=== PATIENT | female | born 1955 | race Two or more races ===

== ENCOUNTER 2016-04-17 09:33 | Emergency (ER) | payer OTHER ==
[~2016-04-17 09:33] MED LIST: ADV500INH INH; ALBU17IN INH; ASPI81TA GT; ATOR40TA PO; BREO1INH3 INH; BUPR150T5 PO; CARV6.25 PO; CILO50TA PO; DIGO0.25 PO; DULE200A INH; EFFE75CA75 PO; ELIQ5TAB PO; FERR325T3 PO; FOLI1TAB2 PO; GABA-279 PO; GEMF600T PO; GLIP2.5T6 PO; INCR1INH INH; IPRASOL4 INH; LISI10TA4 PO; MELA3CAP PO; NICO14PA TD; NITR4TASL SL; PANT40TA2 PO; TIOT18INH INH
[2016-04-17 10:25] LABS: BASO % 0.5 % (0.0-1.0); EOS # 0.1 K/mm3 (0.0-0.50); EOS % 1.5 % (0.0-3.0); LARGE UNSTAINED CELL # 0.1 K/mm3 (0.0-0.4); LARGE UNSTAINED CELL % 2.2 % (0.0-4.0); LYMPH % 19.5 % (24.0-44.0); MEAN CORPUSCULAR HEMOGLOBIN 28.2 pg (27.0-33.0); MEAN CORPUSCULAR HGB CONC 30.2 g/dl (32.0-36.5); MEAN CORPUSCULAR VOLUME 93.3 fl (80.0-96.0); MONO # 0.3 K/mm3 (0.0-0.8); MONO % 5.8 % (0.0-5.0); NEUTROPHILS # 3.7 K/mm3 (1.8-7.7); NEUTROPHILS % 70.5 % (36.0-66.0); PLATELET COUNT, AUTOMATED 165 k/mm3 (150-450); RED CELL DISTRIBUTION WIDTH 19.8 % (11.5-14.5); WHITE BLOOD COUNT 5.3 K/mm3 (4.0-10.0)
[2016-04-17 10:51] LABS: ANION GAP 9 MEQ/L (8-16); AST/SGOT 23 U/L (15-37); BLOOD UREA NITROGEN 12 MG/DL (7-18); CALCIUM LEVEL 8.3 MG/DL (8.5-10.1); CARBON DIOXIDE LEVEL 30 MEQ/L (21-32); CHLORIDE LEVEL 106 MEQ/L (98-107); CREATININE FOR GFR 0.92 MG/DL (0.55-1.02); GLOMERULAR FILTRATION RATE > 60.0 (>51); GLUCOSE, FASTING 173 MG/DL (70-105); POTASSIUM SERUM 3.6 MEQ/L (3.5-5.1); SODIUM LEVEL 145 MEQ/L (136-145)
[2016-04-17 10:52] LABS: ALBUMIN 3.1 GM/DL (3.2-5.2); ALBUMIN/GLOBULIN RATIO 1.11 (1.00-1.93); ALKALINE PHOSPHATASE 111 U/L (45-117); ALT/SGPT 23 U/L (12-78); BILIRUBIN,DIRECT 0.5 MG/DL (0.0-0.2); TOTAL PROTEIN 5.9 GM/DL (6.4-8.2)
[2016-04-17 12:08] LABS: ABG BASE EXCESS -0.2 (-2.0-2.0); ABG DEVICE NASAL CANN; ABG PARTIAL PRESSURE CO2 37.8 mmHg (35.0-45.0); ABG PARTIAL PRESSURE O2 148.3 mmHg (75.0-100.0); ABG STANDARD HCO3 24.4 MEQ/L (22.0-26.0); ABG TOTAL CO2 25.2 MEQ/L (22.0-29.0); ABG pH (ARTERIAL) 7.421 UNITS (7.350-7.450)
[2016-04-17] MEDS ORDERED: FUROSEMIDE 40 MG/4 ML VIAL (J1940) As Ordered ONE (14:36)
--- NOTE | 2016-04-17 15:06 | EDDOCDS ---
Physician Documentation [facility] Name: Maria Antonia Aj Age: 60 yrs Sex: Female : 1955 Arrival Date: 04/17/2016 Time: 09:33 Bed 15 Private MD: Jared Dobbs MD Disposition: 04/17/16 14:51 Discharged to Home/Self Care. Impression: Confusional arousals, Altered mental status, unspecified, Urinary tract infection, site not specified, Chronic diastolic (congestive) heart failure, Shortness of breath. - Condition is Stable. - Discharge Instructions: Heart Failure, Shortness of Breath, [id number], Urinary Tract Infection, [id number], Altered Mental Status. - Prescriptions for Macrobid 100 mg Oral Capsule - take 100 milligram by ORAL route every 12 hours for 10 days; 20 capsule. - Medication Reconciliation, Local Pharmacy Hours form. - Follow up: Fco Mcgraw; When: Call to arrange an appointment; Reason: Continuance of care. - Problem is an ongoing problem. - Symptoms are unchanged. - Notes: You have been evaluated for your periods of confusion, and shortness of breath. I have offered to complete a CT scan of your abdomen but you do not want to stay for further evalutation. You have some signs of a urinary tract infection an elevated basic naturetic peptide (a marker for Congestive Heart Failure), but a normal chest xray. I haveoffered to keep you in the ED for further evaluation, and possible admission, but you do not want to stay. I have explained the risks and benifits of admission and further evaluation, but you would like to go home. I have asked you to follow up with your primary care provider, your intake rn or return immediately to the ED if your symptoms worsen. Historical: - Allergies: no known allergies; - Home Meds: 1. albuterol sulfate 1.25 mg/3 mL inhalation nebu daily 2. atorvastatin 40 mg oral tab 1 tab once daily 3. bupropion HCl 150 mg Oral TbER 1 tab 2 times per day 4. cilostazol 50 mg oral tab 1 tab 2 times per day 5. Dulera 200-5 mcg/actuation inhalation HFAA 2 puffs 2 times per day needs new rx 6. ferrous sulfate 325 mg (65 mg iron) Oral cpER daily 7. folic acid 1 mg Oral tab 1 tab once daily 8. gabapentin 100 mg Oral cap 5 times daily 9. gemfibrozil 600 mg Oral tab 1 tab 2 times per day 10. glipizide 2.5 mg Oral tr24 once daily 11. melatonin 3 mg Oral tab nightly 12. pantoprazole 40 mg oral TbEC 1 tab once daily 13. venlafaxine 75 mg oral cp24 1 cap once daily 14. Vitamin B-12 500 mcg Oral tab daily 15. Vitamin C 500 mg Oral cpER daily 16. Nitrostat 0.4 mg SL subl 1 tab every 5 minutes - PMHx: COPD; Diabetes - NIDDM: controlled; GERD; Hypercholesterolemia; Hypertension; Pneumonia; Stage 4 concussion; - PSHx: Left hand surgery; Cholecystectomy; Hysterectomy; - Social history: Smoking status: Patient uses tobacco products, current every day smoker. No barriers to communication noted, The patient speaks fluent Czech. - Family history: Not pertinent. - : The pt / caregiver states he / she is not on anticoagulants. Home medication list is obtained from the patient. - Exposure Risk Screening:: None identified. Vital Signs: 04/17 09:34 BP 128 / 87; Pulse 94; Resp 18; Temp 97.3(O); Pulse Ox 95% on R/A; Weight 81.65 kg / elp 180.01 lbs (R); Height 5 ft. 4 in. (162.56 cm) (R); Pain 5/10; 10:33 BP 147 / 89 (auto/); ead 10:40 Pulse 90 MON; Resp 20; Pulse Ox 94% on R/A; ead 10:48 Pulse 88 MON; Pulse Ox 99% ; ead 10:48 BP 150 / 100 (auto/); ead 11:03 BP 144 / 95 (auto/); ead 11:03 Pulse 88 MON; Pulse Ox 100% ; ead 11:18 BP 140 / 89 (auto/); ead 11:18 Pulse 88 MON; Resp 18; Pulse Ox 100% 2 lpm ; ead 11:35 BP 126 / 80 (auto/); ead 11:38 Pulse 90 MON; Pulse Ox 100% ; ead 11:48 BP 135 / 85 (auto/); ead 11:48 Pulse 86 MON; Resp 18; Pulse Ox 100% on 2 lpm NC; ead 12:03 BP 136 / 80 (auto/); ead 12:03 Pulse 86 MON; Pulse Ox 95% ; ead 12:18 BP 129 / 75 (auto/); ead 12:23 Pulse 86 MON; Pulse Ox 99% ; ead 12:33 BP 158 / 77 (auto/); ead 12:33 Pulse 86 MON; Pulse Ox 98% ; ead 12:48 BP 156 / 79 (auto/); ead 12:48 Pulse 86 MON; Pulse Ox 99% ; ead 13:06 Pulse 84 MON; Resp 18; Pulse Ox 99% on 2 lpm NC; ead 13:18 BP 141 / 92 (auto/); ead 13:18 Pulse 84 MON; ead 13:33 BP 146 / 75 (auto/); ead 13:34 Pulse 84 MON; Resp 18; Pulse Ox 97% on 2 lpm NC; ead 13:48 BP 141 / 87 (auto/); ead 13:48 Pulse 84 MON; Pulse Ox 98% ; ead 14:03 BP 131 / 85 (auto/); ead 14:03 Pulse 84 MON; Pulse Ox 100% ; ead 14:18 BP 135 / 85 (auto/); ead 14:18 Pulse 84 MON; Resp 20; Pulse Ox 99% on 2 lpm NC; ead 14:33 BP 128 / 77 (auto/); ead 14:33 Pulse 84 MON; Pulse Ox 99% ; ead 14:48 BP 132 / 84 (auto/); ead 14:48 Pulse 82 MON; Pulse Ox 98% ; ead 14:57 Resp 20; Temp 97.1(O); ead 09:34 Body Mass Index 30.90 (81.65 kg, 162.56 cm) elp MDM: 10:13 Knowledge Architect/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 fg 10:13 Accucheck ordered. fg 10:13 IV Saline Lock ordered. fg 10:13 Oxygen at 4L/Min NC or Home dosage ordered. fg 10:13 Rhythm Strip to chart ordered. fg 10:14 CBC with Diff Ordered. EDMS 10:14 Cardiac Injury Profile Ordered. EDMS 10:14 Liver Profile Ordered. EDMS 10:14 MED Profile Ordered. EDMS 10:14 Thyroid Stimulating Hormone Ordered. EDMS 10:14 Troponin Ordered. EDMS 10:14 Urinalysis Ordered. EDMS 10:14 Urine Culture Ordered. EDMS 10:14 CT Head Without Contrast Ordered. EDMS 10:14 ECG WITH READING ER PHYS+CARDIAG ordered. EDMS 10:15 Chest, 1 View Ordered. EDMS 11:19 [facility] Payment Agreement was scanned into [employer] and attached to record. jp5 11:19 Financial registration complete. jp5 11:44 Call Respiratory ordered. fg 11:44 -Arterial Blood Gas Ordered. EDMS 11:44 BNP Ordered. EDMS 11:45 Call Respiratory complete. ead 14:23 Furosemide 40 mg IVP once ordered. fg Administered Medications: 14:42 Drug: Furosemide 40 mg [furosemide 10 mg/mL injection solution (4 mL)] Route: IVP; ead Site: left antecubital; 14:58 Follow up: Response: No Adverse Reaction ead Signatures: Dispatcher [employer] EDTX Francine Salazar RN Angelika Harrison RN RN ead Price, Jennalee jp5 Jerica Thompson MD MD The chart was reviewed and I authenticate all verbal orders and agree with the evaluation and treatment provided.Attachments: 11:19 [facility] Payment Agreement jp5 MTDD
--- NOTE | 2016-04-17 15:06 | EDDOCDS ---
Nurse's Notes [facility] Name: Maria Antonia Aj Age: 60 yrs Sex: Female : 1955 Arrival Date: 04/17/2016 Time: 09:33 Bed 15 Private MD: Jared Dobbs MD Diagnosis: Confusional arousals;Altered mental status, unspecified;Urinary tract infection, site not specified;Chronic diastolic (congestive) heart failure;Shortness of breath Presentation: 04/17 09:39 Presenting complaint: Patient states: fall down stairs this past Monday denies LOC, jjr pain to lower abd and right shoulder since fall, sister reports looking for things that arent there slurred speech and drowsiness since fall. Adult Sepsis Screening: Patient has new or worsening altered mentation (1 point). Patient's respiratory rate is less than 22. Systolic blood pressure is greater than 100. Patient has a qSOFA score of 1- Negative Sepsis Screen. Suicide/Homicide risk assessment- the patient denies having any suicidal and/or homicidal ideations and does not present with any other emotional, behavioral or mental health complaints. Status: Patient is not a auto service mechanic or dependent. Transition of care: patient was not received from another setting of care. 09:39 Method Of Arrival: Walkin/Carried/Asstd jjr 09:39 Acuity: RENATA Level 3 jjr Triage Assessment: 09:43 General: Appears in no apparent distress. Pain: Location: right lower quadrant, left jjr lower quadrant and anterior aspect of right shoulder. Pt Declines HIV testing. Neurological: Denies blurred vision headache. Historical: - Allergies: no known allergies; - Home Meds: 1. albuterol sulfate 1.25 mg/3 mL inhalation nebu daily 2. atorvastatin 40 mg oral tab 1 tab once daily 3. bupropion HCl 150 mg Oral TbER 1 tab 2 times per day 4. cilostazol 50 mg oral tab 1 tab 2 times per day 5. Dulera 200-5 mcg/actuation inhalation HFAA 2 puffs 2 times per day needs new rx 6. ferrous sulfate 325 mg (65 mg iron) Oral cpER daily 7. folic acid 1 mg Oral tab 1 tab once daily 8. gabapentin 100 mg Oral cap 5 times daily 9. gemfibrozil 600 mg Oral tab 1 tab 2 times per day 10. glipizide 2.5 mg Oral tr24 once daily 11. melatonin 3 mg Oral tab nightly 12. pantoprazole 40 mg oral TbEC 1 tab once daily 13. venlafaxine 75 mg oral cp24 1 cap once daily 14. Vitamin B-12 500 mcg Oral tab daily 15. Vitamin C 500 mg Oral cpER daily 16. Nitrostat 0.4 mg SL subl 1 tab every 5 minutes - PMHx: COPD; Diabetes - NIDDM: controlled; GERD; Hypercholesterolemia; Hypertension; Pneumonia; Stage 4 concussion; - PSHx: Left hand surgery; Cholecystectomy; Hysterectomy; - Social history: Smoking status: Patient uses tobacco products, current every day smoker. No barriers to communication noted, The patient speaks fluent French. - Family history: Not pertinent. - : The pt / caregiver states he / she is not on anticoagulants. Home medication list is obtained from the patient. - Exposure Risk Screening:: None identified. Screenin:40 Screening information is obtained from the patient. Fall risk: No risks identified. ead Assistance ADL's: requires no assistance with activities of daily living. Abuse/DV Screen: The patient / caregiver reports he/she is: not in a situation that causes fear, pain or injury. Nutritional screening: No deficits noted. home support is adequate. Assessment: 10:26 General: Appears in no apparent distress, comfortable, Behavior is appropriate for age, ead cooperative. Neurological: Level of Consciousness is awake, alert, obeys commands, Oriented to person, place, time. Cardiovascular: Chest pain is denied. Respiratory: Airway is patent Respiratory effort is even, unlabored. Respiratory: Denies shortness of breath. Derm: Skin is pink, warm & dry. 10:40 General: pt provided with specimen cup and instructed on order for UA. pt denies need ead to void at this time. . 11:29 General: pt ambulated to bathroom without difficulty. denies dizziness or pain. . ead 12:31 General: Appears in no apparent distress, comfortable, Behavior is appropriate for age, ead cooperative. Neurological: Level of Consciousness is awake, alert, Oriented to person, place, time. Respiratory: Airway is patent Respiratory effort is even, unlabored. Derm: Skin is pink, warm & dry. 13:35 General: Appears in no apparent distress, Behavior is appropriate for age, cooperative. ead Pain: Denies pain. Neurological: Level of Consciousness is awake, alert, obeys commands, Oriented to person, place, time. Cardiovascular: Rhythm is sinus rhythm Chest pain is denied. Respiratory: Airway is patent Respiratory effort is even, unlabored. Derm: Skin is pink, warm & dry. 14:23 General: Appears in no apparent distress, comfortable, Behavior is cooperative, pt and ead family awaiting results, Dr. Thompson aware. . Respiratory: Airway is patent Respiratory effort is even, unlabored. Derm: Skin is pink, warm & dry. Vital Signs: 09:34 BP 128 / 87; Pulse 94; Resp 18; Temp 97.3(O); Pulse Ox 95% on R/A; Weight 81.65 kg (R); elp Height 5 ft. 4 in. (162.56 cm) (R); Pain 5/10; 10:33 BP 147 / 89 (auto/); ead 10:40 Pulse 90 MON; Resp 20; Pulse Ox 94% on R/A; ead 10:48 Pulse 88 MON; Pulse Ox 99% ; ead 10:48 BP 150 / 100 (auto/); ead 11:03 BP 144 / 95 (auto/); ead 11:03 Pulse 88 MON; Pulse Ox 100% ; ead 11:18 BP 140 / 89 (auto/); ead 11:18 Pulse 88 MON; Resp 18; Pulse Ox 100% 2 lpm ; ead 11:35 BP 126 / 80 (auto/); ead 11:38 Pulse 90 MON; Pulse Ox 100% ; ead 11:48 BP 135 / 85 (auto/); ead 11:48 Pulse 86 MON; Resp 18; Pulse Ox 100% on 2 lpm NC; ead 12:03 BP 136 / 80 (auto/); ead 12:03 Pulse 86 MON; Pulse Ox 95% ; ead 12:18 BP 129 / 75 (auto/); ead 12:23 Pulse 86 MON; Pulse Ox 99% ; ead 12:33 BP 158 / 77 (auto/); ead 12:33 Pulse 86 MON; Pulse Ox 98% ; ead 12:48 BP 156 / 79 (auto/); ead 12:48 Pulse 86 MON; Pulse Ox 99% ; ead 13:06 Pulse 84 MON; Resp 18; Pulse Ox 99% on 2 lpm NC; ead 13:18 BP 141 / 92 (auto/); ead 13:18 Pulse 84 MON; ead 13:33 BP 146 / 75 (auto/); ead 13:34 Pulse 84 MON; Resp 18; Pulse Ox 97% on 2 lpm NC; ead 13:48 BP 141 / 87 (auto/); ead 13:48 Pulse 84 MON; Pulse Ox 98% ; ead 14:03 BP 131 / 85 (auto/); ead 14:03 Pulse 84 MON; Pulse Ox 100% ; ead 14:18 BP 135 / 85 (auto/); ead 14:18 Pulse 84 MON; Resp 20; Pulse Ox 99% on 2 lpm NC; ead 14:33 BP 128 / 77 (auto/); ead 14:33 Pulse 84 MON; Pulse Ox 99% ; ead 14:48 BP 132 / 84 (auto/); ead 14:48 Pulse 82 MON; Pulse Ox 98% ; ead 14:57 Resp 20; Temp 97.1(O); ead 09:34 Body Mass Index 30.90 (81.65 kg, 162.56 cm) elp Vitals: 09:34 Log In Time: April 17, 2016 at 09:32. RN notified that patient meets Red Flag elp criteria. ED Course: 09:34 Patient visited by Brittany Aggarwal PCA. elp 09:34 Jared Dobbs is Private Physician. elp 09:34 Patient moved to Waiting elp 09:35 Patient visited by Brittany Aggarwal PCA. elp 09:40 Triage Initiated jjr 09:44 Patient moved to Pre RCE jjr 09:53 Angelika Goodson,RN is Primary Nurse. jjr 09:53 Patient moved to 15 jjr 10:11 Jerica Thompson MD is Attending Physician. fg 10:15 Inserted saline lock: 20 gauge in left antecubital area and blood collected. The ead patient tolerated the procedure well. 10:17 Patient visited by Angelika Goodson,AUBREE. ead 10:17 CBC with Diff Sent. ead 10:17 Cardiac Injury Profile Sent. ead 10:17 Liver Profile Sent. ead 10:17 Troponin Sent. ead 10:17 Thyroid Stimulating Hormone Sent. ead 10:17 MED Profile Sent. ead 10:36 Patient visited by José Antonio Ortiz PCA. jrd 10:36 Pt greeted and oriented to ED. Patient advised of names of staff involved in care, jrd location of call chauhan, wait times and NPO status. Patient has correct armband on for positive identification. Placed in gown. Bed in low position. Call light in reach. Side rails up X2. monitoring tech on. Pulse ox on. NIBP on. 10:36 EKG done. (by ED staff). Reviewed by Jerica Thompson MD. jrd 10:40 The patient / caregiver is instructed regarding the plan of care and ED course. ead 10:40 O2 via nasal cannula \T\ 2L/min. ead 10:52 Patient visited by Jerica Thompson MD. fg 11:19 [facility] Payment Agreement was scanned into [employer] and attached to record. jp5 11:30 Patient visited by Angelika Goodson,AUBREE. ead 11:33 Urinalysis Sent. ead 11:33 Urine Culture Sent. ead 11:45 BNP Sent. ead 11:55 -Arterial Blood Gas Sent. km6 12:31 Patient visited by Angelika Goodson,AUBREE. ead 13:31 Patient visited by Angelika Goodson,AUBREE. ead 14:23 Patient visited by Angelika Goodson,AUBREE. ead 14:50 Fco Mcgraw is Referral Physician. fg 14:58 Discontinued lock intact, bleeding controlled, pressure dressing applied, No ead redness/swelling at site. No procedures done that require assistance. Administered Medications: 14:42 Drug: Furosemide 40 mg [furosemide 10 mg/mL injection solution (4 mL)] Route: IVP; ead Site: left antecubital; 14:58 Follow up: Response: No Adverse Reaction ead RT: 11:55 ABG's drawn from right brachial artery pressure held for 5 minutes specimen sent pt. km6 tolerated well. Order Results: Lab Order: CBC with Diff; SPEC'M 04/17/16 10:15 Test: WHITE BLOOD COUNT; Value: 5.3; Range: 4.0-10.0; Units: K/mm3; Status: F Test: RED BLOOD COUNT; Value: 4.41; Range: 4.00-5.40; Units: M/mm3; Status: F Test: HEMOGLOBIN; Value: 12.4; Range: 12.0-16.0; Units: g/dl; Status: F Test: HEMATOCRIT; Value: 41.1; Range: 36.0-47.0; Units: %; Status: F Test: MEAN CORPUSCULAR VOLUME; Value: 93.3; Range: 80.0-96.0; Units: fl; Status: F Test: MEAN CORPUSCULAR HEMOGLOBIN; Value: 28.2; Range: 27.0-33.0; Units: pg; Status: F Test: MEAN CORPUSCULAR HGB CONC; Value: 30.2; Range: 32.0-36.5; Abnormal: Below low normal; Units: g/dl; Status: F Test: RED CELL DISTRIBUTION WIDTH; Value: 19.8; Range: 11.5-14.5; Abnormal: Above high normal; Units: %; Status: F Test: PLATELET COUNT, AUTOMATED; Value: 165; Range: 150-450; Units: k/mm3; Status: F Test: NEUTROPHILS %; Value: 70.5; Range: 36.0-66.0; Abnormal: Above high normal; Units: %; Status: F Test: LYMPH %; Value: 19.5; Range: 24.0-44.0; Abnormal: Below low normal; Units: %; Status: F Test: MONO %; Value: 5.8; Range: 0.0-5.0; Abnormal: Above high normal; Units: %; Status: F Test: EOS %; Value: 1.5; Range: 0.0-3.0; Units: %; Status: F Test: BASO %; Value: 0.5; Range: 0.0-1.0; Units: %; Status: F Test: LARGE UNSTAINED CELL %; Value: 2.2; Range: 0.0-4.0; Units: %; Status: F Test: NEUTROPHILS #; Value: 3.7; Range: 1.8-7.7; Units: K/mm3; Status: F Test: LYMPH #; Value: 1.0; Range: 1.5-4.5; Abnormal: Below low normal; Units: K/mm3; Status: F Test: MONO #; Value: 0.3; Range: 0.0-0.8; Units: K/mm3; Status: F Test: EOS #; Value: 0.1; Range: 0.0-0.50; Units: K/mm3; Status: F Test: BASO #; Value: 0.0; Range: 0.0-0.2; Units: K/mm3; Status: F Test: LARGE UNSTAINED CELL #; Value: 0.1; Range: 0.0-0.4; Units: K/mm3; Status: F Lab Order: Cardiac Injury Profile; SPEC'M 04/17/16 10:15 Test: CPK CREATINE PHOSPHOKINASE; Value: 99; Range: 26-192; Units: U/L; Status: F Test: CK-MB VALUE MASS; Value: 3.9; Range: 0.0-3.6; Abnormal: Above high normal; Units: NG/ML; Status: F Test: MB/CK RELATIVE INDEX; Value: 3.93; Range: < OR =4; Status: F Test Note: ; DIAGNOSIS CRITERIA MMB ng/ml Relative Index (RI) NON-AMI < or = 5 N/A SCHWARZ ZONE > 5 < or = 4 AMI > 5 > 4 Lab Order: Liver Profile; SPEC'M 04/17/16 10:15 Test: AST/SGOT; Value: 23; Range: 15-37; Units: U/L; Status: F Test: ALT/SGPT; Value: 23; Range: 12-78; Units: U/L; Status: F Test: ALKALINE PHOSPHATASE; Value: 111; Range: 45-117; Units: U/L; Status: F Test: BILIRUBIN,TOTAL; Value: 1.0; Range: 0.2-1.0; Units: MG/DL; Status: F Test: BILIRUBIN,DIRECT; Value: 0.5; Range: 0.0-0.2; Abnormal: Above high normal; Units: MG/DL; Status: F Test: TOTAL PROTEIN; Value: 5.9; Range: 6.4-8.2; Abnormal: Below low normal; Units: GM/DL; Status: F Test: ALBUMIN; Value: 3.1; Range: 3.2-5.2; Abnormal: Below low normal; Units: GM/DL; Status: F Test: ALBUMIN/GLOBULIN RATIO; Value: 1.11; Range: 1.00-1.93; Status: F Lab Order: MED Profile; SPEC'04/17/16 10:15 Test: GLUCOSE, FASTING; Value: 173; Range: 70-105; Abnormal: Above high normal; Units: MG/DL; Status: F Test: BLOOD UREA NITROGEN; Value: 12; Range: 7-18; Units: MG/DL; Status: F Test: CREATININE FOR GFR; Value: 0.92; Range: 0.55-1.02; Units: MG/DL; Status: F Test: GLOMERULAR FILTRATION RATE; Value: > 60.0; Range: >51; Status: F Test: SODIUM LEVEL; Value: 145; Range: 136-145; Units: MEQ/L; Status: F Test: POTASSIUM SERUM; Value: 3.6; Range: 3.5-5.1; Units: MEQ/L; Status: F Test: CHLORIDE LEVEL; Value: 106; Range: 98-107; Units: MEQ/L; Status: F Test: CARBON DIOXIDE LEVEL; Value: 30; Range: 21-32; Units: MEQ/L; Status: F Test: ANION GAP; Value: 9; Range: 8-16; Units: MEQ/L; Status: F Test: CALCIUM LEVEL; Value: 8.3; Range: 8.5-10.1; Abnormal: Below low normal; Units: MG/DL; Status: F Test Note: ; Units are mL/min/1.73 m2 Chronic Kidney Disease Staging per NKF: Stage I & II GFR >=60 Normal to Mildly Decreased Stage III GFR 30-59 Moderately Decreased Stage IV GFR 15-29 Severely Decreased Stage V GFR <15 Very Little GFR Left ESRD GFR <15 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 0.10-1.50 ng/ml Increased Risk for Adverse Clinical Events. Evaluation of additional criterion and/or repeat testing in 2-6 hours is suggested to rule out myocardial damage. >= 1.50 ng/ml Indicative of Myocardial Injury. Lab Order: Urinalysis; SPEC'M 04/17/16 11:33 Test: APPEARANCE, URINE; Value: CLOUDY; Range: CLEAR; Abnormal: Above high normal; Status: F Test: COLOR, URINE; Value: YOSEF; Range: YELLOW; Status: F Test: PH,URINE; Value: 5.0; Range: 5.0-9.0; Units: UNITS; Status: F Test: SPECIFIC GRAVITY URINE AUTO; Value: 1.018; Range: 1.002-1.035; Status: F Test: PROTEIN, URINE AUTO; Value: 2+; Range: NEGATIVE; Abnormal: Above high normal; Units: mg/dL; Status: F Test: GLUCOSE, URINE (UA) AUTO; Value: NEGATIVE; Range: NEGATIVE; Units: mg/dL; Status: F Test: KETONE, URINE AUTO; Value: NEGATIVE; Range: NEGATIVE; Units: mg/dL; Status: F Test: UROBILINOGEN, URINE AUTO; Value: 2.0; Range: 0.0-2.0; Abnormal: Above high normal; Units: mg/dL; Status: F Test: BILIRUBIN, URINE AUTO; Value: NEGATIVE; Range: NEGATIVE; Status: F Test: NITRITE, URINE AUTO; Value: NEGATIVE; Range: NEGATIVE; Status: F Test: LEUKOCYTE ESTERASE, URINE AUTO; Value: 1+; Range: NEGATIVE; Abnormal: Above high normal; Status: F Test: BLOOD, URINE BLOOD; Value: 1+; Range: NEGATIVE; Abnormal: Above high normal; Status: F Test: WBC, URINE AUTO; Value: 5; Range: 0-3; Abnormal: Above high normal; Units: /HPF; Status: F Test: RBC, URINE AUTO; Value: 3; Range: 0-3; Units: /HPF; Status: F Test: BACTERIA, URINE AUTO; Value: NEGATIVE; Range: NEGATIVE; Status: F Test: SQUAMOUS EPITHELIAL CELL UR AU; Value: 2; Range: 0-6; Units: /HPF; Status: F Test: MUCUS, URINE; Value: SMALL; Range: NEGATIVE; Status: F Test: HYALINE CAST, URINE AUTO; Value: 0; Range: 0-1; Units: /LPF; Status: F Test: AMORPHOUS SEDIMENT; Range: NEGATIVE; Status: F Test Note: ; AMMONIUM BIURATE CRYSTALS PRESENT Lab Order: -Arterial Blood Gas; SPEC'M 04/17/16 11:48 Test: ABG pH (ARTERIAL); Value: 7.421; Range: 7.350-7.450; Units: UNITS; Status: F Test: ABG PARTIAL PRESSURE CO2; Value: 37.8; Range: 35.0-45.0; Units: mmHg; Status: F Test: ABG PARTIAL PRESSURE O2; Value: 148.3; Range: 75.0-100.0; Abnormal: Above high normal; Units: mmHg; Status: F Test: ABG TOTAL CO2; Value: 25.2; Range: 22.0-29.0; Units: MEQ/L; Status: F Test: ABG HCO3; Value: 24.0; Range: 22.0-26.0; Units: MEQ/L; Status: F Test: ABG BASE EXCESS; Value: -0.2; Range: -2.0-2.0; Status: F Test: ABG STANDARD HCO3; Value: 24.4; Range: 22.0-26.0; Units: MEQ/L; Status: F Test: ABG O2 SATURATION; Value: 99.3; Range: 95.0-99.0; Abnormal: Above high normal; Units: %; Status: F Test: ABG DEVICE; Value: NASAL KOFFI; Status: F Lab Order: BNP; SPEC'M 04/17/16 10:15 Test: BRAIN NATRIURETIC PEPTIDE; Value: 2490; Range: <100; Abnormal: Above high normal; Units: PG/ML; Status: F Outcome: 14:51 Discharge ordered by Provider. fg 14:58 Discharge Assessment: Patient awake and alert. obeys commands, Oriented to person, ead place and time. patient administered narcotics - no. The following High Risk Discharge criteria are identified: None. Discharged to home ambulatory, with family. Condition: improved. Discharge instructions given to patient, Instructed on discharge instructions, follow up and referral plans. medication usage, Demonstrated understanding of instructions, medications, Pt was receptive of discharge instructions/ teaching. CT Study completed. Property sent home with patient. 14:59 Prescriptions given X 1. ead 15:06 Patient left the ED. ead Signatures: Olinda Serra km6 Francine Salazar, RN RN Brittany Quiroga, STILL RUNNER STILL RUNNER Angelika Kerr,RN RN José Antonio Reyes, STILL RUNNER STILL RUNNER Kalli Chaudhary jp5 Jerica Thompson MD MD fg MTDD
--- NOTE | 2016-04-17 15:50 | ECGEPIP ---
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
--- NOTE | 2016-04-18 11:11 | REP ---
CT of the brain without IV contrast: Comparison is 2015. I suspect is a small right frontal scalp contusion. This should be confirmed clinically. There is no subdural or epidural hematoma. There is no hemorrhage. The cortical stripe is unremarkable. There is no edema, mass effect or midline shift. There is a degenerative falcine calcification anteriorly, unchanged. Impression: No subdural, hemorrhage, acute infarct or mass. Question small right frontal scalp contusion, please confirmed clinically. Otherwise, negative CT study of the brain. No interval change. Signed by Janak Lora MD 04/17/2016 10:30 A
--- NOTE | 2016-04-18 11:13 | REP ---
Chest a single PA view: Comparisons are 03/07/2016 and 03/06/2016. There is cardiomegaly and diffuse interstitial mild coarsening, unchanged. There are no focal infiltrates or masses. The osmar, mediastinum, bony thorax are unremarkable. Impression: No new or acute cardiopulmonary findings. There is cardiomegaly and mild interstitial coarsening, unchanged from the comparison studies. Signed by Janak Lora MD 04/17/2016 10:48 A
--- NOTE | 2016-04-19 16:05 | EDDOCDS ---
Physician Documentation [facility] Name: Maria Antonia Aj Age: 60 yrs Sex: Female : 1955 Arrival Date: 04/17/2016 Time: 09:33 Bed 15 Private MD: Jared Dobbs MD Disposition: 04/17/16 14:51 Discharged to Home/Self Care. Impression: Confusional arousals, Altered mental status, unspecified, Urinary tract infection, site not specified, Chronic diastolic (congestive) heart failure, Shortness of breath. - Condition is Stable. - Discharge Instructions: Heart Failure, Shortness of Breath, [id number], Urinary Tract Infection, Eilj-[id number], Altered Mental Status. - Prescriptions for Macrobid 100 mg Oral Capsule - take 100 milligram by ORAL route every 12 hours for 10 days; 20 capsule. - Medication Reconciliation, Local Pharmacy Hours form. - Follow up: Fco Mcgraw; When: Call to arrange an appointment; Reason: Continuance of care. - Problem is an ongoing problem. - Symptoms are unchanged. - Notes: You have been evaluated for your periods of confusion, and shortness of breath. I have offered to complete a CT scan of your abdomen but you do not want to stay for further evalutation. You have some signs of a urinary tract infection an elevated basic naturetic peptide (a marker for Congestive Heart Failure), but a normal chest xray. I haveoffered to keep you in the ED for further evaluation, and possible admission, but you do not want to stay. I have explained the risks and benifits of admission and further evaluation, but you would like to go home. 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 Historical: - Allergies: no known allergies; - Home Meds: 1. albuterol sulfate 1.25 mg/3 mL inhalation nebu daily 2. atorvastatin 40 mg oral tab 1 tab once daily 3. bupropion HCl 150 mg Oral TbER 1 tab 2 times per day 4. cilostazol 50 mg oral tab 1 tab 2 times per day 5. Dulera 200-5 mcg/actuation inhalation HFAA 2 puffs 2 times per day needs new rx 6. ferrous sulfate 325 mg (65 mg iron) Oral cpER daily 7. folic acid 1 mg Oral tab 1 tab once daily 8. gabapentin 100 mg Oral cap 5 times daily 9. gemfibrozil 600 mg Oral tab 1 tab 2 times per day 10. glipizide 2.5 mg Oral tr24 once daily 11. melatonin 3 mg Oral tab nightly 12. pantoprazole 40 mg oral TbEC 1 tab once daily 13. venlafaxine 75 mg oral cp24 1 cap once daily 14. Vitamin B-12 500 mcg Oral tab daily 15. Vitamin C 500 mg Oral cpER daily 16. Nitrostat 0.4 mg SL subl 1 tab every 5 minutes - PMHx: COPD; Diabetes - NIDDM: controlled; GERD; Hypercholesterolemia; Hypertension; Pneumonia; Stage 4 concussion; - PSHx: Left hand surgery; Cholecystectomy; Hysterectomy; - Social history: Smoking status: Patient uses tobacco products, current every day smoker. No barriers to communication noted, The patient speaks fluent Belarusian. - Family history: Not pertinent. - : The pt / caregiver states he / she is not on anticoagulants. Home medication list is obtained from the patient. - Exposure Risk Screening:: None identified. Vital Signs: 04/17 09:34 BP 128 / 87; Pulse 94; Resp 18; Temp 97.3(O); Pulse Ox 95% on R/A; Weight 81.65 kg / elp 180.01 lbs (R); Height 5 ft. 4 in. (162.56 cm) (R); Pain 5/10; 10:33 BP 147 / 89 (auto/); ead 10:40 Pulse 90 MON; Resp 20; Pulse Ox 94% on R/A; ead 10:48 Pulse 88 MON; Pulse Ox 99% ; ead 10:48 BP 150 / 100 (auto/); ead 11:03 BP 144 / 95 (auto/); ead 11:03 Pulse 88 MON; Pulse Ox 100% ; ead 11:18 BP 140 / 89 (auto/); ead 11:18 Pulse 88 MON; Resp 18; Pulse Ox 100% 2 lpm ; ead 11:35 BP 126 / 80 (auto/); ead 11:38 Pulse 90 MON; Pulse Ox 100% ; ead 11:48 BP 135 / 85 (auto/); ead 11:48 Pulse 86 MON; Resp 18; Pulse Ox 100% on 2 lpm NC; ead 12:03 BP 136 / 80 (auto/); ead 12:03 Pulse 86 MON; Pulse Ox 95% ; ead 12:18 BP 129 / 75 (auto/); ead 12:23 Pulse 86 MON; Pulse Ox 99% ; ead 12:33 BP 158 / 77 (auto/); ead 12:33 Pulse 86 MON; Pulse Ox 98% ; ead 12:48 BP 156 / 79 (auto/); ead 12:48 Pulse 86 MON; Pulse Ox 99% ; ead 13:06 Pulse 84 MON; Resp 18; Pulse Ox 99% on 2 lpm NC; ead 13:18 BP 141 / 92 (auto/); ead 13:18 Pulse 84 MON; ead 13:33 BP 146 / 75 (auto/); ead 13:34 Pulse 84 MON; Resp 18; Pulse Ox 97% on 2 lpm NC; ead 13:48 BP 141 / 87 (auto/); ead 13:48 Pulse 84 MON; Pulse Ox 98% ; ead 14:03 BP 131 / 85 (auto/); ead 14:03 Pulse 84 MON; Pulse Ox 100% ; ead 14:18 BP 135 / 85 (auto/); ead 14:18 Pulse 84 MON; Resp 20; Pulse Ox 99% on 2 lpm NC; ead 14:33 BP 128 / 77 (auto/); ead 14:33 Pulse 84 MON; Pulse Ox 99% ; ead 14:48 BP 132 / 84 (auto/); ead 14:48 Pulse 82 MON; Pulse Ox 98% ; ead 14:57 Resp 20; Temp 97.1(O); ead 09:34 Body Mass Index 30.90 (81.65 kg, 162.56 cm) elp MDM: 10:13 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 fg 10:13 Accucheck ordered. fg 10:13 IV Saline Lock ordered. fg 10:13 Oxygen at 4L/Min NC or Home dosage ordered. fg 10:13 Rhythm Strip to chart ordered. fg 10:14 CBC with Diff Ordered. EDMS 10:14 Cardiac Injury Profile Ordered. EDMS 10:14 Liver Profile Ordered. EDMS 10:14 MED Profile Ordered. EDMS 10:14 Thyroid Stimulating Hormone Ordered. EDMS 10:14 Troponin Ordered. EDMS 10:14 Urinalysis Ordered. EDMS 10:14 Urine Culture Ordered. EDMS 10:14 CT Head Without Contrast Ordered. EDMS 10:14 ECG WITH READING ER PHYS+CARDIAG ordered. EDMS 10:15 Chest, 1 View Ordered. EDMS 11:19 [facility] Payment Agreement was scanned into [employer] and attached to record. jp5 11:19 Financial registration complete. jp5 11:44 Call Respiratory ordered. fg 11:44 -Arterial Blood Gas Ordered. EDMS 11:44 BNP Ordered. EDMS 11:45 Call Respiratory complete. ead 14:23 Furosemide 40 mg IVP once ordered. fg 18:31 T-Sheet-- Draft Copy was scanned into [employer] and attached to record. r 04/18 10:37 ECG/EKG was scanned into [employer] and attached to record. gb Administered Medications: 04/17 14:42 Drug: Furosemide 40 mg [furosemide 10 mg/mL injection solution (4 mL)] Route: IVP; ead Site: left antecubital; 14:58 Follow up: Response: No Adverse Reaction ead Signatures: Dispatcher [employer] EDMS Teetee Carranza, Reg Reg gb Francine Salazar, RN RN Angelika LiconaRN RN kareemd Kalli Souza jp5 Jerica Thompson MD MD fg Redder, Kathie klr The chart was reviewed and I authenticate all verbal orders and agree with the evaluation and treatment provided.Attachments: 11:19 [facility] Payment Agreement 5 18:31 T-Sheet-- Draft Copy [facility] 04/18 10:37 ECG/EKG gb MTDD
--- NOTE | 2016-04-19 16:05 | EDDOCDS ---
Physician Documentation [facility] Name: Maria Antonia Aj Age: 60 yrs Sex: Female : 1955 Arrival Date: 04/17/2016 Time: 09:33 Bed 15 Private MD: Jared Dobbs MD Disposition: 04/17/16 14:51 Discharged to Home/Self Care. Impression: Confusional arousals, Altered mental status, unspecified, Urinary tract infection, site not specified, Chronic diastolic (congestive) heart failure, Shortness of breath. - Condition is Stable. - Discharge Instructions: Heart Failure, Shortness of Breath, [id number], Urinary Tract Infection, Uqdw-gr-Wudh, Altered Mental Status. - Prescriptions for Macrobid 100 mg Oral Capsule - take 100 milligram by ORAL route every 12 hours for 10 days; 20 capsule. - Medication Reconciliation, Local Pharmacy Hours form. - Follow up: Fco Mcgraw; When: Call to arrange an appointment; Reason: Continuance of care. - Problem is an ongoing problem. - Symptoms are unchanged. - Notes: You have been evaluated for your periods of confusion, and shortness of breath. I have offered to complete a CT scan of your abdomen but you do not want to stay for further evalutation. You have some signs of a urinary tract infection an elevated basic naturetic peptide (a marker for Congestive Heart Failure), but a normal chest xray. I haveoffered to keep you in the ED for further evaluation, and possible admission, but you do not want to stay. I have explained the risks and benifits of admission and further evaluation, but you would like to go home. 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 Historical: - Allergies: no known allergies; - Home Meds: 1. albuterol sulfate 1.25 mg/3 mL inhalation nebu daily 2. atorvastatin 40 mg oral tab 1 tab once daily 3. bupropion HCl 150 mg Oral TbER 1 tab 2 times per day 4. cilostazol 50 mg oral tab 1 tab 2 times per day 5. Dulera 200-5 mcg/actuation inhalation HFAA 2 puffs 2 times per day needs new rx 6. ferrous sulfate 325 mg (65 mg iron) Oral cpER daily 7. folic acid 1 mg Oral tab 1 tab once daily 8. gabapentin 100 mg Oral cap 5 times daily 9. gemfibrozil 600 mg Oral tab 1 tab 2 times per day 10. glipizide 2.5 mg Oral tr24 once daily 11. melatonin 3 mg Oral tab nightly 12. pantoprazole 40 mg oral TbEC 1 tab once daily 13. venlafaxine 75 mg oral cp24 1 cap once daily 14. Vitamin B-12 500 mcg Oral tab daily 15. Vitamin C 500 mg Oral cpER daily 16. Nitrostat 0.4 mg SL subl 1 tab every 5 minutes - PMHx: COPD; Diabetes - NIDDM: controlled; GERD; Hypercholesterolemia; Hypertension; Pneumonia; Stage 4 concussion; - PSHx: Left hand surgery; Cholecystectomy; Hysterectomy; - Social history: Smoking status: Patient uses tobacco products, current every day smoker. No barriers to communication noted, The patient speaks fluent Greenlandic. - Family history: Not pertinent. - : The pt / caregiver states he / she is not on anticoagulants. Home medication list is obtained from the patient. - Exposure Risk Screening:: None identified. Vital Signs: 04/17 09:34 BP 128 / 87; Pulse 94; Resp 18; Temp 97.3(O); Pulse Ox 95% on R/A; Weight 81.65 kg / elp 180.01 lbs (R); Height 5 ft. 4 in. (162.56 cm) (R); Pain 5/10; 10:33 BP 147 / 89 (auto/); ead 10:40 Pulse 90 MON; Resp 20; Pulse Ox 94% on R/A; ead 10:48 Pulse 88 MON; Pulse Ox 99% ; ead 10:48 BP 150 / 100 (auto/); ead 11:03 BP 144 / 95 (auto/); ead 11:03 Pulse 88 MON; Pulse Ox 100% ; ead 11:18 BP 140 / 89 (auto/); ead 11:18 Pulse 88 MON; Resp 18; Pulse Ox 100% 2 lpm ; ead 11:35 BP 126 / 80 (auto/); ead 11:38 Pulse 90 MON; Pulse Ox 100% ; ead 11:48 BP 135 / 85 (auto/); ead 11:48 Pulse 86 MON; Resp 18; Pulse Ox 100% on 2 lpm NC; ead 12:03 BP 136 / 80 (auto/); ead 12:03 Pulse 86 MON; Pulse Ox 95% ; ead 12:18 BP 129 / 75 (auto/); ead 12:23 Pulse 86 MON; Pulse Ox 99% ; ead 12:33 BP 158 / 77 (auto/); ead 12:33 Pulse 86 MON; Pulse Ox 98% ; ead 12:48 BP 156 / 79 (auto/); ead 12:48 Pulse 86 MON; Pulse Ox 99% ; ead 13:06 Pulse 84 MON; Resp 18; Pulse Ox 99% on 2 lpm NC; ead 13:18 BP 141 / 92 (auto/); ead 13:18 Pulse 84 MON; ead 13:33 BP 146 / 75 (auto/); ead 13:34 Pulse 84 MON; Resp 18; Pulse Ox 97% on 2 lpm NC; ead 13:48 BP 141 / 87 (auto/); ead 13:48 Pulse 84 MON; Pulse Ox 98% ; ead 14:03 BP 131 / 85 (auto/); ead 14:03 Pulse 84 MON; Pulse Ox 100% ; ead 14:18 BP 135 / 85 (auto/); ead 14:18 Pulse 84 MON; Resp 20; Pulse Ox 99% on 2 lpm NC; ead 14:33 BP 128 / 77 (auto/); ead 14:33 Pulse 84 MON; Pulse Ox 99% ; ead 14:48 BP 132 / 84 (auto/); ead 14:48 Pulse 82 MON; Pulse Ox 98% ; ead 14:57 Resp 20; Temp 97.1(O); ead 09:34 Body Mass Index 30.90 (81.65 kg, 162.56 cm) elp MDM: 10:13 Truck 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 fg 10:13 Accucheck ordered. fg 10:13 IV Saline Lock ordered. fg 10:13 Oxygen at 4L/Min NC or Home dosage ordered. fg 10:13 Rhythm Strip to chart ordered. fg 10:14 CBC with Diff Ordered. EDMS 10:14 Cardiac Injury Profile Ordered. EDMS 10:14 Liver Profile Ordered. EDMS 10:14 MED Profile Ordered. EDMS 10:14 Thyroid Stimulating Hormone Ordered. EDMS 10:14 Troponin Ordered. EDMS 10:14 Urinalysis Ordered. EDMS 10:14 Urine Culture Ordered. EDMS 10:14 CT Head Without Contrast Ordered. EDMS 10:14 ECG WITH READING ER PHYS+CARDIAG ordered. EDMS 10:15 Chest, 1 View Ordered. EDMS 11:19 [facility] Payment Agreement was scanned into [employer] and attached to record. jp5 11:19 Financial registration complete. jp5 11:44 Call Respiratory ordered. fg 11:44 -Arterial Blood Gas Ordered. EDMS 11:44 BNP Ordered. EDMS 11:45 Call Respiratory complete. ead 14:23 Furosemide 40 mg IVP once ordered. fg 18:31 T-Sheet-- Draft Copy was scanned into [employer] and attached to record. r 04/18 10:37 ECG/EKG was scanned into [employer] and attached to record. gb Administered Medications: 04/17 14:42 Drug: Furosemide 40 mg [furosemide 10 mg/mL injection solution (4 mL)] Route: IVP; ead Site: left antecubital; 14:58 Follow up: Response: No Adverse Reaction ead Signatures: Dispatcher [employer] EDMS Teetee Carranza, Reg Reg gb Francine Salazar, RN RN Angelika LiconaRN RN kareemd Kalli Souza jp5 Jerica Thompson MD MD fg Redder, Kathie klr The chart was reviewed and I authenticate all verbal orders and agree with the evaluation and treatment provided.Attachments: 11:19 [facility] Payment Agreement 5 18:31 T-Sheet-- Draft Copy [facility] 04/18 10:37 ECG/EKG gb MTDD
--- NOTE | 2016-04-19 16:07 | EDDOCDS ---
Nurse's Notes [facility] Name: Maria Antonia Martin Age: 60 yrs Sex: Female : 1955 Arrival Date: 04/17/2016 Time: 09:33 Bed 15 Private MD: Jared Dobbs MD Diagnosis: Confusional arousals;Altered mental status, unspecified;Urinary tract infection, site not specified;Chronic diastolic (congestive) heart failure;Shortness of breath Presentation: 04/17 09:39 Presenting complaint: Patient states: fall down stairs this past Monday denies LOC, jjr pain to lower abd and right shoulder since fall, sister reports looking for things that arent there slurred speech and drowsiness since fall. Adult Sepsis Screening: Patient has new or worsening altered mentation (1 point). Patient's respiratory rate is less than 22. Systolic blood pressure is greater than 100. Patient has a qSOFA score of 1- Negative Sepsis Screen. Suicide/Homicide risk assessment- the patient denies having any suicidal and/or homicidal ideations and does not present with any other emotional, behavioral or mental health complaints. Status: Patient is not a diesel service technician or dependent. Transition of care: patient was not received from another setting of care. 09:39 Method Of Arrival: Walkin/Carried/Asstd jjr 09:39 Acuity: RENATA Level 3 jjr Triage Assessment: 09:43 General: Appears in no apparent distress. Pain: Location: right lower quadrant, left jjr lower quadrant and anterior aspect of right shoulder. Pt Declines HIV testing. Neurological: Denies blurred vision headache. Historical: - Allergies: no known allergies; - Home Meds: 1. albuterol sulfate 1.25 mg/3 mL inhalation nebu daily 2. atorvastatin 40 mg oral tab 1 tab once daily 3. bupropion HCl 150 mg Oral TbER 1 tab 2 times per day 4. cilostazol 50 mg oral tab 1 tab 2 times per day 5. Dulera 200-5 mcg/actuation inhalation HFAA 2 puffs 2 times per day needs new rx 6. ferrous sulfate 325 mg (65 mg iron) Oral cpER daily 7. folic acid 1 mg Oral tab 1 tab once daily 8. gabapentin 100 mg Oral cap 5 times daily 9. gemfibrozil 600 mg Oral tab 1 tab 2 times per day 10. glipizide 2.5 mg Oral tr24 once daily 11. melatonin 3 mg Oral tab nightly 12. pantoprazole 40 mg oral TbEC 1 tab once daily 13. venlafaxine 75 mg oral cp24 1 cap once daily 14. Vitamin B-12 500 mcg Oral tab daily 15. Vitamin C 500 mg Oral cpER daily 16. Nitrostat 0.4 mg SL subl 1 tab every 5 minutes - PMHx: COPD; Diabetes - NIDDM: controlled; GERD; Hypercholesterolemia; Hypertension; Pneumonia; Stage 4 concussion; - PSHx: Left hand surgery; Cholecystectomy; Hysterectomy; - Social history: Smoking status: Patient uses tobacco products, current every day smoker. No barriers to communication noted, The patient speaks fluent Japanese. - Family history: Not pertinent. - : The pt / caregiver states he / she is not on anticoagulants. Home medication list is obtained from the patient. - Exposure Risk Screening:: None identified. Screenin:40 Screening information is obtained from the patient. Fall risk: No risks identified. ead Assistance ADL's: requires no assistance with activities of daily living. Abuse/DV Screen: The patient / caregiver reports he/she is: not in a situation that causes fear, pain or injury. Nutritional screening: No deficits noted. home support is adequate. Assessment: 10:26 General: Appears in no apparent distress, comfortable, Behavior is appropriate for age, ead cooperative. Neurological: Level of Consciousness is awake, alert, obeys commands, Oriented to person, place, time. Cardiovascular: Chest pain is denied. Respiratory: Airway is patent Respiratory effort is even, unlabored. Respiratory: Denies shortness of breath. Derm: Skin is pink, warm & dry. 10:40 General: pt provided with specimen cup and instructed on order for UA. pt denies need ead to void at this time. . 11:29 General: pt ambulated to bathroom without difficulty. denies dizziness or pain. . ead 12:31 General: Appears in no apparent distress, comfortable, Behavior is appropriate for age, ead cooperative. Neurological: Level of Consciousness is awake, alert, Oriented to person, place, time. Respiratory: Airway is patent Respiratory effort is even, unlabored. Derm: Skin is pink, warm & dry. 13:35 General: Appears in no apparent distress, Behavior is appropriate for age, cooperative. ead Pain: Denies pain. Neurological: Level of Consciousness is awake, alert, obeys commands, Oriented to person, place, time. Cardiovascular: Rhythm is sinus rhythm Chest pain is denied. Respiratory: Airway is patent Respiratory effort is even, unlabored. Derm: Skin is pink, warm & dry. 14:23 General: Appears in no apparent distress, comfortable, Behavior is cooperative, pt and ead family awaiting results, Dr. Thompson aware. . Respiratory: Airway is patent Respiratory effort is even, unlabored. Derm: Skin is pink, warm & dry. Vital Signs: 09:34 BP 128 / 87; Pulse 94; Resp 18; Temp 97.3(O); Pulse Ox 95% on R/A; Weight 81.65 kg (R); elp Height 5 ft. 4 in. (162.56 cm) (R); Pain 5/10; 10:33 BP 147 / 89 (auto/); ead 10:40 Pulse 90 MON; Resp 20; Pulse Ox 94% on R/A; ead 10:48 Pulse 88 MON; Pulse Ox 99% ; ead 10:48 BP 150 / 100 (auto/); ead 11:03 BP 144 / 95 (auto/); ead 11:03 Pulse 88 MON; Pulse Ox 100% ; ead 11:18 BP 140 / 89 (auto/); ead 11:18 Pulse 88 MON; Resp 18; Pulse Ox 100% 2 lpm ; ead 11:35 BP 126 / 80 (auto/); ead 11:38 Pulse 90 MON; Pulse Ox 100% ; ead 11:48 BP 135 / 85 (auto/); ead 11:48 Pulse 86 MON; Resp 18; Pulse Ox 100% on 2 lpm NC; ead 12:03 BP 136 / 80 (auto/); ead 12:03 Pulse 86 MON; Pulse Ox 95% ; ead 12:18 BP 129 / 75 (auto/); ead 12:23 Pulse 86 MON; Pulse Ox 99% ; ead 12:33 BP 158 / 77 (auto/); ead 12:33 Pulse 86 MON; Pulse Ox 98% ; ead 12:48 BP 156 / 79 (auto/); ead 12:48 Pulse 86 MON; Pulse Ox 99% ; ead 13:06 Pulse 84 MON; Resp 18; Pulse Ox 99% on 2 lpm NC; ead 13:18 BP 141 / 92 (auto/); ead 13:18 Pulse 84 MON; ead 13:33 BP 146 / 75 (auto/); ead 13:34 Pulse 84 MON; Resp 18; Pulse Ox 97% on 2 lpm NC; ead 13:48 BP 141 / 87 (auto/); ead 13:48 Pulse 84 MON; Pulse Ox 98% ; ead 14:03 BP 131 / 85 (auto/); ead 14:03 Pulse 84 MON; Pulse Ox 100% ; ead 14:18 BP 135 / 85 (auto/); ead 14:18 Pulse 84 MON; Resp 20; Pulse Ox 99% on 2 lpm NC; ead 14:33 BP 128 / 77 (auto/); ead 14:33 Pulse 84 MON; Pulse Ox 99% ; ead 14:48 BP 132 / 84 (auto/); ead 14:48 Pulse 82 MON; Pulse Ox 98% ; ead 14:57 Resp 20; Temp 97.1(O); ead 09:34 Body Mass Index 30.90 (81.65 kg, 162.56 cm) elp Vitals: 09:34 Log In Time: April 17, 2016 at 09:32. RN notified that patient meets Red Flag elp criteria. ED Course: 09:34 Patient visited by Brittany Aggarwal PCA. elp 09:34 Jared Dobbs is Private Physician. elp 09:34 Patient moved to Waiting elp 09:35 Patient visited by Brittany Aggarwal PCA. elp 09:40 Triage Initiated jjr 09:44 Patient moved to Pre RCE jjr 09:53 Angelika Goodson,RN is Primary Nurse. jjr 09:53 Patient moved to 15 jjr 10:11 Jerica Thompson MD is Attending Physician. fg 10:15 Inserted saline lock: 20 gauge in left antecubital area and blood collected. The ead patient tolerated the procedure well. 10:17 Patient visited by Angelika Goodson,AUBREE. ead 10:17 CBC with Diff Sent. ead 10:17 Cardiac Injury Profile Sent. ead 10:17 Liver Profile Sent. ead 10:17 Troponin Sent. ead 10:17 Thyroid Stimulating Hormone Sent. ead 10:17 MED Profile Sent. ead 10:36 Patient visited by José Antonio Ortiz PCA. jrd 10:36 Pt greeted and oriented to ED. Patient advised of names of staff involved in care, jrd location of call chauhan, wait times and NPO status. Patient has correct armband on for positive identification. Placed in gown. Bed in low position. Call light in reach. Side rails up X2. alarm security or surveillance monitor on. Pulse ox on. NIBP on. 10:36 EKG done. (by ED staff). Reviewed by Jerica Thompson MD. jrd 10:40 The patient / caregiver is instructed regarding the plan of care and ED course. ead 10:40 O2 via nasal cannula \T\ 2L/min. ead 10:52 Patient visited by Jerica Thompson MD. fg 11:19 [facility] Payment Agreement was scanned into [employer] and attached to record. jp5 11:30 Patient visited by Angelika Goodson,AUBREE. ead 11:33 Urinalysis Sent. ead 11:33 Urine Culture Sent. ead 11:45 BNP Sent. ead 11:55 -Arterial Blood Gas Sent. km6 12:31 Patient visited by Angelika Goodson,RN. ead 13:31 Patient visited by Angelika Goodson,RN. ead 14:23 Patient visited by Angelika Goodson,AUBREE. ead 14:50 Fco Mcgraw is Referral Physician. fg 14:58 Discontinued lock intact, bleeding controlled, pressure dressing applied, No ead redness/swelling at site. No procedures done that require assistance. 16:04 EKG-ADULT Returned. EDMS 18:31 T-Sheet-- Draft Copy was scanned into [employer] and attached to record. klr 04/18 10:37 ECG/EKG was scanned into [employer] and attached to record. gb 11:20 CT Head Without Contrast Returned. EDMS 11:20 Chest, 1 View Returned. EDMS Administered Medications: 04/17 14:42 Drug: Furosemide 40 mg [furosemide 10 mg/mL injection solution (4 mL)] Route: IVP; ead Site: left antecubital; 14:58 Follow up: Response: No Adverse Reaction ead RT: 11:55 ABG's drawn from right brachial artery pressure held for 5 minutes specimen sent pt. km6 tolerated well. Order Results: Lab Order: CBC with Diff; SPEC'M 04/17/16 10:15 Test: WHITE BLOOD COUNT; Value: 5.3; Range: 4.0-10.0; Units: K/mm3; Status: F Test: RED BLOOD COUNT; Value: 4.41; Range: 4.00-5.40; Units: M/mm3; Status: F Test: HEMOGLOBIN; Value: 12.4; Range: 12.0-16.0; Units: g/dl; Status: F Test: HEMATOCRIT; Value: 41.1; Range: 36.0-47.0; Units: %; Status: F Test: MEAN CORPUSCULAR VOLUME; Value: 93.3; Range: 80.0-96.0; Units: fl; Status: F Test: MEAN CORPUSCULAR HEMOGLOBIN; Value: 28.2; Range: 27.0-33.0; Units: pg; Status: F Test: MEAN CORPUSCULAR HGB CONC; Value: 30.2; Range: 32.0-36.5; Abnormal: Below low normal; Units: g/dl; Status: F Test: RED CELL DISTRIBUTION WIDTH; Value: 19.8; Range: 11.5-14.5; Abnormal: Above high normal; Units: %; Status: F Test: PLATELET COUNT, AUTOMATED; Value: 165; Range: 150-450; Units: k/mm3; Status: F Test: NEUTROPHILS %; Value: 70.5; Range: 36.0-66.0; Abnormal: Above high normal; Units: %; Status: F Test: LYMPH %; Value: 19.5; Range: 24.0-44.0; Abnormal: Below low normal; Units: %; Status: F Test: MONO %; Value: 5.8; Range: 0.0-5.0; Abnormal: Above high normal; Units: %; Status: F Test: EOS %; Value: 1.5; Range: 0.0-3.0; Units: %; Status: F Test: BASO %; Value: 0.5; Range: 0.0-1.0; Units: %; Status: F Test: LARGE UNSTAINED CELL %; Value: 2.2; Range: 0.0-4.0; Units: %; Status: F Test: NEUTROPHILS #; Value: 3.7; Range: 1.8-7.7; Units: K/mm3; Status: F Test: LYMPH #; Value: 1.0; Range: 1.5-4.5; Abnormal: Below low normal; Units: K/mm3; Status: F Test: MONO #; Value: 0.3; Range: 0.0-0.8; Units: K/mm3; Status: F Test: EOS #; Value: 0.1; Range: 0.0-0.50; Units: K/mm3; Status: F Test: BASO #; Value: 0.0; Range: 0.0-0.2; Units: K/mm3; Status: F Test: LARGE UNSTAINED CELL #; Value: 0.1; Range: 0.0-0.4; Units: K/mm3; Status: F Lab Order: Cardiac Injury Profile; SPEC' 04/17/16 10:15 Test: CPK CREATINE PHOSPHOKINASE; Value: 99; Range: 26-192; Units: U/L; Status: F Test: CK-MB VALUE MASS; Value: 3.9; Range: 0.0-3.6; Abnormal: Above high normal; Units: NG/ML; Status: F Test: MB/CK RELATIVE INDEX; Value: 3.93; Range: < OR =4; Status: F Test Note: ; DIAGNOSIS CRITERIA MMB ng/ml Relative Index (RI) NON-AMI < or = 5 N/A SCHWARZ ZONE > 5 < or = 4 AMI > 5 > 4 Lab Order: Liver Profile; SPEC'M 04/17/16 10:15 Test: AST/SGOT; Value: 23; Range: 15-37; Units: U/L; Status: F Test: ALT/SGPT; Value: 23; Range: 12-78; Units: U/L; Status: F Test: ALKALINE PHOSPHATASE; Value: 111; Range: 45-117; Units: U/L; Status: F Test: BILIRUBIN,TOTAL; Value: 1.0; Range: 0.2-1.0; Units: MG/DL; Status: F Test: BILIRUBIN,DIRECT; Value: 0.5; Range: 0.0-0.2; Abnormal: Above high normal; Units: MG/DL; Status: F Test: TOTAL PROTEIN; Value: 5.9; Range: 6.4-8.2; Abnormal: Below low normal; Units: GM/DL; Status: F Test: ALBUMIN; Value: 3.1; Range: 3.2-5.2; Abnormal: Below low normal; Units: GM/DL; Status: F Test: ALBUMIN/GLOBULIN RATIO; Value: 1.11; Range: 1.00-1.93; Status: F Lab Order: MED Profile; SPEC'M 04/17/16 10:15 Test: GLUCOSE, FASTING; Value: 173; Range: 70-105; Abnormal: Above high normal; Units: MG/DL; Status: F Test: BLOOD UREA NITROGEN; Value: 12; Range: 7-18; Units: MG/DL; Status: F Test: CREATININE FOR GFR; Value: 0.92; Range: 0.55-1.02; Units: MG/DL; Status: F Test: GLOMERULAR FILTRATION RATE; Value: > 60.0; Range: >51; Status: F Test: SODIUM LEVEL; Value: 145; Range: 136-145; Units: MEQ/L; Status: F Test: POTASSIUM SERUM; Value: 3.6; Range: 3.5-5.1; Units: MEQ/L; Status: F Test: CHLORIDE LEVEL; Value: 106; Range: 98-107; Units: MEQ/L; Status: F Test: CARBON DIOXIDE LEVEL; Value: 30; Range: 21-32; Units: MEQ/L; Status: F Test: ANION GAP; Value: 9; Range: 8-16; Units: MEQ/L; Status: F Test: CALCIUM LEVEL; Value: 8.3; Range: 8.5-10.1; Abnormal: Below low normal; Units: MG/DL; Status: F Test Note: ; Units are mL/min/1.73 m2 Chronic Kidney Disease Staging per NKF: Stage I & II GFR >=60 Normal to Mildly Decreased Stage III GFR 30-59 Moderately Decreased Stage IV GFR 15-29 Severely Decreased Stage V GFR <15 Very Little GFR Left ESRD GFR <15 on [employer]STRUCTOR [employer]PAR[employer]URE Lab Order: Thyroid Stimulating Hormone; SPEC'M 04/17/16 10:15 Test: THYROID STIMULATING HORMONE; Value: 1.720; Range: 0.358-3.740; Units: uIU/ML; Status: F Lab Order: Troponin; SPEC'M 04/17/16 10:15 Test: TROPONIN I; Value: 0.08; Range: < 0.10; Units: NG/ML; Status: F Test Note: ; Troponin I Reference Interval for [employer] LOCI: 99th Percentile= 0.00-0.045 ng/ml Risk Stratification: <= 0.10 ng/ml Decreased Risk for Adverse Clinical Events. 0.10-1.50 ng/ml Increased Risk for Adverse Clinical Events. Evaluation of additional criterion and/or repeat testing in 2-6 hours is suggested to rule out myocardial damage. >= 1.50 ng/ml Indicative of Myocardial Injury. Lab Order: Urinalysis; SPEC'M 04/17/16 11:33 Test: APPEARANCE, URINE; Value: CLOUDY; Range: CLEAR; Abnormal: Above high normal; Status: F Test: COLOR, URINE; Value: YOSEF; Range: YELLOW; Status: F Test: PH,URINE; Value: 5.0; Range: 5.0-9.0; Units: UNITS; Status: F Test: SPECIFIC GRAVITY URINE AUTO; Value: 1.018; Range: 1.002-1.035; Status: F Test: PROTEIN, URINE AUTO; Value: 2+; Range: NEGATIVE; Abnormal: Above high normal; Units: mg/dL; Status: F Test: GLUCOSE, URINE (UA) AUTO; Value: NEGATIVE; Range: NEGATIVE; Units: mg/dL; Status: F Test: KETONE, URINE AUTO; Value: NEGATIVE; Range: NEGATIVE; Units: mg/dL; Status: F Test: UROBILINOGEN, URINE AUTO; Value: 2.0; Range: 0.0-2.0; Abnormal: Above high normal; Units: mg/dL; Status: F Test: BILIRUBIN, URINE AUTO; Value: NEGATIVE; Range: NEGATIVE; Status: F Test: NITRITE, URINE AUTO; Value: NEGATIVE; Range: NEGATIVE; Status: F Test: LEUKOCYTE ESTERASE, URINE AUTO; Value: 1+; Range: NEGATIVE; Abnormal: Above high normal; Status: F Test: BLOOD, URINE BLOOD; Value: 1+; Range: NEGATIVE; Abnormal: Above high normal; Status: F Test: WBC, URINE AUTO; Value: 5; Range: 0-3; Abnormal: Above high normal; Units: /HPF; Status: F Test: RBC, URINE AUTO; Value: 3; Range: 0-3; Units: /HPF; Status: F Test: BACTERIA, URINE AUTO; Value: NEGATIVE; Range: NEGATIVE; Status: F Test: SQUAMOUS EPITHELIAL CELL UR AU; Value: 2; Range: 0-6; Units: /HPF; Status: F Test: MUCUS, URINE; Value: SMALL; Range: NEGATIVE; Status: F Test: HYALINE CAST, URINE AUTO; Value: 0; Range: 0-1; Units: /LPF; Status: F Test: AMORPHOUS SEDIMENT; Range: NEGATIVE; Status: F Test Note: ; AMMONIUM BIURATE CRYSTALS PRESENT Lab Order: Urine Culture; SPEC'M 04/17/16 11:33 Test: URINE CULTURE; Value: <EXTERNAL COMMENT eCWMed> FULL REPORT IN LAB NOTES (eCW and Medent).; Status: F Test: URINE CULTURE; Value: ORGANISM 1: KLEBSIELLA PNEUMONIAE; Status: F Test: URINE CULTURE; Value: KLEBSIELLA PNEUMONIAE; Status: F Test: URINE CULTURE; Value: COLONY COUNT CFU/ml 100,000; Status: F Test: URINE CULTURE; Value: GRAM NEG SENSI - VITEK 80; Status: F Test: URINE CULTURE; Value: Method: VIT2; Status: F Test: URINE CULTURE; Value: EXTD BRD SPCTRM BETA LACTAMASE -; Status: F Test: URINE CULTURE; Value: TRIMETHOPRIM/SULFAMETHOXAZOLE <=20 S; Status: F Test: URINE CULTURE; Value: AMPICILLIN >=32 R; Status: F Test: URINE CULTURE; Value: GENTAMICIN <=1 S; Status: F Test: URINE CULTURE; Value: NITROFURANTOIN 64 I; Status: F Test: URINE CULTURE; Value: CEFAZOLIN <=4 S; Status: F Test: URINE CULTURE; Value: LEVOFLOXACIN <=0.12 S; Status: F Test: URINE CULTURE; Value: TOBRAMYCIN <=1 S; Status: F Test: URINE CULTURE; Value: CEFTRIAXONE <=1 S; Status: F Test: URINE CULTURE; Value: CEFTAZIDIME <=1 S; Status: F Test: URINE CULTURE; Value: AMPICILLIN/SULBACTAM 4 S; Status: F Test: URINE CULTURE; Value: PIPERACILLIN/TAZOBACTAM <=4 S; Status: F Test: URINE CULTURE; Value: AZTREONAM <=1 S; Status: F Test: URINE CULTURE; Value: ERTAPENEM <=0.5 S; Status: F Test: URINE CULTURE; Value: MEROPENEM <=0.25 S; Status: F Test: URINE CULTURE; Value: TIGECYCLINE <=0.5 S; Status: F Test: URINE CULTURE; Value: CEFEPIME <=1 S; Status: F Lab Order: -Arterial Blood Gas; SPEC'M 04/17/16 11:48 Test: ABG pH (ARTERIAL); Value: 7.421; Range: 7.350-7.450; Units: UNITS; Status: F Test: ABG PARTIAL PRESSURE CO2; Value: 37.8; Range: 35.0-45.0; Units: mmHg; Status: F Test: ABG PARTIAL PRESSURE O2; Value: 148.3; Range: 75.0-100.0; Abnormal: Above high normal; Units: mmHg; Status: F Test: ABG TOTAL CO2; Value: 25.2; Range: 22.0-29.0; Units: MEQ/L; Status: F Test: ABG HCO3; Value: 24.0; Range: 22.0-26.0; Units: MEQ/L; Status: F Test: ABG BASE EXCESS; Value: -0.2; Range: -2.0-2.0; Status: F Test: ABG STANDARD HCO3; Value: 24.4; Range: 22.0-26.0; Units: MEQ/L; Status: F Test: ABG O2 SATURATION; Value: 99.3; Range: 95.0-99.0; Abnormal: Above high normal; Units: %; Status: F Test: ABG DEVICE; Value: NASAL KOFFI; Status: F Lab Order: BNP; SPEC'M 04/17/16 10:15 Test: BRAIN NATRIURETIC PEPTIDE; Value: 2490; Range: <100; Abnormal: Above high normal; Units: PG/ML; Status: F Radiology Order: CT Head Without Contrast Test: CT Head Without Contrast REASON FOR EXAMINATION: AMS after fall; CT of the brain without IV contrast:; ; Comparison is 2015.; ; I suspect is a small right frontal scalp contusion. This should be confirmed; clinically.; ; There is no subdural or epidural hematoma.; ; There is no hemorrhage.; ; The cortical stripe is unremarkable.; ; There is no edema, mass effect or midline shift.; ; There is a degenerative falcine calcification anteriorly, unchanged.; ; Impression:; ; No subdural, hemorrhage, acute infarct or mass. Question small right frontal; scalp contusion, please confirmed clinically. Otherwise, negative CT study of; the brain. No interval change.; ; ; Signed by; Janak Lora MD 04/17/2016 10:30 A; Radiology Order: Chest, 1 View Test: Chest, 1 View REASON FOR EXAMINATION: Chest Pain; Chest a single PA view:; ; Comparisons are 03/07/2016 and 03/06/2016.; ; There is cardiomegaly and diffuse interstitial mild coarsening, unchanged.; ; There are no focal infiltrates or masses.; ; The osmar, mediastinum, bony thorax are unremarkable.; ; Impression:; ; No new or acute cardiopulmonary findings.; ; There is cardiomegaly and mild interstitial coarsening, unchanged from the; comparison studies.; ; ; Signed by; Janak Lora MD 04/17/2016 10:48 A; Radiology Order: EKG-ADULT Test: EKG-ADULT REASON FOR EXAMINATION: Chest Pain; Stationary ECG Study; [facility] - ED; ; Test Date: 2016-04-17; Pat Name: MARIA ANTONIA MARTIN Department:; Room: -; Gender: F 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 fg 14:58 Discharge Assessment: Patient awake and alert. obeys commands, Oriented to person, ead place and time. patient administered narcotics - no. The following High Risk Discharge criteria are identified: None. Discharged to home ambulatory, with family. Condition: improved. Discharge instructions given to patient, Instructed on discharge instructions, follow up and referral plans. medication usage, Demonstrated understanding of instructions, medications, Pt was receptive of discharge instructions/ teaching. CT Study completed. Property sent home with patient. 14:59 Prescriptions given X 1. ead 15:06 Patient left the ED. ead Addendum: 04/19/2016 16:04 Narrative: Urine culture results reviewed with Markel Riley NP and no change in treatment kcs needed. Signatures: Dispatcher [employer] EDMS Leonora Malik, RN RN Teetee Ray, Reg Reg gb Olinda Serra km6 Francine Salazar, RN RN Brittany Quiroga, ASSISTANT CLINICAL NURSE MANAGER ASSISTANT CLINICAL NURSE MANAGER Angelika Kerr,RN RN José Antonio Reyes, ASSISTANT CLINICAL NURSE MANAGER ASSISTANT CLINICAL NURSE MANAGER Kalli Chaudhary jp5 Jerica Thompson MD MD fg Redder, Kathie klr Chart Complete KATHYA
--- NOTE | 2016-04-19 16:07 | EDDOCDS ---
Physician Documentation [facility] Name: Maria Antonia Aj Age: 60 yrs Sex: Female : 1955 Arrival Date: 04/17/2016 Time: 09:33 Bed 15 Private MD: Jared Dobbs MD Disposition: 04/17/16 14:51 Discharged to Home/Self Care. Impression: Confusional arousals, Altered mental status, unspecified, Urinary tract infection, site not specified, Chronic diastolic (congestive) heart failure, Shortness of breath. - Condition is Stable. - Discharge Instructions: Heart Failure, Shortness of Breath, [id number], Urinary Tract Infection, [id number], Altered Mental Status. - Prescriptions for Macrobid 100 mg Oral Capsule - take 100 milligram by ORAL route every 12 hours for 10 days; 20 capsule. - Medication Reconciliation, Local Pharmacy Hours form. - Follow up: Fco Mcgraw; When: Call to arrange an appointment; Reason: Continuance of care. - Problem is an ongoing problem. - Symptoms are unchanged. - Notes: You have been evaluated for your periods of confusion, and shortness of breath. I have offered to complete a CT scan of your abdomen but you do not want to stay for further evalutation. You have some signs of a urinary tract infection an elevated basic naturetic peptide (a marker for Congestive Heart Failure), but a normal chest xray. I haveoffered to keep you in the ED for further evaluation, and possible admission, but you do not want to stay. I have explained the risks and benifits of admission and further evaluation, but you would like to go home. I have asked you to follow up with your primary care provider, your javascript application developer or return immediately to the ED if your symptoms worsen. Historical: - Allergies: no known allergies; - Home Meds: 1. albuterol sulfate 1.25 mg/3 mL inhalation nebu daily 2. atorvastatin 40 mg oral tab 1 tab once daily 3. bupropion HCl 150 mg Oral TbER 1 tab 2 times per day 4. cilostazol 50 mg oral tab 1 tab 2 times per day 5. Dulera 200-5 mcg/actuation inhalation HFAA 2 puffs 2 times per day needs new rx 6. ferrous sulfate 325 mg (65 mg iron) Oral cpER daily 7. folic acid 1 mg Oral tab 1 tab once daily 8. gabapentin 100 mg Oral cap 5 times daily 9. gemfibrozil 600 mg Oral tab 1 tab 2 times per day 10. glipizide 2.5 mg Oral tr24 once daily 11. melatonin 3 mg Oral tab nightly 12. pantoprazole 40 mg oral TbEC 1 tab once daily 13. venlafaxine 75 mg oral cp24 1 cap once daily 14. Vitamin B-12 500 mcg Oral tab daily 15. Vitamin C 500 mg Oral cpER daily 16. Nitrostat 0.4 mg SL subl 1 tab every 5 minutes - PMHx: COPD; Diabetes - NIDDM: controlled; GERD; Hypercholesterolemia; Hypertension; Pneumonia; Stage 4 concussion; - PSHx: Left hand surgery; Cholecystectomy; Hysterectomy; - Social history: Smoking status: Patient uses tobacco products, current every day smoker. No barriers to communication noted, The patient speaks fluent Maori. - Family history: Not pertinent. - : The pt / caregiver states he / she is not on anticoagulants. Home medication list is obtained from the patient. - Exposure Risk Screening:: None identified. Vital Signs: 04/17 09:34 BP 128 / 87; Pulse 94; Resp 18; Temp 97.3(O); Pulse Ox 95% on R/A; Weight 81.65 kg / elp 180.01 lbs (R); Height 5 ft. 4 in. (162.56 cm) (R); Pain 5/10; 10:33 BP 147 / 89 (auto/); ead 10:40 Pulse 90 MON; Resp 20; Pulse Ox 94% on R/A; ead 10:48 Pulse 88 MON; Pulse Ox 99% ; ead 10:48 BP 150 / 100 (auto/); ead 11:03 BP 144 / 95 (auto/); ead 11:03 Pulse 88 MON; Pulse Ox 100% ; ead 11:18 BP 140 / 89 (auto/); ead 11:18 Pulse 88 MON; Resp 18; Pulse Ox 100% 2 lpm ; ead 11:35 BP 126 / 80 (auto/); ead 11:38 Pulse 90 MON; Pulse Ox 100% ; ead 11:48 BP 135 / 85 (auto/); ead 11:48 Pulse 86 MON; Resp 18; Pulse Ox 100% on 2 lpm NC; ead 12:03 BP 136 / 80 (auto/); ead 12:03 Pulse 86 MON; Pulse Ox 95% ; ead 12:18 BP 129 / 75 (auto/); ead 12:23 Pulse 86 MON; Pulse Ox 99% ; ead 12:33 BP 158 / 77 (auto/); ead 12:33 Pulse 86 MON; Pulse Ox 98% ; ead 12:48 BP 156 / 79 (auto/); ead 12:48 Pulse 86 MON; Pulse Ox 99% ; ead 13:06 Pulse 84 MON; Resp 18; Pulse Ox 99% on 2 lpm NC; ead 13:18 BP 141 / 92 (auto/); ead 13:18 Pulse 84 MON; ead 13:33 BP 146 / 75 (auto/); ead 13:34 Pulse 84 MON; Resp 18; Pulse Ox 97% on 2 lpm NC; ead 13:48 BP 141 / 87 (auto/); ead 13:48 Pulse 84 MON; Pulse Ox 98% ; ead 14:03 BP 131 / 85 (auto/); ead 14:03 Pulse 84 MON; Pulse Ox 100% ; ead 14:18 BP 135 / 85 (auto/); ead 14:18 Pulse 84 MON; Resp 20; Pulse Ox 99% on 2 lpm NC; ead 14:33 BP 128 / 77 (auto/); ead 14:33 Pulse 84 MON; Pulse Ox 99% ; ead 14:48 BP 132 / 84 (auto/); ead 14:48 Pulse 82 MON; Pulse Ox 98% ; ead 14:57 Resp 20; Temp 97.1(O); ead 09:34 Body Mass Index 30.90 (81.65 kg, 162.56 cm) elp MDM: 10:13 Director Of Photography/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 fg 10:13 Accucheck ordered. fg 10:13 IV Saline Lock ordered. fg 10:13 Oxygen at 4L/Min NC or Home dosage ordered. fg 10:13 Rhythm Strip to chart ordered. fg 10:14 CBC with Diff Ordered. EDMS 10:14 Cardiac Injury Profile Ordered. EDMS 10:14 Liver Profile Ordered. EDMS 10:14 MED Profile Ordered. EDMS 10:14 Thyroid Stimulating Hormone Ordered. EDMS 10:14 Troponin Ordered. EDMS 10:14 Urinalysis Ordered. EDMS 10:14 Urine Culture Ordered. EDMS 10:14 CT Head Without Contrast Ordered. EDMS 10:14 ECG WITH READING ER PHYS+CARDIAG ordered. EDMS 10:15 Chest, 1 View Ordered. EDMS 11:19 [facility] Payment Agreement was scanned into MED[employer] and attached to record. jp5 11:19 Financial registration complete. jp5 11:44 Call Respiratory ordered. fg 11:44 -Arterial Blood Gas Ordered. EDMS 11:44 BNP Ordered. EDMS 11:45 Call Respiratory complete. ead 14:23 Furosemide 40 mg IVP once ordered. fg 18:31 T-Sheet-- Draft Copy was scanned into [employer] and attached to record. r 04/18 10:37 ECG/EKG was scanned into [employer] and attached to record. gb Administered Medications: 04/17 14:42 Drug: Furosemide 40 mg [furosemide 10 mg/mL injection solution (4 mL)] Route: IVP; ead Site: left antecubital; 14:58 Follow up: Response: No Adverse Reaction ead Signatures: Dispatcher MedHost EDMS Teetee Carranza, Reg Reg gb Francine Salazar, RN RN Angelika LiconaRN RN kareemd Kalli Souza jp5 Jerica Thompson MD MD fg Redder, Kathie klr The chart was reviewed and I authenticate all verbal orders and agree with the evaluation and treatment provided.Attachments: 11:19 [facility] Payment Agreement 5 18:31 T-Sheet-- Draft Copy [facility] 04/18 10:37 ECG/EKG gb Chart Complete MTDD
--- NOTE | 2016-04-19 16:07 | EDDOCDS ---
Physician Documentation [facility] Name: Maria Antonia Aj Age: 60 yrs Sex: Female : 1955 Arrival Date: 04/17/2016 Time: 09:33 Bed 15 Private MD: Jared Dobbs MD Disposition: 04/17/16 14:51 Discharged to Home/Self Care. Impression: Confusional arousals, Altered mental status, unspecified, Urinary tract infection, site not specified, Chronic diastolic (congestive) heart failure, Shortness of breath. - Condition is Stable. - Discharge Instructions: Heart Failure, Shortness of Breath, Qnat-sw-[id number], Urinary Tract Infection, [id number], Altered Mental Status. - Prescriptions for Macrobid 100 mg Oral Capsule - take 100 milligram by ORAL route every 12 hours for 10 days; 20 capsule. - Medication Reconciliation, Local Pharmacy Hours form. - Follow up: Fco Mcgraw; When: Call to arrange an appointment; Reason: Continuance of care. - Problem is an ongoing problem. - Symptoms are unchanged. - Notes: You have been evaluated for your periods of confusion, and shortness of breath. I have offered to complete a CT scan of your abdomen but you do not want to stay for further evalutation. You have some signs of a urinary tract infection an elevated basic naturetic peptide (a marker for Congestive Heart Failure), but a normal chest xray. I haveoffered to keep you in the ED for further evaluation, and possible admission, but you do not want to stay. I have explained the risks and benifits of admission and further evaluation, but you would like to go home. I have asked you to follow up with your primary care provider, your associate dean or return immediately to the ED if your symptoms worsen. Historical: - Allergies: no known allergies; - Home Meds: 1. albuterol sulfate 1.25 mg/3 mL inhalation nebu daily 2. atorvastatin 40 mg oral tab 1 tab once daily 3. bupropion HCl 150 mg Oral TbER 1 tab 2 times per day 4. cilostazol 50 mg oral tab 1 tab 2 times per day 5. Dulera 200-5 mcg/actuation inhalation HFAA 2 puffs 2 times per day needs new rx 6. ferrous sulfate 325 mg (65 mg iron) Oral cpER daily 7. folic acid 1 mg Oral tab 1 tab once daily 8. gabapentin 100 mg Oral cap 5 times daily 9. gemfibrozil 600 mg Oral tab 1 tab 2 times per day 10. glipizide 2.5 mg Oral tr24 once daily 11. melatonin 3 mg Oral tab nightly 12. pantoprazole 40 mg oral TbEC 1 tab once daily 13. venlafaxine 75 mg oral cp24 1 cap once daily 14. Vitamin B-12 500 mcg Oral tab daily 15. Vitamin C 500 mg Oral cpER daily 16. Nitrostat 0.4 mg SL subl 1 tab every 5 minutes - PMHx: COPD; Diabetes - NIDDM: controlled; GERD; Hypercholesterolemia; Hypertension; Pneumonia; Stage 4 concussion; - PSHx: Left hand surgery; Cholecystectomy; Hysterectomy; - Social history: Smoking status: Patient uses tobacco products, current every day smoker. No barriers to communication noted, The patient speaks fluent Bulgarian. - Family history: Not pertinent. - : The pt / caregiver states he / she is not on anticoagulants. Home medication list is obtained from the patient. - Exposure Risk Screening:: None identified. Vital Signs: 04/17 09:34 BP 128 / 87; Pulse 94; Resp 18; Temp 97.3(O); Pulse Ox 95% on R/A; Weight 81.65 kg / elp 180.01 lbs (R); Height 5 ft. 4 in. (162.56 cm) (R); Pain 5/10; 10:33 BP 147 / 89 (auto/); ead 10:40 Pulse 90 MON; Resp 20; Pulse Ox 94% on R/A; ead 10:48 Pulse 88 MON; Pulse Ox 99% ; ead 10:48 BP 150 / 100 (auto/); ead 11:03 BP 144 / 95 (auto/); ead 11:03 Pulse 88 MON; Pulse Ox 100% ; ead 11:18 BP 140 / 89 (auto/); ead 11:18 Pulse 88 MON; Resp 18; Pulse Ox 100% 2 lpm ; ead 11:35 BP 126 / 80 (auto/); ead 11:38 Pulse 90 MON; Pulse Ox 100% ; ead 11:48 BP 135 / 85 (auto/); ead 11:48 Pulse 86 MON; Resp 18; Pulse Ox 100% on 2 lpm NC; ead 12:03 BP 136 / 80 (auto/); ead 12:03 Pulse 86 MON; Pulse Ox 95% ; ead 12:18 BP 129 / 75 (auto/); ead 12:23 Pulse 86 MON; Pulse Ox 99% ; ead 12:33 BP 158 / 77 (auto/); ead 12:33 Pulse 86 MON; Pulse Ox 98% ; ead 12:48 BP 156 / 79 (auto/); ead 12:48 Pulse 86 MON; Pulse Ox 99% ; ead 13:06 Pulse 84 MON; Resp 18; Pulse Ox 99% on 2 lpm NC; ead 13:18 BP 141 / 92 (auto/); ead 13:18 Pulse 84 MON; ead 13:33 BP 146 / 75 (auto/); ead 13:34 Pulse 84 MON; Resp 18; Pulse Ox 97% on 2 lpm NC; ead 13:48 BP 141 / 87 (auto/); ead 13:48 Pulse 84 MON; Pulse Ox 98% ; ead 14:03 BP 131 / 85 (auto/); ead 14:03 Pulse 84 MON; Pulse Ox 100% ; ead 14:18 BP 135 / 85 (auto/); ead 14:18 Pulse 84 MON; Resp 20; Pulse Ox 99% on 2 lpm NC; ead 14:33 BP 128 / 77 (auto/); ead 14:33 Pulse 84 MON; Pulse Ox 99% ; ead 14:48 BP 132 / 84 (auto/); ead 14:48 Pulse 82 MON; Pulse Ox 98% ; ead 14:57 Resp 20; Temp 97.1(O); ead 09:34 Body Mass Index 30.90 (81.65 kg, 162.56 cm) elp MDM: 10:13 Donation Worker/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 fg 10:13 Accucheck ordered. fg 10:13 IV Saline Lock ordered. fg 10:13 Oxygen at 4L/Min NC or Home dosage ordered. fg 10:13 Rhythm Strip to chart ordered. fg 10:14 CBC with Diff Ordered. EDMS 10:14 Cardiac Injury Profile Ordered. EDMS 10:14 Liver Profile Ordered. EDMS 10:14 MED Profile Ordered. EDMS 10:14 Thyroid Stimulating Hormone Ordered. EDMS 10:14 Troponin Ordered. EDMS 10:14 Urinalysis Ordered. EDMS 10:14 Urine Culture Ordered. EDMS 10:14 CT Head Without Contrast Ordered. EDMS 10:14 ECG WITH READING ER PHYS+CARDIAG ordered. EDMS 10:15 Chest, 1 View Ordered. EDMS 11:19 [facility] Payment Agreement was scanned into MEDHOST and attached to record. jp5 11:19 Financial registration complete. jp5 11:44 Call Respiratory ordered. fg 11:44 -Arterial Blood Gas Ordered. EDMS 11:44 BNP Ordered. EDMS 11:45 Call Respiratory complete. ead 14:23 Furosemide 40 mg IVP once ordered. fg 18:31 T-Sheet-- Draft Copy was scanned into [employer] and attached to record. r 04/18 10:37 ECG/EKG was scanned into [employer] and attached to record. gb Administered Medications: 04/17 14:42 Drug: Furosemide 40 mg [furosemide 10 mg/mL injection solution (4 mL)] Route: IVP; ead Site: left antecubital; 14:58 Follow up: Response: No Adverse Reaction ead Signatures: Dispatcher MedHost EDMS Teetee Carranza, Reg Reg gb Francine Salazar, RN RN Angelika LiconaRN RN kareemd Kalli Souza jp5 Jerica Thompson MD MD fg Redder, Kathie klr The chart was reviewed and I authenticate all verbal orders and agree with the evaluation and treatment provided.Attachments: 11:19 [facility] Payment Agreement 5 18:31 T-Sheet-- Draft Copy [facility] 04/18 10:37 ECG/EKG gb Chart Complete MTDD
== END 2016-04-17 15:06 | disposition home or self-care (01) ==
LOC: M ED 09:33
DX: R41.82 Altered mental status, unspecified (principal); I50.9 Heart failure, unspecified; N39.0 Urinary tract infection, site not specified; I12.9 Hypertensive chronic kidney disease with stage 1 through stage 4 chronic kidney disease, or unspecified chronic kidney disease; E11.22 Type 2 diabetes mellitus with diabetic chronic kidney disease; N18.9 Chronic kidney disease, unspecified; J44.9 Chronic obstructive pulmonary disease, unspecified; E78.00 Pure hypercholesterolemia, unspecified; Z87.828 Personal history of other (healed) physical injury and trauma; Z87.09 Personal history of other diseases of the respiratory system; Z79.899 Other long term (current) drug therapy; Z79.84 Long term (current) use of oral hypoglycemic drugs; F17.210 Nicotine dependence, cigarettes, uncomplicated
CPT/HCPCS: 36415; 36600; 70450; 71010; 80048; 80076; 81001; 82550; 82553; 82803; 83880; 84443; 85025; 87088; 87186; 93005; 93041; 96374; 99285; J1940

== ENCOUNTER 2016-04-25 10:01 | Inpatient (IN) | payer OTHER ==
[~2016-04-25] VITALS: Ht 162.6 cm; Wt 80.4 kg
[2016-04-25] MEDS: PANTOPRAZOLE 40MG TAB (PROTONIX) PO SCH (09:00)
[2016-04-25] MEDS: FOLIC ACID 1 MG TAB PO SCH (09:00)
[~2016-04-25 10:01] MED LIST changes: +NICOTINE 21MG/24HR 1 EA TRANSDERMAL TD SCH
[2016-04-25 10:51] LABS: ABG BASE EXCESS 6.7 (-2.0-2.0); ABG DEVICE NASAL CANN; ABG HCO3 31.5 MEQ/L (22.0-26.0); ABG STANDARD HCO3 30.5 MEQ/L (22.0-26.0); ABG pH (ARTERIAL) 7.454 UNITS (7.350-7.450)
[2016-04-25 10:56] LABS: MEAN CORPUSCULAR HEMOGLOBIN 28.2 pg (27.0-33.0); MEAN CORPUSCULAR HGB CONC 30.2 g/dl (32.0-36.5); MEAN CORPUSCULAR VOLUME 93.5 fl (80.0-96.0); RED CELL DISTRIBUTION WIDTH 18.2 % (11.5-14.5); WHITE BLOOD COUNT 5.3 K/mm3 (4.0-10.0)
[2016-04-25 11:25] LABS: ALBUMIN 3.4 GM/DL (3.2-5.2); ALKALINE PHOSPHATASE 117 U/L (45-117); ALT/SGPT 33 U/L (12-78); ANION GAP 8 MEQ/L (8-16); AST/SGOT 34 U/L (15-37); BILIRUBIN,DIRECT 0.5 MG/DL (0.0-0.2); BILIRUBIN,TOTAL 1.1 MG/DL (0.2-1.0); BLOOD UREA NITROGEN 12 MG/DL (7-18); CALCIUM LEVEL 8.5 MG/DL (8.5-10.1); CARBON DIOXIDE LEVEL 30 MEQ/L (21-32); CHLORIDE LEVEL 102 MEQ/L (98-107); CREATININE FOR GFR 1.18 MG/DL (0.55-1.02); GLOMERULAR FILTRATION RATE 49.9 (>51); GLUCOSE, FASTING 253 MG/DL (70-105); POTASSIUM SERUM 3.6 MEQ/L (3.5-5.1); SODIUM LEVEL 140 MEQ/L (136-145); TOTAL PROTEIN 6.5 GM/DL (6.4-8.2)
--- NOTE | 2016-04-25 11:27 | REP ---
Chest x-ray: Two views. History: Cough. Findings: The heart is enlarged unchanged. Pulmonary vasculature is not increased. Lung almendarez are well inflated and clear. Pleural angles are sharp. Impression: Cardiomegaly. Otherwise no acute disease. Signed by Anuel Olguin MD 04/25/2016 02:33 P
--- NOTE | 2016-04-25 11:37 | REP ---
CT HEAD WITHOUT CONTRAST: HISTORY: Altered mental status. COMPARISON: 04/17/2016. Areas of decreased attenuation are present in the periventricular white matter. This represents small vessel ischemic disease. There is no intraparenchymal hemorrhage, mass or midline shift. The ventricular system and cortical sulci are dilated consistent with minimal volume loss. There is no extracerebral collection. The visualized sinuses are clear. IMPRESSION: 1. Small vessel ischemic disease. 2. Minimal volume loss. Signed by Antoni Sebastian MD 04/25/2016 11:41 A
[2016-04-25] MEDS ORDERED: GEMFIBROZIL 600 MG TAB PO ONE (12:45)
[2016-04-25 14:14] LABS: AMPHETAMINES LEVEL URINE NEGATIVE (NEGATIVE); BENZODIAZEPINES URINE NEGATIVE (NEGATIVE); COCAINE METABOLITE URINE NEGATIVE (NEGATIVE); CONTROL LINE INT CTR LINE PRESENT; METHADONE URINE NEGATIVE (NEGATIVE); OPIATES URINE NEGATIVE (NEGATIVE); TRICYCLIC ANTIDEPRESS URINE NEGATIVE (NEGATIVE)
--- NOTE | 2016-04-25 16:18 | EDDOCDS ---
Physician Documentation [facility] Name: Maria Antonia Aj Age: 60 yrs Sex: Female : 1955 Arrival Date: 04/25/2016 Time: 10:01 Bed [facility] Private MD: Disposition: 04/25/16 15:12 Hospitalization ordered by Dionisio Orellana for Inpatient Admission. 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 - Bed requested for Admit. - Status is Inpatient Admission. me3 - Condition is Stable. - Problem is new. - Symptoms are unchanged. Historical: - Allergies: no known allergies; - Home Meds: 1. Dulera 200-5 mcg/actuation inhalation HFAA 2 puffs 2 times per day needs new rx (Last dose: Unknown) 2. Nitrostat 0.4 mg SL subl 1 tab every 5 minutes (Last dose: Unknown) 3. albuterol sulfate 1.25 mg/3 mL Inhl nebu daily (Last dose: 04/25/2016 00:00) 4. atorvastatin 40 mg oral tab 1 tab once daily (Last dose: 04/24/2016) 5. bupropion HCl 150 mg Oral TbER 1 tab 2 times per day (Last dose: 04/24/2016) 6. cilostazol 50 mg oral tab 1 tab 2 times per day (Last dose: 04/24/2016) 7. ferrous sulfate 325 mg (65 mg iron) Oral cpER daily (Last dose: 04/24/2016) 8. folic acid 1 mg Oral tab 1 tab once daily (Last dose: 04/24/2016) 9. gabapentin 100 mg Oral cap 5 times daily (Last dose: 04/24/2016) 10. gemfibrozil 600 mg Oral tab 1 tab 2 times per day (Last dose: 04/24/2016) 11. melatonin 3 mg Oral tab nightly (Last dose: 04/24/2016) 12. pantoprazole 40 mg oral TbEC 1 tab once daily (Last dose: 04/24/2016) 13. venlafaxine 75 mg oral cp24 1 cap once daily (Last dose: 04/24/2016) 14. Vitamin B-12 500 mcg Oral tab daily (Last dose: 04/24/2016) 15. Vitamin C 500 mg Oral cpER daily (Last dose: 04/24/2016) - PMHx: COPD; Diabetes - NIDDM: controlled; GERD; Hypercholesterolemia; Hypertension; Pneumonia; Stage 4 concussion; - PSHx: Left hand surgery; Cholecystectomy; Hysterectomy; - Social history: Smoking status: Patient uses tobacco products, heavy tobacco smoker. No barriers to communication noted, Speaks appropriately for age. - Family history: Not pertinent. - : The pt / caregiver states he / she is not on anticoagulants. Home medication list is obtained from the patient. - Exposure Risk Screening:: None identified. Vital Signs: 04/25 10:11 BP 175 / 92; Pulse 46; Resp 16; Temp 98.3(O); Pulse Ox 98% on R/A; Weight 79.38 kg / ml6 175 lbs (R); Height 5 ft. 4 in. (162.56 cm) (R); Pain 0/10; 10:45 BP 148 / 91 (auto/); kc3 10:45 Pulse 93 MON; Pulse Ox 95% ; kc3 11:00 BP 130 / 76 (auto/); kc3 11:00 Pulse 93 MON; Pulse Ox 94% ; kc3 11:11 Pulse 94 MON; Pulse Ox 95% ; kc3 11:15 BP 148 / 98 (auto/); kc3 11:30 BP 157 / 105 (auto/); kc3 11:31 Pulse 95 MON; Pulse Ox 95% ; kc3 11:44 Pulse 95 MON; Pulse Ox 94% ; kc3 11:45 BP 146 / 97 (auto/); kc3 11:53 Pulse 94 MON; Pulse Ox 94% ; kc3 12:00 BP 140 / 85 (auto/); kc3 12:15 BP 135 / 78 (auto/); kc3 12:16 Pulse 92 MON; Pulse Ox 93% ; kc3 16:15 BP 158 / 78; Pulse 94; Resp 18; Temp 98.6; Pulse Ox 93% on R/A; me3 10:11 Body Mass Index 30.04 (79.38 kg, 162.56 cm) ml6 MDM: 10:17 Consult PFS/PSA/Masonry Installer ordered. ml6 10:17 Consult PFS/PSA/Masonry Installer: Patient's case requires discussion with on-call ml6 Psychiatrist ordered. 10:17 PSA/PFS to call Nursing Security System Administrator, to enter patient data on [place] Safe Act if patient ml6 involuntarily admitted or transferred for SI or HI ordered. 10:17 Confirm accurate psychiatric medication list and times of last dosage ordered. ml6 10:17 Detain Pt Until Medically/PFS Cleared ordered. ml6 10:18 -Arterial Blood Gas Ordered. EDMS 10:18 Acetaminophen Level Ordered. EDMS 10:18 Basic Metabolic Profile Ordered. EDMS 10:18 Complete Blood Count Ordered. EDMS 10:18 Drug Eval Toxicology ED Only Ordered. EDMS 10:18 Ethyl Alcohol (ethanol) Ordered. EDMS 10:18 Liver Profile Ordered. EDMS 10:18 Salicylate Level Ordered. EDMS 10:19 Thyroid Stimulating Hormone Ordered. EDMS 10:19 ECG WITH READING ER PHYS+CARDIAG ordered. EDMS 10:20 Chest, 2 View (pa\E\lat) Ordered. EDMS 10:23 Accucheck ordered. ml 10:24 Ammonia ([place] Tube on Ice, Not [place]a Green) Ordered. EDMS 10:24 CT Head Without Contrast Ordered. EDMS 10:59 CARDIAC INJURY PROFILE Ordered. EDMS 10:59 TROPONIN Ordered. EDMS 11:26 -Arterial Blood Gas Reviewed. ml 11:26 Complete Blood Count Reviewed. ml 11:26 Ammonia ([place] Tube on Ice, Not [place]a Green) Reviewed. ml 11:52 Acetaminophen Level Reviewed. ml 11:52 Basic Metabolic Profile Reviewed. ml 11:52 Liver Profile Reviewed. ml 11:52 Salicylate Level Reviewed. ml 11:52 CARDIAC INJURY PROFILE Reviewed. ml 11:52 Ethyl Alcohol (ethanol) Reviewed. ml 11:52 Thyroid Stimulating Hormone Reviewed. ml 11:52 TROPONIN Reviewed. ml 11:54 Misc. Nursing Order ordered. ml 11:54 Misc. Nursing Order ordered. ml 11:54 Vital Signs ordered. ml 12:09 Fingerstick Blood Sugar Ordered. EDMS 12:27 Gemfibrozil 600 mg PO once ordered. ml 12:28 Misc. Nursing Order ordered. ml 13:10 [facility] [place] Agreement was scanned into [employer] and attached to record. jp5 13:10 Financial registration complete. jp5 14:20 REGULAR DIET PLASTIC GONSALEZ+DIET ordered. EDMS 14:36 Fingerstick Blood Sugar Reviewed. ml 14:36 Drug Eval Toxicology ED Only Reviewed. ml 14:36 Chest, 2 View (pa\E\lat) Reviewed. ml 14:36 CT Head Without Contrast Reviewed. ml 14:47 Admit to [facility]: ordered. EDMS 15:35 [facility] Legal paperwork was scanned into [employer] and attached to record. ml4 16:02 [facility] Legal paperwork was scanned into [employer] and attached to record. ml4 16:13 Consult PFS/PSA/Masonry Installer complete. me3 16:13 Consult PFS/PSA/Masonry Installer: Patient's case requires discussion with on-call tn3 Psychiatrist complete. 16:13 PSA/PFS to call Nursing Security System Administrator, to enter patient data [place] Safe [place] if patient me3 involuntarily admitted or transferred for SI or HI complete. Point of Care Testing: Blood Glucose: 10:52 Blood Glucose: 288 mg/dL; kc3 Ranges: Administered Medications: 12:59 Drug: Gemfibrozil 600 mg Route: PO; kc3 Signatures: Dispatcher MedHost [facility] Mallorie Simon MD MD ml Lori Mckenna,FOOD SERVER FOOD SERVER me3 Odalys Wills, PSA PSA ml4 Stanley Kamara, RN RN ml6 Kalli Souza jp5 Shima Calvillo,AUBREE RN kc3 The chart was reviewed and I authenticate all verbal orders and agree with the evaluation and treatment provided.Corrections: (The following items were deleted from the chart) 10:59 10:24 CARDIAC INJURY PROFILE+LAB ordered. [facility] EDNH 10:59 10:24 TROPONIN+LAB ordered. [facility] EDNH 12:13 10:14 Home Meds: albuterol sulfate 1.25 mg/3 mL Inhl nebu daily (Last Dose: Unknown); kc3 ml6 12:13 10:14 Home Meds: atorvastatin 40 mg oral tab 1 tab once daily (Last Dose: Unknown); 6 kc3 12:13 10:14 Home Meds: bupropion HCl 150 mg Oral TbER 1 tab 2 times per day (Last Dose: kc3 Unknown); 6 12:13 10:14 Home Meds: cilostazol 50 mg oral tab 1 tab 2 times per day (Last Dose: Unknown); kc3 ml6 12:13 10:14 Home Meds: ferrous sulfate 325 mg (65 mg iron) Oral cpER daily (Last Dose: kc3 Unknown); 6 12:13 10:14 Home Meds: folic acid 1 mg Oral tab 1 tab once daily (Last Dose: Unknown); ml6 kc3 12: 10:14 Home Meds: gabapentin 100 mg Oral cap; 5 times daily (Last Dose: Unknown); 6 kc3 12: 10:14 Home Meds: gemfibrozil 600 mg Oral tab 1 tab 2 times per day (Last Dose: 3 Unknown); [facility] 12: 10:14 Home Meds: glipizide 2.5 mg Oral tr24 once daily (Last Dose: Unknown); 6 kc3 12: 10:14 Home Meds: melatonin 3 mg Oral tab nightly (Last Dose: Unknown); [facility] kc3 12: 10:14 Home Meds: pantoprazole 40 mg oral TbEC 1 tab once daily (Last Dose: Unknown); [facility] 12: 10:14 Home Meds: venlafaxine 75 mg oral cp24 1 cap once daily (Last Dose: Unknown); 6 kc3 12: 10:14 Home Meds: Vitamin B-12 500 mcg Oral tab daily (Last Dose: Unknown); 6 kc3 12: 10:14 Home Meds: Vitamin C 500 mg Oral cpER daily (Last Dose: Unknown); 6 kc3 12: 12:13 Home Meds: glipizide 2.5 mg Oral tr24 once daily (Last Dose: 04/24/2016); kc3 kc3 : 13:10 [facility] Payment Agreement jp5 MTDD
--- NOTE | 2016-04-25 16:19 | EDDOCDS ---
Nurse's Notes [facility] Name: Maria Antonia Aj Age: 60 yrs Sex: Female : 1955 Arrival Date: 04/25/2016 Time: 10:01 Bed [facility] Private MD: Diagnosis: Unspecified psychosis not due to a substance or known physiological condition Presentation: 04/25 10:05 Presenting complaint: Patient states: states that she does not know why she is being ml6 brought here (per state police; patient was having visual hallucinations). Mental Health Triage Level: Level 2: 94.1. Adult Sepsis Screening: The patient does not have new or worsening altered mentation. Patient's respiratory rate is less than 22. Systolic blood pressure is greater than 100. Patient has a qSOFA score of 0- Negative Sepsis Screen. Suicide/Homicide risk assessment- the patient denies having any suicidal and/or homicidal ideations and does not present with any other emotional, behavioral or mental health complaints. Status: Patient is not a repair servicer or dependent. Transition of care: patient was not received from another setting of care. Red Flag criteria, patient assessed and taken directly to a bed. 10:05 Acuity: RENATA Level 3 ml6 10:05 Method Of Arrival: Police Car ml6 Triage Assessment: 10:05 General: Appears in no apparent distress, Behavior is appropriate for age, cooperative. ml6 Pain: Denies pain. HIV screening NA for this visit Offered previously. Neurological: No deficits noted. Cardiovascular: No deficits noted. Capillary refill < 3 seconds is brisk in bilateral fingers toes. Respiratory: No deficits noted. Airway is patent Respiratory effort is even, unlabored, Respiratory pattern is regular, symmetrical, Breath sounds are diminished bilaterally. Historical: - Allergies: no known allergies; - Home Meds: 1. Dulera 200-5 mcg/actuation inhalation HFAA 2 puffs 2 times per day needs new rx (Last dose: Unknown) 2. Nitrostat 0.4 mg SL subl 1 tab every 5 minutes (Last dose: Unknown) 3. albuterol sulfate 1.25 mg/3 mL Inhl nebu daily (Last dose: 04/25/2016 00:00) 4. atorvastatin 40 mg oral tab 1 tab once daily (Last dose: 04/24/2016) 5. bupropion HCl 150 mg Oral TbER 1 tab 2 times per day (Last dose: 04/24/2016) 6. cilostazol 50 mg oral tab 1 tab 2 times per day (Last dose: 04/24/2016) 7. ferrous sulfate 325 mg (65 mg iron) Oral cpER daily (Last dose: 04/24/2016) 8. folic acid 1 mg Oral tab 1 tab once daily (Last dose: 04/24/2016) 9. gabapentin 100 mg Oral cap 5 times daily (Last dose: 04/24/2016) 10. gemfibrozil 600 mg Oral tab 1 tab 2 times per day (Last dose: 04/24/2016) 11. melatonin 3 mg Oral tab nightly (Last dose: 04/24/2016) 12. pantoprazole 40 mg oral TbEC 1 tab once daily (Last dose: 04/24/2016) 13. venlafaxine 75 mg oral cp24 1 cap once daily (Last dose: 04/24/2016) 14. Vitamin B-12 500 mcg Oral tab daily (Last dose: 04/24/2016) 15. Vitamin C 500 mg Oral cpER daily (Last dose: 04/24/2016) - PMHx: COPD; Diabetes - NIDDM: controlled; GERD; Hypercholesterolemia; Hypertension; Pneumonia; Stage 4 concussion; - PSHx: Left hand surgery; Cholecystectomy; Hysterectomy; - Social history: Smoking status: Patient uses tobacco products, heavy tobacco smoker. No barriers to communication noted, Speaks appropriately for age. - Family history: Not pertinent. - : The pt / caregiver states he / she is not on anticoagulants. Home medication list is obtained from the patient. - Exposure Risk Screening:: None identified. Screenin:52 Screening information is obtained from the patient. Fall risk: No risks identified. kc3 Assistance ADL's: requires no assistance with activities of daily living. Abuse/DV Screen: The patient / caregiver reports he/she is: not in a situation that causes fear, pain or injury. Nutritional screening: No deficits noted. home support is inadequate. 16:13 Advance Directives: Currently, there is no health care proxy. me3 Assessment: 10:50 General: Appears in no apparent distress, comfortable, Behavior is appropriate for age, kc3 cooperative. Pain: Denies pain. Neurological: Level of Consciousness is awake, alert, obeys commands, Oriented to person, place, time, Family reports pt with hallucinations at home. Pt denies hallucinations at this time. . Cardiovascular: Rhythm is regular. Respiratory: Airway is patent Respiratory effort is even, unlabored, Respiratory pattern is regular, symmetrical. Derm: Skin is pink, warm & dry. Musculoskeletal: Circulation, motion, and sensation intact Swelling present in right foot and left foot. 11:30 General: Appears in no apparent distress, comfortable, Behavior is appropriate for age, kc3 cooperative. Pain: Denies pain. Neurological: Level of Consciousness is awake, alert, obeys commands, Oriented to person, place, time, Pt ambulated to restroom with steady gait. Pt verbalized gave urine specimen and left it sitting on bathroom sink. This RN found pt urinated in toilet with urine specimen left empty. Dr. Franklin aware. . Respiratory: Airway is patent Respiratory effort is even, unlabored. Derm: Skin is pink, warm & dry. Musculoskeletal: Circulation, motion, and sensation intact. 12:29 General: Appears in no apparent distress, comfortable, Behavior is appropriate for age, kc3 cooperative, Pt resting on stretcher with family at bedside. Pt med list updated. No complaints at this time. . Pain: Denies pain. Neurological: Level of Consciousness is awake, alert, obeys commands. Respiratory: Airway is patent Respiratory effort is even, unlabored. Derm: Skin is pink, warm & dry. 13:30 General: Appears in no apparent distress, comfortable, Behavior is appropriate for age, me3 cooperative. Respiratory: Airway is patent Respiratory effort is even, unlabored, Respiratory pattern is regular, symmetrical. 14:25 General: Appears in no apparent distress, comfortable, Behavior is appropriate for age, me3 cooperative. Respiratory: Airway is patent Respiratory effort is even, unlabored, Respiratory pattern is regular. 15:15 General: Appears in no apparent distress, comfortable, Behavior is cooperative. me3 Respiratory: Airway is patent Respiratory effort is even, unlabored. Derm: Skin is pink, warm & dry. Mental Health Eval: 14:47 Mental health consult is initiated at 14:00. Status: The patient is not a ms repair servicer or dependent. [facility] Behavioral Health: The patient is not an established patient of [facility] Behavioral Health. Referral Information: Evaluation referral is generated by a police agency: [facility]. The patient was referred for evaluation because Pt .family member called police after pt .was throwing items from her upstairs apartment window and was yelling and screaming. Recent concerns that pt. has been having VH/AH and paranoia. Subjective: The patients chief complaint is Pt. states she does not know why she is in ER and is angry that she was brought here. She is guarded during interview. She does admit to throwing items out of window today, at first stating they were items that she just didn't want any longer but then did state she was upset and was letting off steam. Pt. would not elaborate about why she was angry except for saying she thinks they just want her out of there. Pt. son, daughter in law and step granddaughter live in apt below her. Pt. answers 'no' to SI/HI, AV/VH. She states she does have difficulty sleeping.. Delusions are denied. Patient's mood is angry, anxious, Auditory Hallucinations are suspected by family. Visual Hallucinations are suspected by family. Pt. halle (Jacob [phone]) states that during last month pt. has been exhibiting concerning symptoms. Niece states that pt. has stated that people have been taking things from her apartment and has stated that she was unable to get into her bedroom because there was a bear in there and stated there was a radio on in the apartment that others did not here. She states pt .has head episodes of rambling speech, not making sense. Pt. jackieece stated that pt. did have concerns that her son had been using her debit card without permission and that she stated she was going to leave the apartment but when this worker asked pt. about such concerns, pt. stated that everything was fine at home and she did not have any issues to discuss. Mental Health history: depression, Mental Health Admissions: None. Current Outpatient Mental Health Services: None. Current living environment is The patient currently lives alone. 15:12 Patient presents to Emergency Department with the following symptoms within the past 2 ms weeks: anger, auditory hallucinations family visual hallucinations, family paranoia, poor impulse control, sleep disturbance - insomnia. Substance abuse: Pt denies. Mental status exam: Patients appearance is appropriate, Patient's behavior is agitated, Speech is normal. Affect is appropriate. Mood is angry. Hallucinations are denied. Appetite is normal. Memory is good. Energy level is normal. Content of thought is paranoid. stated people have been taking things from her apt Thought process is intact. Cognitive level is oriented to person, place, time and situation Patient's insight is poor. Judgement is poor. Rapport with interviewer is guarded. Suicidal Ideation is denied. Homicidal ideation is denied. Disposition: Medically cleared for disposition by Mallorie Simon MD Psychiatric Consult is performed by phone with Dr Dionisio Orellana MD. [facility] Admission Criteria: The patient displays behavior that is destructive to property. The patient displays symptoms of severe psychiatric disorder resulting in disordered behavior and significant interference with his / her ability to maintain self care. Hallucinations. Legal Status: Patient's legal status will be Emergency admission: . [place] is [place] because the patient does not display any suicidal or homicidal ideations and does not pose a risk to self or others. 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 Vital Signs: 10:11 BP 175 / 92; Pulse 46; Resp 16; Temp 98.3(O); Pulse Ox 98% on R/A; Weight 79.38 kg (R); ml6 Height 5 ft. 4 in. (162.56 cm) (R); Pain 0/10; 10:45 BP 148 / 91 (auto/); kc3 10:45 Pulse 93 MON; Pulse Ox 95% ; kc3 11:00 BP 130 / 76 (auto/); kc3 11:00 Pulse 93 MON; Pulse Ox 94% ; kc3 11:11 Pulse 94 MON; Pulse Ox 95% ; kc3 11:15 BP 148 / 98 (auto/); kc3 11:30 BP 157 / 105 (auto/); kc3 11:31 Pulse 95 MON; Pulse Ox 95% ; kc3 11:44 Pulse 95 MON; Pulse Ox 94% ; kc3 11:45 BP 146 / 97 (auto/); kc3 11:53 Pulse 94 MON; Pulse Ox 94% ; kc3 12:00 BP 140 / 85 (auto/); kc3 12:15 BP 135 / 78 (auto/); kc3 12:16 Pulse 92 MON; Pulse Ox 93% ; kc3 16:15 BP 158 / 78; Pulse 94; Resp 18; Temp 98.6; Pulse Ox 93% on R/A; me3 10:11 Body Mass Index 30.04 (79.38 kg, 162.56 cm) ml6 Vitals: 10:11 Log In Time: April 25, 2016 at 10:05. ml6 ED Course: 10:05 Patient visited by Kalli Souza. jp5 10:05 Patient moved to Waiting jp5 10:06 Patient visited by Stanley Kamara, AUBREE. ml6 10:06 Patient moved to [facility] ml6 10:11 Triage Initiated ml6 10:18 Lori Mckenna LPN is Primary Nurse. me3 10:20 Patient visited by Salvador Duarte Security Aide. pjf 10:25 Shima Calvillo,RN is Primary Nurse. pjf 10:25 Patient moved to pjf 10:48 Mallorie Simon MD is Attending Physician. ml 10:48 Patient visited by Mallorie Simon MD. ml 10:48 -Arterial Blood Gas Sent. kjn 10:48 Ammonia (Little Green Tube on Ice, Not Pea Green) Sent. kc3 10:48 Acetaminophen Level Sent. kc3 10:48 Basic Metabolic Profile Sent. kc3 10:48 Complete Blood Count Sent. kc3 10:48 Ethyl Alcohol (ethanol) Sent. kc3 10:48 Liver Profile Sent. kc3 10:49 Thyroid Stimulating Hormone Sent. kc3 10:49 Salicylate Level Sent. kc3 10:50 Patient visited by Yuniel Lennon. jml1 10:50 EKG done. (by ED staff). Reviewed by Mallorie Simon MD. jml1 10:51 Inserted saline lock: 20 gauge in right forearm and blood collected. The patient kc3 tolerated the procedure well. placed by Murali Gonzalez RN. 10:53 The patient / caregiver is instructed regarding the plan of care and ED course. kc3 11:11 CARDIAC INJURY PROFILE Sent. jmk 11:11 TROPONIN Sent. jmk 11:53 Patient visited by Shima Calvillo RN. kc3 12:00 Chest, 2 View (pa\E\lat) Returned. EDMS 12:00 CT Head Without Contrast Returned. EDMS 12:26 Patient visited by Shima Calvillo RN. kc3 13:00 Patient visited by Shima Calvillo RN. kc3 13:10 [facility] Payment Agreement was scanned into [employer] and attached to record. jp5 13:43 Patient moved to [facility]4 deg 13:43 Discontinued lock intact, bleeding controlled, pressure dressing applied, No kcs redness/swelling at site. 13:48 Patient visited by Salvador Duarte Security Aide. pjf 13:55 Pt greeted and oriented to ED. Patient advised of names of staff involved in care, pjf location of call chauhan, wait times and NPO status. Accompanied by Family Member, Patient has correct armband on for positive identification. Placed in psych safe attire. Bed in low position. Call light in reach. Side rails up X 1. Adult w/ patient. Security observing. Property removed, secured in belongings bag- Placed in rn - psych. triage level #2, ams, cooperative \T\ this time. Door closed. Visitors limited. Psych Safety Check: Location: Psych Room. 13:58 Patient visited by Salvador Duarte Security Aide. pjf 14:13 Patient visited by Salvador Duarte Security Aide. pjf 14:39 Patient visited by Lori Mckenna LPN. me3 14:42 Chest, 2 View (pa\E\lat) Returned. EDMS 14:47 Patient visited by Salvador Duarte Security Aide. pjf 15:00 Patient visited by Salvador Duarte Security Aide. pjf 15:12 Dionisio Orellana MD is Hospitalizing Provider. ml 15:35 [facility] Legal paperwork was scanned into [employer] and attached to record. ml4 15:37 Patient visited by Salvador Duarte Security Aide. pjf 15:59 Patient visited by Salvador Duarte Security Aide. pjf 16:02 [facility] Legal paperwork was scanned into [employer] and attached to record. ml4 16:14 No procedures done that require assistance. me3 Administered Medications: 12:59 Drug: Gemfibrozil 600 mg Route: PO; kc3 Attachments: 15:35 [facility] Legal paperwork ml4 16:02 [facility] Legal paperwork ml4 Point of Care Testing: Blood Glucose: 10:52 Blood Glucose: 288 mg/dL; kc3 Ranges: RT: 10:48 ABG's drawn from right radial artery allens test done and positive pressure held for 5 kjn minutes no bleeding noted pressure bandage applied specimen sent pt. tolerated well. Order Results: Lab Order: -Arterial Blood Gas; [facility] 04/25/16 10:43 Test: ABG pH (ARTERIAL); Value: 7.454; Range: 7.350-7.450; Abnormal: Above high normal; Units: UNITS; Status: F Test: ABG PARTIAL PRESSURE CO2; Value: 46.0; Range: 35.0-45.0; Abnormal: Above high normal; Units: mmHg; Status: F Test: ABG PARTIAL PRESSURE O2; Value: 72.0; Range: 75.0-100.0; Abnormal: Below low normal; Units: mmHg; Status: F Test: ABG TOTAL CO2; Value: 33.0; Range: 22.0-29.0; Abnormal: Above high normal; Units: MEQ/L; Status: F Test: ABG HCO3; Value: 31.5; Range: 22.0-26.0; Abnormal: Above high normal; Units: MEQ/L; Status: F Test: ABG BASE EXCESS; Value: 6.7; Range: -2.0-2.0; Abnormal: Above high normal; Status: F Test: ABG STANDARD HCO3; Value: 30.5; Range: 22.0-26.0; Abnormal: Above high normal; Units: MEQ/L; Status: F Test: ABG O2 SATURATION; Value: 95.7; Range: 95.0-99.0; Units: %; Status: F Test: ABG DEVICE; Value: NASAL KOFFI; Status: F Lab Order: Acetaminophen Level; [facility] 04/25/16 10:46 Test: ACETAMINOPHEN LEVEL; Value: < 2.0; Range: 10.0-30.0; Abnormal: Below low normal; Units: UG/ML; Status: F Lab Order: Basic Metabolic Profile; [facility] 04/25/16 10:46 Test: GLUCOSE, FASTING; Value: 253; Range: 70-105; Abnormal: Above high normal; Units: MG/DL; Status: F Test: BLOOD UREA NITROGEN; Value: 12; Range: 7-18; Units: MG/DL; Status: F Test: CREATININE FOR GFR; Value: 1.18; Range: 0.55-1.02; Abnormal: Above high normal; Units: MG/DL; Status: F Test: GLOMERULAR FILTRATION RATE; Value: 49.9; Range: >51; Abnormal: Below low normal; Status: F Test: SODIUM LEVEL; Value: 140; Range: 136-145; Units: MEQ/L; Status: F Test: POTASSIUM SERUM; Value: 3.6; Range: 3.5-5.1; Units: MEQ/L; Status: F Test: CHLORIDE LEVEL; Value: 102; Range: 98-107; Units: MEQ/L; Status: F Test: CARBON DIOXIDE LEVEL; Value: 30; Range: 21-32; Units: MEQ/L; Status: F Test: ANION GAP; Value: 8; Range: 8-16; Units: MEQ/L; Status: F Test: CALCIUM LEVEL; Value: 8.5; Range: 8.5-10.1; Units: MG/DL; Status: F Test Note: ; Units are mL/min/1.73 m2 Chronic Kidney Disease Staging per NKF: Stage I & II GFR >=60 Normal to Mildly Decreased Stage III GFR 30-59 Moderately Decreased Stage IV GFR 15-29 Severely Decreased Stage V GFR <15 Very Little GFR Left ESRD GFR <15 on STAPLE CUTTER Lab Order: Complete Blood Count; [facility] 04/25/16 10:46 Test: WHITE BLOOD COUNT; Value: 5.3; Range: 4.0-10.0; Units: K/mm3; Status: F Test: RED BLOOD COUNT; Value: 4.56; Range: 4.00-5.40; Units: M/mm3; Status: F Test: HEMOGLOBIN; Value: 12.9; Range: 12.0-16.0; Units: g/dl; Status: F Test: HEMATOCRIT; Value: 42.6; Range: 36.0-47.0; Units: %; Status: F Test: MEAN CORPUSCULAR VOLUME; Value: 93.5; Range: 80.0-96.0; Units: fl; Status: F Test: MEAN CORPUSCULAR HEMOGLOBIN; Value: 28.2; Range: 27.0-33.0; Units: pg; Status: F Test: MEAN CORPUSCULAR HGB CONC; Value: 30.2; Range: 32.0-36.5; Abnormal: Below low normal; Units: g/dl; Status: F Test: RED CELL DISTRIBUTION WIDTH; Value: 18.2; Range: 11.5-14.5; Abnormal: Above high normal; Units: %; Status: F Test: PLATELET COUNT, AUTOMATED; Value: 181; Range: 150-450; Units: k/mm3; Status: F Lab Order: Drug Eval Toxicology ED Only; SPE[facility] 04/25/16 13:41 Test: AMPHETAMINES LEVEL URINE; Value: NEGATIVE; Range: NEGATIVE; Status: F Test: BARBITURATES URINE; Value: NEGATIVE; Range: NEGATIVE; Status: F Test: BENZODIAZEPINES URINE; Value: NEGATIVE; Range: NEGATIVE; Status: F Test: CANNABINOIDS URINE; Value: NEGATIVE; Range: NEGATIVE; Status: F Test: COCAINE METABOLITE URINE; Value: NEGATIVE; Range: NEGATIVE; Status: F Test: METHADONE URINE; Value: NEGATIVE; Range: NEGATIVE; Status: F Test: OPIATES URINE; Value: NEGATIVE; Range: NEGATIVE; Status: F Test: TRICYCLIC ANTIDEPRESS URINE; Value: NEGATIVE; Range: NEGATIVE; Status: F Test Note: ; ALL PRESUMPTIVE POSITIVE FINDINGS ARE UNCONFIRMED NORMAL VALUES THRESHOLD IN NG/ML AMPHETAMINES 1000 METHAMPHETAMINES 1000 BARBITURATES 300 BENZODIAZEPINES 300 CANNABINOIDS (THC) 50 COCAINE METABOLITE 300 METHADONE 300 OPIATES 300 PHENCYCLIDINE 25 TRICYCLIC ANTIDEPRESSANTS 1000 RESULTS ARE FOR MEDICAL PURPOSES ONLY. ALL URINE SPECIMENS WILL BE SAVED FOR 3 DAYS. IF CONFIRMATION OF A PRESUMPTIVE POSTIVE SCREEN RESULT IS DESIRED, CALL CHEMISTRY ([phone]) AND REQUEST URINE TO BE SENT TO REFERENCE LAB. FOR A LIST OF CLOSELY RELATED COMPOUNDS PLEASE CALL THE LAB. Lab Order: Ethyl Alcohol (ethanol); SPEC'M 04/25/16 10:46 Test: ETHYL ALCOHOL (ETHANOL); Value: < 0.003; Range: 0.000-0.010; Units: %; Status: F Lab Order: Liver Profile; SPEC'[facility] 04/25/16 10:46 Test: AST/SGOT; Value: 34; Range: 15-37; Units: U/L; Status: F Test: ALT/SGPT; Value: 33; Range: 12-78; Units: U/L; Status: F Test: ALKALINE PHOSPHATASE; Value: 117; Range: 45-117; Units: U/L; Status: F Test: BILIRUBIN,TOTAL; Value: 1.1; Range: 0.2-1.0; Abnormal: Above high normal; Units: MG/DL; Status: F Test: BILIRUBIN,DIRECT; Value: 0.5; Range: 0.0-0.2; Abnormal: Above high normal; Units: MG/DL; Status: F Test: TOTAL PROTEIN; Value: 6.5; Range: 6.4-8.2; Units: GM/DL; Status: F Test: ALBUMIN; Value: 3.4; Range: 3.2-5.2; Units: GM/DL; Status: F Test: ALBUMIN/GLOBULIN RATIO; Value: 1.10; Range: 1.00-1.93; Status: F Lab Order: Salicylate Level; [facility]04/25/16 10:46 Test: SALICYLATE LEVEL; Value: < 1.7; Range: 5.0-30.0; Abnormal: Below low normal; Units: MG/DL; Status: F Lab Order: Thyroid Stimulating Hormone; [facility]04/25/16 10:46 Test: THYROID STIMULATING HORMONE; Value: 2.060; Range: 0.358-3.740; Units: uIU/ML; Status: F Lab Order: Ammonia (Little Green Tube on Ice, Not Pea Green); [facility] 04/25/16 10:46 Test: AMMONIA; Value: 35; Range: <32; Abnormal: Above high normal; Units: uMOL/L; Status: F Lab Order: CARDIAC INJURY PROFILE; [facility]04/25/16 10:46 Test: CPK CREATINE PHOSPHOKINASE; Value: 189; Range: 26-192; Units: U/L; Status: F Test: CK-MB VALUE MASS; Value: 4.8; Range: 0.0-3.6; Abnormal: Above high normal; Units: NG/ML; Status: F Test: MB/CK RELATIVE INDEX; Value: 2.53; Range: < OR =4; Status: F Test Note: ; DIAGNOSIS CRITERIA MMB ng/ml Relative Index (RI) NON-AMI < or = 5 N/A [place] > 5 < or = 4 AMI > 5 > 4 Lab Order: TROPONIN; [facility]04/25/16 10:46 Test: TROPONIN I; Value: 0.09; Range: < 0.10; Units: NG/ML; Status: F Test Note: ; Troponin I Reference Interval for Siemens Golden LOCI: 99th Percentile= 0.00-0.045 ng/ml Risk Stratification: <= 0.10 ng/ml Decreased Risk for Adverse Clinical Events. 0.10-1.50 ng/ml Increased Risk for Adverse Clinical Events. Evaluation of additional criterion and/or repeat testing in 2-6 hours is suggested to rule out myocardial damage. >= 1.50 ng/ml Indicative of Myocardial Injury. Lab Order: Fingerstick Blood Sugar; SPE[facility] 04/25/16 10:38 Test: BEDSIDE GLUCOSE; Value: 288; Range: 70-105; Abnormal: Above high normal; Units: MG/DL; Status: F Radiology Order: Chest, 2 View (pa\E\lat) Test: Chest, 2 View (pa\E\lat) REASON FOR EXAMINATION: Cough; Chest x-ray: Two views.; ; History: Cough.; ; Findings: The heart is enlarged unchanged. Pulmonary vasculature is not; increased. Lung almendarez are well inflated and clear. Pleural angles are sharp.; ; Impression:; ; Cardiomegaly. Otherwise no acute disease.; ; ; Signed by; Anuel Olguin MD 04/25/2016 02:33 P; Radiology Order: CT Head Without Contrast Test: CT Head Without Contrast REASON FOR EXAMINATION: altered ms; CT HEAD WITHOUT CONTRAST:; ; HISTORY: Altered mental status.; ; COMPARISON: 04/17/2016.; ; Areas of decreased attenuation are present in the periventricular white matter.; This represents small vessel ischemic disease. There is no intraparenchymal; hemorrhage, mass or midline shift. The ventricular system and cortical sulci are; dilated consistent with minimal volume loss. There is no extracerebral; collection. The visualized sinuses are clear.; ; IMPRESSION:; ; 1. Small vessel ischemic disease.; ; 2. Minimal volume loss.; ; ; Signed by; Antoni Sebastian MD 04/25/2016 11:41 A; Outcome: 10:53 CT Study completed. kc3 15:12 Decision to Hospitalize by Provider. ml 16:14 Discharge Assessment: patient administered narcotics - no. The following High Risk me3 Discharge criteria are identified: None. Admitted to Psych accompanied by tech, via stretcher, with chart, Other with property. Condition: stable. 16:17 Patient left the ED. me3 Signatures: Dispatcher [employer] EDMS LundMallorie Little MD MD ml Sleeman, Kacey, RN RN kcs Sima Castle, Tile Sorter Unit deg Murali Gonzalez,RN RN jmk Patrick, Doris, PSA PSA ca Stu, Demetria, PSA PSA ms Duarte, Salvador, Security Aide Securpjf Clarisa,Lori,PHLEBOTOMIST PRN PHLEBOTOMIST PRN me3 Elma, Odalys, PSA PSA ml4 Stanley Kamara RN RN ml6 Yuniel Lennon jml1 Alycia Nguyen Jennalee 5 Shima Calvillo,AUBREE RN kc3 Corrections: (The following items were deleted from the chart) 10:59 10:48 TROPONIN+LAB sent. [facility] EDVA 10:59 10:48 CARDIAC INJURY PROFILE+LAB sent. [facility] 12:13 10:14 Home Meds: albuterol sulfate 1.25 mg/3 mL Inhl nebu daily (Last Dose: Unknown); [place] [id number] 12: 10:14 Home Meds: atorvastatin 40 mg oral tab 1 tab once daily (Last Dose: Unknown); [place] [id number] 12: 10:14 Home Meds: bupropion HCl 150 mg Oral TbER 1 tab 2 times per day (Last Dose: [facility] Unknown); [facility] 12: 10:14 Home Meds: cilostazol 50 mg oral tab 1 tab 2 times per day (Last Dose: Unknown); [place] [id number] 12: 10:14 Home Meds: ferrous sulfate 325 mg (65 mg iron) Oral cpER daily (Last Dose: [facility] Unknown); [facility] 12: 10:14 Home Meds: folic acid 1 mg Oral tab 1 tab once daily (Last Dose: Unknown); [place] [id number] 12: 10:14 Home Meds: gabapentin 100 mg Oral cap; 5 times daily (Last Dose: Unknown); [place] [id number] 12: 10:14 Home Meds: gemfibrozil 600 mg Oral tab 1 tab 2 times per day (Last Dose: 3 Unknown); [facility] 12: 10:14 Home Meds: glipizide 2.5 mg Oral tr24 once daily (Last Dose: Unknown); [place] [id number] 12: 10:14 Home Meds: melatonin 3 mg Oral tab nightly (Last Dose: Unknown); ml6 kc3 12: 10:14 Home Meds: pantoprazole 40 mg oral TbEC 1 tab once daily (Last Dose: Unknown); ml6kc3 12: 10:14 Home Meds: venlafaxine 75 mg oral cp24 1 cap once daily (Last Dose: Unknown); ml6 kc3 12: 10:14 Home Meds: Vitamin B-12 500 mcg Oral tab daily (Last Dose: Unknown); ml6 kc3 12: 10:14 Home Meds: Vitamin C 500 mg Oral cpER daily (Last Dose: Unknown); ml6 kc3 12: 12:13 Home Meds: glipizide 2.5 mg Oral tr24 once daily (Last Dose: 04/24/2016); 3 kc3 :37 Mental health consult is initiated at 14:00. pardeep la : Status: The patient is not a repair servicer or dependent. [facility] : [facility] Behavioral Health: The patient is not an established patient of [facility]. de :37 Referral Information: Evaluation referral is generated by [facility] RILEYD
[2016-04-25] MEDS ORDERED: ELIQ5TAB PO (16:32)
[2016-04-25] MEDS ORDERED: GLIP2.5T6 PO (16:32)
[2016-04-25] MEDS ORDERED: BISO5TAB5 PO (16:32)
[2016-04-25] MEDS ORDERED: LOSA50TA20 PO (16:32)
[2016-04-25] MEDS ORDERED: ASCO500T PO (16:38)
[2016-04-25] MEDS ORDERED: NITR4TASL SL (16:38)
[2016-04-25] MEDS ORDERED: VITA500T53 PO (16:38)
[2016-04-25 16:44] VITALS: BP 147/88
[2016-04-25] MEDS ORDERED: NITROGLYCERIN 0.4 MG SUBL TABLET SL PRN (18:15)
[2016-04-25] MEDS ORDERED: ALBUTEROL 90 MCG/ACT 8GM HFA INHALER INH PRN (18:15)
[2016-04-25] MEDS ORDERED: DIGO0.259 PO (18:32)
[2016-04-25] MEDS ORDERED: LISI10TA4 PO (18:32)
[2016-04-25] MEDS ORDERED: ASPI1TAB PO (18:32)
[2016-04-25] MEDS ORDERED: CARV6.25 PO (18:32)
[2016-04-25] MEDS ORDERED: MACR100C3 PO (18:32)
[2016-04-25] MEDS ORDERED: NICO21DI5 TD (18:32)
[2016-04-25] MEDS ORDERED: BISOPROLOL FUMARATE 5 MG TAB PO ONE (20:00)
--- NOTE | 2016-04-25 20:05 | ECGEPIP ---
Stationary ECG Study [facility] - ED Test Date: 2016-04-25 Pat Name: PORTILLO MARTIN Department: Room: - Gender: F Choker Hooker: damaris : 1955 Requested By: Mallorie Simon Order Number: [id number] Reading MD: Meggan Maldonado Measurements Intervals [place] Rate: 92 P: 48 ID: [id number] QRS: 9 QRSD: 102 T: 76 QT: 358 QTc: 445 Interpretive Statements SINUS RHYTHM WITH OCCASIONAL VENTRICULAR PREMATURE COMPLEXES NONSPECIFIC ST & T-WAVE ABNORMALITY SIMILAR 04/17/16 Electronically Signed On 04-25-2016 20:04:40 EST by Meggan Maldonado
[2016-04-25] MEDS ORDERED: CARVedilol 6.25 MG TAB PO SCH (21:00)
[2016-04-25] MEDS ORDERED: LISINOPRIL 10 MG TAB PO SCH (21:00)
[2016-04-25] MEDS: buPROPion **SR TABLET** (ZYBAN) 150MG PO SCH (21:24)
[2016-04-25] MEDS: NITROFURANTOIN (MACROBID) 100 MG CAP PO SCH (21:24)
[2016-04-25] MEDS: GABAPENTIN 100 MG CAP PO SCH (21:24)
[2016-04-25] MEDS: GEMFIBROZIL 600 MG TAB PO SCH (21:24)
[2016-04-25] MEDS: APIXABAN 5 MG TAB (ELIQUIS) PO SCH (21:24)
[2016-04-26 06:30] VITALS: BP 140/97
[2016-04-26] MEDS: glipiZIDE *XL* 2.5MG TABLET PO SCH (06:42)
[2016-04-26] MEDS: CILOSTAZOL 100 MG TAB (PLETAL) PO SCH ×2 (06:42→17:20)
[2016-04-26] MEDS: GABAPENTIN 100 MG CAP PO SCH ×5 (06:42→21:57)
[2016-04-26] MEDS: ADVAIR DISKUS 250/50 INH PWD INH SCH ×2 (09:00→21:58)
[2016-04-26] MEDS: NICOTINE 14 MG/24 HR TRANSDERMAL TD SCH (09:00)
[2016-04-26] MEDS ORDERED: LOSARTAN 50 MG TAB PO SCH (09:00)
[2016-04-26] MEDS ORDERED: ASPIRIN 81 MG ENTERIC TAB PO SCH (09:00)
[2016-04-26] MEDS ORDERED: VENLAFAXINE 37.5 MG TAB PO SCH (09:00)
[2016-04-26] MEDS ORDERED: ADV250INH INH (09:09)
[2016-04-26] MEDS ORDERED: TIOT18INH INH (09:09)
[2016-04-26] MEDS ORDERED: NICO14DI20 TD (09:11)
[2016-04-26] MEDS: TIOTROPIUM INHALER/CAPSULE (SPIRIVA) INH SCH (09:17)
[2016-04-26] MEDS: PANTOPRAZOLE 40MG TAB (PROTONIX) PO SCH (09:18)
[2016-04-26] MEDS: VENLAFAXINE **XR** 75MG CAPSULE PO SCH (09:18)
[2016-04-26] MEDS: FERROUS SULFATE 325MG TAB PO SCH (09:18)
[2016-04-26] MEDS: buPROPion **SR TABLET** (ZYBAN) 150MG PO SCH ×2 (09:18→21:57)
[2016-04-26] MEDS: GEMFIBROZIL 600 MG TAB PO SCH ×2 (09:20→21:57)
[2016-04-26] MEDS: NITROFURANTOIN (MACROBID) 100 MG CAP PO SCH (09:20)
[2016-04-26] MEDS: FOLIC ACID 1 MG TAB PO SCH (09:20)
[2016-04-26] MEDS: DIGOXIN 0.25 MG TAB PO SCH (09:20)
[2016-04-26] MEDS: APIXABAN 5 MG TAB (ELIQUIS) PO SCH ×2 (09:21→21:57)
[2016-04-26] MEDS: BISOPROLOL FUMARATE 5 MG TAB PO SCH (09:22)
[2016-04-26 09:29] VITALS: BP 130/98
--- NOTE | 2016-04-26 11:55 | HPEPDOC ---
Medical History and Physical Date of Admission Apr 25, 2016 at 16:42 History and Physical PCP: Dr Martínez ATTENDING: Dr. Jose Magallanes HPI: 60yoF admitted to [facility] for unspecified psychosis, being medically examined today. No acute medical complaints today. Denies any fevers, chills, weakness, fatigue, YANEZ, CP, SOB, cough, palpitations, abdominal pain, N/V/D or changes in bowel or bladder habits. PMHx: NIDDM COPD Dilated Cardiomyopathy/chronic systolic and diastolic CHF- follows with [facility] Mid Apical Mural thrombus-on Eliquis anticoagulation since 03/04 TTE 03/04 diastolic dysfunction, EF 25%, mural thrombus/mitral and tricuspid insufficiency. 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 ROS: As noted in HPI, otherwise 11pt ROS of systems reviewed and remarkable. PE: GEN: 60yoF, appears stated age. Well-nourished, well developed. No acute distress. Alert and oriented x 3. Pleasant, interactive. HEENT: Normocephalic, atraumatic. Pupils are equal, round, and reactive to light. Extraocular movements are intact. No nystagmus appreciated. Sclera are nonicteric. Conjunctiva without injection. Nose midline. Nasal turbinates without bogginess. EACs both patent BL. TMs both visualized and foster with good cone of light, no bulging or erythema. No facial asymmetry. Moist mucous membranes. Dentition fair. Pharynx pink and moist, no cobblestoning. Neck supple , trachea midline. No lymphadenopathy or thyromegaly appreciated. CHEST: Regular rate and rhythm, +S1, +S2 LUNGS: Clear to auscultation bilaterally. No wheezes, rales, or rhonchi. Breathing appears symmetric and easy. Patient is speaking in full sentences. No accessory muscle use. ABD: Round, soft, non-tender, non-distended. +Bowel sounds throughout. No rebound or guarding. No costovertebral angle tenderness. EXT: 2 mm lower extremity edema to mid pretibial area bilaterally. SKIN: Belva, dry, warm. Capillary refill <2sec. No rashes. NEURO: Alert and oriented x 3. Cranial nerves III-XII are intact. No focal deficits appreciated. EK04/25/16 SR occasional PVC. Nonspecific T wave abnormalities. A&P: 60yoF admitted to [facility] for unspecified psychosis 1. Psych. Plan per Psychiatry. EKG on file. 2. Nicotine dependence. Patch available. 3. NIDDM. Continue controlled carbohydrate diet, glipizide 2.5 mg daily. Fingerstick blood sugar twice a day. 4. COPD. patient remains on Spiriva/Advair. Albuterol as needed. 5. Recent UTI. She is finishing course of nitrofurantoin and will complete . Urine culture 04/17/16 indicated Klebsiella pneumoniae sensitivity Indeterminate to nitrofurantoin. Request UA/urine culture. 6.HHD/ chronic systolic and diastolic CHF/Cardiomyopathy/EF 25%. Patient remains on Zebeta 5 mg by mouth daily, Cozaar 50 mg by mouth daily, digoxin 0.25 mg by mouth daily. Add digoxin level to today's labs. Update CMP today. Hold parameters on her medications. She is noted to have lower extremity edema however she does not routinely take any diuretic. Request low-sodium diet/ modest FR as previously recommended as per Cardiology. Marciano stockings. Elevate legs. She follows as outpatient with [facility]. Possibly consider dose of lasix pending labs, will discuss further with Dr Rice when labs are available. 7. History of mural thrombus TTE 03/04. Patient remains on Eliquis 5 mg by mouth twice a day. 8. Hyperlipidemia. Continue atorvastatin 40 mg daily, continue Lopid. 9. Chronic pain. Continue gabapentin 100 mg 5 times daily. 10. GERD. Continue Protonix 40 mg daily. Iron deficiency anemia. Continue ferrous sulfate 325 mg by mouth daily. Hemoglobin is noted to be 12.9. 11. PVD/H/O PTCA. Continue on Pletal. 12. Follow up with PCP on discharge. Dr Maryellen Martínez. 13. Staff member present throughout exam, Sylvia MAK. Vital Signs Vital Signs Label Value Date Time Patient Temperature 96.4 degrees F 04/26/16 0630 Temperature Source Tympanic 04/26/16 0630 Pulse 79 04/26/16 0630 Respiratory Rate 16 bpm 04/26/16 0630 Blood Pressure Assessment 140/97 (111) 04/26/16 0630 Blood Pressure Assessment 130/98 (109) 04/26/16 0929 Laboratory Data Labs 24H Laboratory Tests 2 04/25/16 13:41: Urine Amphetamine Level NEGATIVE, Urine Benzodiazepines Screen NEGATIVE, Urine Cannabinoids NEGATIVE, Urine Cocaine Metabolite NEGATIVE, Urine Opiates Screen NEGATIVE, Urine Barbiturates, Qualitative NEGATIVE, Urine Methadone Screen NEGATIVE, Urine Tricyclic Antidepressants NEGATIVE Home Medications Scheduled Apixaban Base (Eliquis) 5 Mg Tab 5 MG PO BID Ascorbic Acid (Ascorbic Acid) 500 Mg Tab 500 MG PO DAILY Atorvastatin Calcium (Atorvastatin Calcium) 40 Mg Tab 40 MG PO QHS Bisoprolol Fumarate (Bisoprolol Fumarate) 5 Mg Tab 5 MG PO DAILY Bupropion Hcl (Bupropion HCl Sr) 150 Mg Tab 150 MG PO BID Cilostazol (Cilostazol) 50 Mg Tab 50 MG PO BID Cyanocobalamin (Vitamin B12) 500 Mcg Tab 500 MCG PO DAILY Digoxin (Digox) 0.25 Mg Tab 0.25 MG PO DAILY cardiac care Ferrous Sulfate (Ferrous Sulfate) 325 Mg Tab 325 MG PO DAILY Folic Acid (Folic Acid) 1 Mg Tab 1 MG PO DAILY Gabapentin (Gabapentin) 100 Mg Cap 100 MG PO 5XD Gemfibrozil (Gemfibrozil) 600 Mg Tab 600 MG PO BID Glipizide (Glipizide ER) 2.5 Mg Tab 2.5 MG PO DAILY Losartan Potassium (Losartan Potassium) 50 Mg Tab 50 MG PO DAILY Melatonin (Melatonin) 3 Mg Cap 3 MG PO QHS Nicotine (Nicotine 14MG Patch) 1 Patch Tdsy 1 PATCH TD DAILY Nitrofurantoin Monohydrate Mac (Macrobid) 100 Mg Cap 100 MG PO BID urinary tract Pantoprazole Sodium (Pantoprazole Sodium) 40 Mg Tab 40 MG PO DAILY Salmeterol/Fluticasone (Advair Diskus 250-50 Mcg/Dose) 14 Puff/Inhaler Aerp 1 PUFF INH BID Tiotropium Lizella Monohydrate (Spiriva Handihaler) 5 Inhalation/Inhaler Powd 1 INHALATION INH DAILY Venlafaxine Hydrochloride (Effexor Xr) 75 Mg Cap 75 MG PO DAILY Scheduled PRN Albuterol Sulfate (Ventolin Hfa) 200 Puff/8 Gm Aers 2 PUFF INH Q4H PRN PRN SHORTNESS OF BREATH Albuterol/Ipratropium (Ipratropium Lizella/Albut 0.5-2.5 (3) mg/3Ml) 1 Genny Genny 1 GENNY INH Q4H PRN PRN SHORTNESS OF BREATH Nitroglycerin (Nitrostat) 0.4 Mg Subl 0.4 MG SL Q5MP PRN PRN CHEST PAIN Allergies Coded Allergies: No Known Allergies (Unverified , 03/06/16) Shruthi Palencia Apr 26, 2016 11:55
[2016-04-26 13:08] LABS: ALBUMIN 3.7 GM/DL (3.2-5.2); ALBUMIN/GLOBULIN RATIO 1.23 (1.00-1.93); BILIRUBIN,TOTAL 1.9 MG/DL (0.2-1.0); CALCIUM LEVEL 9.1 MG/DL (8.5-10.1); CREATININE FOR GFR 1.24 MG/DL (0.55-1.02); DIGOXIN LEVEL 2.1 NG/ML (0.5-2.0); GLOMERULAR FILTRATION RATE 47.1 (>51); POTASSIUM SERUM 4.4 MEQ/L (3.5-5.1); TOTAL PROTEIN 6.7 GM/DL (6.4-8.2)
[2016-04-26] MEDS ORDERED: FUROSEMIDE 40 MG TAB PO ONE (15:00)
[2016-04-26] MEDS: LevoFLOXacin 250 MG TABLET PO SCH (16:05)
[2016-04-26 20:01] LABS: ALBUMIN 3.2 GM/DL (3.2-5.2); ALBUMIN/GLOBULIN RATIO 1.19 (1.00-1.93); BILIRUBIN,TOTAL 1.4 MG/DL (0.2-1.0); CALCIUM LEVEL 8.6 MG/DL (8.5-10.1); CREATININE FOR GFR 1.22 MG/DL (0.55-1.02); POTASSIUM SERUM 3.7 MEQ/L (3.5-5.1); TOTAL PROTEIN 5.9 GM/DL (6.4-8.2)
[2016-04-26 21:56] VITALS: BP 136/84
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
--- NOTE | 2016-04-27 02:00 | REPUSA ---
Clinical history: Pain, swelling. Comparison: 03/06/2016. Findings: The common femoral, superficial femoral, popliteal, and other deep venous structures compre ss normally and demonstrate normal color Doppler flow. Normal venous waveforms with augmentation are seen. Impression: No evidence of deep vein thrombosis in either femoral popliteal venous system.
[2016-04-27] MEDS: GABAPENTIN 100 MG CAP PO SCH ×5 (06:08→22:11)
[2016-04-27] MEDS: LevoFLOXacin 250 MG TABLET PO SCH (06:08)
[2016-04-27] MEDS: glipiZIDE *XL* 2.5MG TABLET PO SCH (06:41)
[2016-04-27] MEDS: CILOSTAZOL 100 MG TAB (PLETAL) PO SCH ×2 (06:41→17:12)
[2016-04-27 06:43] VITALS: BP 131/93
[2016-04-27 07:02] LABS: MEAN CORPUSCULAR HEMOGLOBIN 28.1 pg (27.0-33.0); MEAN CORPUSCULAR HGB CONC 30.3 g/dl (32.0-36.5); MEAN CORPUSCULAR VOLUME 92.7 fl (80.0-96.0); RED CELL DISTRIBUTION WIDTH 18.2 % (11.5-14.5); WHITE BLOOD COUNT 5.8 K/mm3 (4.0-10.0)
[2016-04-27 07:22] LABS: ALKALINE PHOSPHATASE 119 U/L (45-117); ALT/SGPT 52 U/L (12-78); ANION GAP 8 MEQ/L (8-16); AST/SGOT 51 U/L (15-37); BILIRUBIN,TOTAL 1.3 MG/DL (0.2-1.0); BLOOD UREA NITROGEN 13 MG/DL (7-18); CALCIUM LEVEL 8.4 MG/DL (8.5-10.1); CARBON DIOXIDE LEVEL 33 MEQ/L (21-32); CHLORIDE LEVEL 104 MEQ/L (98-107); CREATININE FOR GFR 1.17 MG/DL (0.55-1.02); GLOMERULAR FILTRATION RATE 50.4 (>51); GLUCOSE, FASTING 134 MG/DL (70-105); POTASSIUM SERUM 3.4 MEQ/L (3.5-5.1); SODIUM LEVEL 145 MEQ/L (136-145); TOTAL PROTEIN 5.5 GM/DL (6.4-8.2)
[2016-04-27] MEDS ORDERED: POTASSIUM CHLORIDE 10 MEQ SR TABLET PO ONE (08:00)
[2016-04-27] MEDS: NICOTINE 14 MG/24 HR TRANSDERMAL TD SCH (09:00)
[2016-04-27 09:21] LABS: ABG BASE EXCESS 8.2 (-2.0-2.0); ABG PARTIAL PRESSURE O2 57.2 mmHg (75.0-100.0); ABG STANDARD HCO3 31.9 MEQ/L (22.0-26.0); ABG TOTAL CO2 33.2 MEQ/L (22.0-29.0)
[2016-04-27] MEDS: ADVAIR DISKUS 250/50 INH PWD INH SCH ×2 (09:21→22:11)
[2016-04-27] MEDS: VENLAFAXINE **XR** 75MG CAPSULE PO SCH (09:21)
[2016-04-27] MEDS: FERROUS SULFATE 325MG TAB PO SCH (09:22)
[2016-04-27] MEDS: FOLIC ACID 1 MG TAB PO SCH (09:22)
[2016-04-27] MEDS: buPROPion **SR TABLET** (ZYBAN) 150MG PO SCH (09:22)
[2016-04-27] MEDS: PANTOPRAZOLE 40MG TAB (PROTONIX) PO SCH (09:22)
[2016-04-27] MEDS: DIGOXIN 0.25 MG TAB PO SCH (09:23)
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
[2016-04-27] MEDS: APIXABAN 5 MG TAB (ELIQUIS) PO SCH ×2 (09:24→22:11)
[2016-04-27] MEDS: TIOTROPIUM INHALER/CAPSULE (SPIRIVA) INH SCH (09:24)
[2016-04-27] MEDS: BISOPROLOL FUMARATE 5 MG TAB PO SCH (09:25)
--- NOTE | 2016-04-27 09:58 | REP ---
Right upper quadrant sonography: History: Elevated liver function studies. The patient is post cholecystectomy. Findings: Scanning through the right upper quadrant demonstrates evidence of mild fatty infiltration of the liver. No focal liver lesion is seen. The common bile duct is normal 0.4 cm in greatest diameter. The gallbladder is surgically absent. The pancreatic tail is obscured by abdominal gas. No pancreatic abnormality is seen. There is no evidence of ascites or right renal abnormality. The right kidney measures 9.0 x 5.1 x 4.8 cm. Impression: Evidence of mild fatty infiltration of the liver. Otherwise negative right upper quadrant sonography. Gallbladder surgically absent. Signed by Anuel Olguin MD 04/27/2016 03:00 P
[2016-04-27] MEDS: GEMFIBROZIL 600 MG TAB PO SCH ×2 (10:46→22:11)
[2016-04-27 12:41] VITALS: BP 125/87
--- NOTE | 2016-04-27 13:13 | IPNPDOC ---
Subjective General Date Seen The patient was seen on 04/27/16. Chief Complaint/HPI The patient is a 60-year-old female admitted with a reason for visit of Major Depressive D/O W/Psychotic Features. Subjective Events since last encounter The pt has been followed for h/o CHF. She states she does not feel SOB. No complaint of CP, no wheezing. Denies Abd pain. LE edema improved today. She has ambulated in the hallway and does not complain of SOB. Nursing is noting O2 sat of 88% on RA. ENT: Denies: Dysphagia, Ear Pain, Head Aches Pulmonary: Denies: Cough, Dyspnea Cardiovascular: Reports: Lt Headedness (reports slight with quick position changes. ), Denies: Chest Pain, Orthopnea, Palpitations, Paroxysmal Noc. Dyspnea Gastrointestinal: Denies: Abdominal Pain, Constipation, Diarrhea, Nausea, Vomiting Objective Physical Examination General Exam: Positive: Alert, No Acute Distress Eye Exam: Positive: Conjunctiva & lids normal, EOMI, PERRLA, Negative: Sclera icteric ENT Exam: Positive: Atraumatic, Mucous membr. moist/pink, Pharynx Normal Chest Exam: Positive: Rales (few rales at bases) Heart Exam: Positive: Normal S1, Normal S2, Rate Normal, Regular Rhythm, Negative: Murmurs, Rubs Extremity Exam: Positive: Swelling (improved today, trace LEs, TEDS LEs. ) Skin Exam: Positive: Nl turgor and temperature Neuro Exam: Positive: Normal Gait Assessment /Plan Problems Problems: (1) CHF (congestive heart failure) Status: Chronic Problem Text: * Pt ABG reviewed with Dr Dior * CXR films reviewed as well. * LA trends noted. * BNP 1860 (decreased from 04/17/16) * Pt with decreased SCr today. * Decreased edema. * Discussed with Dr Dior- Cont to monitor. Review AM Labs, CBC/CMP. (2) COPD (chronic obstructive pulmonary disease) Status: Chronic Problem Text: * Advair * Spiriva * prn albuterol- none used. (3) HLD (hyperlipidemia) Status: Chronic Problem Text: * Cont statin/lopid (4) GERD (gastroesophageal reflux disease) Status: Chronic Problem Text: * Protonix (5) Diabetes mellitus Status: Chronic Problem Text: * Glipizide * FSBS 131 (6) Mural thrombus of heart Status: Chronic Problem Text: * Eliquis Plan/VTE VTE Prophylaxis Ordered?: Yes (on Eliquis. ) VS, I&O, 24H, Fishbone Vital Signs/I&O Vital Signs Date Time Temp Pulse Resp B/P Pulse Ox O2 Delivery O2 Flow Rate FiO2 04/27/16 12:41 97.4 94 16 125/87 87 Room Air Laboratory Data 24H LABS Laboratory Tests 2 04/26/16 15:19: Lactic Acid (Sepsis) 3.3*H, Total Creatine Kinase 178 04/26/16 17:17: Bedside Glucose (Misc Panel) 205H 04/26/16 19:27: Lactic Acid (Sepsis) 2.6*H, Blood Urea Nitrogen 14, Creatinine 1.22H, Sodium Level 145, Potassium Level 3.7, Chloride Level 103, Carbon Dioxide Level 34H, Calcium Level 8.6, Aspartate Amino Transf (AST/SGOT) 51H, Alanine Aminotransferase (ALT/SGPT) 55, Alkaline Phosphatase 126H, Total Bilirubin 1.4H , Total Protein 5.9L, Albumin 3.2, Albumin/Globulin Ratio 1.19, Anion Gap 8, Glomerular Filtration Rate 48.0L 04/27/16 00:08: Lactic Acid (Sepsis) 1.8, D-Dimer, Quantitative 1208.2H 04/27/16 06:32: Blood Urea Nitrogen 13, Creatinine 1.17H, Sodium Level 145, Potassium Level 3.4L , Chloride Level 104, Carbon Dioxide Level 33H, Calcium Level 8.4L, Aspartate Amino Transf (AST/SGOT) 51H, Alanine Aminotransferase (ALT/SGPT) 52, Alkaline Phosphatase 119H, Total Bilirubin 1.3H, Total Protein 5.5L, Albumin 3.0L, Albumin/Globulin Ratio 1.20, Anion Gap 8, B-Type Natriuretic Peptide 1860H, Digoxin Level 1.0, Glomerular Filtration Rate 50.4L, Hepatitis A IgM Antibody NEGATIVE, Hepatitis B Core IgM Antibody NEGATIVE, Hepatitis B Surface Antigen NEGATIVE, Hepatitis C Antibody Index 0.0, Lactic Acid (Sepsis) 2.2*H 04/27/16 07:00: Bedside Glucose (Misc Panel) 131H 04/27/16 08:33: Arterial Blood pH 7.510H, Arterial Blood Partial Pressure CO2 41.0, Arterial Blood Partial Pressure O2 57.2L, Arterial Blood Total CO2 33.2H, Arterial Blood HCO3 32.0H, Arterial Blood Base Excess 8.2H, Arterial Blood Oxygen Saturation 90.6L, Blood Gas Bicarbonate Standard 31.9H 04/27/16 10:50: Lactic Acid Level 2.4*H CBC/BMP Laboratory Tests 04/26/16 19:27 Calcium Level 8.6, Aspartate Amino Transf (AST/SGOT) 51 H, Alanine Aminotransferase (ALT/SGPT) 55, Alkaline Phosphatase 126 H, Total Bilirubin 1.4 H, Total Protein 5.9 L, Albumin 3.2 04/27/16 06:32 Calcium Level 8.4 L, Aspartate Amino Transf (AST/SGOT) 51 H, Alanine Aminotransferase (ALT/SGPT) 52, Alkaline Phosphatase 119 H, Total Bilirubin 1.3 H, Total Protein 5.5 L, Albumin 3.0 L, Red Blood Count 4.56, Mean Corpuscular Volume 92.7, Mean Corpuscular Hemoglobin 28.1, Mean Corpuscular Hemoglobin Concent 30.3 L, Red Cell Distribution Width 18.2 H Microbiology Microbiology 04/26/16 Urine Culture - Final, Complete Shruthi Palencia Apr 27, 2016 13:13
--- NOTE | 2016-04-27 14:43 | REP ---
Chest x-ray: Two views. History: CHF. Comparison chest x-ray is from April 25, 2016. Findings: Moderate cardiomegaly is observed with cardiothoracic ratio measuring 17.2 cm over 28.8 cm. Heart size is unchanged. The pleural angles are sharp. Pulmonary vasculature is not increased. No infiltrate is seen. There is vascular calcification in the aorta. Clips are noted right upper quadrant post cholecystectomy. No significant bony abnormality. Impression: Moderate cardiomegaly unchanged from comparison radiograph April 25, 2016. Otherwise no acute disease. Signed by Anuel Olguin MD 04/27/2016 03:06 P
--- NOTE | 2016-04-27 17:18 | EDDOCDS ---
Nurse's Notes [facility] Name: Maria Antonia Aj Age: 60 yrs Sex: Female : 1955 Arrival Date: 04/25/2016 Time: 10:01 Bed [facility] Private MD: Diagnosis: Unspecified psychosis not due to a substance or known physiological condition Presentation: 04/25 10:05 Presenting complaint: Patient states: states that she does not know why she is being ml6 brought here (per state police; patient was having visual hallucinations). Mental Health Triage Level: Level 2: 94.1. Adult Sepsis Screening: The patient does not have new or worsening altered mentation. Patient's respiratory rate is less than 22. Systolic blood pressure is greater than 100. Patient has a qSOFA score of 0- Negative Sepsis Screen. Suicide/Homicide risk assessment- the patient denies having any suicidal and/or homicidal ideations and does not present with any other emotional, behavioral or mental health complaints. Status: Patient is not a business services sales representative or dependent. Transition of care: patient was not received from another setting of care. Red Flag criteria, patient assessed and taken directly to a bed. 10:05 Acuity: RENATA Level 3 ml6 10:05 Method Of Arrival: Police Car ml6 Triage Assessment: 10:05 General: Appears in no apparent distress, Behavior is appropriate for age, cooperative. ml6 Pain: Denies pain. HIV screening NA for this visit Offered previously. Neurological: No deficits noted. Cardiovascular: No deficits noted. Capillary refill < 3 seconds is brisk in bilateral fingers toes. Respiratory: No deficits noted. Airway is patent Respiratory effort is even, unlabored, Respiratory pattern is regular, symmetrical, Breath sounds are diminished bilaterally. Historical: - Allergies: no known allergies; - Home Meds: 1. Dulera 200-5 mcg/actuation inhalation HFAA 2 puffs 2 times per day needs new rx (Last dose: Unknown) 2. Nitrostat 0.4 mg SL subl 1 tab every 5 minutes (Last dose: Unknown) 3. albuterol sulfate 1.25 mg/3 mL Inhl nebu daily (Last dose: 04/25/2016 00:00) 4. atorvastatin 40 mg oral tab 1 tab once daily (Last dose: 04/24/2016) 5. bupropion HCl 150 mg Oral TbER 1 tab 2 times per day (Last dose: 04/24/2016) 6. cilostazol 50 mg oral tab 1 tab 2 times per day (Last dose: 04/24/2016) 7. ferrous sulfate 325 mg (65 mg iron) Oral cpER daily (Last dose: 04/24/2016) 8. folic acid 1 mg Oral tab 1 tab once daily (Last dose: 04/24/2016) 9. gabapentin 100 mg Oral cap 5 times daily (Last dose: 04/24/2016) 10. gemfibrozil 600 mg Oral tab 1 tab 2 times per day (Last dose: 04/24/2016) 11. melatonin 3 mg Oral tab nightly (Last dose: 04/24/2016) 12. pantoprazole 40 mg oral TbEC 1 tab once daily (Last dose: 04/24/2016) 13. venlafaxine 75 mg oral cp24 1 cap once daily (Last dose: 04/24/2016) 14. Vitamin B-12 500 mcg Oral tab daily (Last dose: 04/24/2016) 15. Vitamin C 500 mg Oral cpER daily (Last dose: 04/24/2016) - PMHx: COPD; Diabetes - NIDDM: controlled; GERD; Hypercholesterolemia; Hypertension; Pneumonia; Stage 4 concussion; - PSHx: Left hand surgery; Cholecystectomy; Hysterectomy; - Social history: Smoking status: Patient uses tobacco products, heavy tobacco smoker. No barriers to communication noted, Speaks appropriately for age. - Family history: Not pertinent. - : The pt / caregiver states he / she is not on anticoagulants. Home medication list is obtained from the patient. - Exposure Risk Screening:: None identified. Screenin:52 Screening information is obtained from the patient. Fall risk: No risks identified. kc3 Assistance ADL's: requires no assistance with activities of daily living. Abuse/DV Screen: The patient / caregiver reports he/she is: not in a situation that causes fear, pain or injury. Nutritional screening: No deficits noted. home support is inadequate. 16:13 Advance Directives: Currently, there is no health care proxy. me3 Assessment: 10:50 General: Appears in no apparent distress, comfortable, Behavior is appropriate for age, kc3 cooperative. Pain: Denies pain. Neurological: Level of Consciousness is awake, alert, obeys commands, Oriented to person, place, time, Family reports pt with hallucinations at home. Pt denies hallucinations at this time. . Cardiovascular: Rhythm is regular. Respiratory: Airway is patent Respiratory effort is even, unlabored, Respiratory pattern is regular, symmetrical. Derm: Skin is pink, warm & dry. Musculoskeletal: Circulation, motion, and sensation intact Swelling present in right foot and left foot. 11:30 General: Appears in no apparent distress, comfortable, Behavior is appropriate for age, kc3 cooperative. Pain: Denies pain. Neurological: Level of Consciousness is awake, alert, obeys commands, Oriented to person, place, time, Pt ambulated to restroom with steady gait. Pt verbalized gave urine specimen and left it sitting on bathroom sink. This RN found pt urinated in toilet with urine specimen left empty. Dr. Franklin aware. . Respiratory: Airway is patent Respiratory effort is even, unlabored. Derm: Skin is pink, warm & dry. Musculoskeletal: Circulation, motion, and sensation intact. 12:29 General: Appears in no apparent distress, comfortable, Behavior is appropriate for age, kc3 cooperative, Pt resting on stretcher with family at bedside. Pt med list updated. No complaints at this time. . Pain: Denies pain. Neurological: Level of Consciousness is awake, alert, obeys commands. Respiratory: Airway is patent Respiratory effort is even, unlabored. Derm: Skin is pink, warm & dry. 13:30 General: Appears in no apparent distress, comfortable, Behavior is appropriate for age, me3 cooperative. Respiratory: Airway is patent Respiratory effort is even, unlabored, Respiratory pattern is regular, symmetrical. 14:25 General: Appears in no apparent distress, comfortable, Behavior is appropriate for age, me3 cooperative. Respiratory: Airway is patent Respiratory effort is even, unlabored, Respiratory pattern is regular. 15:15 General: Appears in no apparent distress, comfortable, Behavior is cooperative. me3 Respiratory: Airway is patent Respiratory effort is even, unlabored. Derm: Skin is pink, warm & dry. Mental Health Eval: 14:47 Mental health consult is initiated at 14:00. Status: The patient is not a ms business services sales representative or dependent. [facility] Behavioral Health: The patient is not an established patient of [facility] Behavioral Health. Referral Information: Evaluation referral is generated by a police agency: [facility]. The patient was referred for evaluation because Pt .family member called police after pt .was throwing items from her upstairs apartment window and was yelling and screaming. Recent concerns that pt. has been having VH/AH and paranoia. Subjective: The patients chief complaint is Pt. states she does not know why she is in ER and is angry that she was brought here. She is guarded during interview. She does admit to throwing items out of window today, at first stating they were items that she just didn't want any longer but then did state she was upset and was letting off steam. Pt. would not elaborate about why she was angry except for saying she thinks they just want her out of there. Pt. son, daughter in law and step granddaughter live in apt below her. Pt. answers 'no' to SI/HI, AV/VH. She states she does have difficulty sleeping.. Delusions are denied. Patient's mood is angry, anxious, Auditory Hallucinations are suspected by family. Visual Hallucinations are suspected by family. Pt. halle (Jacob [phone]) states that during last month pt. has been exhibiting concerning symptoms. Niece states that pt. has stated that people have been taking things from her apartment and has stated that she was unable to get into her bedroom because there was a bear in there and stated there was a radio on in the apartment that others did not here. She states pt .has head episodes of rambling speech, not making sense. Pt. jackieece stated that pt. did have concerns that her son had been using her debit card without permission and that she stated she was going to leave the apartment but when this worker asked pt. about such concerns, pt. stated that everything was fine at home and she did not have any issues to discuss. Mental Health history: depression, Mental Health Admissions: None. Current Outpatient Mental Health Services: None. Current living environment is The patient currently lives alone. 15:12 Patient presents to Emergency Department with the following symptoms within the past 2 ms weeks: anger, auditory hallucinations family visual hallucinations, family paranoia, poor impulse control, sleep disturbance - insomnia. Substance abuse: Pt denies. Mental status exam: Patients appearance is appropriate, Patient's behavior is agitated, Speech is normal. Affect is appropriate. Mood is angry. Hallucinations are denied. Appetite is normal. Memory is good. Energy level is normal. Content of thought is paranoid. stated people have been taking things from her apt Thought process is intact. Cognitive level is oriented to person, place, time and situation Patient's insight is poor. Judgement is poor. Rapport with interviewer is guarded. Suicidal Ideation is denied. Homicidal ideation is denied. Disposition: Medically cleared for disposition by Mallorie Simon MD Psychiatric Consult is performed by phone with Dr Dionisio Orellana MD. [facility] Admission Criteria: The patient displays behavior that is destructive to property. The patient displays symptoms of severe psychiatric disorder resulting in disordered behavior and significant interference with his / her ability to maintain self care. Hallucinations. Legal Status: Patient's legal status will be Emergency admission: 9.39. [place] Safe Act: MD Safe Act is not applicable because the patient does not display any suicidal or homicidal ideations and does not pose a risk to self or others. 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 04/26 12:59 Insurance Pre-Certification: approved by: Zev Stringer\ [facility] ([phone]) approved admission ms for 5 days with review on 04/29 with Demetria Stringer\ [phone]. Authorization # [id number]. Vital Signs: 04/25 10:11 BP 175 / 92; Pulse 46; Resp 16; Temp 98.3(O); Pulse Ox 98% on R/A; Weight 79.38 kg (R); ml6 Height 5 ft. 4 in. (162.56 cm) (R); Pain 0/10; 10:45 BP 148 / 91 (auto/); kc3 10:45 Pulse 93 MON; Pulse Ox 95% ; kc3 11:00 BP 130 / 76 (auto/); kc3 11:00 Pulse 93 MON; Pulse Ox 94% ; kc3 11:11 Pulse 94 MON; Pulse Ox 95% ; kc3 11:15 BP 148 / 98 (auto/); kc3 11:30 BP 157 / 105 (auto/); kc3 11:31 Pulse 95 MON; Pulse Ox 95% ; kc3 11:44 Pulse 95 MON; Pulse Ox 94% ; kc3 11:45 BP 146 / 97 (auto/); kc3 11:53 Pulse 94 MON; Pulse Ox 94% ; kc3 12:00 BP 140 / 85 (auto/); kc3 12:15 BP 135 / 78 (auto/); kc3 12:16 Pulse 92 MON; Pulse Ox 93% ; kc3 16:15 BP 158 / 78; Pulse 94; Resp 18; Temp 98.6; Pulse Ox 93% on R/A; me3 10:11 Body Mass Index 30.04 (79.38 kg, 162.56 cm) ml6 Vitals: 10:11 Log In Time: April 25, 2016 at 10:05. ml6 ED Course: 10:05 Patient visited by Kalli Souza. jp5 10:05 Patient moved to Waiting jp5 10:06 Patient visited by Stanley Kamara, AUBREE. ml6 10:06 Patient moved to [facility] ml6 10:11 Triage Initiated ml6 10:18 Lori Mckenna LPN is Primary Nurse. me3 10:20 Patient visited by Salvador Duarte Security Aide. pjf 10:25 Shima CalvilloRN is Primary Nurse. pjf 10:25 Patient moved to pjf 10:48 Mallorie Simon MD is Attending Physician. ml 10:48 Patient visited by Mallorie Simon MD. ml 10:48 -Arterial Blood Gas Sent. kjn 10:48 Ammonia (Little Green Tube on Ice, Not Pea Green) Sent. kc3 10:48 Acetaminophen Level Sent. kc3 10:48 Basic Metabolic Profile Sent. kc3 10:48 Complete Blood Count Sent. kc3 10:48 Ethyl Alcohol (ethanol) Sent. kc3 10:48 Liver Profile Sent. kc3 10:49 Thyroid Stimulating Hormone Sent. kc3 10:49 Salicylate Level Sent. kc3 10:50 Patient visited by Yuniel Lennon. jml1 10:50 EKG done. (by ED staff). Reviewed by Mallorie Simon MD. jml1 10:51 Inserted saline lock: 20 gauge in right forearm and blood collected. The patient kc3 tolerated the procedure well. placed by Murali Gonzalez RN. 10:53 The patient / caregiver is instructed regarding the plan of care and ED course. kc3 11:11 CARDIAC INJURY PROFILE Sent. jmk 11:11 TROPONIN Sent. jmk 11:53 Patient visited by Shima Calvillo RN. kc3 12:00 Chest, 2 View (pa\E\lat) Returned. EDMS 12:00 CT Head Without Contrast Returned. EDMS 12:26 Patient visited by Shima Calvillo,RN. kc3 13:00 Patient visited by Shima Calvillo,AUBREE. kc3 13:10 [facility] Payment Agreement was scanned into [email or web address] and attached to record. jp5 13:43 Patient moved to [facility] deg 13:43 Discontinued lock intact, bleeding controlled, pressure dressing applied, No kcs redness/swelling at site. 13:48 Patient visited by Salvador Duarte Security Aide. pjf 13:55 Pt greeted and oriented to ED. Patient advised of names of staff involved in care, pjf location of call chauhan, wait times and NPO status. Accompanied by Family Member, Patient has correct armband on for positive identification. Placed in psych safe attire. Bed in low position. Call light in reach. Side rails up X 1. Adult w/ patient. Security observing. Property removed, secured in belongings bag- Placed in rn - psych. triage level #2, ams, cooperative \T\ this time. Door closed. Visitors limited. Psych Safety Check: Location: Psych Room. 13:58 Patient visited by Salvador Duarte Security Aide. pjf 14:13 Patient visited by Salvador Duarte Security Aide. pjf 14:39 Patient visited by Lori Mckenna LPN. me3 14:42 Chest, 2 View (pa\E\lat) Returned. EDMS 14:47 Patient visited by Salvador Duarte Security Aide. pjf 15:00 Patient visited by Salvador Duarte Security Aide. pjf 15:12 Dionisio Orellana MD is Hospitalizing Provider. ml 15:35 [facility] Legal paperwork was scanned into [email or web address] and attached to record. ml4 15:37 Patient visited by Salvador Duarte Security Aide. pjf 15:59 Patient visited by Salvador Duarte Security Aide. pjf 16:02 [facility] Legal paperwork was scanned into [email or web address] and attached to record. ml4 16:14 No procedures done that require assistance. me3 04/26 10:13 T-Sheet-- Draft Copy was scanned into [email or web address] and attached to record. gb 10:13 ECG/EKG was scanned into [employer] and attached to record. gb 10:14 Radiology Report was scanned into [email or web address] and attached to record. gb Administered Medications: 04/25 12:59 Drug: Gemfibrozil 600 mg Route: PO; kc3 Attachments: 15:35 [facility] Legal paperwork ml4 16:02 [facility] Legal paperwork ml4 Point of Care Testing: Blood Glucose: 04/25 10:52 Blood Glucose: 288 mg/dL; kc3 Ranges: RT: 10:48 ABG's drawn from right radial artery allens test done and positive pressure held for 5 kjn minutes no bleeding noted pressure bandage applied specimen sent pt. tolerated well. Order Results: Lab Order: -Arterial Blood Gas; SPEC'M 04/25/16 10:43 Test: ABG pH (ARTERIAL); Value: 7.454; Range: 7.350-7.450; Abnormal: Above high normal; Units: UNITS; Status: F Test: ABG PARTIAL PRESSURE CO2; Value: 46.0; Range: 35.0-45.0; Abnormal: Above high normal; Units: mmHg; Status: F Test: ABG PARTIAL PRESSURE O2; Value: 72.0; Range: 75.0-100.0; Abnormal: Below low normal; Units: mmHg; Status: F Test: ABG TOTAL CO2; Value: 33.0; Range: 22.0-29.0; Abnormal: Above high normal; Units: MEQ/L; Status: F Test: ABG HCO3; Value: 31.5; Range: 22.0-26.0; Abnormal: Above high normal; Units: MEQ/L; Status: F Test: ABG BASE EXCESS; Value: 6.7; Range: -2.0-2.0; Abnormal: Above high normal; Status: F Test: ABG STANDARD HCO3; Value: 30.5; Range: 22.0-26.0; Abnormal: Above high normal; Units: MEQ/L; Status: F Test: ABG O2 SATURATION; Value: 95.7; Range: 95.0-99.0; Units: %; Status: F Test: ABG DEVICE; Value: NASAL KOFFI; Status: F Lab Order: Acetaminophen Level; SPEC'M 04/25/16 10:46 Test: ACETAMINOPHEN LEVEL; Value: < 2.0; Range: 10.0-30.0; Abnormal: Below low normal; Units: UG/ML; Status: F Lab Order: Basic Metabolic Profile; SPEC'M 04/25/16 10:46 Test: GLUCOSE, FASTING; Value: 253; Range: 70-105; Abnormal: Above high normal; Units: MG/DL; Status: F Test: BLOOD UREA NITROGEN; Value: 12; Range: 7-18; Units: MG/DL; Status: F Test: CREATININE FOR GFR; Value: 1.18; Range: 0.55-1.02; Abnormal: Above high normal; Units: MG/DL; Status: F Test: GLOMERULAR FILTRATION RATE; Value: 49.9; Range: >51; Abnormal: Below low normal; Status: F Test: SODIUM LEVEL; Value: 140; Range: 136-145; Units: MEQ/L; Status: F Test: POTASSIUM SERUM; Value: 3.6; Range: 3.5-5.1; Units: MEQ/L; Status: F Test: CHLORIDE LEVEL; Value: 102; Range: 98-107; Units: MEQ/L; Status: F Test: CARBON DIOXIDE LEVEL; Value: 30; Range: 21-32; Units: MEQ/L; Status: F Test: ANION GAP; Value: 8; Range: 8-16; Units: MEQ/L; Status: F Test: CALCIUM LEVEL; Value: 8.5; Range: 8.5-10.1; Units: MG/DL; Status: F Test Note: ; Units are mL/min/1.73 m2 Chronic Kidney Disease Staging per NKF: Stage I & II GFR >=60 Normal to Mildly Decreased Stage III GFR 30-59 Moderately Decreased Stage IV GFR 15-29 Severely Decreased Stage V GFR <15 Very Little GFR Left ESRD GFR <15 on LABEL FOLDER Lab Order: Complete Blood Count; SPEC'M 04/25/16 10:46 Test: WHITE BLOOD COUNT; Value: 5.3; Range: 4.0-10.0; Units: K/mm3; Status: F Test: RED BLOOD COUNT; Value: 4.56; Range: 4.00-5.40; Units: M/mm3; Status: F Test: HEMOGLOBIN; Value: 12.9; Range: 12.0-16.0; Units: g/dl; Status: F Test: HEMATOCRIT; Value: 42.6; Range: 36.0-47.0; Units: %; Status: F Test: MEAN CORPUSCULAR VOLUME; Value: 93.5; Range: 80.0-96.0; Units: fl; Status: F Test: MEAN CORPUSCULAR HEMOGLOBIN; Value: 28.2; Range: 27.0-33.0; Units: pg; Status: F Test: MEAN CORPUSCULAR HGB CONC; Value: 30.2; Range: 32.0-36.5; Abnormal: Below low normal; Units: g/dl; Status: F Test: RED CELL DISTRIBUTION WIDTH; Value: 18.2; Range: 11.5-14.5; Abnormal: Above high normal; Units: %; Status: F Test: PLATELET COUNT, AUTOMATED; Value: 181; Range: 150-450; Units: k/mm3; Status: F Lab Order: Drug Eval Toxicology ED Only; SPEC'M 04/25/16 13:41 Test: AMPHETAMINES LEVEL URINE; Value: NEGATIVE; Range: NEGATIVE; Status: F Test: BARBITURATES URINE; Value: NEGATIVE; Range: NEGATIVE; Status: F Test: BENZODIAZEPINES URINE; Value: NEGATIVE; Range: NEGATIVE; Status: F Test: CANNABINOIDS URINE; Value: NEGATIVE; Range: NEGATIVE; Status: F Test: COCAINE METABOLITE URINE; Value: NEGATIVE; Range: NEGATIVE; Status: F Test: METHADONE URINE; Value: NEGATIVE; Range: NEGATIVE; Status: F Test: OPIATES URINE; Value: NEGATIVE; Range: NEGATIVE; Status: F Test: TRICYCLIC ANTIDEPRESS URINE; Value: NEGATIVE; Range: NEGATIVE; Status: F Test Note: ; ALL PRESUMPTIVE POSITIVE FINDINGS ARE UNCONFIRMED NORMAL VALUES THRESHOLD IN NG/ML AMPHETAMINES 1000 METHAMPHETAMINES 1000 BARBITURATES 300 BENZODIAZEPINES 300 CANNABINOIDS (THC) 50 COCAINE METABOLITE 300 METHADONE 300 OPIATES 300 PHENCYCLIDINE 25 TRICYCLIC ANTIDEPRESSANTS 1000 RESULTS ARE FOR MEDICAL PURPOSES ONLY. ALL URINE SPECIMENS WILL BE SAVED FOR 3 DAYS. IF CONFIRMATION OF A PRESUMPTIVE POSTIVE SCREEN RESULT IS DESIRED, CALL CHEMISTRY ([phone]) AND REQUEST URINE TO BE SENT TO REFERENCE LAB. FOR A LIST OF CLOSELY RELATED COMPOUNDS PLEASE CALL THE LAB. Lab Order: Ethyl Alcohol (ethanol); SPEC'M 04/25/16 10:46 Test: ETHYL ALCOHOL (ETHANOL); Value: < 0.003; Range: 0.000-0.010; Units: %; Status: F Lab Order: Liver Profile; [facility] 04/25/16 10:46 Test: AST/SGOT; Value: 34; Range: 15-37; Units: U/L; Status: F Test: ALT/SGPT; Value: 33; Range: 12-78; Units: U/L; Status: F Test: ALKALINE PHOSPHATASE; Value: 117; Range: 45-117; Units: U/L; Status: F Test: BILIRUBIN,TOTAL; Value: 1.1; Range: 0.2-1.0; Abnormal: Above high normal; Units: MG/DL; Status: F Test: BILIRUBIN,DIRECT; Value: 0.5; Range: 0.0-0.2; Abnormal: Above high normal; Units: MG/DL; Status: F Test: TOTAL PROTEIN; Value: 6.5; Range: 6.4-8.2; Units: GM/DL; Status: F Test: ALBUMIN; Value: 3.4; Range: 3.2-5.2; Units: GM/DL; Status: F Test: ALBUMIN/GLOBULIN RATIO; Value: 1.10; Range: 1.00-1.93; Status: F Lab Order: Salicylate Level; [facility] 04/25/16 10:46 Test: SALICYLATE LEVEL; Value: < 1.7; Range: 5.0-30.0; Abnormal: Below low normal; Units: MG/DL; Status: F Lab Order: Thyroid Stimulating Hormone; [facility] 04/25/16 10:46 Test: THYROID STIMULATING HORMONE; Value: 2.060; Range: 0.358-3.740; Units: uIU/ML; Status: F Lab Order: Ammonia ([place] Tube on Ice, Not Pea Green); [facility] 04/25/16 10:46 Test: AMMONIA; Value: 35; Range: <32; Abnormal: Above high normal; Units: uMOL/L; Status: F Lab Order: CARDIAC INJURY PROFILE; [facility] 04/25/16 10:46 Test: CPK CREATINE PHOSPHOKINASE; Value: 189; Range: 26-192; Units: U/L; Status: F Test: CK-MB VALUE MASS; Value: 4.8; Range: 0.0-3.6; Abnormal: Above high normal; Units: NG/ML; Status: F Test: MB/CK RELATIVE INDEX; Value: 2.53; Range: < OR =4; Status: F Test Note: ; DIAGNOSIS CRITERIA MMB ng/ml Relative Index (RI) NON-AMI < or = 5 N/A [place] > 5 < or = 4 AMI > 5 > 4 Lab Order: TROPONIN; [facility]' 04/25/16 10:46 Test: TROPONIN I; Value: 0.09; Range: < 0.10; Units: NG/ML; Status: F Test Note: ; Troponin I Reference Interval for [employer] [place] LOCI: 99th Percentile= 0.00-0.045 ng/ml Risk Stratification: <= 0.10 ng/ml Decreased Risk for Adverse Clinical Events. 0.10-1.50 ng/ml Increased Risk for Adverse Clinical Events. Evaluation of additional criterion and/or repeat testing in 2-6 hours is suggested to rule out myocardial damage. >= 1.50 ng/ml Indicative of Myocardial Injury. Lab Order: Fingerstick Blood Sugar; [facility]'M 04/25/16 10:38 Test: BEDSIDE GLUCOSE; Value: 288; Range: 70-105; Abnormal: Above high normal; Units: MG/DL; Status: F Radiology Order: Chest, 2 View (pa\E\lat) Test: Chest, 2 View (pa\E\lat) REASON FOR EXAMINATION: Cough; Chest x-ray: Two views.; ; History: Cough.; ; Findings: The heart is enlarged unchanged. Pulmonary vasculature is not; increased. Lung almendarez are well inflated and clear. Pleural angles are sharp.; ; Impression:; ; Cardiomegaly. Otherwise no acute disease.; ; ; Signed by; Anuel Olguin MD 04/25/2016 02:33 P; Radiology Order: CT Head Without Contrast Test: CT Head Without Contrast REASON FOR EXAMINATION: altered ms; CT HEAD WITHOUT CONTRAST:; ; HISTORY: Altered mental status.; ; COMPARISON: 04/17/2016.; ; Areas of decreased attenuation are present in the periventricular white matter.; This represents small vessel ischemic disease. There is no intraparenchymal; hemorrhage, mass or midline shift. The ventricular system and cortical sulci are; dilated consistent with minimal volume loss. There is no extracerebral; collection. The visualized sinuses are clear.; ; IMPRESSION:; ; 1. Small vessel ischemic disease.; ; 2. Minimal volume loss.; ; ; Signed by; Antoni Sebastian MD 04/25/2016 11:41 A; Outcome: 10:53 CT Study completed. [facility] 15:12 Decision to Hospitalize by Provider. 16:14 Discharge Assessment: patient administered narcotics - no. The following High Risk [facility] Discharge criteria are identified: None. Admitted to Psych accompanied by tech, via stretcher, with chart, Other with property. Condition: stable. 16:17 Patient left the ED. wy3 Signatures: Dispatcher [employer] EDMS Mallorie Simon MD MD ml Sleeman, Kacey, RN RN Sima Knutson, Field Sales Representative Unit deg Murali Gonzalez,RN RN mayak Doris Nguyen, PSA PSA ca Stone, Demetria, PSA PSA ms Sgashwindavontemilvia, Teetee, Reg Reg gb Ferendzo, Salvador, Security Aide Securpf Lori Mckenna,CHIEF PAYROLL CLERK CHIEF PAYROLL CLERK wy3 Elma, Odalys, PSA PSA ml4 Stanley Kamara RN RN ml6 Yuniel Lennon jml1 Alycia Nguyen Jennalee 5 Shima Calvillo,RN RN 3 Corrections: (The following items were deleted from the chart) 10:59 10:48 TROPONIN+LAB sent. [facility] EDIA 10:59 10:48 CARDIAC INJURY PROFILE+LAB sent. [address] 12:13 10:14 Home Meds: albuterol sulfate 1.25 mg/3 mL Inhl nebu daily (Last Dose: Unknown); [place] [address] 12:13 10:14 Home Meds: atorvastatin 40 mg oral tab 1 tab once daily (Last Dose: Unknown); [place] [address] 12:13 10:14 Home Meds: bupropion HCl 150 mg Oral TbER 1 tab 2 times per day (Last Dose: [facility] Unknown); [facility] 12:13 10:14 Home Meds: cilostazol 50 mg oral tab 1 tab 2 times per day (Last Dose: Unknown); [place] [address] 12:13 10:14 Home Meds: ferrous sulfate 325 mg (65 mg iron) Oral cpER daily (Last Dose: [facility] Unknown); [facility] 12:13 10:14 Home Meds: folic acid 1 mg Oral tab 1 tab once daily (Last Dose: Unknown); [place] [address] 12: 10:14 Home Meds: gabapentin 100 mg Oral cap; 5 times daily (Last Dose: Unknown); [place] [address] 12: 10:14 Home Meds: gemfibrozil 600 mg Oral tab 1 tab 2 times per day (Last Dose: [facility] Unknown); [facility] 12: 10:14 Home Meds: glipizide 2.5 mg Oral tr24 once daily (Last Dose: Unknown); [place] [address] 12: 10:14 Home Meds: melatonin 3 mg Oral tab nightly (Last Dose: Unknown); [place] [address] 12: 10:14 Home Meds: pantoprazole 40 mg oral TbEC 1 tab once daily (Last Dose: Unknown); [facility] 12: 10:14 Home Meds: venlafaxine 75 mg oral cp24 1 cap once daily (Last Dose: Unknown); [place] [address] 12: 10:14 Home Meds: Vitamin B-12 500 mcg Oral tab daily (Last Dose: Unknown); [place] [address] 12: 10:14 Home Meds: Vitamin C 500 mg Oral cpER daily (Last Dose: Unknown); [place] [address] 12 12:13 Home Meds: glipizide 2.5 mg Oral tr24 once daily (Last Dose: 04/24/2016); [place] [address] 15:05 14:37 Mental health consult is initiated at 14:00. az ms 15: 14:37 Status: The patient is not a business services sales representative or dependent. az ms 15:05 14:37 [facility] Behavioral Health: The patient is not an established patient of [facility]. az 15:05 14:37 Referral Information: Evaluation referral is generated by pardeep ms 04/26 13:06 12:59 Insurance Pre-Certification: approved by: Zev Stringer\ [facility] ([phone]) approved ms admission for 5 days with review on 04/29 with Demetria Stringer\ [phone]. Authorization # [id number].. ms Chart Complete MTDD
--- NOTE | 2016-04-27 17:18 | EDDOCDS ---
Physician Documentation [facility] Name: Maria Antonia Aj Age: 60 yrs Sex: Female : 1955 Arrival Date: 04/25/2016 Time: 10:01 Bed [facility] Private MD: Disposition: 04/25/16 15:12 Hospitalization ordered by Dionisio Orellana for Inpatient Admission. 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 - Bed requested for Admit. - Status is Inpatient Admission. me3 - Condition is Stable. - Problem is new. - Symptoms are unchanged. Historical: - Allergies: no known allergies; - Home Meds: 1. Dulera 200-5 mcg/actuation inhalation HFAA 2 puffs 2 times per day needs new rx (Last dose: Unknown) 2. Nitrostat 0.4 mg SL subl 1 tab every 5 minutes (Last dose: Unknown) 3. albuterol sulfate 1.25 mg/3 mL Inhl nebu daily (Last dose: 04/25/2016 00:00) 4. atorvastatin 40 mg oral tab 1 tab once daily (Last dose: 04/24/2016) 5. bupropion HCl 150 mg Oral TbER 1 tab 2 times per day (Last dose: 04/24/2016) 6. cilostazol 50 mg oral tab 1 tab 2 times per day (Last dose: 04/24/2016) 7. ferrous sulfate 325 mg (65 mg iron) Oral cpER daily (Last dose: 04/24/2016) 8. folic acid 1 mg Oral tab 1 tab once daily (Last dose: 04/24/2016) 9. gabapentin 100 mg Oral cap 5 times daily (Last dose: 04/24/2016) 10. gemfibrozil 600 mg Oral tab 1 tab 2 times per day (Last dose: 04/24/2016) 11. melatonin 3 mg Oral tab nightly (Last dose: 04/24/2016) 12. pantoprazole 40 mg oral TbEC 1 tab once daily (Last dose: 04/24/2016) 13. venlafaxine 75 mg oral cp24 1 cap once daily (Last dose: 04/24/2016) 14. Vitamin B-12 500 mcg Oral tab daily (Last dose: 04/24/2016) 15. Vitamin C 500 mg Oral cpER daily (Last dose: 04/24/2016) - PMHx: COPD; Diabetes - NIDDM: controlled; GERD; Hypercholesterolemia; Hypertension; Pneumonia; Stage 4 concussion; - PSHx: Left hand surgery; Cholecystectomy; Hysterectomy; - Social history: Smoking status: Patient uses tobacco products, heavy tobacco smoker. No barriers to communication noted, Speaks appropriately for age. - Family history: Not pertinent. - : The pt / caregiver states he / she is not on anticoagulants. Home medication list is obtained from the patient. - Exposure Risk Screening:: None identified. Vital Signs: 04/25 10:11 BP 175 / 92; Pulse 46; Resp 16; Temp 98.3(O); Pulse Ox 98% on R/A; Weight 79.38 kg / ml6 175 lbs (R); Height 5 ft. 4 in. (162.56 cm) (R); Pain 0/10; 10:45 BP 148 / 91 (auto/); kc3 10:45 Pulse 93 MON; Pulse Ox 95% ; kc3 11:00 BP 130 / 76 (auto/); kc3 11:00 Pulse 93 MON; Pulse Ox 94% ; kc3 11:11 Pulse 94 MON; Pulse Ox 95% ; kc3 11:15 BP 148 / 98 (auto/); kc3 11:30 BP 157 / 105 (auto/); kc3 11:31 Pulse 95 MON; Pulse Ox 95% ; kc3 11:44 Pulse 95 MON; Pulse Ox 94% ; kc3 11:45 BP 146 / 97 (auto/); kc3 11:53 Pulse 94 MON; Pulse Ox 94% ; kc3 12:00 BP 140 / 85 (auto/); kc3 12:15 BP 135 / 78 (auto/); kc3 12:16 Pulse 92 MON; Pulse Ox 93% ; kc3 16:15 BP 158 / 78; Pulse 94; Resp 18; Temp 98.6; Pulse Ox 93% on R/A; me3 10:11 Body Mass Index 30.04 (79.38 kg, 162.56 cm) ml6 MDM: 10:17 Consult PFS/PSA/Tractor Expert ordered. ml6 10:17 Consult PFS/PSA/Tractor Expert: Patient's case requires discussion with on-call ml6 Psychiatrist ordered. 10:17 PSA/PFS to call Nursing Combination Machine Tool Setter, to enter patient data [place] if patient ml6 involuntarily admitted or transferred for SI or HI ordered. 10:17 Confirm accurate psychiatric medication list and times of last dosage ordered. ml6 10:17 Detain Pt Until Medically/PFS Cleared ordered. ml6 10:18 -Arterial Blood Gas Ordered. EDMS 10:18 Acetaminophen Level Ordered. EDMS 10:18 Basic Metabolic Profile Ordered. EDMS 10:18 Complete Blood Count Ordered. EDMS 10:18 Drug Eval Toxicology ED Only Ordered. EDMS 10:18 Ethyl Alcohol (ethanol) Ordered. EDMS 10:18 Liver Profile Ordered. EDMS 10:18 Salicylate Level Ordered. EDMS 10:19 Thyroid Stimulating Hormone Ordered. EDMS 10:19 ECG WITH READING ER PHYS+CARDIAG ordered. EDMS 10:20 Chest, 2 View (pa\E\lat) Ordered. EDMS 10:23 Accucheck ordered. ml 10:24 Ammonia (Little Green Tube on Ice, Not Pea Green) Ordered. EDMS 10:24 CT Head Without Contrast Ordered. EDMS 10:59 CARDIAC INJURY PROFILE Ordered. EDMS 10:59 TROPONIN Ordered. EDMS 11:26 -Arterial Blood Gas Reviewed. ml 11:26 Complete Blood Count Reviewed. ml 11:26 Ammonia (Little Green Tube on Ice, Not Pea Green) Reviewed. ml 11:52 Acetaminophen Level Reviewed. ml 11:52 Basic Metabolic Profile Reviewed. ml 11:52 Liver Profile Reviewed. ml 11:52 Salicylate Level Reviewed. ml 11:52 CARDIAC INJURY PROFILE Reviewed. ml 11:52 Ethyl Alcohol (ethanol) Reviewed. ml 11:52 Thyroid Stimulating Hormone Reviewed. ml 11:52 TROPONIN Reviewed. ml 11:54 Misc. Nursing Order ordered. ml 11:54 Misc. Nursing Order ordered. ml 11:54 Vital Signs ordered. ml 12:09 Fingerstick Blood Sugar Ordered. EDMS 12:27 Gemfibrozil 600 mg PO once ordered. ml 12:28 Misc. Nursing Order ordered. ml 13:10 [facility] Payment Agreement was scanned into [employer] and attached to record. jp5 13:10 Financial registration complete. jp5 14:20 REGULAR DIET PLASTIC GONSALEZ+DIET ordered. EDMS 14:36 Fingerstick Blood Sugar Reviewed. ml 14:36 Drug Eval Toxicology ED Only Reviewed. ml 14:36 Chest, 2 View (pa\E\lat) Reviewed. ml 14:36 CT Head Without Contrast Reviewed. ml 14:47 Admit to [facility]: ordered. EDMS 15:35 [facility] Legal paperwork was scanned into [employer] and attached to record. ml4 16:02 [facility] Legal paperwork was scanned into [employer] and attached to record. ml4 16:13 Consult PFS/PSA/Tractor Expert complete. me3 16:13 Consult PFS/PSA/Tractor Expert: Patient's case requires discussion with on-call nj3 Psychiatrist complete. 16:13 PSA/PFS to call Nursing Combination Machine Tool Setter, to enter [place] data [place] if patient me3 involuntarily admitted or transferred for SI or HI complete. 04/26 10:13 T-Sheet-- Draft Copy was scanned into [employer] and attached to record. gb 10:14 ECG/EKG was scanned into [employer] and attached to record. gb 10:14 Radiology Report was scanned into [employer] and attached to record. gb Point of Care Testing: Blood Glucose: 04/25 10:52 Blood Glucose: 288 mg/dL; kc3 Ranges: Administered Medications: 12:59 Drug: Gemfibrozil 600 mg Route: PO; kc3 Signatures: Dispatcher [employer] EDKS Mallorie Simon MD MD ml Teetee Carranza, Reg Reg gb Lori Mckenna,SPARK PLUG TESTER SPARK PLUG TESTER me3 Odalys Wills, PSA PSA ml4 Stanley Kamara, RN RN ml6 Kalli Souza jp5 Shima Calvillo,RN RN kc3 The chart was reviewed and I authenticate all verbal orders and agree with the evaluation and treatment provided.Corrections: (The following items were deleted from the chart) 10: 10:24 CARDIAC INJURY PROFILE+LAB ordered. EDKS EDMS 10:59 10:24 TROPONIN+LAB ordered. EDKS EDMS 12:13 10:14 Home Meds: albuterol sulfate 1.25 mg/3 mL Inhl nebu daily (Last Dose: Unknown); kc3 ml6 12:13 10:14 Home Meds: atorvastatin 40 mg oral tab 1 tab once daily (Last Dose: Unknown); ml6 kc3 12:13 10:14 Home Meds: bupropion HCl 150 mg Oral TbER 1 tab 2 times per day (Last Dose: kc3 Unknown); ml6 12:13 10:14 Home Meds: cilostazol 50 mg oral tab 1 tab 2 times per day (Last Dose: Unknown); 3 ml 12: 10:14 Home Meds: ferrous sulfate 325 mg (65 mg iron) Oral cpER daily (Last Dose: [facility] Unknown); [facility] : 10:14 Home Meds: folic acid 1 mg Oral tab 1 tab once daily (Last Dose: Unknown); [place] [address] 12: 10:14 Home Meds: gabapentin 100 mg Oral cap; 5 times daily (Last Dose: Unknown); [place] [address] 12: 10:14 Home Meds: gemfibrozil 600 mg Oral tab 1 tab 2 times per day (Last Dose: [facility] Unknown); [facility] : 10:14 Home Meds: glipizide 2.5 mg Oral tr24 once daily (Last Dose: Unknown); [place] [address] : 10:14 Home Meds: melatonin 3 mg Oral tab nightly (Last Dose: Unknown); [place] [address] : 10:14 Home Meds: pantoprazole 40 mg oral TbEC 1 tab once daily (Last Dose: Unknown); [facility] 12: 10:14 Home Meds: venlafaxine 75 mg oral cp24 1 cap once daily (Last Dose: Unknown); [place] [address] 12: 10:14 Home Meds: Vitamin B-12 500 mcg Oral tab daily (Last Dose: Unknown); [place] [address] 12: 10:14 Home Meds: Vitamin C 500 mg Oral cpER daily (Last Dose: Unknown); [facility] 12 12:13 Home Meds: glipizide 2.5 mg Oral tr24 once daily (Last Dose: 04/24/2016); [facility] kc3 Attachments: 13:10 [facility] Payment Agreement jp5 04/26 10:13 T-Sheet-- Draft Copy gb 10:14 ECG/EKG gb Chart Complete MTDD
--- NOTE | 2016-04-27 17:18 | EDDOCDS ---
Physician Documentation [facility] Name: Maria Antonia Aj Age: 60 yrs Sex: Female : 1955 Arrival Date: 04/25/2016 Time: 10:01 Bed [facility] Private MD: Disposition: 04/25/16 15:12 Hospitalization ordered by Dionisio Orellana for Inpatient Admission. 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 - Bed requested for Admit. - Status is Inpatient Admission. me3 - Condition is Stable. - Problem is new. - Symptoms are unchanged. Historical: - Allergies: no known allergies; - Home Meds: 1. Dulera 200-5 mcg/actuation inhalation HFAA 2 puffs 2 times per day needs new rx (Last dose: Unknown) 2. Nitrostat 0.4 mg SL subl 1 tab every 5 minutes (Last dose: Unknown) 3. albuterol sulfate 1.25 mg/3 mL Inhl nebu daily (Last dose: 04/25/2016 00:00) 4. atorvastatin 40 mg oral tab 1 tab once daily (Last dose: 04/24/2016) 5. bupropion HCl 150 mg Oral TbER 1 tab 2 times per day (Last dose: 04/24/2016) 6. cilostazol 50 mg oral tab 1 tab 2 times per day (Last dose: 04/24/2016) 7. ferrous sulfate 325 mg (65 mg iron) Oral cpER daily (Last dose: 04/24/2016) 8. folic acid 1 mg Oral tab 1 tab once daily (Last dose: 04/24/2016) 9. gabapentin 100 mg Oral cap 5 times daily (Last dose: 04/24/2016) 10. gemfibrozil 600 mg Oral tab 1 tab 2 times per day (Last dose: 04/24/2016) 11. melatonin 3 mg Oral tab nightly (Last dose: 04/24/2016) 12. pantoprazole 40 mg oral TbEC 1 tab once daily (Last dose: 04/24/2016) 13. venlafaxine 75 mg oral cp24 1 cap once daily (Last dose: 04/24/2016) 14. Vitamin B-12 500 mcg Oral tab daily (Last dose: 04/24/2016) 15. Vitamin C 500 mg Oral cpER daily (Last dose: 04/24/2016) - PMHx: COPD; Diabetes - NIDDM: controlled; GERD; Hypercholesterolemia; Hypertension; Pneumonia; Stage 4 concussion; - PSHx: Left hand surgery; Cholecystectomy; Hysterectomy; - Social history: Smoking status: Patient uses tobacco products, heavy tobacco smoker. No barriers to communication noted, Speaks appropriately for age. - Family history: Not pertinent. - : The pt / caregiver states he / she is not on anticoagulants. Home medication list is obtained from the patient. - Exposure Risk Screening:: None identified. Vital Signs: 04/25 10:11 BP 175 / 92; Pulse 46; Resp 16; Temp 98.3(O); Pulse Ox 98% on R/A; Weight 79.38 kg / ml6 175 lbs (R); Height 5 ft. 4 in. (162.56 cm) (R); Pain 0/10; 10:45 BP 148 / 91 (auto/); kc3 10:45 Pulse 93 MON; Pulse Ox 95% ; kc3 11:00 BP 130 / 76 (auto/); kc3 11:00 Pulse 93 MON; Pulse Ox 94% ; kc3 11:11 Pulse 94 MON; Pulse Ox 95% ; kc3 11:15 BP 148 / 98 (auto/); kc3 11:30 BP 157 / 105 (auto/); kc3 11:31 Pulse 95 MON; Pulse Ox 95% ; kc3 11:44 Pulse 95 MON; Pulse Ox 94% ; kc3 11:45 BP 146 / 97 (auto/); kc3 11:53 Pulse 94 MON; Pulse Ox 94% ; kc3 12:00 BP 140 / 85 (auto/); kc3 12:15 BP 135 / 78 (auto/); kc3 12:16 Pulse 92 MON; Pulse Ox 93% ; kc3 16:15 BP 158 / 78; Pulse 94; Resp 18; Temp 98.6; Pulse Ox 93% on R/A; me3 10:11 Body Mass Index 30.04 (79.38 kg, 162.56 cm) ml6 MDM: 10:17 Consult PFS/PSA/Infrastructure Security Architect ordered. ml6 10:17 Consult PFS/PSA/Infrastructure Security Architect: Patient's case requires discussion with on-call ml6 Psychiatrist ordered. 10:17 PSA/PFS to call Nursing Undercar Specialist, to enter [place] data [place] if patient ml6 involuntarily admitted or transferred for SI or HI ordered. 10:17 Confirm accurate psychiatric medication list and times of last dosage ordered. ml6 10:17 Detain Pt Until Medically/PFS Cleared ordered. ml6 10:18 -Arterial Blood Gas Ordered. EDMS 10:18 Acetaminophen Level Ordered. EDMS 10:18 Basic Metabolic Profile Ordered. EDMS 10:18 Complete Blood Count Ordered. EDMS 10:18 Drug Eval Toxicology ED Only Ordered. EDMS 10:18 Ethyl Alcohol (ethanol) Ordered. EDMS 10:18 Liver Profile Ordered. EDMS 10:18 Salicylate Level Ordered. EDMS 10:19 Thyroid Stimulating Hormone Ordered. EDMS 10:19 ECG WITH READING ER PHYS+CARDIAG ordered. EDMS 10:20 Chest, 2 View (pa\E\lat) Ordered. EDMS 10:23 Accucheck ordered. ml 10:24 Ammonia (Little Green Tube on Ice, Not Pea Green) Ordered. EDMS 10:24 CT Head Without Contrast Ordered. EDMS 10:59 CARDIAC INJURY PROFILE Ordered. EDMS 10:59 TROPONIN Ordered. EDMS 11:26 -Arterial Blood Gas Reviewed. ml 11:26 Complete Blood Count Reviewed. ml 11:26 Ammonia ([place] Tube on Ice, Not Pea Green) Reviewed. ml 11:52 Acetaminophen Level Reviewed. ml 11:52 Basic Metabolic Profile Reviewed. ml 11:52 Liver Profile Reviewed. ml 11:52 Salicylate Level Reviewed. ml 11:52 CARDIAC INJURY PROFILE Reviewed. ml 11:52 Ethyl Alcohol (ethanol) Reviewed. ml 11:52 Thyroid Stimulating Hormone Reviewed. ml 11:52 TROPONIN Reviewed. ml 11:54 Misc. Nursing Order ordered. ml 11:54 Misc. Nursing Order ordered. ml 11:54 Vital Signs ordered. ml 12:09 Fingerstick Blood Sugar Ordered. EDMS 12:27 Gemfibrozil 600 mg PO once ordered. ml 12:28 Misc. Nursing Order ordered. ml 13:[address] [facility] Payment Agreement was scanned into [employer] and attached to record. jp5 13:10 Financial registration complete. jp5 14:20 REGULAR DIET PLASTIC GONSALEZ+DIET ordered. EDMS 14:36 Fingerstick Blood Sugar Reviewed. ml 14:36 Drug Eval Toxicology ED Only Reviewed. ml 14:36 Chest, 2 View (pa\E\lat) Reviewed. ml 14:36 CT Head Without Contrast Reviewed. ml 14:47 Admit to [facility]: ordered. EDMS 15:35 [facility] Legal paperwork was scanned into [employer] and attached to record. ml4 16:02 [facility] Legal paperwork was scanned into [employer] and attached to record. ml4 16:13 Consult PFS/PSA/Infrastructure Security Architect complete. me3 16:13 Consult PFS/PSA/Infrastructure Security Architect: Patient's case requires discussion with on-call hi3 Psychiatrist complete. 16:13 PSA/PFS to call Nursing Undercar Specialist, to enter [place] if patient me3 involuntarily admitted or transferred for SI or HI complete. 04/26 10:13 T-Sheet-- Draft Copy was scanned into [employer] and attached to record. gb 10:14 ECG/EKG was scanned into [employer] and attached to record. gb 10:14 Radiology Report was scanned into [employer] and attached to record. gb Point of Care Testing: Blood Glucose: 04/25 10:52 Blood Glucose: 288 mg/dL; kc3 Ranges: Administered Medications: 12:59 Drug: Gemfibrozil 600 mg Route: PO; kc3 Signatures: Dispatcher [employer] EDNH Mallorie Simon MD MD ml Teetee Carranza, Reg Reg gb Lori Mckenna,KLYSTROM TUBE TESTER KLYSTROM TUBE TESTER me3 Odalys Wills, PSA PSA ml4 Stanley Kamara, RN RN ml6 Kalli Souza jp5 Shima Calvillo,RN RN kc3 The chart was reviewed and I authenticate all verbal orders and agree with the evaluation and treatment provided.Corrections: (The following items were deleted from the chart) 10: 10:24 CARDIAC INJURY PROFILE+LAB ordered. EDNH EDMS 10:59 10:24 TROPONIN+LAB ordered. EDNH EDMS 12:13 10:14 Home Meds: albuterol sulfate 1.25 mg/3 mL Inhl nebu daily (Last Dose: Unknown); kc3 ml6 12:13 10:14 Home Meds: atorvastatin 40 mg oral tab 1 tab once daily (Last Dose: Unknown); ml6 kc3 12:13 10:14 Home Meds: bupropion HCl 150 mg Oral TbER 1 tab 2 times per day (Last Dose: kc3 Unknown); ml6 12:13 10:14 Home Meds: cilostazol 50 mg oral tab 1 tab 2 times per day (Last Dose: Unknown); 3 ml 12: 10:14 Home Meds: ferrous sulfate 325 mg (65 mg iron) Oral cpER daily (Last Dose: [facility] Unknown); [facility] : 10:14 Home Meds: folic acid 1 mg Oral tab 1 tab once daily (Last Dose: Unknown); [place] [address] 12: 10:14 Home Meds: gabapentin 100 mg Oral cap; 5 times daily (Last Dose: Unknown); [place] [address] 12: 10:14 Home Meds: gemfibrozil 600 mg Oral tab 1 tab 2 times per day (Last Dose: [facility] Unknown); [facility] : 10:14 Home Meds: glipizide 2.5 mg Oral tr24 once daily (Last Dose: Unknown); [place] [address] : 10:14 Home Meds: melatonin 3 mg Oral tab nightly (Last Dose: Unknown); [place] [address] : 10:14 Home Meds: pantoprazole 40 mg oral TbEC 1 tab once daily (Last Dose: Unknown); [facility]3 12: 10:14 Home Meds: venlafaxine 75 mg oral cp24 1 cap once daily (Last Dose: Unknown); [place] [address] 12: 10:14 Home Meds: Vitamin B-12 500 mcg Oral tab daily (Last Dose: Unknown); [place] [address] 12: 10:14 Home Meds: Vitamin C 500 mg Oral cpER daily (Last Dose: Unknown); [facility] 12 12:13 Home Meds: glipizide 2.5 mg Oral tr24 once daily (Last Dose: 04/24/2016); [facility] kc3 Attachments: 13:10 [facility] Payment Agreement jp5 04/26 10:13 T-Sheet-- Draft Copy gb 10:14 ECG/EKG gb Chart Complete MTDD
[2016-04-27 18:19] VITALS: BP 120/58
[2016-04-28] MEDS: CILOSTAZOL 100 MG TAB (PLETAL) PO SCH (06:45)
[2016-04-28] MEDS: glipiZIDE *XL* 2.5MG TABLET PO SCH (06:45)
[2016-04-28] MEDS: GABAPENTIN 100 MG CAP PO SCH ×2 (06:45→09:06)
[2016-04-28] MEDS: LevoFLOXacin 250 MG TABLET PO SCH (06:46)
[2016-04-28 07:12] VITALS: BP 136/76
[2016-04-28 07:56] LABS: MEAN CORPUSCULAR HEMOGLOBIN 28.3 pg (27.0-33.0); MEAN CORPUSCULAR HGB CONC 29.7 g/dl (32.0-36.5); MEAN CORPUSCULAR VOLUME 95.3 fl (80.0-96.0); RED CELL DISTRIBUTION WIDTH 18.1 % (11.5-14.5); WHITE BLOOD COUNT 5.5 K/mm3 (4.0-10.0)
[2016-04-28 08:13] LABS: ALBUMIN/GLOBULIN RATIO 1.15 (1.00-1.93); CALCIUM LEVEL 8.1 MG/DL (8.5-10.1); CREATININE FOR GFR 1.13 MG/DL (0.55-1.02); GLOMERULAR FILTRATION RATE 52.5 (>51); POTASSIUM SERUM 3.9 MEQ/L (3.5-5.1); TOTAL PROTEIN 5.6 GM/DL (6.4-8.2)
[2016-04-28] MEDS ORDERED: SERTRALINE HCL 50 MG TAB PO SCH (09:00)
[2016-04-28] MEDS: NICOTINE 14 MG/24 HR TRANSDERMAL TD SCH (09:00)
[2016-04-28] MEDS: ADVAIR DISKUS 250/50 INH PWD INH SCH (09:06)
[2016-04-28] MEDS: PANTOPRAZOLE 40MG TAB (PROTONIX) PO SCH (09:06)
[2016-04-28] MEDS: FOLIC ACID 1 MG TAB PO SCH (09:06)
[2016-04-28 09:07] VITALS: BP 136/76
[2016-04-28] MEDS: FERROUS SULFATE 325MG TAB PO SCH (09:07)
[2016-04-28] MEDS: DIGOXIN 0.25 MG TAB PO SCH (09:07)
[2016-04-28] MEDS: BISOPROLOL FUMARATE 5 MG TAB PO SCH (09:07)
[2016-04-28] MEDS: GEMFIBROZIL 600 MG TAB PO SCH (09:07)
[2016-04-28] MEDS: TIOTROPIUM INHALER/CAPSULE (SPIRIVA) INH SCH (09:07)
[2016-04-28] MEDS: APIXABAN 5 MG TAB (ELIQUIS) PO SCH (09:07)
[2016-04-28] MEDS ORDERED: SERT-141 PO (09:40)
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
== END 2016-04-28 10:35 | disposition home or self-care (01) | DRG 754 ==
LOC: M ED 10:01 → M PSY 16:42
PROVIDERS: ADMIT Psychiatry & Neurology Psychiatry; ATTEND Psychiatry & Neurology Psychiatry
DX: F32.9 Major depressive disorder, single episode, unspecified (principal); I50.42 Chronic combined systolic (congestive) and diastolic (congestive) heart failure; R45.851 Suicidal ideations; E11.9 Type 2 diabetes mellitus without complications; J44.9 Chronic obstructive pulmonary disease, unspecified; E78.5 Hyperlipidemia, unspecified; D50.9 Iron deficiency anemia, unspecified; F10.21 Alcohol dependence, in remission; K21.9 Gastro-esophageal reflux disease without esophagitis; F17.210 Nicotine dependence, cigarettes, uncomplicated; G89.29 Other chronic pain; Z79.01 Long term (current) use of anticoagulants; Z79.84 Long term (current) use of oral hypoglycemic drugs; Z90.49 Acquired absence of other specified parts of digestive tract; Z90.710 Acquired absence of both cervix and uterus; Z86.711 Personal history of pulmonary embolism; Z95.9 Presence of cardiac and vascular implant and graft, unspecified; Z83.3 Family history of diabetes mellitus; Z82.49 Family history of ischemic heart disease and other diseases of the circulatory system; Z81.8 Family history of other mental and behavioral disorders; Z82.61 Family history of arthritis; Z80.7 Family history of other malignant neoplasms of lymphoid, hematopoietic and related tissues; Z79.899 Other long term (current) drug therapy

== ENCOUNTER → 2016-05-23 | Outpatient (REF) | payer OTHER ==
[~2016-05-23] MED LIST changes: +ADV250INH INH; +ASCO500T PO; +ASPI1TAB PO; +BISO5TAB5 PO; +DIGO0.259 PO; +LOSA50TA20 PO; +MACR100C3 PO; +NICO14DI20 TD; +NICO21DI5 TD; -NICOTINE 21MG/24HR 1 EA TRANSDERMAL TD SCH; +SERT-141 PO; +VITA500T53 PO
== END ==
LOC: M SFHCPLAZ 15:45
PROVIDERS: ATTEND Physician Assistant Medical
DX: J02.9 Acute pharyngitis, unspecified (principal)

== ENCOUNTER → 2016-06-10 | Outpatient (REF) | payer OTHER ==
[~2016-06-10] MED LIST changes: -SERT-141 PO; +SERT50TA PO
== END ==
LOC: M SFHCPLAZ 09:34
PROVIDERS: ATTEND Family Medicine
DX: R05 Cough (principal); E11.9 Type 2 diabetes mellitus without complications

== ENCOUNTER → 2016-06-10 | Outpatient (CLI) | payer OTHER ==
--- NOTE | 2016-06-10 11:11 | REP ---
Clinical: Cough. Technique: PA and lateral. Comparison: 04/27/2016. Findings: Mediastinum and cardiac silhouette are stable and within normal limits. Lung almendarez demonstrate chronic changes. No focal consolidation, effusion, or pneumothorax. Skeletal structures are intact. Impression: Chronic stable changes. No focal consolidation. Signed by Devon Springer MD 06/10/2016 11:04 A
== END ==
LOC: M RAD 10:28
PROVIDERS: ATTEND Family Medicine
DX: J98.4 Other disorders of lung (principal)

== ENCOUNTER → 2016-06-13 | Outpatient (REF) | payer OTHER ==
[2016-06-13 11:53] LABS: ANION GAP 9 MEQ/L (8-16); BLOOD UREA NITROGEN 14 MG/DL (7-18); CALCIUM LEVEL 9.2 MG/DL (8.8-10.2); CARBON DIOXIDE LEVEL 28 MEQ/L (21-32); CHLORIDE LEVEL 105 MEQ/L (98-107); CREATININE FOR GFR 0.84 MG/DL (0.55-1.02); FREE T4 1.02 NG/DL (0.76-1.46); GLOMERULAR FILTRATION RATE > 60.0 (>45); GLUCOSE, FASTING 274 MG/DL (80-110); POTASSIUM SERUM 3.8 MEQ/L (3.5-5.1); SODIUM LEVEL 142 MEQ/L (136-145)
== END ==
LOC: M SFHCPLAZ 08:40
PROVIDERS: ATTEND Family Medicine
DX: I50.42 Chronic combined systolic (congestive) and diastolic (congestive) heart failure (principal)

== ENCOUNTER 2016-06-27 09:49 | Inpatient (IN) | payer OTHER ==
[~2016-06-27] VITALS: Ht 157.5 cm; Wt 73.4 kg
[~2016-06-27 09:49] MED LIST changes: +DIGOXIN 0.25 MG TAB PO SCH
[2016-06-27 12:13] LABS: BASO % 0.6 % (0.0-1.0); EOS # 0.2 K/mm3 (0.0-0.50); EOS % 2.4 % (0.0-3.0); LARGE UNSTAINED CELL # 0.1 K/mm3 (0.0-0.4); LYMPH % 28.9 % (24.0-44.0); MEAN CORPUSCULAR HEMOGLOBIN 29.3 pg (27.0-33.0); MEAN CORPUSCULAR HGB CONC 30.9 g/dl (32.0-36.5); MONO # 0.4 K/mm3 (0.0-0.8); MONO % 5.8 % (0.0-5.0); NEUTROPHILS % 60.4 % (36.0-66.0); PLATELET COUNT, AUTOMATED 211 k/mm3 (150-450); RED CELL DISTRIBUTION WIDTH 16.9 % (11.5-14.5); WHITE BLOOD COUNT 6.6 K/mm3 (4.0-10.0)
--- NOTE | 2016-06-27 12:43 | REP ---
CHEST PA AND LATERAL: 06/27/2016 COMPARISON: 06/10/2016, 04/27/2016. CLINICAL HISTORY: Dyspnea. There is cardiomegaly with left atrial and ventricular enlargement. The aorta is calcified at the arch. Airway is intact. Underlying fibrosis and COPD is noted. There is no definite pulmonary edema, pleural effusion or acute infiltrate. A few cuffed bronchi in the perihilar regions may reflect reactive airway disease or bronchitis. The aorta is unchanged. The airway is midline. There are degenerative changes in the spine with no free air under the diaphragm. There are right upper quadrant clips from cholecystectomy. IMPRESSION: 1. Some chronic fibrotic changes with cardiomegaly, left atrial and ventricular enlargement but no pulmonary edema, pleural effusion or acute infiltrate. 2. Calcified aortic arch without aneurysm. 3. Degenerative changes in the spine. No acute finding. Signed by Carlton Washington MD 06/27/2016 05:17 P
[2016-06-27 13:56] LABS: ALBUMIN/GLOBULIN RATIO 0.91 (1.00-1.93); ALKALINE PHOSPHATASE 69 U/L (45-117); ALT/SGPT 17 U/L (12-78); ANION GAP 8 MEQ/L (8-16); AST/SGOT 13 U/L (15-37); BLOOD UREA NITROGEN 11 MG/DL (7-18); CALCIUM LEVEL 8.5 MG/DL (8.8-10.2); CARBON DIOXIDE LEVEL 29 MEQ/L (21-32); CHLORIDE LEVEL 102 MEQ/L (98-107); CREATININE FOR GFR 0.75 MG/DL (0.55-1.02); GLOMERULAR FILTRATION RATE > 60.0 (>45); GLUCOSE, FASTING 305 MG/DL (80-110); POTASSIUM SERUM 3.7 MEQ/L (3.5-5.1); SODIUM LEVEL 139 MEQ/L (136-145); TOTAL PROTEIN 6.3 GM/DL (6.4-8.2)
[2016-06-27 14:04] LABS: BILIRUBIN,TOTAL 0.8 MG/DL (0.2-1.0)
[2016-06-27] MEDS ORDERED: ACETAMINOPHEN TAB 650MG DOSE (2X325MG) PO PRN (14:30)
[2016-06-27] MEDS ORDERED: ONDANSETRON 4MG/2ML VIAL (J2405) IV PRN (14:30)
--- NOTE | 2016-06-27 14:37 | HPEPDOC ---
Medical History and Physical Date of Admission 06/27/16 History and Physical PCP: Dr Teixeira ATTENDING: Dr. Maryellen Teixeira HPI: 60yoF with past h/o NIDDM, COPD, Dilated CMP, EF25%, Mural thrombus on Eliquis. Pt follows with Dr Lucien MONTAÑO and was seen 06/24/09 in the office. Pt states that she was started on Aldactone/HCTZ by Dr Mcgraw Monday but did not start that until today. Pt states last evening she began to feel SOB, orthopnea, PND, nonproductive cough, fatigue. She had chest heaviness during the night and used SL NTG x 2 with relief. Pt states no increased edema. This AM she had persistent SOB and came to ED for evaluation. Denies any fevers, chills, YANEZ, palpitations, abdominal pain, N/V/D or changes in bowel or bladder habits. Upon presentation to the hospital the patient was found to have CHF, thus the hospitalist team was consulted. PMHx: NIDDM COPD Dilated Cardiomyopathy/chronic systolic and diastolic CHF- follows with DANYEL Mid Apical Mural thrombus-on Eliquis anticoagulation since 03/04 TTE 03/04 diastolic dysfunction, EF 25%, mural thrombus/mitral and tricuspid insufficiency. 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 ROS: As noted in HPI, otherwise 11pt ROS of systems reviewed and unremarkable. PE: GEN: 60yoF, appears stated age. Well-nourished, well developed. No acute distress. Alert and oriented x 3. Pleasant, interactive. HEENT: Normocephalic, atraumatic. Pupils are equal, round, and reactive to light. Extraocular movements are intact. No nystagmus appreciated. Sclera are nonicteric. Conjunctiva without injection. Nose midline. Nasal turbinates without bogginess. No facial asymmetry. Moist mucous membranes. Dentition fair. Pharynx pink and moist, no cobblestoning. Neck supple, trachea midline. No lymphadenopathy or thyromegaly appreciated. CHEST: Regular rate and rhythm, +S1, +S2 LUNGS: Decreased BS bilaterally, insp rales noted at bases b/l. No wheezes, or rhonchi. Breathing appears symmetric and easy. Patient is speaking in full sentences. No accessory muscle use. ABD: Round, soft, non-tender, non-distended. +Bowel sounds throughout. No rebound or guarding. No costovertebral angle tenderness. EXT: trace to 1mm lower extremity edema distal pretibial area bilaterally. SKIN: [place], dry, warm. Capillary refill <2sec. No rashes. NEURO: Alert and oriented x 3. Cranial nerves III-XII are intact. No focal deficits appreciated. EKG: SR, occas PVC, ST deviation/T abn. 80 bpm. CXR 1. Some chronic fibrotic changes with cardiomegaly, left atrial and ventricular enlargement but no pulmonary edema, pleural effusion or acute infiltrate. 2. Calcified aortic arch without aneurysm. 3. Degenerative changes in the spine. No acute finding. A&P: 60yoF with past h/o NIDDM, COPD, Dilated CMP, EF25%, Mural thrombus on Eliquis. Pt follows with Dr Lucien MONTAÑO and was seen 06/24/09 in the office. Pt states that she was started on Aldactone/HCTZ by Dr Mcgraw Monday but did not start that until today. Pt states last evening she began to feel SOB, orthopnea, PND, nonproductive cough, fatigue. She had chest heaviness during the night and used SL NTG x 2 with relief. Pt states no increased edema. This AM she had persistent SOB and came to ED for evaluation. 1. Pt to be admitted to PCU for [address] Teixeira's service. Pt is discussed with Dr Stauffer. SOB. rapid flu, MRSA screen, Resp panel pending. 2. HHD/ chronic systolic and diastolic CHF/Cardiomyopathy/EF 25%. BNP 3460. IV Lasix 40mg Q6hr. Echo pending. CIP/Trop Q6x3 pending. Patient remains on Zebeta 5 mg by mouth daily, digoxin 0.25 mg by mouth daily. Add dig level. 3. NIDDM. Continue controlled carbohydrate diet, glipizide on hold. SSI. A1c pending. 4. COPD. O2/Nebs 5. H/O UTI. Request UA/urine culture. 6. History of mural thrombus TTE 03/04. Patient remains on Eliquis 5 mg by mouth twice a day. 7. Hyperlipidemia. Continue atorvastatin 40 mg daily, continue Lopid. 8. Chronic pain. Continue gabapentin 100 mg 5 times daily. 9. GERD. Continue Protonix 40 mg daily. 10. Iron deficiency anemia. Continue ferrous sulfate 325 mg by mouth daily. Hemoglobin is noted to be 11.7. 11. PVD/H/O PTCA. previously on Pletal. 12. Medication reconciliation is pending at this time. Vital Signs Vital Signs Date Time Temp Pulse Resp B/P Pulse Ox O2 Delivery O2 Flow Rate FiO2 06/27/16 14:04 78 94 06/27/16 13:27 135/80 06/27/16 09:49 98.1 16 Room Air Laboratory Data Labs 24H Laboratory Tests 2 06/27/16 11:55: B-Type Natriuretic Peptide 3640H, White Blood Count 6.6, Red Blood Count 4.00, Hemoglobin 11.7L, Hematocrit 38.0, Mean Corpuscular Volume 95.0, Mean Corpuscular Hemoglobin 29.3, Mean Corpuscular Hemoglobin Concent 30.9L, Red Cell Distribution Width 16.9H, Platelet Count 211, Neutrophils (%) (Auto) 60.4, Lymphocytes (%) (Auto) 28.9, Monocytes (%) (Auto) 5.8H, Eosinophils (%) (Auto) 2.4, Basophils (%) (Auto) 0.6, Neutrophils # (Auto) 4.0, Lymphocytes # (Auto) 2.0, Monocytes # (Auto) 0.4, Eosinophils # (Auto) 0.2, Basophils # (Auto) 0.0, Large Unclassified Cells # 0.1, Large Unclassified Cells % 2.0 06/27/16 13:06: Blood Urea Nitrogen 11, Creatinine 0.75, Sodium Level 139, Potassium Level 3.7, Chloride Level 102, Carbon Dioxide Level 29, Calcium Level 8.5L, Aspartate Amino Transf (AST/SGOT) 13L, Alanine Aminotransferase (ALT/SGPT) 17, Total Creatine Kinase 57, Alkaline Phosphatase 69, Total Bilirubin 0.8, Total Protein 6.3L, Albumin 3.0L, Albumin/Globulin Ratio 0.91L, Anion Gap 8, Creatine Kinase MB 3.1, Creatine Kinase MB Relative Index 5.43H, D-Dimer, Quantitative 309.3, Glomerular Filtration Rate > 60.0, Troponin I 0.10 CBC/BMP Laboratory Tests 06/27/16 11:55 Red Blood Count 4.00, Mean Corpuscular Volume 95.0, Mean Corpuscular Hemoglobin 29.3, Mean Corpuscular Hemoglobin Concent 30.9 L, Red Cell Distribution Width 16.9 H, Neutrophils (%) (Auto) 60.4, Lymphocytes (%) (Auto) 28.9, Monocytes (%) (Auto) 5.8 H, Eosinophils (%) (Auto) 2.4, Basophils (%) (Auto) 0.6, Neutrophils # (Auto) 4.0, Lymphocytes # (Auto) 2.0, Monocytes # (Auto) 0.4, Eosinophils # ( Auto) 0.2, Basophils # (Auto) 0.0 06/27/16 13:06 Calcium Level 8.5 L, Aspartate Amino Transf (AST/SGOT) 13 L, Alanine Aminotransferase (ALT/SGPT) 17, Total Creatine Kinase 57, Alkaline Phosphatase 69, Total Bilirubin 0.8, Total Protein 6.3 L, Albumin 3.0 L Home Medications Scheduled Albuterol/Ipratropium (Ipratropium [place]/Albut 0.5-2.5 (3) mg/3Ml) 1 Félix Félix 1 FÉLIX INH QID Amiodarone HCl (Amiodarone HCl) 200 Mg Tab 200 MG PO QID Apixaban Base (Eliquis) 5 Mg Tab 5 MG PO BID Atorvastatin Calcium (Atorvastatin Calcium) 40 Mg Tab 40 MG PO QHS Bisoprolol Fumarate (Bisoprolol Fumarate) 5 Mg Tab 5 MG PO DAILY Cilostazol (Cilostazol) 50 Mg Tab 50 MG PO BID Cyanocobalamin (Vitamin B12) 500 Mcg Tab 500 MCG PO DAILY Digoxin (Digox) 0.25 Mg Tab 0.25 MG PO 3XW MONDAY, MONDAY, AND MONDAY Ferrous Sulfate (Ferrous Sulfate) 325 Mg Tab 325 MG PO DAILY Folic Acid (Folic Acid) 1 Mg Tab 1 MG PO DAILY Gabapentin (Gabapentin) 100 Mg Cap 100 MG PO 5XD Gemfibrozil (Gemfibrozil) 600 Mg Tab 600 MG PO BID Glipizide (Glipizide ER) 5 Mg Tab 5 MG PO DAILY Melatonin (Melatonin) 3 Mg Tab 3 MG PO QHS Pantoprazole Sodium (Pantoprazole Sodium) 40 Mg Tab 40 MG PO DAILY Salmeterol/Fluticasone (Advair Diskus 250-50 Mcg/Dose) 14 Puff/Inhaler Aerp 1 PUFF INH BID Scheduled PRN Albuterol Sulfate (Ventolin Hfa) 200 Puff/8 Gm Aers 2 PUFF INH Q4H PRN PRN SHORTNESS OF BREATH Nitroglycerin (Nitrostat) 0.4 Mg Subl 0.4 MG SL Q5MP PRN PRN CHEST PAIN Allergies Coded Allergies: No Known Allergies (Unverified , 03/06/16) Shruthi Palencia Jun 27, 2016 14:37 Shruthi Palencia Jun 27, 2016 14:37
--- NOTE | 2016-06-27 14:43 | ECGEPIP ---
Stationary ECG Study [facility] - ED Test Date: 2016-06-27 Pat Name: PORTILLO MARTIN Department: Room: - Gender: F Gear Setter: maya : 1955 Requested By: Meggan Maldonado Order Number: [id number] Reading MD: Tod Figueredo Measurements Intervals [place] Rate: 80 P: 55 HI: 143 QRS: 12 QRSD: 92 T: 183 QT: 344 QTc: 399 Interpretive Statements SINUS RHYTHM WITH OCCASIONAL VENTRICULAR PREMATURE COMPLEXES NSTTW ABNORMALITIES SIMILAR TO 04/25/16 Electronically Signed On 06-27-2016 14:43:32 EDT by Tod Figueredo
[2016-06-27] MEDS ORDERED: IPRATROPIUM 0.02% SOLN 0.5MG/2.5 ML NEB INH PRN (14:45)
[2016-06-27] MEDS ORDERED: LEVALBUTEROL 1.25 MG/0.5 ML CONCENTRATE NEB INH PRN (14:45)
[2016-06-27] MEDS ORDERED: GLIP5TAB15 PO (15:21)
[2016-06-27] MEDS ORDERED: MELA3TAB PO (15:23)
[2016-06-27] MEDS ORDERED: AMIO20TA PO (15:24)
[2016-06-27] MEDS ORDERED: BUPR15TASR PO (15:26)
[2016-06-27] MEDS ORDERED: VENL75CA PO (15:26)
[2016-06-27] MEDS ORDERED: LOSA50TA20 PO (15:26)
[2016-06-27] MEDS ORDERED: VITA-130 PO (15:26)
[2016-06-27] MEDS ORDERED: ALDA25TA PO (15:27)
[2016-06-27] MEDS ORDERED: GLUCOSE 4 GM CHEW TABLET PO PRN (15:30)
[2016-06-27] MEDS ORDERED: DEXTROSE 50% 50 ML SYRINGE IV PRN (15:30)
[2016-06-27] MEDS ORDERED: ALBUTEROL 90 MCG/ACT 8GM HFA INHALER INH PRN (15:30)
[2016-06-27] MEDS ORDERED: GLUCAGON FOR INJ 1 MG VIAL (J1610) SC PRN (15:30)
[2016-06-27] MEDS ORDERED: NITROGLYCERIN 0.4 MG SUBL TABLET SL PRN (15:30)
[2016-06-27 15:57] LABS: DIGOXIN LEVEL 1.8 NG/ML (0.5-2.0)
[2016-06-27 16:00] VITALS: BP 139/78
[2016-06-27] MEDS: IPRATROPIUM 0.02% SOLN 0.5MG/2.5 ML NEB INH SCH ×2 (16:50→20:00)
[2016-06-27] MEDS: LEVALBUTEROL 1.25 MG/0.5 ML CONCENTRATE NEB INH SCH ×2 (16:51→20:00)
[2016-06-27] MEDS: GABAPENTIN 100 MG CAP PO SCH ×2 (16:58→21:35)
[2016-06-27] MEDS: AMIODARONE 200 MG TAB (PACERONE) PO SCH ×2 (16:58→21:35)
[2016-06-27] MEDS: FUROSEMIDE 40 MG/4 ML VIAL (J1940) IV SCH (17:05)
[2016-06-27 18:00] LABS: CALCIUM OXALATE CRYSTALS SMALL
[2016-06-27] MEDS: HumaLOG INSULIN (NovoLOG) PER UNIT SC SCH ×2 (18:09→21:35)
[2016-06-27 19:10] VITALS: BP 134/82
[2016-06-27 20:16] VITALS: BP 111/63
[2016-06-27] MEDS ORDERED: NON-FORMULARY 1 EA EA PO SCH (21:00)
[2016-06-27] MEDS: ADVAIR DISKUS 250/50 INH PWD INH SCH (21:28)
[2016-06-27] MEDS: ATORVASTATIN 20 MG TAB PO SCH (21:35)
[2016-06-27] MEDS: GEMFIBROZIL 600 MG TAB PO SCH (21:35)
[2016-06-27] MEDS: APIXABAN 5 MG TAB (ELIQUIS) PO SCH (21:35)
[2016-06-27] MEDS: buPROPion **SR TABLET** (ZYBAN) 150MG PO SCH (21:35)
[2016-06-27 23:16] VITALS: BP 130/65
[2016-06-28] MEDS: IPRATROPIUM 0.02% SOLN 0.5MG/2.5 ML NEB INH SCH ×6 (00:06→19:40)
[2016-06-28] MEDS: LEVALBUTEROL 1.25 MG/0.5 ML CONCENTRATE NEB INH SCH ×6 (00:06→19:40)
[2016-06-28 04:19] VITALS: BP 119/61
[2016-06-28] MEDS: GABAPENTIN 100 MG CAP PO SCH ×5 (05:10→20:19)
[2016-06-28] MEDS: FUROSEMIDE 40 MG/4 ML VIAL (J1940) IV SCH ×2 (05:10)
[2016-06-28 05:26] LABS: BASO % 0.6 % (0.0-1.0); EOS # 0.1 K/mm3 (0.0-0.50); LARGE UNSTAINED CELL # 0.2 K/mm3 (0.0-0.4); LARGE UNSTAINED CELL % 2.4 % (0.0-4.0); LYMPH # 1.6 K/mm3 (1.5-4.5); LYMPH % 21.4 % (24.0-44.0); MEAN CORPUSCULAR HEMOGLOBIN 29.5 pg (27.0-33.0); MEAN CORPUSCULAR HGB CONC 31.3 g/dl (32.0-36.5); MEAN CORPUSCULAR VOLUME 94.3 fl (80.0-96.0); MONO # 0.6 K/mm3 (0.0-0.8); MONO % 8.5 % (0.0-5.0); NEUTROPHILS # 4.4 K/mm3 (1.8-7.7); NEUTROPHILS % 65.1 % (36.0-66.0); PLATELET COUNT, AUTOMATED 217 k/mm3 (150-450); WHITE BLOOD COUNT 6.8 K/mm3 (4.0-10.0)
[2016-06-28 06:00] LABS: ANION GAP 4 MEQ/L (8-16); BLOOD UREA NITROGEN 12 MG/DL (7-18); CALCIUM LEVEL 9.2 MG/DL (8.8-10.2); CARBON DIOXIDE LEVEL 38 MEQ/L (21-32); CHLORIDE LEVEL 99 MEQ/L (98-107); CREATININE FOR GFR 0.82 MG/DL (0.55-1.02); GLOMERULAR FILTRATION RATE > 60.0 (>45); GLUCOSE, FASTING 233 MG/DL (80-110); MAGNESIUM LEVEL 1.6 MG/DL (1.8-2.4); POTASSIUM SERUM 3.3 MEQ/L (3.5-5.1); SODIUM LEVEL 141 MEQ/L (136-145)
[2016-06-28 07:30] VITALS: BP 131/71
[2016-06-28] MEDS ORDERED: POTASSIUM CHLORIDE 10 MEQ SR TABLET PO ONE ×2 (08:30→14:00)
[2016-06-28] MEDS: ADVAIR DISKUS 250/50 INH PWD INH SCH ×2 (08:46→22:26)
[2016-06-28] MEDS: PANTOPRAZOLE 40MG TAB (PROTONIX) PO SCH (09:13)
[2016-06-28] MEDS: buPROPion **SR TABLET** (ZYBAN) 150MG PO SCH ×2 (09:13→20:18)
[2016-06-28] MEDS: BISOPROLOL FUMARATE 5 MG TAB PO SCH (09:13)
[2016-06-28] MEDS: ASCORBIC ACID 500 MG TAB PO SCH (09:14)
[2016-06-28] MEDS: FERROUS SULFATE 325MG TAB PO SCH (09:14)
[2016-06-28] MEDS: FOLIC ACID 1 MG TAB PO SCH (09:14)
[2016-06-28] MEDS: AMIODARONE 200 MG TAB (PACERONE) PO SCH ×4 (09:14→20:18)
[2016-06-28] MEDS: VENLAFAXINE **XR** 75MG CAPSULE PO SCH (09:14)
[2016-06-28] MEDS: APIXABAN 5 MG TAB (ELIQUIS) PO SCH ×2 (09:15→20:18)
[2016-06-28] MEDS: CYANOCOBALAMIN 500 MCG TAB PO SCH (09:15)
[2016-06-28 09:17] VITALS: BP 130/62
[2016-06-28] MEDS: HumaLOG INSULIN (NovoLOG) PER UNIT SC SCH ×4 (09:23→20:19)
[2016-06-28] MEDS: GEMFIBROZIL 600 MG TAB PO SCH ×2 (09:23→20:18)
--- NOTE | 2016-06-28 10:27 | ECGEPIP ---
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 Prominent precordial voltage and repolarization abnormalities; Probable LVH No change from 06/27/16 Electronically Signed On 06-28-2016 10:26:50 EDT by Fco Mcgraw
[2016-06-28] MEDS ORDERED: MAG SULF 1GM/100ML (MAG RUN) 1 GM in APPROPRIATE DILUENT 1 EA IV ONE (11:30)
--- NOTE | 2016-06-28 11:36 | IPNPDOC ---
Subjective Date Seen The patient was seen on 06/28/16. Subjective Chief Complaint/HPI The patient is a 61-year-old female admitted with a reason for visit of CHF. Events since last encounter Patient noting a 90% improvement in symptoms since yesterday. Diuresed for 3-4 liters net negative balance. Potassium and Mag dropped. c/o BLE cramps Constitutional: Denies: Chills, Fever, Night Sweats ENT: Denies: Dysphagia, Ear Pain, Head Aches Skin: Denies: Breakdown, Lesions, Rash Pulmonary: Reports: Cough, Dyspnea Cardiovascular: Denies: Chest Pain, Lt Headedness, Orthopnea, Palpitations, Paroxysmal Noc. Dyspnea Gastrointestinal: Denies: Abdominal Pain, Constipation, Diarrhea, Nausea, Vomiting Genitourinary: Reports: Frequency (due to lasix), Denies: Dysuria, Incontinence, Retention Objective Physical Examination General Exam: Positive: Alert, No Acute Distress Eye Exam: Positive: Conjunctiva & lids normal, EOMI, PERRLA, Negative: Sclera icteric ENT Exam: Positive: Atraumatic, Mucous membr. moist/pink, Pharynx Normal Neck Exam: Positive: Supple, Negative: JVD, thyromegaly Chest Exam: Positive: Clear to auscultation, Normal air movement Heart Exam: Positive: Normal S1, Normal S2, Rate Normal, Regular Rhythm, Negative: Murmurs, Rubs Telemetry: Positive: No significant arrhythmia Abdomen Exam: Positive: Normal bowel sounds, Soft, Negative: Hepatospenomegaly, Tenderness Extremity Exam: Positive: Normal pulses, Negative: Clubbing, Cyanosis, Edema Skin Exam: Positive: Nl turgor and temperature, Negative: Breakdown, Rash Psych Exam: Positive: Mental status NL, Mood NL, Oriented x 3 Assessment /Plan Problems (1) CHF (congestive heart failure) Status: Acute Problem Text: negative 5L. decrease Furosemide to 40 mg IV q12. monitor I/O. (2) Hypomagnesemia Status: Acute Problem Text: mag run ordered. monitor levels. (3) Hypokalemia Status: Acute Problem Text: Secondary to diuretics. Replaced with 40 me po bid today. monitor levels. (4) COPD (chronic obstructive pulmonary disease) Status: Chronic Problem Text: nebs and routine inhalers continued. Keep oxygen saturations above 90% (5) Diabetes mellitus Status: Chronic Problem Text: uncontrolled with hgba1c of 11.0. Started on Victoza by PCP. Not covered by insurance. would benefit from addition of long acting basal insulin. Will continue sliding scale for now. (6) HLD (hyperlipidemia) Status: Chronic Problem Specific Plan: Monitor Clinically (7) GERD (gastroesophageal reflux disease) Status: Chronic Problem Specific Plan: Monitor Clinically Plan/VTE VTE Prophylaxis Ordered?: Yes (Apixiban) Plan Attending note: I saw and evaluated patient and agree with the plan of care as discussed and documented above by Nette Bhatia. Patient is feeling much better today, and hoping that she'll be ready for discharge tomorrow. However, I indicated that we should proceed cautiously, as she was quite volume overloaded on admission, and continues to have rales on exam. Joni Mcclure MD VS, I&O, 24H, [facility] Vital Signs/I&O Vital Signs Date Time Temp Pulse Resp B/P Pulse Ox O2 Delivery O2 Flow Rate FiO2 06/28/16 11:10 95 Nasal Cannula 2.0 06/28/16 09:17 130/62 06/28/16 07:30 97.7 88 20 I&O- Last 24 Hours up to 6 AM 06/28/16 06:00 Intake Total 860 ml Output Total 5050 ml Balance -4190 ml Laboratory Data 24H LABS Laboratory Tests 2 06/27/16 11:55: B-Type Natriuretic Peptide 3640H, White Blood Count 6.6, Red Blood Count 4.00, Hemoglobin 11.7L, Hematocrit 38.0, Mean Corpuscular Volume 95.0, Mean Corpuscular Hemoglobin 29.3, Mean Corpuscular Hemoglobin Concent 30.9L, Red Cell Distribution Width 16.9H, Platelet Count 211, Neutrophils (%) (Auto) 60.4, Lymphocytes (%) (Auto) 28.9, Monocytes (%) (Auto) 5.8H, Eosinophils (%) (Auto) 2.4, Basophils (%) (Auto) 0.6, Neutrophils # (Auto) 4.0, Lymphocytes # (Auto) 2.0, Monocytes # (Auto) 0.4, Eosinophils # (Auto) 0.2, Basophils # (Auto) 0.0, Large Unclassified Cells # 0.1, Large Unclassified Cells % 2.0 06/27/16 13:06: Blood Urea Nitrogen 11, Creatinine 0.75, Sodium Level 139, Potassium Level 3.7, Chloride Level 102, Carbon Dioxide Level 29, Calcium Level 8.5L, Aspartate Amino Transf (AST/SGOT) 13L, Alanine Aminotransferase (ALT/SGPT) 17, Total Creatine Kinase 57, Alkaline Phosphatase 69, Total Bilirubin 0.8, Total Protein 6.3L, Albumin 3.0L, Albumin/Globulin Ratio 0.91L, Anion Gap 8, Creatine Kinase MB 3.1, Creatine Kinase MB Relative Index 5.43H, D-Dimer, Quantitative 309.3, Digoxin Level 1.8, Glomerular Filtration Rate > 60.0, Troponin I 0.10 06/27/16 17:03: Bedside Glucose (Misc Panel) 254H 06/27/16 17:37: Urine Amorphous Sediment , Urine Appearance CLEAR, Urine Color YELLOW, Urine pH 6.0, Urine Specific [place] 1.010, Urine Protein 2+H, Urine Glucose (UA) 1+H, Urine Ketones NEGATIVE, Urine Urobilinogen 0.2, Urine Bilirubin NEGATIVE, Urine Leukocyte Esterase NEGATIVE, Urine Bacteria (Auto) NEGATIVE, Urine Blood 1+H, Urine Calcium Carbonate Cryst(Auto) , Urine Calcium Oxalate Cryst (Auto) SMALL, Urine Calcium Phosphate Lainey (Auto) , Urine Cellular Casts , Urine Cystine Crystals , Urine Granular Casts (Auto) , Urine Hyaline Casts (Auto) 0, Urine Leucine Crystals , Urine Mucus (Auto) SMALL, Urine Nitrite NEGATIVE, Urine Oval Fat Bodies (Auto) , Urine RBC (Auto) 7H, Urine Renal Epithelial Cells , Urine Sperm (Auto) , Urine Squamous Epithelial Cells 0, Urine Transitional Epithelial Cells , Urine Trichomonas (Auto) , Urine Triple Phosphate Cryst (Auto) , Urine Tyrosine Crystals , Urine Uric Acid Crystals (Auto) , Urine WBC (Auto) 1, Urine Waxy Casts (Auto) , Urine Yeast-Like Cells (Auto) 06/27/16 17:47: Creatine Kinase MB 3.2, Creatine Kinase MB Relative Index 3.80, Total Creatine Kinase 84, Troponin I 0.09 06/27/16 20:55: Bedside Glucose (Misc Panel) 262H 06/27/16 23:39: Creatine Kinase MB 2.2, Creatine Kinase MB Relative Index 2.03, Total Creatine Kinase 108, Troponin I 0.08 06/28/16 05:13: Creatine Kinase MB 1.8, Creatine Kinase MB Relative Index 3.46, Total Creatine Kinase 52, Troponin I 0.10#, Anion Gap 4L, White Blood Count 6.8, Red Blood Count 4.39, Hemoglobin 12.9, Hematocrit 41.4, Mean Corpuscular Volume 94.3, Mean Corpuscular Hemoglobin 29.5, Mean Corpuscular Hemoglobin Concent 31.3L, Red Cell Distribution Width 17.0H, Platelet Count 217, Neutrophils (%) (Auto) 65.1, Lymphocytes (%) (Auto) 21.4L, Monocytes (%) (Auto) 8.5H, Eosinophils (%) ( Auto) 2.0, Basophils (%) (Auto) 0.6, Neutrophils # (Auto) 4.4, Lymphocytes # ( Auto) 1.6, Monocytes # (Auto) 0.6, Eosinophils # (Auto) 0.1, Basophils # (Auto) 0.0, Blood Urea Nitrogen 12, Creatinine 0.82, Sodium Level 141, Potassium Level 3.3L, Chloride Level 99, Carbon Dioxide Level 38H, Calcium Level 9.2, Estimated Mean Plasma Glucose 286H, Glomerular Filtration Rate > 60.0, Hemoglobin A1c 11.6H, Large Unclassified Cells # 0.2, Large Unclassified Cells % 2.4, Magnesium Level 1.6L, Thyroid Stimulating Hormone (TSH) 2.080 CBC/BMP Laboratory Tests 06/27/16 11:55 Red Blood Count 4.00, Mean Corpuscular Volume 95.0, Mean Corpuscular Hemoglobin 29.3, Mean Corpuscular Hemoglobin Concent 30.9 L, Red Cell Distribution Width 16.9 H, Neutrophils (%) (Auto) 60.4, Lymphocytes (%) (Auto) 28.9, Monocytes (%) (Auto) 5.8 H, Eosinophils (%) (Auto) 2.4, Basophils (%) (Auto) 0.6, Neutrophils # (Auto) 4.0, Lymphocytes # (Auto) 2.0, Monocytes # (Auto) 0.4, Eosinophils # ( Auto) 0.2, Basophils # (Auto) 0.0 06/27/16 13:06 Calcium Level 8.5 L, Aspartate Amino Transf (AST/SGOT) 13 L, Alanine Aminotransferase (ALT/SGPT) 17, Total Creatine Kinase 57, Alkaline Phosphatase 69, Total Bilirubin 0.8, Total Protein 6.3 L, Albumin 3.0 L 06/28/16 05:13 Red Blood Count 4.39, Mean Corpuscular Volume 94.3, Mean Corpuscular Hemoglobin 29.5, Mean Corpuscular Hemoglobin Concent 31.3 L, Red Cell Distribution Width 17.0 H, Neutrophils (%) (Auto) 65.1, Lymphocytes (%) (Auto) 21.4 L, Monocytes (% ) (Auto) 8.5 H, Eosinophils (%) (Auto) 2.0, Basophils (%) (Auto) 0.6, Neutrophils # (Auto) 4.4, Lymphocytes # (Auto) 1.6, Monocytes # (Auto) 0.6, Eosinophils # (Auto) 0.1, Basophils # (Auto) 0.0, Calcium Level 9.2, Total Creatine Kinase 52 Microbiology Microbiology 06/27/16 MRSA Screen, Resulted Pending 06/27/16 Influenza Virus Type A Antigen - Final, Resulted 06/27/16 Influenza Virus Type B Antigen - Final, Resulted 06/27/16 Respiratory Virus Panel (PCR) ([facility]) - Final, Resulted 06/27/16 Urine Culture, Received Pending Sabrina Bhatia Jun 28, 2016 11:36 JONI MCCLURE MD Jun 28, 2016 19:35
[2016-06-28 12:00] VITALS: BP 141/70
[2016-06-28] MEDS ORDERED: FUROSEMIDE 40 MG/4 ML VIAL (J1940) IV SCH (12:00)
[2016-06-28 16:00] VITALS: BP 111/55
[2016-06-28] MEDS: FUROSEMIDE 40 MG TAB PO SCH (16:32)
[2016-06-28 19:15] VITALS: BP 120/70
--- NOTE | 2016-06-28 19:43 | ECHO ---
DATE OF PROCEDURE: 06/28/2016 AGE: 61 GENDER: Female HEIGHT: 62 inches WEIGHT: 169 pounds BODY SURFACE AREA: 1.7 sq m INPATIENT: Progressive Care Unit (PCU) Room 3220. REFERRING PHYSICIAN: Dr. Britney Stauffer INDICATION: Dyspnea. History of dilated cardiomyopathy. MEASUREMENTS: 2-D measurements: RV- 4.8 cm LV-5.8 cm Septum- 1.1 cm Posterior wall- 1.1 cm Aortic root- 2.7 cm LV- 4.2 cm LVEF- 25% Doppler measurements: AV- 1.5 m/s LVOT- 0.64 m/s LVOT diameter- 2.1 cm Cardiac index 1.7 liters per minute per meter squared (normal greater than 2.3). MV-E 97 A 70 E/A- 1.4 Early mitral deceleration time 180 ms E prime 4.5 A prime 4 E/E prime ratio 22 PV- 0.8 m/s Pulmonary artery acceleration time 85 ms RVSP- 50 mmHg IVC- 1.5 cm COMMENTS: Normal sinus rhythm without intraventricular conduction disturbance. Mildly dilated left atrium and left ventricle. Mild to moderately dilated right heart chambers. Left ventricle (LV) wall thickness was upper limits of normal. On real-time imaging from the parasternal and apical projections there was fairly global hypokinesis especially affecting the septum and the apex. Mild thickening of the mitral annulus but normal leaflet thickness and excursion with no posterior systolic buckling. Three equal size aortic cusps with marginally thickened cusp edges but adequate cusp separation. Normal aortic root size. No apparent intracardiac mass or pericardial effusion. Color flow Doppler study taken from the parasternal and apical projection showed mild mitral and moderate tricuspid but no aortic insufficiency. Guided continuous wave Doppler of her aortic valve showed a normal peak systolic velocity against left ventricle (LV) outflow tract obstruction. Pulsed and continuous wave Doppler of her LV inflow tract taken from the apical four-chamber projection showed normal diastolic filling velocities against mitral stenosis. There was more prominent early diastolic / passive filling pattern which was shown to be a "pseudo normalization" using tissue Doppler of her mitral annulus. Current mean left atrial pressure was significantly elevated at approximately 26 mmHg. Pulsed and continuous wave Doppler of her pulmonary trunk showed a normal peak systolic velocity against right ventricle (RV) outflow tract obstruction. Her pulmonary artery acceleration time was abbreviated consistent with an elevated pulmonary vascular resistance. Guided continuous wave Doppler of her tricuspid valve allowed our estimation of her right ventricular systolic pressure (least moderately increased). Her inferior vena cava was normal in size with significantly reduced respiratory collapse suggestive of least a mildly elevated central venous pressure. CONCLUSIONS: Findings in keeping with a dilated cardiomyopathy and fairly severe impairment of global resting left ventricular systolic function. Mildly dilated left atrium with Doppler evidence of an impairment of LV diastolic function and elevated mean left atrial pressure. Mild to moderately dilated right heart chambers with reduced right ventricular free wall motion and Doppler evidence of at least moderate pulmonary hypertension. Normal inferior vena cava (IVC) size but reduced respiratory collapse against an elevated central venous pressure. Mild degenerative changes of her mitral and aortic valvular apparatus with only a mild mitral insufficiency at this time. Comparing the above test findings with those of 03/07/2016, left ventricular size and global systolic function does not appear to be significantly changed. Estimated mean left atrial pressure was perhaps slightly less as was estimated pulmonary atrial pressure and central venous pressure.
[2016-06-28] MEDS: CILOSTAZOL 100 MG TAB (PLETAL) PO SCH (20:18)
[2016-06-28] MEDS: ATORVASTATIN 20 MG TAB PO SCH (20:19)
[2016-06-29 00:08] VITALS: BP 107/52
[2016-06-29] MEDS: LEVALBUTEROL 1.25 MG/0.5 ML CONCENTRATE NEB INH SCH ×5 (00:18→15:30)
[2016-06-29] MEDS: IPRATROPIUM 0.02% SOLN 0.5MG/2.5 ML NEB INH SCH ×5 (00:18→15:29)
[2016-06-29 04:56] VITALS: BP 121/63
[2016-06-29 06:23] LABS: CALCIUM LEVEL 9.7 MG/DL (8.8-10.2); CREATININE FOR GFR 1.19 MG/DL (0.55-1.02); GLOMERULAR FILTRATION RATE 49.3 (>45); MAGNESIUM LEVEL 1.7 MG/DL (1.8-2.4); POTASSIUM SERUM 3.8 MEQ/L (3.5-5.1)
[2016-06-29] MEDS: GABAPENTIN 100 MG CAP PO SCH ×4 (06:49→16:47)
[2016-06-29 08:30] VITALS: BP 107/61
[2016-06-29] MEDS: ADVAIR DISKUS 250/50 INH PWD INH SCH (08:51)
[2016-06-29] MEDS ORDERED: DIGOXIN 0.25 MG TAB PO SCH (09:00)
[2016-06-29] MEDS ORDERED: DIGOXIN 0.125 MG TAB PO SCH (09:00)
[2016-06-29] MEDS: HumaLOG INSULIN (NovoLOG) PER UNIT SC SCH ×3 (09:05→16:48)
[2016-06-29] MEDS: FERROUS SULFATE 325MG TAB PO SCH (09:06)
[2016-06-29] MEDS: VENLAFAXINE **XR** 75MG CAPSULE PO SCH (09:06)
[2016-06-29] MEDS: APIXABAN 5 MG TAB (ELIQUIS) PO SCH (09:06)
[2016-06-29] MEDS: FOLIC ACID 1 MG TAB PO SCH (09:06)
[2016-06-29] MEDS: FUROSEMIDE 40 MG TAB PO SCH ×2 (09:07→16:47)
[2016-06-29] MEDS: GEMFIBROZIL 600 MG TAB PO SCH (09:08)
[2016-06-29] MEDS: AMIODARONE 200 MG TAB (PACERONE) PO SCH ×3 (09:08→16:47)
[2016-06-29] MEDS: PANTOPRAZOLE 40MG TAB (PROTONIX) PO SCH (09:09)
[2016-06-29] MEDS: buPROPion **SR TABLET** (ZYBAN) 150MG PO SCH (09:09)
[2016-06-29] MEDS: BISOPROLOL FUMARATE 5 MG TAB PO SCH (09:09)
[2016-06-29] MEDS: ASCORBIC ACID 500 MG TAB PO SCH (09:09)
[2016-06-29] MEDS: CYANOCOBALAMIN 500 MCG TAB PO SCH (09:09)
[2016-06-29] MEDS: CILOSTAZOL 100 MG TAB (PLETAL) PO SCH (09:10)
[2016-06-29 12:14] VITALS: BP 112/65
[2016-06-29 15:50] VITALS: BP 102/58
[2016-06-29] MEDS ORDERED: DIGO0.12 PO ×2 (16:11→16:17)
[2016-06-29] MEDS ORDERED: FURO20TA2 PO (16:17)
[2016-06-29] MEDS ORDERED: SPIR50TA2 PO (16:17)
--- NOTE | 2016-06-29 20:03 | DS.PDOC ---
Discharge Summary General Date of Admission Jun 27, 2016 at 14:27 Date of Discharge 06/29/16 Primary Care Physician: JONI MARTÍNEZ MD Attending Physician: JONI MARTÍNEZ MD Discharge Summary PROCEDURES PERFORMED DURING STAY: None. Admission diagnoses: 1. Shortness of breath 2. Chronic systolic and diastolic congestive heart failure 3. Ocf-tsayghv-kawqblmje diabetes 4. COPD 5. Chronic anticoagulation for mural thrombus 6. Hyperlipidemia 7. Neuropathy 8. GERD 9. Iron deficiency anemia 10. Peripheral vascular disease Discharge diagnoses: 1. Acute on chronic respiratory failure secondary to acute congestive heart failure 2. Acute on chronic systolic and diastolic heart failure 3. Oog-cukrtlo-goxxyvdjm diabetes 4. COPD 5. Chronic anticoagulation for mural thrombus 6. Hyperlipidemia 7. Neuropathy 8. GERD 9. Iron deficiency anemia 10. Peripheral vascular disease COMPLICATIONS/CHIEF COMPLAINT: CHF. HISTORY OF PRESENT ILLNESS/hospital course: Patient was admitted June 272016 with worsening shortness of breath, and diagnosed with chronic congestive heart failure. She was diuresed by approximately 5 L. echocardiogram done during her stay showed stable or even improved cardiac function from her previous Echo. Patient indicated that she had not been taking her spironolactone-hydrochlorothiazide, because she hadn't picked it up. On the day of discharge, the patient states that she feels "much better." She is breathing room air, has had no fevers, and had no additional complaints. Her discharge plan included follow-up of her diuretics, and should include a follow-up appointment to her healthcare economics manager. DISCHARGE MEDICATIONS: Please see below. ALLERGIES: Please see below. PHYSICAL EXAMINATION ON DISCHARGE: VITAL SIGNS: Please see below. GENERAL: Alert, sitting, no acute distress HEENT: Sclerae clear, moist membranes, breathing room air NECK: Neck supple, no JVD CARDIOVASCULAR EXAMINATION: Regular rate and rhythm, S1, S2, 2/6 systolic ejection murmur, no heave RESPIRATORY EXAMINATION: Clear bilaterally to auscultation, no wheezes, rales, no rhonchi, decreased breath sounds throughout ABDOMINAL EXAMINATION: Soft, nontender, nondistended, positive bowel sounds EXTREMITIES: 1+ peripheral pulses bilaterally, no peripheral edema SKIN: Warm and dry NEUROLOGICAL EXAMINATION: Alert and oriented 3 PSYCHIATRIC EXAMINATION: Normal mood and affect LABORATORY DATA: Please see below. IMAGING: Chest x-ray showed increased pulmonary vascular congestion PROGNOSIS: Fair, stable ACTIVITY: As tolerated. DIET: Cardiac, carbohydrate controlled DISCHARGE PLAN: Discharged home DISPOSITION: Self-care DISCHARGE INSTRUCTIONS: 1. Follow-up diuretics 2. Daily weights 3. Monitor salt intake ITEMS TO FOLLOWUP ON ON OUTPATIENT: 1. Followup with Lydia Antoine on Monday at 11 AM; review volume status and adjust diuretics if needed; patient changed to furosemide 20 mg daily, and spironolactone 50 mg daily 2. Have patient follow-up with cardiology 3. Check for stable renal function DISCHARGE CONDITION: Stable. TIME SPENT ON DISCHARGE: Greater than 30 minutes. Joni Martínez MD Vital Signs/I&Os Vital Signs Date Time Temp Pulse Resp B/P Pulse Ox O2 Delivery O2 Flow Rate FiO2 06/29/16 12:14 97.9 86 20 112/65 92 Room Air 06/28/16 19:15 0.5 I&O- Last 24 Hours up to 6 AM 06/29/16 06:00 Intake Total 1450 ml Output Total 3475 ml Balance -2025 ml Laboratory Data Labs 24H Laboratory Tests 2 06/28/16 16:26: Bedside Glucose (Misc Panel) 367H 06/28/16 20:12: Bedside Glucose (Misc Panel) 420H 06/29/16 05:37: Anion Gap 5L, Blood Urea Nitrogen 16, Creatinine 1.19H, Sodium Level 139, Potassium Level 3.8, Chloride Level 97L, Carbon Dioxide Level 37H, Calcium Level 9.7, Glomerular Filtration Rate 49.3, Magnesium Level 1.7L 06/29/16 11:47: Bedside Glucose (Misc Panel) 399H CBC/BMP Laboratory Tests 06/29/16 05:37 Calcium Level 9.7 FSBS Laboratory Tests Test 06/28/16 16:26 06/28/16 20:12 06/29/16 11:47 Range/Units Bedside Glucose (Misc Panel) 367 420 399 80-115 MG/DL Microbiology Microbiology 06/27/16 MRSA Screen - Final, Complete Staph.aureus Methicillin Resis 06/27/16 Influenza Virus Type A Antigen - Final, Complete 06/27/16 Influenza Virus Type B Antigen - Final, Complete 06/27/16 Respiratory Virus Panel (PCR) ([facility]) - Final, Complete 06/27/16 Urine Culture - Final, Complete Discharge Medications Scheduled Albuterol/Ipratropium (Ipratropium [place]/Albut 0.5-2.5 (3) mg/3Ml) 1 Félix Félix 1 FÉLIX INH QID (Reported) Amiodarone HCl (Amiodarone HCl) 200 Mg Tab 200 MG PO QID (Reported) AMIODARONE FILLED 06/24/16 TO TAKE QID FOR 2 WKS THEN TID FOR 1 MONTH Apixaban Base (Eliquis) 5 Mg Tab 5 MG PO BID (Reported) Ascorbic Acid (Vitamin C) 500 Mg Tab 500 MG PO DAILY (Reported) Atorvastatin Calcium (Atorvastatin Calcium) 40 Mg Tab 40 MG PO QHS (Reported) Bisoprolol Fumarate (Bisoprolol Fumarate) 5 Mg Tab 5 MG PO DAILY (Reported) Bupropion HCl (Bupropion HCl Sr) 150 Mg Tab 150 MG PO BID (Reported) Cilostazol (Cilostazol) 50 Mg Tab 50 MG PO BID (Reported) Cyanocobalamin (Vitamin B12) 500 Mcg Tab 500 MCG PO DAILY (Reported) Digoxin (Digoxin) 0.125 Mg Tab 0.125 MG PO MoWeFr@09 Digoxin (Digoxin) 0.125 Mg Tab 0.125 MG PO 1 tab Mon, Mon, Fri Ferrous Sulfate (Ferrous Sulfate) 325 Mg Tab 325 MG PO DAILY (Reported) Folic Acid (Folic Acid) 1 Mg Tab 1 MG PO DAILY (Reported) Furosemide (Furosemide) 20 Mg Tab 20 MG PO DAILY Gabapentin (Gabapentin) 100 Mg Cap 100 MG PO 5XD (Reported) Gemfibrozil (Gemfibrozil) 600 Mg Tab 600 MG PO BID (Reported) Glipizide (Glipizide ER) 5 Mg Tab 5 MG PO DAILY (Reported) Losartan Potassium (Losartan Potassium) 50 Mg Tab 50 MG PO DAILY (Reported) Melatonin (Melatonin) 3 Mg Tab 3 MG PO QHS (Reported) Pantoprazole Sodium (Pantoprazole Sodium) 40 Mg Tab 40 MG PO DAILY (Reported) Salmeterol/Fluticasone (Advair Diskus 250-50 Mcg/Dose) 14 Puff/Inhaler Aerp 1 PUFF INH BID (Reported) Spironolactone (Spironolactone) 50 Mg Tab 50 MG PO DAILY Venlafaxine HCl (Venlafaxine HCl ER) 75 Mg Cap 75 MG PO DAILY (Reported) Scheduled PRN Albuterol Sulfate (Ventolin Hfa) 200 Puff/8 Gm Aers 2 PUFF INH Q4H PRN PRN SHORTNESS OF BREATH (Reported) Nitroglycerin (Nitrostat) 0.4 Mg Subl 0.4 MG SL Q5MP PRN PRN CHEST PAIN ( Reported) Allergies Coded Allergies: No Known Allergies (Unverified , 03/06/16) JONI MARTÍNEZ MD Jun 29, 2016 16:19
== END 2016-06-29 18:16 | disposition home or self-care (01) | DRG 194 ==
LOC: M ED 10:44 → M ED INP 14:27 → EEVIPCON 14:27 → M PCU 19:37
PROVIDERS: ADMIT General Practice; ATTEND Family Medicine
DX: I11.0 Hypertensive heart disease with heart failure (principal); J96.00 Acute respiratory failure, unspecified whether with hypoxia or hypercapnia; E83.42 Hypomagnesemia; E11.9 Type 2 diabetes mellitus without complications; D50.9 Iron deficiency anemia, unspecified; F32.9 Major depressive disorder, single episode, unspecified; J44.9 Chronic obstructive pulmonary disease, unspecified; G62.9 Polyneuropathy, unspecified; I73.9 Peripheral vascular disease, unspecified; Z79.01 Long term (current) use of anticoagulants; E78.5 Hyperlipidemia, unspecified; F17.210 Nicotine dependence, cigarettes, uncomplicated; K21.9 Gastro-esophageal reflux disease without esophagitis; E87.6 Hypokalemia; F41.9 Anxiety disorder, unspecified; Z79.84 Long term (current) use of oral hypoglycemic drugs; Z90.49 Acquired absence of other specified parts of digestive tract; Z90.710 Acquired absence of both cervix and uterus; Z95.9 Presence of cardiac and vascular implant and graft, unspecified; Z83.3 Family history of diabetes mellitus; Z82.49 Family history of ischemic heart disease and other diseases of the circulatory system; Z82.61 Family history of arthritis; Z80.7 Family history of other malignant neoplasms of lymphoid, hematopoietic and related tissues; Z86.718 Personal history of other venous thrombosis and embolism; I50.43 Acute on chronic combined systolic (congestive) and diastolic (congestive) heart failure; Z79.899 Other long term (current) drug therapy

== ENCOUNTER → 2016-07-01 | Outpatient (REF) | payer OTHER ==
[~2016-07-01] MED LIST changes: +ALDA25TA PO; +AMIO20TA PO; +BUPR15TASR PO; +DIGO0.12 PO; -DIGOXIN 0.25 MG TAB PO SCH; +FURO20TA2 PO; +GLIP5TAB15 PO; +MELA3TAB PO; +SPIR50TA2 PO; +VENL75CA PO; +VITA-130 PO
[2016-07-01 13:53] LABS: ALBUMIN 3.4 GM/DL (3.2-5.2); ALBUMIN/GLOBULIN RATIO 1.03 (1.00-1.93); BILIRUBIN,TOTAL 0.9 MG/DL (0.2-1.0); CALCIUM LEVEL 9.3 MG/DL (8.8-10.2); CREATININE FOR GFR 1.79 MG/DL (0.55-1.02); GLOMERULAR FILTRATION RATE 30.8 (>45); POTASSIUM SERUM 4.4 MEQ/L (3.5-5.1); TOTAL PROTEIN 6.7 GM/DL (6.4-8.2)
== END ==
LOC: M SFHCPLAZ 11:35
PROVIDERS: ATTEND Nurse Practitioner Family
DX: I50.42 Chronic combined systolic (congestive) and diastolic (congestive) heart failure (principal); E11.65 Type 2 diabetes mellitus with hyperglycemia

== ENCOUNTER → 2016-07-06 | Outpatient (REF) | payer OTHER ==
[2016-07-06 12:59] LABS: ANION GAP 9 MEQ/L (8-16); BLOOD UREA NITROGEN 7 MG/DL (7-18); CALCIUM LEVEL 8.1 MG/DL (8.8-10.2); CARBON DIOXIDE LEVEL 27 MEQ/L (21-32); CHLORIDE LEVEL 107 MEQ/L (98-107); CREATININE FOR GFR 0.92 MG/DL (0.55-1.02); GLOMERULAR FILTRATION RATE > 60.0 (>45); GLUCOSE, FASTING 330 MG/DL (80-110); POTASSIUM SERUM 4.3 MEQ/L (3.5-5.1); SODIUM LEVEL 143 MEQ/L (136-145)
== END ==
LOC: M SFHCPLAZ 08:57
PROVIDERS: ATTEND Family Medicine
DX: I50.9 Heart failure, unspecified (principal); N18.3 Chronic kidney disease, stage 3 (moderate)

== ENCOUNTER → 2016-07-13 | Outpatient (REF) | payer OTHER ==
[2016-07-13 11:20] LABS: ANION GAP 8 MEQ/L (8-16); BLOOD UREA NITROGEN 7 MG/DL (7-18); CALCIUM LEVEL 8.2 MG/DL (8.8-10.2); CARBON DIOXIDE LEVEL 29 MEQ/L (21-32); CHLORIDE LEVEL 102 MEQ/L (98-107); CREATININE FOR GFR 0.87 MG/DL (0.55-1.02); GLOMERULAR FILTRATION RATE > 60.0 (>45); GLUCOSE, FASTING 352 MG/DL (80-110); POTASSIUM SERUM 4.1 MEQ/L (3.5-5.1); SODIUM LEVEL 139 MEQ/L (136-145)
== END ==
LOC: M SFHCPLAZ 08:23
PROVIDERS: ATTEND Family Medicine
DX: I50.9 Heart failure, unspecified (principal)

== ENCOUNTER → 2016-07-14 | Outpatient (CLI) | payer OTHER ==
--- NOTE | 2016-07-19 08:37 | SLEEPCENT ---
DATE OF PROCEDURE: 07/14/2016 INTERPRETATION: Nocturnal polysomnography was performed for the evaluation of sleep apnea syndrome symptoms consisting of excessive daytime sleepiness, observed apnea, gasping respiration, nonrestorative sleep. She also has comorbidities of congestive heart failure (CHF) and pulmonary hypertension. A total of 8 hours and 33 minutes of data was reviewed with 426 minutes of sleep identified. Sleep latency was 37 minutes. No rapid eye movement (REM) sleep was seen. Stages N1 through N3 were observed. Sleep efficiency was 84%. Electrocardiogram (EKG) showed normal sinus rhythm with an average heart rate of 82 beats per minute. Speeding and slowing was noted surrounding some respiratory events. No epileptiform discharge observed. There were 219 respiratory events scored of 10 seconds in duration or longer for an apnea-hypopnea index (AHI) of 30.8. However, in reviewing the tracings, these events were over scored and her index is much more likely in the mild to possible moderate range. It is clear; however, that she has obstructive sleep apnea. Respiratory event related arousal (RERA) index was 0. Mean oxygen saturation for this study was 90% with a minimum recorded value of 77%. Arousal index was 26.5 with approximately half of the arousals breathing related and the other half secondary to limb movements. Periodic limb movement index was elevated at 91.8. Oxygen 2 liters via nasal cannula was added part way through the study secondary to hypoxemia. IMPRESSION: 1. Obstructive sleep apnea, likely mild/moderate. 2. Nocturnal hypoxemia. 2 liters of oxygen via nasal cannula was used during a portion of this study. 3. Periodic limb movements, severe. RECOMMENDATIONS: Recommend that the patient return to the sleep disorder center for the determination of pressure therapy. Pending this intervention, alcohol and sedative usage should be avoided and care should be taken when operating motor vehicles.
== END ==
LOC: M SLEEP 19:29
PROVIDERS: ATTEND Internal Medicine Pulmonary Disease
DX: G47.33 Obstructive sleep apnea (adult) (pediatric) (principal); G47.61 Periodic limb movement disorder; G47.36 Sleep related hypoventilation in conditions classified elsewhere

== ENCOUNTER → 2016-08-02 | Outpatient (CLI) | payer OTHER ==
--- NOTE | 2016-08-03 13:40 | REP ---
Thyroid uptake and scan: History: Goiter. Technique: 322.0 microcuries of I-123 sodium iodide is ingested and 24 hour uptake value is acquired along with functional images. Findings: The 24 hour thyroid uptake value is markedly decreased at only 1.79% (25-35%). Functional images show very poor thyroid uptake but no cold or warm lesion is seen. Thyroid lobes appear symmetric. Impression: Markedly decreased uptake. No cold or warm lesion seen. Signed by Anuel Olguin MD 08/03/2016 03:55 P
== END ==
LOC: M RAD 12:13
PROVIDERS: ATTEND Family Medicine
DX: E04.9 Nontoxic goiter, unspecified (principal)

== ENCOUNTER → 2016-08-03 | Outpatient (REF) | payer OTHER | LOC: M SFHCPLAZ 10:18 | PROVIDERS: ATTEND Family Medicine | DX: E11.65 Type 2 diabetes mellitus with hyperglycemia (principal) ==

== ENCOUNTER → 2016-08-16 | Outpatient (REF) | payer OTHER ==
[2016-08-17 10:33] LABS: THYROID PEROXIDASE ANTIBODY < 28.0 U/ML (<60.0)
== END ==
LOC: M SFHCPLAZ 10:48
PROVIDERS: ATTEND Family Medicine
DX: E04.9 Nontoxic goiter, unspecified (principal)

== ENCOUNTER → 2016-09-22 | Outpatient (CLI) | payer OTHER ==
[~2016-09-22] MED LIST changes: +ADVA230A INH; +AMIO200T PO; -AMIO20TA PO; -ATOR40TA PO; +ATOR40TA75 PO; +BASA100I SC; +CEPH500C PO; +CHLO25TA PO; +FERR1TAB8 PO; +FLON1SPR; -FOLI1TAB2 PO; +FOLI1TAB4 PO; +GLIP1TAB49 PO; -GLIP5TAB15 PO; -MACR100C3 PO; +MACR100C43 PO; +MAGN400T5 PO; +MECL-86 PO; -MELA3CAP PO; +MELA3CAP2 PO; +MELA3TAB21 PO; +METF-414 PO; +POTA10TAB PO; +SPIR12.9 INH; -VENL75CA PO; +VENL75CA2 PO; +VENTAER INH; +VICT18IN SC; -VITA-130 PO; +VITA500T PO
--- NOTE | 2016-09-27 11:24 | SLEEPCENT ---
DATE OF STUDY: 09/22/2016 REFERRING PROVIDER: Henrry Martínez MD INTERPRETATION: Nocturnal polysomnography was performed for the determination of pressure therapy in this patient with obstructive sleep apnea, moderate/severe with an apnea-hypopnea index (AHI) of 30.8. A total of 6 hours and 17 minutes of data was reviewed with 302.5 minutes of sleep identified. Sleep latency was 12.5 minutes. Rapid eye movement (REM) latency was 213 minutes. No slow wave sleep was identified. Sleep efficiency was 83.1%. EKG showed normal sinus rhythm with an average heart rate of 68 beats per minute. Speeding and slowing was noted surrounding some respiratory events. There were no epileptiform discharge observed. The patient had been fit with a ResMed Quattro full face mask of small size, 4 cm of water pressure was applied to the circuit and the lights had been dimmed. CPAP was eventually taken to a high of 8 cm of water pressure, which appeared optimal. On this pressure, her AHI is 0.5 and MAXWELL was 1.0. Oxygen saturation [place] was in the 90th percentile. Periodic limb movement elevated at 81.5. The weakness of this study is that minimal REM and no supine sleep was observed during the titration. IMPRESSION: 1. Obstructive sleep apnea (MALACHI) moderate/severe, reasonably palliated on CPAP therapy at 8 cm of water pressure. The weakness of the study is that no supine sleep was seen. Minimal non supine REM was observed. 2. Periodic limb movement, severe. RECOMMENDATION: Recommend continuation of CPAP therapy at the above pressure via a small ResMed Quattro full face mask or mask of her preference. Clinical correlation will be necessary to ensure eradication of symptoms. [facility]
== END ==
LOC: M SLEEP 19:52
PROVIDERS: ATTEND Internal Medicine Pulmonary Disease
DX: G47.33 Obstructive sleep apnea (adult) (pediatric) (principal); G47.61 Periodic limb movement disorder

== ENCOUNTER → 2016-12-12 | Outpatient (REF) | payer OTHER ==
[2016-12-12 14:45] LABS: CALCIUM LEVEL 8.9 MG/DL (8.8-10.2); CREATININE FOR GFR 1.13 MG/DL (0.55-1.02); GLOMERULAR FILTRATION RATE 52.3 (>45); POTASSIUM SERUM 3.3 MEQ/L (3.5-5.1)
== END ==
LOC: M SFHCPLAZ 11:03
PROVIDERS: ATTEND Family Medicine
DX: E11.65 Type 2 diabetes mellitus with hyperglycemia (principal); I50.43 Acute on chronic combined systolic (congestive) and diastolic (congestive) heart failure

== ENCOUNTER → 2016-12-19 | Outpatient (REF) | payer OTHER ==
[2016-12-19 14:40] LABS: CALCIUM LEVEL 10.1 MG/DL (8.8-10.2); CREATININE FOR GFR 1.23 MG/DL (0.55-1.02); DIGOXIN LEVEL 0.8 NG/ML (0.5-2.0); GLOMERULAR FILTRATION RATE 47.4 (>45); MAGNESIUM LEVEL 1.8 MG/DL (1.8-2.4)
[2016-12-19 14:46] LABS: POTASSIUM SERUM 2.9 MEQ/L (3.5-5.1)
== END ==
LOC: M SFHCPLAZ 10:29
PROVIDERS: ATTEND Family Medicine
DX: I50.43 Acute on chronic combined systolic (congestive) and diastolic (congestive) heart failure (principal)

== ENCOUNTER → 2016-12-27 | Outpatient (REF) | payer OTHER ==
[2016-12-27 13:34] LABS: CALCIUM LEVEL 10.7 MG/DL (8.8-10.2); CREATININE FOR GFR 1.84 MG/DL (0.55-1.02); GLOMERULAR FILTRATION RATE 29.8 (>45); POTASSIUM SERUM 4.1 MEQ/L (3.5-5.1)
== END ==
LOC: M SFHCPLAZ 10:40
PROVIDERS: ATTEND Family Medicine
DX: I50.43 Acute on chronic combined systolic (congestive) and diastolic (congestive) heart failure (principal)

== ENCOUNTER → 2016-12-29 | Outpatient (REF) | payer OTHER ==
[2016-12-29 14:12] LABS: CALCIUM LEVEL 10.4 MG/DL (8.8-10.2); CREATININE FOR GFR 1.75 MG/DL (0.55-1.02); GLOMERULAR FILTRATION RATE 31.6 (>45); POTASSIUM SERUM 4.1 MEQ/L (3.5-5.1)
== END ==
LOC: M SFHCPLAZ 10:08
PROVIDERS: ATTEND Family Medicine
DX: N17.9 Acute kidney failure, unspecified (principal)

== ENCOUNTER 2017-01-06 09:44 | Observation (INO) | payer OTHER ==
[~2017-01-06] VITALS: Ht 160 cm; Wt 71.0 kg
[2017-01-06] MEDS: ADVAIR HFA 230/21MCG INHALER INH SCH (00:15)
[~2017-01-06 09:44] MED LIST changes: -ADVA230A INH; -BASA100I SC; -CEPH500C PO; -CHLO25TA PO; -FERR1TAB8 PO; -FLON1SPR; -MAGN400T5 PO; -MECL-86 PO; -MELA3TAB21 PO; -METF-414 PO; -POTA10TAB PO; -SPIR12.9 INH; -VENTAER INH; -VICT18IN SC
[2017-01-06 10:52] LABS: BASO # 0.1 10^3/uL (0.0-0.2); BASO % 0.5 % (0.0-1.0); EOS # 0.4 10^3/uL (0.0-0.50); EOS % 2.7 % (0.0-3.0); IMMATURE GRANULOCYTE % 1.3 % (0-0); LYMPH # 2.4 10^3/uL (1.5-4.5); LYMPH % 17.7 % (24.0-44.0); MEAN CORPUSCULAR HEMOGLOBIN 29.3 pg (27.0-33.0); MEAN CORPUSCULAR VOLUME 86.1 fl (80.0-96.0); MONO # 1.1 10^3/uL (0.0-0.8); MONO % 7.8 % (0.0-5.0); NEUTROPHILS # 9.4 10^3/uL (1.8-7.7); PLATELET COUNT, AUTOMATED 221 10^3/uL (150-450); RED CELL DISTRIBUTION WIDTH 15.3 % (11.5-14.5); WHITE BLOOD COUNT 13.4 10^3/uL (4.0-10.0)
[2017-01-06 11:21] LABS: ANION GAP 8 MEQ/L (8-16); BLOOD UREA NITROGEN 37 MG/DL (7-18); CALCIUM LEVEL 9.5 MG/DL (8.8-10.2); CARBON DIOXIDE LEVEL 29 MEQ/L (21-32); CHLORIDE LEVEL 100 MEQ/L (98-107); CREATININE FOR GFR 2.35 MG/DL (0.55-1.02); GLOMERULAR FILTRATION RATE 22.5 (>45); GLUCOSE, FASTING 139 MG/DL (80-110); POTASSIUM SERUM 4.2 MEQ/L (3.5-5.1); SODIUM LEVEL 137 MEQ/L (136-145)
[2017-01-06 11:31] LABS: DIGOXIN LEVEL 1.1 NG/ML (0.5-2.0)
--- NOTE | 2017-01-06 11:34 | REP ---
PORTABLE CHEST: AP portable view of the chest is performed. There is mild elevation of the left hemidiaphragm. No definite acute filtration or pulmonary edema is seen. The heart is not significantly enlarged. There is some calcification of the thoracic aorta. The mediastinal silhouette is unchanged. There is a left signal lead pacemaker. IMPRESSION: No acute pulmonary disease. Signed by Janak Franklin MD 01/09/2017 09:48 A
[2017-01-06] MEDS ORDERED: NS 500 ML IV ONE (14:00)
--- NOTE | 2017-01-06 15:09 | HPEPDOC ---
[facility] Medical History & Physical Date of Admission Jan 06, 2017 History and Physical ATTENDING: PCP: Maryellen Martínez MD CC: "blood pressure problem" HPI: 61yoF with a past medical history significant for COPD and CHF who was seen by PCP 12/31/16 and treated with po prednisone and Levaquin x 5 days as well as started on po lasix 10 mg daily for COPD and CHF exacerbation. EMS was summoned 01/02/17 related to chest pain. The patient was seen at [facility] and transferred to [facility]. According to records cardiac enzymes were negative. The patient was treated at [facility] with IV Rocephin/Zithromax and discharged on oral Keflex for possible UTI. She was discharged 01/03/17. She states since her discharge she has felt weak. Blood pressure has been running low into the 70s at home. Following her discharge at [facility] she was instructed to hold her valsartan. She is felt dizzy. Dry cough. Decreased urine output. She denies edema. No fevers or chills. She denies chest pain, wheezing, abdominal pain. No nausea or vomiting. Denies any YANEZ, palpitations, abdominal pain, N/V/D or changes in bowel habits. Upon presentation to the hospital the patient was found to have hypotension, thus the hospitalist team was consulted. PMHx: NIDDM COPD Dilated Cardiomyopathy/chronic systolic and diastolic CHF- follows with [facility] Mid Apical Mural thrombus-on Eliquis anticoagulation since 03/04 TTE 07/04 dilated cardiomyopathy, diastolic dysfunction, EF 25%, mitral and tricuspid insufficiency. 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 ROS: As noted in HPI, otherwise 11pt ROS of systems reviewed and unremarkable. PE: GEN: 61yoF, appears stated age. Well-nourished, well developed. No acute distress. Alert and oriented x 3. Pleasant, interactive. HEENT: Normocephalic, atraumatic. Pupils are equal, round, and reactive to light. Extraocular movements are intact. No nystagmus appreciated. Sclera are nonicteric. Conjunctiva without injection. Nose midline. No facial asymmetry. Dry appearing mucous membranes. Dentition fair. Pharynx pink and moist, no cobblestoning. Neck supple, trachea midline. No lymphadenopathy or thyromegaly appreciated. CHEST: Regular rate and rhythm, +S1, +S2. JVD does not appear elevated. LUNGS: Clear to auscultation bilaterally. No wheezes, rales, or rhonchi. Breathing appears symmetric and easy. Patient is speaking in full sentences. No accessory muscle use. ABD: Round, soft, non-tender, non-distended. +Bowel sounds throughout. No rebound or guarding. No costovertebral angle tenderness. EXT: Pulses 2+ bilaterally dorsalis pedis and radial. No lower extremity edema appreciated. SKIN: Kohler, dry, warm. Capillary refill <2sec. No rashes. NEURO: Alert and oriented x 3. Cranial nerves III-XII are intact. No focal deficits appreciated. CXR: No acute pulmonary disease EKG: Sinus rhythm, ST-T abnormality, 79 bpm. BC x 2 pending UC pending. A&P: 61yoF with a past medical history significant for COPD and CHF who was seen by PCP 12/31/16 and treated with po prednisone and Levaquin x 5 days as well as started on po lasix 10 mg daily for COPD and CHF exacerbation. EMS was summoned 01/02/17 related to chest pain. The patient was seen at [facility] and transferred to [facility]. According to records cardiac enzymes were negative. The patient was treated at [facility] with IV Rocephin/Zithromax and discharged on oral Keflex for possible UTI. She was discharged 01/03/17. She states since her discharge she has felt weak. Blood pressure has been running low into the 70s at home. Following her discharge at [facility] she was instructed to hold her valsartan. She is felt dizzy. Dry cough. Decreased urine output. She denies edema. 1. Pt to be admitted to PCU for [address] Chirinos's service. Pt is discussed with Dr Rice. 2. HHD/ chronic systolic and diastolic CHF/Cardiomyopathy/EF 25%. BNP 496. Appears to be dehydrated, possibly related to recent change in Pt's diuretic regimen. IVF x 500cc in ED. Plan to hold diuretics. IV fluids with gentle hydration 60cc/hr x 1 liter and d/c. Dig 3 x per week, Dig level WNL. Hold ARB. 3. NIDDM. Continue controlled carbohydrate diet, Metformin on hold. SSI. 4. COPD. O2/Nebs 5. H/O UTI. Pt will finish courese of Keflex x 4 additional doses. Request UC/ pending. 6. History of mural thrombus TTE 03/04. Patient will cont Eliquis 5 mg by mouth twice a day pending Med Rec. 7. Hyperlipidemia. Continue atorvastatin 40 mg daily, continue Lopid. 8. Chronic pain. Continue gabapentin 100 mg TID. 9. GERD. Continue Protonix 40 mg daily. 10. Iron deficiency anemia. Continue ferrous sulfate 325 mg by mouth daily. Hemoglobin is noted to be 13.1. 11. PVD/H/O PTCA. previously on Pletal. 12. JUAN/CKD3. Baseline appears to be 1.1-1.2. 2.23 on admission. Hold diuretics. IV fluids as above. I have both independently examined this patient as well as reviewed the dictated note. I have discussed in detail with Ms. Palencia the findings and plan of treatment as documented in the her note. I will continue to follow the patient and offer further guidance to the patients care as necessary during this hospital stay. Vital Signs Vital Signs Date Time Temp Pulse Resp B/P (MAP) Pulse Ox O2 Delivery O2 Flow Rate FiO2 01/06/17 14:00 97.9 01/06/17 13:44 82 18 94 01/06/17 09:45 Room Air Laboratory Data Labs 24H Laboratory Tests 2 01/06/17 10:45: Immature Granulocyte % (Auto) 1.3H, White Blood Count 13.4H, Red Blood Count 4.47, Hemoglobin 13.1, Hematocrit 38.5, Mean Corpuscular Volume 86.1, Mean Corpuscular Hemoglobin 29.3, Mean Corpuscular Hemoglobin Concent 34.0, Red Cell Distribution Width 15.3H, Platelet Count 221, Neutrophils (%) (Auto) 70.0H, Lymphocytes (%) (Auto) 17.7L, Monocytes (%) (Auto) 7.8H, Eosinophils (%) (Auto) 2.7, Basophils (%) (Auto) 0.5, Neutrophils # (Auto) 9.4H, Lymphocytes # (Auto) 2.4, Monocytes # (Auto) 1.1H, Eosinophils # (Auto) 0.4, Basophils # (Auto) 0.1, Immature Granulocyte # (Auto) 0.2H, Nucleated Red Blood Cells % (auto) 0.0, Anion Gap 8, Glomerular Filtration Rate 22.5L, Blood Urea Nitrogen 37H, Creatinine 2.35H, Sodium Level 137, Potassium Level 4.2, Chloride Level 100, Carbon Dioxide Level 29, Calcium Level 9.5, Total Creatine Kinase 69, Creatine Kinase MB 2.3, Creatine Kinase MB Relative Index 3.33, Troponin I < 0.02, NT-Pro -B-Type Natriuretic Peptide 496H, Digoxin Level 1.1 01/06/17 11:46: Lactic Acid Level 2.7*H 01/06/17 12:21: Urine Appearance HAZY, Urine Color YELLOW, Urine pH 5.0, Urine Specific Tuckerman 1.013, Urine Protein NEGATIVE, Urine Glucose (UA) NEGATIVE, Urine Ketones NEGATIVE, Urine Urobilinogen 0.2, Urine Bilirubin NEGATIVE, Urine Leukocyte Esterase NEGATIVE, Urine Blood NEGATIVE, Urine Nitrite NEGATIVE, Urine WBC (Auto ) 2, Urine RBC (Auto) 1, Urine Hyaline Casts (Auto) 17, Urine Bacteria (Auto) NEGATIVE, Urine Squamous Epithelial Cells 1, Urine Granular Casts (Auto) 1, Urine Mucus (Auto) SMALL, Urine Sperm (Auto) CBC/BMP Laboratory Tests 01/06/17 10:45 Red Blood Count 4.47, Mean Corpuscular Volume 86.1, Mean Corpuscular Hemoglobin 29.3, Mean Corpuscular Hemoglobin Concent 34.0, Red Cell Distribution Width 15.3 H, Neutrophils (%) (Auto) 70.0 H, Lymphocytes (%) (Auto) 17.7 L, Monocytes (%) (Auto) 7.8 H, Eosinophils (%) (Auto) 2.7, Basophils (%) (Auto) 0.5, Neutrophils # (Auto) 9.4 H, Lymphocytes # (Auto) 2.4, Monocytes # (Auto) 1.1 H, Eosinophils # (Auto) 0.4, Basophils # (Auto) 0.1, Calcium Level 9.5, Total Creatine Kinase 69 Microbiology Microbiology 01/06/17 Blood Culture, Received Pending 01/06/17 Blood Culture, Received Pending 01/06/17 Urine Culture, Received Pending Home Medications Scheduled (Digoxin) 125 Mcg Tab, 125 MCG PO 3XW MON, WED, FRI (Flonase Allergy Relief) 50 Mcg/Act Spr, 1 SPRAY NA DAILY (Basaglar Kwikpen) 100 Unit/Ml Inj, 18 UNIT SC ACB (Basaglar Kwikpen) 100 Unit/Ml Inj, 15 UNIT SC ACS Apixaban Base (Eliquis) 5 Mg Tab, 5 MG PO BID Atorvastatin Calcium (Atorvastatin Calcium) 40 Mg Tab, 40 MG PO DAILY Bisoprolol Fumarate (Bisoprolol Fumarate) 5 Mg Tab, 5 MG PO QHS Bupropion Hcl (Bupropion HCl Sr) 150 Mg Tab, 150 MG PO BID Cephalexin Monohydrate (Cephalexin) 500 Mg Cap, 500 MG PO BID FILLED 01/03 FOR 4 DAYS Ferrous Sulfate (Ferrous Sulfate) 325 Mg Tab, 325 MG PO QHS Folic Acid (Folic Acid) 1 Mg Tab, 1 MG PO QHS Gabapentin (Gabapentin) 100 Mg Cap, 100 MG PO TID Liraglutide (Victoza) 18 Mg/3 Ml Inj, 1.2 MG SC DAILY Magnesium Oxide (Magnesium Oxide 400) 400 Mg Tab, 400 MG PO DAILY Meclizine HCl (Meclizine 25) 25 Mg Tab, 25 MG PO DAILY Melatonin (Melatonin Cr) 3 Mg Tab, 3 MG PO QHS Metformin Hydrochloride (Metformin HCl ER) 500 Mg Tab, 1,000 MG PO QPM Pantoprazole Sodium (Pantoprazole Sodium) 40 Mg Tab, 40 MG PO QHS Salmeterol/Fluticasone (Advair Hfa 230-21 Mcg/Act) 1 Aer Aer, 2 PUFF INH BID Tiotropium [place] Monohydrate (Spiriva Respimat) 2.5 Mcg/Act Spr, 2 INHALATION INH DAILY Venlafaxine HCl (Venlafaxine HCl ER) 75 Mg Cap, 75 MG PO DAILY Scheduled PRN Albuterol Sulfate (Ventolin Hfa) 108 Mcg/Act Aer, 2 PUFFS INH QID PRN for SHORTNESS OF BREATH Albuterol/Ipratropium (Ipratropium [place]/Albut 0.5-2.5 (3) mg/3Ml) 1 Félix Félix, 1 FÉLIX INH Q6H PRN for SHORTNESS OF BREATH Nitroglycerin (Nitrostat) 0.4 Mg Subl, 0.4 MG SL Q5MP PRN for CHEST PAIN Allergies Coded Allergies: No Known Allergies (Unverified , 03/06/16) Shruthi Palencia Jan 06, 2017 15:09 ARIAN KRAUS MD Jan 15, 2017 18:10
[2017-01-06] MEDS ORDERED: FOLI1TAB4 PO (15:15)
[2017-01-06] MEDS ORDERED: FLON1SPR (15:15)
[2017-01-06] MEDS ORDERED: BASA100I SC ×2 (15:15)
[2017-01-06] MEDS ORDERED: NITR4TASL SL (15:15)
[2017-01-06] MEDS ORDERED: VICT18IN SC (15:15)
[2017-01-06] MEDS ORDERED: CHLO25TA PO (15:15)
[2017-01-06] MEDS ORDERED: IPRASOL4 INH (15:15)
[2017-01-06] MEDS ORDERED: ATOR40TA75 PO (15:15)
[2017-01-06] MEDS ORDERED: POTA10TAB PO (15:15)
[2017-01-06] MEDS ORDERED: MAGN400T5 PO (15:15)
[2017-01-06] MEDS ORDERED: CEPH500C PO (15:15)
[2017-01-06] MEDS ORDERED: VENL75CA2 PO (15:15)
[2017-01-06] MEDS ORDERED: BISO5TAB5 PO (15:15)
[2017-01-06] MEDS ORDERED: METF-414 PO (15:15)
[2017-01-06] MEDS ORDERED: VENTAER INH (15:15)
[2017-01-06] MEDS ORDERED: GABA-279 PO (15:15)
[2017-01-06] MEDS ORDERED: PANT40TA2 PO (15:15)
[2017-01-06] MEDS ORDERED: ADVA230A INH (15:15)
[2017-01-06] MEDS ORDERED: DIGO0.12 PO (15:15)
[2017-01-06] MEDS ORDERED: FERR1TAB8 PO (15:15)
[2017-01-06] MEDS ORDERED: MECL-86 PO (15:15)
[2017-01-06] MEDS ORDERED: SPIR12.9 INH (15:15)
[2017-01-06] MEDS ORDERED: MELA3TAB21 PO (15:15)
[2017-01-06] MEDS ORDERED: LOSA50TA20 PO (15:15)
[2017-01-06] MEDS ORDERED: SPIR50TA2 PO (15:15)
[2017-01-06] MEDS ORDERED: BUPR150T5 PO (15:15)
[2017-01-06] MEDS ORDERED: IPRATROPIUM 0.5MG/ALBUTEROL 2.5MG INH SOL UD 3ML (DUONEB)(J7620) NEB PRN (15:45)
[2017-01-06] MEDS ORDERED: DEXTROSE 50% 50 ML SYRINGE IV PRN (15:45)
[2017-01-06] MEDS ORDERED: GLUCAGON FOR INJ 1 MG VIAL (J1610) SC PRN (15:45)
[2017-01-06] MEDS ORDERED: GLUCOSE 4 GM CHEW TABLET PO PRN (15:45)
[2017-01-06] MEDS ORDERED: ELIQ5TAB PO (16:18)
[2017-01-06 16:29] LABS: MAGNESIUM LEVEL 1.9 MG/DL (1.8-2.4)
[2017-01-06] MEDS ORDERED: NS 1,000 ML IV SCH (17:00)
[2017-01-06] MEDS: GABAPENTIN 100 MG CAP PO SCH ×2 (17:10→22:15)
[2017-01-06] MEDS: HumaLOG INSULIN (NovoLOG) PER UNIT SC SCH ×2 (17:15→21:00)
[2017-01-06] MEDS: IPRATROPIUM 0.5MG/ALBUTEROL 2.5MG INH SOL UD 3ML (DUONEB)(J7620) NEB SCH (19:13)
[2017-01-06] MEDS: BISOPROLOL FUMARATE 5 MG TAB PO SCH (21:00)
[2017-01-06 21:43] VITALS: BP 96/51
[2017-01-06 22:00] VITALS: BP_SYST 92; BP_DIAS 43; BP_DIAS 53
[2017-01-06] MEDS: CEPHALEXIN 500 MG CAP PO SCH (22:15)
[2017-01-06] MEDS: FOLIC ACID 1 MG TAB PO SCH (22:15)
[2017-01-06] MEDS: FERROUS SULFATE 325MG TAB PO SCH (22:15)
[2017-01-06] MEDS: PANTOPRAZOLE 40MG TAB (PROTONIX) PO SCH (22:15)
[2017-01-06] MEDS: buPROPion **SR TABLET** (ZYBAN) 150MG PO SCH (22:46)
[2017-01-06] MEDS: LIDOCAINE 5% (LIDODERM) PATCH TD SCH (22:47)
[2017-01-07] MEDS: IPRATROPIUM 0.5MG/ALBUTEROL 2.5MG INH SOL UD 3ML (DUONEB)(J7620) NEB SCH ×4 (01:46→19:00)
[2017-01-07 04:00] VITALS: BP 94/50
[2017-01-07 04:42] LABS: BASO # 0.1 10^3/uL (0.0-0.2); BASO % 0.7 % (0.0-1.0); EOS # 0.3 10^3/uL (0.0-0.50); IMMATURE GRANULOCYTE % 1.7 % (0-0); LYMPH # 2.5 10^3/uL (1.5-4.5); LYMPH % 25.8 % (24.0-44.0); MEAN CORPUSCULAR HEMOGLOBIN 28.7 pg (27.0-33.0); MEAN CORPUSCULAR VOLUME 86.8 fl (80.0-96.0); MONO # 0.8 10^3/uL (0.0-0.8); MONO % 8.7 % (0.0-5.0); NEUTROPHILS # 5.7 10^3/uL (1.8-7.7); NEUTROPHILS % 60.1 % (36.0-66.0); PLATELET COUNT, AUTOMATED 180 10^3/uL (150-450); RED CELL DISTRIBUTION WIDTH 15.5 % (11.5-14.5); WHITE BLOOD COUNT 9.5 10^3/uL (4.0-10.0)
[2017-01-07 05:02] LABS: ALBUMIN 2.8 GM/DL (3.2-5.2); ALBUMIN/GLOBULIN RATIO 0.93 (1.00-1.93); BILIRUBIN,TOTAL 0.3 MG/DL (0.2-1.0); CALCIUM LEVEL 8.6 MG/DL (8.8-10.2); CREATININE FOR GFR 1.61 MG/DL (0.55-1.02); GLOMERULAR FILTRATION RATE 34.8 (>45); POTASSIUM SERUM 4.1 MEQ/L (3.5-5.1); TOTAL PROTEIN 5.8 GM/DL (6.4-8.2)
--- NOTE | 2017-01-07 05:50 | ECGEPIP ---
Stationary ECG Study [facility] - ED Test Date: 2017-01-06 Pat Name: PORTILLO MARTIN Department: Room: [place] [address] Gender: F [employer]: campbell : [id number] Requested By: Tod Bentley Order Number: [id number] Reading MD: Tod Figueredo Measurements Intervals [place] Rate: 79 P: 52 [place]: 175 QRS: 35 QRSD: 105 T: 128 QT: 368 QTc: 424 Interpretive Statements SINUS RHYTHM NSTTW ABNORMALITIES SIMILAR TO 06/28/16 Electronically Signed On 01-07-2017 5:50:31 EDT by Tod Figueredo
[2017-01-07] MEDS: ADVAIR HFA 230/21MCG INHALER INH SCH ×2 (07:10→19:42)
[2017-01-07 08:07] VITALS: BP_SYST 104; BP_SYST 109; BP_SYST 114; BP_DIAS 56; BP_DIAS 59
[2017-01-07] MEDS: FLUTICASONE PROP 0.05% NASAL SPRAY 16 GM (FLONASE) SCH (08:27)
[2017-01-07] MEDS: buPROPion **SR TABLET** (ZYBAN) 150MG PO SCH ×2 (08:28→20:43)
[2017-01-07] MEDS: MAGNESIUM OXIDE 400 MG TAB (MAG-OX) PO SCH (08:28)
[2017-01-07] MEDS: HumaLOG INSULIN (NovoLOG) PER UNIT SC SCH ×4 (08:28→21:00)
[2017-01-07] MEDS: ATORVASTATIN 20 MG TAB PO SCH (08:28)
[2017-01-07] MEDS: CEPHALEXIN 500 MG CAP PO SCH ×2 (08:29→20:43)
[2017-01-07] MEDS: APIXABAN 5 MG TAB (ELIQUIS) PO SCH ×2 (08:29→20:43)
[2017-01-07] MEDS: VENLAFAXINE **XR** 75MG CAPSULE PO SCH (08:29)
[2017-01-07] MEDS: GABAPENTIN 100 MG CAP PO SCH ×3 (08:29→20:43)
[2017-01-07] MEDS: **NOTE PATIENT COMMENT** MISC XX SCH (08:29)
[2017-01-07 12:00] VITALS: BP 115/60
[2017-01-07] MEDS ORDERED: SLF 3 ML SYR IV PRN (14:15)
--- NOTE | 2017-01-07 15:25 | IPN ---
DATE OF EXAM: 01/07/2017 SUBJECTIVE: The patient tells me that she is feeling better. She tells me that her blood pressure is still low, but she is not feeling as lightheaded, dizzy, and not as weak and tired. OBJECTIVE: VITAL SIGNS: Temperature 96.8, pulse 79, respiratory rate 19, blood pressure 114/59 while supine, 109/59 while standing, without significant change in heart rate. Oxygen saturation 93% on room air. GENERAL: She is a morbidly obese, female, sitting on the edge of her bed. She does not appear to be in any acute distress. HEENT: Cranial nerves II-XII are grossly intact. She has dry mucous membranes. No elevation in her CVP. CARDIOVASCULAR EXAM: S1, S2 regular. RESPIRATORY EXAM: Is fairly clear. ABDOMINAL EXAM: Is obese. EXTREMITIES: No clubbing, cyanosis, or edema. LABORATORY STUDIES: WBC 9.5, down from 13.4, hemoglobin 11.3, hematocrit 34.2, platelet count is 180. Chemistry panel: Sodium 141, potassium 4.1, chloride 108, bicarbonate 26, BUN 30, creatinine 1.6, down from 2.3. A repeat lactic acid was within normal limits. IMAGING: The patient had a chest x-ray that revealed no acute pulmonary disease. ASSESSMENT AND PLAN: This is a 61-year-old female with dehydration. PROBLEM: 1. Dehydration, secondary to over-diuresis in the setting of a recent urinary tract infection (UTI). She had received some gentle fluid resuscitation, and we are holding her diuretics. Her blood pressure is coming up. Her symptom does appear to be resolving. Will continue to hold her diuretics and continue to monitor her closely. Will hold off any further intravenous (IV) fluids. 2. Congestive heart failure with severe systolic dysfunction. She is on digoxin, beta elliott. Her diuretics are currently on hold. She would likely need them restarted within the next 24-48 hours, might be at a lower dose. 3. Acute kidney injury secondary to dehydration. Resolving with gentle fluids and withholding diuretics. 4. Diabetes. She is on sliding scale insulin. 5. Neuropathy. She is on gabapentin. 6. Chronic obstructive pulmonary disease (COPD). She is at her baseline respiratory status. Will continue with nebulizer treatments. No decompensations. 7. Recent urinary tract infection. Continue with Keflex until the course is finished. 8. History of mural thrombus from 2016. She is continued on Eliquis. 9. Dyslipidemia. Continue with atorvastatin. 10. Gastroesophageal reflux disease. Continue with Protonix. 11. Iron-deficiency anemia. Continue supplementation. 12. Mood disorder. Continue with venlafaxine and Wellbutrin. 13. Deep venous thrombosis (DVT) prophylaxis. Patient is on Eliquis. DISPOSITION: The patient can likely be discharged home in the next 24-48 hours.
[2017-01-07 16:00] VITALS: BP_SYST 110; BP_SYST 115; BP_SYST 120; BP_DIAS 60; BP_DIAS 62; BP_DIAS 64
[2017-01-07 20:00] VITALS: BP 116/58
[2017-01-07] MEDS: FOLIC ACID 1 MG TAB PO SCH (20:43)
[2017-01-07] MEDS: FERROUS SULFATE 325MG TAB PO SCH (20:43)
[2017-01-07] MEDS: PANTOPRAZOLE 40MG TAB (PROTONIX) PO SCH (20:43)
[2017-01-07 20:45] VITALS: BP 116/58
[2017-01-07] MEDS: SLF 3 ML SYR IV SCH (20:45)
[2017-01-07] MEDS: BISOPROLOL FUMARATE 5 MG TAB PO SCH (20:45)
[2017-01-07] MEDS: LIDOCAINE 5% (LIDODERM) PATCH TD SCH (21:00)
[2017-01-08] VITALS: BP 117/55
[2017-01-08] MEDS: IPRATROPIUM 0.5MG/ALBUTEROL 2.5MG INH SOL UD 3ML (DUONEB)(J7620) NEB SCH ×2 (01:04→07:46)
[2017-01-08 04:00] VITALS: BP 112/58
[2017-01-08 05:30] VITALS: BP_SYST 100; BP_SYST 111; BP_SYST 84; BP_DIAS 51; BP_DIAS 55; BP_DIAS 59
[2017-01-08] MEDS: SLF 3 ML SYR IV SCH (05:31)
[2017-01-08 05:35] LABS: BASO # 0.1 10^3/uL (0.0-0.2); BASO % 0.9 % (0.0-1.0); EOS # 0.3 10^3/uL (0.0-0.50); EOS % 3.6 % (0.0-3.0); IMMATURE GRANULOCYTE % 1.3 % (0-0); LYMPH # 2.1 10^3/uL (1.5-4.5); LYMPH % 22.6 % (24.0-44.0); MEAN CORPUSCULAR HEMOGLOBIN 28.9 pg (27.0-33.0); MEAN CORPUSCULAR HGB CONC 33.3 g/dl (32.0-36.5); MEAN CORPUSCULAR VOLUME 86.7 fl (80.0-96.0); MONO # 0.8 10^3/uL (0.0-0.8); MONO % 8.6 % (0.0-5.0); NEUTROPHILS # 5.9 10^3/uL (1.8-7.7); PLATELET COUNT, AUTOMATED 180 10^3/uL (150-450); RED CELL DISTRIBUTION WIDTH 15.5 % (11.5-14.5); WHITE BLOOD COUNT 9.3 10^3/uL (4.0-10.0)
[2017-01-08 05:53] LABS: ALBUMIN 3.2 GM/DL (3.2-5.2); ALBUMIN/GLOBULIN RATIO 0.94 (1.00-1.93); BILIRUBIN,TOTAL 0.2 MG/DL (0.2-1.0); CALCIUM LEVEL 9.1 MG/DL (8.8-10.2); CREATININE FOR GFR 1.16 MG/DL (0.55-1.02); GLOMERULAR FILTRATION RATE 50.7 (>45); MAGNESIUM LEVEL 1.7 MG/DL (1.8-2.4); POTASSIUM SERUM 4.3 MEQ/L (3.5-5.1); TOTAL PROTEIN 6.6 GM/DL (6.4-8.2)
[2017-01-08] MEDS ORDERED: MAG SULF 1GM/100ML (MAG RUN) 1 GM in APPROPRIATE DILUENT 1 EA IV ONE (07:00)
[2017-01-08] MEDS: HumaLOG INSULIN (NovoLOG) PER UNIT SC SCH (07:42)
[2017-01-08] MEDS: ADVAIR HFA 230/21MCG INHALER INH SCH (07:46)
[2017-01-08 08:00] VITALS: BP 120/63
[2017-01-08] MEDS: ATORVASTATIN 20 MG TAB PO SCH (08:18)
[2017-01-08] MEDS: FLUTICASONE PROP 0.05% NASAL SPRAY 16 GM (FLONASE) SCH (08:18)
[2017-01-08] MEDS: VENLAFAXINE **XR** 75MG CAPSULE PO SCH (08:18)
[2017-01-08] MEDS: buPROPion **SR TABLET** (ZYBAN) 150MG PO SCH (08:18)
[2017-01-08] MEDS: MAGNESIUM OXIDE 400 MG TAB (MAG-OX) PO SCH (08:18)
[2017-01-08] MEDS: GABAPENTIN 100 MG CAP PO SCH (08:19)
[2017-01-08] MEDS: APIXABAN 5 MG TAB (ELIQUIS) PO SCH (08:19)
[2017-01-08] MEDS: CEPHALEXIN 500 MG CAP PO SCH (08:19)
[2017-01-08] MEDS: **NOTE PATIENT COMMENT** MISC XX SCH (08:20)
--- NOTE | 2017-01-08 19:16 | DSES ---
DATE OF ADMISSION: 01/06/2017 DATE OF DISCHARGE: 01/08/2017 DISCHARGE DIAGNOSIS: Acute kidney injury. SECONDARY DIAGNOSES: 1. Dehydration. 2. Congestive heart failure. 3. Type 2 diabetes. 4. Neuropathy. 5. Chronic obstructive pulmonary disease (COPD). 6. Urinary tract infection. 7. Mural thrombus. 8. Dyslipidemia. 9. Gastroesophageal reflux disease. 10. Iron deficiency anemia. 11. Mood disorder. HOSPITAL COURSE: The patient is an 82-year-old female who was recently admitted at [facility] for a urinary tract infection. Her medications were held and her diuretics and antihypertensives were all restarted upon her discharge. She was sent home on Keflex. Of note, she had a significant cardiac history of severe systolic congestive heart failure with significantly reduced ejection fraction. She presented to the emergency room with weakness and symptoms of orthostasis. She was found to be hypotensive with orthostatics positive. She was admitted to the medical/surgical service and gently hydrated. All of her antihypertensives and diuretics were held. Her symptoms quickly did resolve to the point that she became completely asymptomatic and had complete return to her baseline. Her acute kidney injury resolved as well. SUBJECTIVE: This morning, the patient reports she is feeling well. She has no specific complaints at this time. She denies chest pressure, shortness of breath, fevers, chills, nausea, vomiting, or diarrhea. OBJECTIVE: VITAL SIGNS: Temperature 96.3, pulse 81, respiratory rate 19, blood pressure 120/63, oxygen saturation 98% on room air. GENERAL: She is an obese, elderly, female sitting in a recliner. She does not appear to be in any acute distress whatsoever. HEENT: Cranial nerves II-XII are grossly intact. She has moist mucous membranes. No elevation in her central venous pressure (CVP). CARDIOVASCULAR EXAM: S1, S2, regular at this time. RESPIRATORY EXAM: Clear. ABDOMINAL EXAM: Obese. Bowel sounds are present. The abdomen is soft. EXTREMITIES: No clubbing, cyanosis, or edema. LABORATORY STUDIES: Today: WBC 9.3, hemoglobin 12.4, platelet count of 180. Chemistry panel: Sodium 140, potassium 4.3, chloride 106, bicarbonate 27, BUN 21, creatinine 1.1 down from a peak of 2.3 at the time of admission, magnesium is 1.7 repleted. Digoxin level was within normal limits and a urinalysis was unremarkable. Urine culture was negative. Blood cultures were negative. She had a chest x-ray during her stay which revealed no acute pulmonary disease. ASSESSMENT AND PLAN: This is a 61-year-old female with dehydration and orthostasis. 1. Orthostatic hypotension related to dehydration secondary to diuresis. At this time, the patient's symptoms have resolved. We have held her chlorthalidone, losartan, and spironolactone. Her symptoms have resolved. Her blood pressure is normalizing. She still is mildly orthostatic on vital signs check, although asymptomatic and significantly improved. I have advised her to stop the medications until she follows up with her primary care provider (PCP). She tells me she has an appointment scheduled for 01/10/2017, which is 2 days from now. I have advised her to check her blood pressure at home over the next 2 days and check her weight daily and present at her primary care provider (PCP) appointment with these to assess the need for restarting or further holding or titration of these medications. She also tells me she has an appointment with Dr. Mcgraw' office on 01/12/2017. At this time, her clinical syndrome has resolved and she is asymptomatic. 2. Congestive heart failure with severe systolic dysfunction. She is on a beta elliott. Her ARB, diuretic, and spironolactone are currently on hold secondary to the above. Followup with primary care provider (PCP) and cardiology within this week. 3. Acute kidney injury secondary to dehydration. Resolved with gentle fluids and holding of her antihypertensives. 4. Type 2 diabetes. She will restart her home regimen upon discharge. Her fingersticks were controlled with sliding scale insulin while inpatient. 5. Neuropathy. She was continued on gabapentin. 6. Chronic obstructive pulmonary disease (COPD). She is at her baseline respiratory status. She was continued on her home nebulizer treatments and inhalers. 7. Urinary tract infection. She is completing a course of Keflex started at [facility]. Her urine culture here is negative. Her urinalysis here is unremarkable. 8. History of a mural thrombus. She was continued on her Eliquis anticoagulation. 9. Dyslipidemia. She was continued on atorvastatin. 10. Gastroesophageal reflux disease. She was continued on Protonix. 11. Iron deficiency anemia. She was continued on supplementation. 12. Mood disorder. She was continued on venlafaxine and Wellbutrin. 13. Deep venous thrombosis (DVT) prophylaxis. She was continued on Eliquis. DISPOSITION: The patient is being discharged home. She is independent of her activities of daily living (ADLs). She is at her functional baseline. Her symptoms have completely resolved. She is to followup with her primary care provider (PCP) in 7 days and followup with cardiology within 7 days. Her activity is as prior to admission. Her diet is as prior to admission. She is to check her weight daily and call her primary care provider (PCP) if greater than a 2 pound increase in 24 hours. She is to hold her medications as outlined above until discussed in followup with her primary care provider (PCP). She is to monitor her blood pressure at home in the interim. She will return to the emergency room (ER) if her symptoms worsen. MEDICATIONS AT THE TIME OF DISCHARGE: - Ventolin HFA two puffs four times a day as needed for shortness of breath - DuoNebs every 6 hours as needed for shortness of breath - Eliquis 5 mg twice a day - atorvastatin 40 mg daily - Basaglar KwikPen 18 units before breakfast and 15 units before supper - bisoprolol 5 mg nightly - bupropion 150 mg twice a day - cephalexin 500 mg twice a day to finish 2 more additional days - digoxin 125 mcg three times a week Monday, Monday, Monday - ferrous sulfate 325 mg nightly - Flonase one spray to the nares daily - folic acid 1 mg nightly - gabapentin 100 mg three times a day - Victoza 1.2 mg subcutaneously daily - magnesium oxide 400 mg daily - meclizine 25 mg daily - melatonin 300 mg nightly - metformin 1 gram every evening - Nitrostat 0.4 mg sublingually every 5 minutes as needed for chest pain - pantoprazole 40 mg nightly - Advair 230-21 two puffs inhaled twice a day - Spiriva 2.5 mcg inhaled daily - venlafaxine 75 mg daily Greater than 30 minutes spent organizing disposition.
[2017-01-09] MEDS ORDERED: DIGOXIN 0.125 MG TAB PO SCH (09:00)
== END 2017-01-08 11:56 | disposition home or self-care (01) ==
LOC: M ED 09:44 → M ED INP 16:00 → INTOOBSV 16:00 → M PCU 21:39
PROVIDERS: ADMIT Internal Medicine; ATTEND Internal Medicine
DX: N17.9 Acute kidney failure, unspecified (principal); E86.0 Dehydration; I51.3 Intracardiac thrombosis, not elsewhere classified; E11.22 Type 2 diabetes mellitus with diabetic chronic kidney disease; I13.0 Hypertensive heart and chronic kidney disease with heart failure and stage 1 through stage 4 chronic kidney disease, or unspecified chronic kidney disease; I50.42 Chronic combined systolic (congestive) and diastolic (congestive) heart failure; J44.9 Chronic obstructive pulmonary disease, unspecified; N39.0 Urinary tract infection, site not specified; E78.5 Hyperlipidemia, unspecified; G89.29 Other chronic pain; K21.9 Gastro-esophageal reflux disease without esophagitis; D50.9 Iron deficiency anemia, unspecified; I73.9 Peripheral vascular disease, unspecified; G47.00 Insomnia, unspecified; F41.9 Anxiety disorder, unspecified; F32.9 Major depressive disorder, single episode, unspecified; G47.33 Obstructive sleep apnea (adult) (pediatric); F17.210 Nicotine dependence, cigarettes, uncomplicated; Z95.0 Presence of cardiac pacemaker
CPT/HCPCS: 36415; 71010; 80048; 80053; 80162; 81001; 82550; 82553; 83605; 83735; 83880; 84443; 85025; 87040; 87086; 93000; 93041; 94640; 94760; 96360; 96361; 99285; J3475

== ENCOUNTER → 2017-01-10 | Outpatient (REF) | payer OTHER ==
[~2017-01-10] MED LIST changes: +ADVA230A INH; +BASA100I SC; +CEPH500C PO; +CHLO25TA PO; +FERR1TAB8 PO; +FLON1SPR; +MAGN400T5 PO; +MECL-86 PO; +MELA3TAB21 PO; +METF-414 PO; +POTA10TAB PO; +SPIR12.9 INH; +VENTAER INH; +VICT18IN SC
[2017-01-10 15:01] LABS: CALCIUM LEVEL 9.1 MG/DL (8.8-10.2); CREATININE FOR GFR 1.13 MG/DL (0.55-1.02); GLOMERULAR FILTRATION RATE 52.3 (>45); PHOSPHORUS LEVEL 3.9 MG/DL (2.5-4.9); POTASSIUM SERUM 4.1 MEQ/L (3.5-5.1)
== END ==
LOC: M SFHCPLAZ 10:48
PROVIDERS: ATTEND Family Medicine
DX: E83.42 Hypomagnesemia (principal); I50.43 Acute on chronic combined systolic (congestive) and diastolic (congestive) heart failure

== ENCOUNTER → 2017-03-22 | Outpatient (REF) | payer OTHER ==
[2017-03-22 15:39] LABS: ANION GAP 5 MEQ/L (8-16); BLOOD UREA NITROGEN 12 MG/DL (7-18); CALCIUM LEVEL 9.3 MG/DL (8.8-10.2); CARBON DIOXIDE LEVEL 32 MEQ/L (21-32); CHLORIDE LEVEL 104 MEQ/L (98-107); CREATININE FOR GFR 1.09 MG/DL (0.55-1.02); GLOMERULAR FILTRATION RATE 54.5 (>45); GLUCOSE, FASTING 89 MG/DL (80-110); POTASSIUM SERUM 4.8 MEQ/L (3.5-5.1); SODIUM LEVEL 141 MEQ/L (136-145)
[2017-03-22 15:50] LABS: ESTIMATED AVERAGE GLUCOSE 154 MG/DL (60-110)
== END ==
LOC: M SFHCPLAZ 12:21
DX: E11.65 Type 2 diabetes mellitus with hyperglycemia (principal); I50.43 Acute on chronic combined systolic (congestive) and diastolic (congestive) heart failure

== ENCOUNTER 2017-04-17 13:28 | Emergency (ER) | payer OTHER ==
[2017-04-17] MEDS: ASPIRIN 81 MG CHEW TABLET PO (14:00)
[2017-04-17 14:04] LABS: BASO # 0.1 10^3/uL (0.0-0.2); BASO % 0.6 % (0.0-1.0); EOS # 0.2 10^3/uL (0.0-0.50); HEMOGLOBIN 14.6 g/dl (12.0-16.0); IMMATURE GRANULOCYTE # 0.1 10^3/uL (0-0); IMMATURE GRANULOCYTE % 0.6 % (0-0); LYMPH # 2.3 10^3/uL (1.5-4.5); LYMPH % 23.7 % (24.0-44.0); MEAN CORPUSCULAR HEMOGLOBIN 28.2 pg (27.0-33.0); MEAN CORPUSCULAR HGB CONC 32.4 g/dl (32.0-36.5); MONO # 0.9 10^3/uL (0.0-0.8); MONO % 9.1 % (0.0-5.0); NEUTROPHILS # 6.2 10^3/uL (1.8-7.7); PLATELET COUNT, AUTOMATED 317 10^3/uL (150-450); RED BLOOD COUNT 5.17 10^6/uL (4.00-5.40); RED CELL DISTRIBUTION WIDTH 14.1 % (11.5-14.5); WHITE BLOOD COUNT 9.6 10^3/uL (4.0-10.0)
[2017-04-17] MEDS: NITROGLYCERIN 0.4 MG SUBL TABLET SL ×3 (14:07→14:15)
[2017-04-17 14:13] LABS: INR 0.94; PROTHROMBIN TIME 12.7 SECONDS (12.4-14.5)
[2017-04-17 14:22] LABS: ANION GAP 9 MEQ/L (8-16); BLOOD UREA NITROGEN 19 MG/DL (7-18); CALCIUM LEVEL 9.1 MG/DL (8.8-10.2); CARBON DIOXIDE LEVEL 26 MEQ/L (21-32); CHLORIDE LEVEL 105 MEQ/L (98-107); CK-MB VALUE MASS 3.9 NG/ML (0.0-3.6); CPK CREATINE PHOSPHOKINASE 142 U/L (26-192); CREATININE FOR GFR 1.45 MG/DL (0.55-1.30); GLOMERULAR FILTRATION RATE 39.2 (>45); GLUCOSE, FASTING 189 MG/DL (70-100); MB/CK RELATIVE INDEX 2.74 (< OR =4); POTASSIUM SERUM 3.6 MEQ/L (3.5-5.1); SODIUM LEVEL 140 MEQ/L (136-145); TROPONIN I < 0.02 NG/ML (< 0.10)
[2017-04-17 17:50] LABS: CK-MB VALUE MASS 3.1 NG/ML (0.0-3.6); CPK CREATINE PHOSPHOKINASE 160 U/L (26-192); MB/CK RELATIVE INDEX 1.93 (< OR =4); TROPONIN I < 0.02 NG/ML (< 0.10)
[2017-04-17] MEDS ORDERED: ISOVUE-370 76% 100ML VIAL (Q9967) As Ordered (18:22)
== END 2017-04-17 19:17 | disposition home or self-care (01) ==
LOC: M ED 13:28
DX: R07.89 Other chest pain (principal); I12.9 Hypertensive chronic kidney disease with stage 1 through stage 4 chronic kidney disease, or unspecified chronic kidney disease; N18.3 Chronic kidney disease, stage 3 (moderate); E11.9 Type 2 diabetes mellitus without complications; E78.5 Hyperlipidemia, unspecified; K21.9 Gastro-esophageal reflux disease without esophagitis; F33.9 Major depressive disorder, recurrent, unspecified; F41.9 Anxiety disorder, unspecified; G47.33 Obstructive sleep apnea (adult) (pediatric); F17.210 Nicotine dependence, cigarettes, uncomplicated; Z79.84 Long term (current) use of oral hypoglycemic drugs; Z79.51 Long term (current) use of inhaled steroids; Z79.4 Long term (current) use of insulin; Z79.899 Other long term (current) drug therapy; Z88.0 Allergy status to penicillin; Z86.79 Personal history of other diseases of the circulatory system; Z86.69 Personal history of other diseases of the nervous system and sense organs
CPT/HCPCS: Q9967

== ENCOUNTER → 2017-06-20 | Outpatient (REF) | payer OTHER ==
[2017-06-20 13:32] LABS: MAGNESIUM LEVEL 2.4 MG/DL (1.8-2.4)
[2017-06-20 14:04] LABS: MALB URINE SIEMENS 6.3 MG/L; MAU/CREAT RATIO 5.8 MCG/MG (0.0-30.0)
[2017-06-20 14:07] LABS: ESTIMATED AVERAGE GLUCOSE 189 MG/DL (60-110); HEMOGLOBIN A1c 8.2 %
== END ==
LOC: M SFHCPLAZ 10:31
DX: E11.22 Type 2 diabetes mellitus with diabetic chronic kidney disease (principal); I50.42 Chronic combined systolic (congestive) and diastolic (congestive) heart failure

== ENCOUNTER 2017-09-26 11:48 | Emergency (ER) | payer MEDICAID, SELFPAY, OTHER ==
[2017-09-26 13:33] LABS: BASO # 0.1 10^3/uL (0.0-0.2); BASO % 0.7 % (0.0-1.0); EOS # 0.2 10^3/uL (0.0-0.50); EOS % 2.5 % (0.0-3.0); HEMATOCRIT 45.1 % (36.0-47.0); HEMOGLOBIN 14.8 g/dl (12.0-15.5); IMMATURE GRANULOCYTE % 0.8 % (0-3.0); LYMPH # 1.7 10^3/uL (1.5-4.5); MEAN CORPUSCULAR HEMOGLOBIN 29.1 pg (27.0-33.0); MEAN CORPUSCULAR HGB CONC 32.8 g/dl (32.0-36.5); MEAN CORPUSCULAR VOLUME 88.8 fl (80.0-96.0); MONO # 0.7 10^3/uL (0.0-0.8); MONO % 9.9 % (0.0-5.0); NEUTROPHILS # 4.5 10^3/uL (1.8-7.7); NEUTROPHILS % 62.1 % (36.0-66.0); PLATELET COUNT, AUTOMATED 169 10^3/uL (150-450); RED BLOOD COUNT 5.08 10^6/uL (4.00-5.40); RED CELL DISTRIBUTION WIDTH 13.3 % (11.5-14.5); WHITE BLOOD COUNT 7.2 10^3/uL (4.0-10.0)
[2017-09-26 13:43] LABS: INR 0.92; PARTIAL THROMBOPLASTIN TIME 27.3 SECONDS (25.4-37.6); PROTHROMBIN TIME 12.4 SECONDS (12.1-14.4)
[2017-09-26 14:06] LABS: ALBUMIN 3.5 GM/DL (3.2-5.2); ALBUMIN/GLOBULIN RATIO 1.17 (1.00-1.93); ALT/SGPT 29 U/L (12-78); ANION GAP 9 MEQ/L (8-16); AST/SGOT 25 U/L (7-37); BILIRUBIN,DIRECT < 0.1 MG/DL (0.0-0.2); BILIRUBIN,TOTAL 0.3 MG/DL (0.2-1.0); BLOOD UREA NITROGEN 16 MG/DL (7-18); CALCIUM LEVEL 8.7 MG/DL (8.8-10.2); CARBON DIOXIDE LEVEL 29 MEQ/L (21-32); CHLORIDE LEVEL 106 MEQ/L (98-107); CPK CREATINE PHOSPHOKINASE 170 U/L (26-192); CREATININE FOR GFR 1.14 MG/DL (0.55-1.30); GLOMERULAR FILTRATION RATE 51.6 (>45); GLUCOSE, FASTING 110 MG/DL (70-100); MAGNESIUM LEVEL 2.1 MG/DL (1.8-2.4); PHOSPHORUS LEVEL 4.2 MG/DL (2.5-4.9); POTASSIUM SERUM 3.6 MEQ/L (3.5-5.1); SODIUM LEVEL 144 MEQ/L (136-145); TOTAL PROTEIN 6.5 GM/DL (6.4-8.2); TROPONIN I < 0.02 NG/ML (< 0.10)
[2017-09-26 14:19] LABS: ALKALINE PHOSPHATASE 103 U/L (45-117); CK-MB VALUE MASS 3.1 NG/ML (<3.6); DIGOXIN LEVEL 0.5 NG/ML (0.5-2.0); FREE T4 0.97 NG/DL (0.76-1.46); MB/CK RELATIVE INDEX 1.82 (< OR =4)
== END 2017-09-26 16:23 | disposition left against medical advice (07) ==
LOC: M ED 11:48
DX: T82.897A Other specified complication of cardiac prosthetic devices, implants and grafts, initial encounter (principal); Y71.2 Prosthetic and other implants, materials and accessory cardiovascular devices associated with adverse incidents; I50.9 Heart failure, unspecified; I11.0 Hypertensive heart disease with heart failure; I42.0 Dilated cardiomyopathy; E11.9 Type 2 diabetes mellitus without complications; E78.5 Hyperlipidemia, unspecified; K21.9 Gastro-esophageal reflux disease without esophagitis; J44.9 Chronic obstructive pulmonary disease, unspecified; F17.200 Nicotine dependence, unspecified, uncomplicated; Z88.0 Allergy status to penicillin; Z79.899 Other long term (current) drug therapy; Z79.84 Long term (current) use of oral hypoglycemic drugs
CPT/HCPCS: 71046

== ENCOUNTER → 2017-11-09 | Outpatient (REF) | payer OTHER ==
[2017-11-09 13:19] LABS: BASO # 0.1 10^3/uL (0.0-0.2); BASO % 0.9 % (0.0-1.0); EOS # 0.2 10^3/uL (0.0-0.50); EOS % 3.3 % (0.0-3.0); HEMATOCRIT 43.4 % (36.0-47.0); HEMOGLOBIN 14.1 g/dl (12.0-15.5); IMMATURE GRANULOCYTE % 0.5 % (0-3.0); LYMPH # 1.6 10^3/uL (1.5-4.5); LYMPH % 27.8 % (24.0-44.0); MEAN CORPUSCULAR HEMOGLOBIN 29.3 pg (27.0-33.0); MEAN CORPUSCULAR HGB CONC 32.5 g/dl (32.0-36.5); MONO # 0.6 10^3/uL (0.0-0.8); MONO % 10.2 % (0.0-5.0); NEUTROPHILS # 3.3 10^3/uL (1.8-7.7); RED BLOOD COUNT 4.82 10^6/uL (4.00-5.40); RED CELL DISTRIBUTION WIDTH 13.9 % (11.5-14.5); WHITE BLOOD COUNT 5.8 10^3/uL (4.0-10.0)
[2017-11-09 13:38] LABS: ERYTHROCYTE SEDIMENTATION RATE 7 mm/hr (0-30)
[2017-11-09 13:45] LABS: POS COUNT POS FLAG
[2017-11-09 13:47] LABS: NEUTROPHILS % 57.3 % (36.0-66.0)
[2017-11-09 14:09] LABS: VITAMIN B12 LEVEL 300 PG/ML
[2017-11-09 14:10] LABS: FOLATE 18.8 NG/ML
[2017-11-09 14:18] LABS: ALBUMIN 3.7 GM/DL (3.2-5.2); ALBUMIN/GLOBULIN RATIO 1.28 (1.00-1.93); ALKALINE PHOSPHATASE 96 U/L (45-117); ALT/SGPT 29 U/L (12-78); ANION GAP 9 MEQ/L (8-16); AST/SGOT 21 U/L (7-37); BILIRUBIN,TOTAL 0.3 MG/DL (0.2-1.0); BLOOD UREA NITROGEN 15 MG/DL (7-18); CALCIUM LEVEL 8.5 MG/DL (8.8-10.2); CARBON DIOXIDE LEVEL 28 MEQ/L (21-32); CHLORIDE LEVEL 107 MEQ/L (98-107); CREATININE FOR GFR 1.01 MG/DL (0.55-1.30); GLOMERULAR FILTRATION RATE 59.3 (>45); GLUCOSE, FASTING 119 MG/DL (70-100); POTASSIUM SERUM 3.7 MEQ/L (3.5-5.1); RHEUMATOID FACTOR QUANT < 10.0 IU/ML (<15.0); SODIUM LEVEL 144 MEQ/L (136-145); TOTAL PROTEIN 6.6 GM/DL (6.4-8.2)
[2017-11-09 15:49] LABS: ESTIMATED AVERAGE GLUCOSE 174 MG/DL (60-110); HEMOGLOBIN A1c 7.7 %
[2017-11-14 10:46] LABS: DRVV SCREEN 39.6 SEC
[2017-11-14 10:53] LABS: PTT LUPUS TYPE ANTICOAG SCREEN 0.9 (0-1.2)
[2017-11-14 11:02] LABS: ALBUMIN 4.01 GM/DL (3.29-5.55); ALBUMIN % 60.7 % (55.8-66.1); ALPHA-1-GLOBULIN % 4.6 % (2.9-4.9); ALPHA-2-GLOBULINS 0.77 GM/DL (0.42-0.99); ALPHA-2-GLOBULINS % 11.7 % (7.1-11.8)
[2017-11-14 11:03] LABS: BETA-1-GLOBULINS 0.46 GM/DL (0.28-0.60); BETA-2-GLOBULINS % 5.5 % (3.2-6.5)
[2017-11-14 11:08] LABS: BETA-2-GLOBULINS 0.46 GM/DL (0.19-0.55); GAMMA GLOBULINS 0.69 GM/DL (0.65-1.58)
[2017-11-14 11:09] LABS: GAMMA GLOBULIN % 10.5 % (11.1-18.8)
[2017-11-16 14:18] LABS: CERULOPLASMIN 23.7 mg/dL (19.0-39.0); COPPER PLASMA 95 ug/dL (72-166); LEAD BLOOD ADULT 2 ug/dL (0-4); MERCURY LEVEL None Detected ug/L (0.0-14.9)
[2017-11-16 14:18] LABS: VITAMIN B1 LEVEL WHOLE BLOOD 134.4 nmol/L (66.5-200.0)
== END ==
LOC: M LABNEURO 09:35
DX: G62.9 Polyneuropathy, unspecified (principal); R42 Dizziness and giddiness

== ENCOUNTER → 2017-11-13 | Outpatient (REF) | payer OTHER ==
[2017-11-17 08:06] LABS: ANTI DOUBLE STRAND-DNA AB <1 IU/mL (0-9); ANTINUCLEAR ANTIBODIES DIRECT Negative (Negative); SJOGREN'S ANTI SS-A <0.2 AI (0.0-0.9); SJOGREN'S ANTI SS-B <0.2 AI (0.0-0.9); VITAMIN B6,PYRIDOXAL PHOSPHATE 2.7 ug/L (2.0-32.8); VITAMIN E(ALPHA TOCOPHEROL) 10.1 mg/L (9.0-29.0)
== END ==
LOC: M LAB 10:53
DX: G62.9 Polyneuropathy, unspecified (principal)

== ENCOUNTER → 2017-12-12 | Outpatient (CLI) | payer OTHER | LOC: M RAD 10:02 | DX: J44.9 Chronic obstructive pulmonary disease, unspecified (principal); F17.218 Nicotine dependence, cigarettes, with other nicotine-induced disorders; Z12.2 Encounter for screening for malignant neoplasm of respiratory organs; R91.1 Solitary pulmonary nodule | CPT/HCPCS: G0297 ==

== ENCOUNTER 2017-12-24 12:27 | Emergency (ER) | payer OTHER ==
[2017-12-24 13:27] LABS: BASO # 0.1 10^3/uL (0.0-0.2); BASO % 0.7 % (0.0-1.0); EOS # 0.3 10^3/uL (0.0-0.50); EOS % 3.5 % (0.0-3.0); HEMATOCRIT 46.4 % (36.0-47.0); HEMOGLOBIN 15.2 g/dl (12.0-15.5); IMMATURE GRANULOCYTE % 0.8 % (0-3.0); LYMPH # 1.8 10^3/uL (1.5-4.5); LYMPH % 25.3 % (24.0-44.0); MEAN CORPUSCULAR HEMOGLOBIN 29.3 pg (27.0-33.0); MEAN CORPUSCULAR HGB CONC 32.8 g/dl (32.0-36.5); MEAN CORPUSCULAR VOLUME 89.6 fl (80.0-96.0); MONO # 0.7 10^3/uL (0.0-0.8); MONO % 9.2 % (0.0-5.0); NEUTROPHILS # 4.3 10^3/uL (1.8-7.7); NEUTROPHILS % 60.5 % (36.0-66.0); PLATELET COUNT, AUTOMATED 210 10^3/uL (150-450); RED BLOOD COUNT 5.18 10^6/uL (4.00-5.40); RED CELL DISTRIBUTION WIDTH 14.1 % (11.5-14.5); WHITE BLOOD COUNT 7.1 10^3/uL (4.0-10.0)
[2017-12-24 13:37] LABS: INR 0.86; PROTHROMBIN TIME 11.8 SECONDS (12.1-14.4)
[2017-12-24 13:38] LABS: PARTIAL THROMBOPLASTIN TIME 24.1 SECONDS (25.4-37.6)
[2017-12-24 14:08] LABS: ANION GAP 6 MEQ/L (8-16); BLOOD UREA NITROGEN 16 MG/DL (7-18); CALCIUM LEVEL 8.4 MG/DL (8.8-10.2); CARBON DIOXIDE LEVEL 25 MEQ/L (21-32); CHLORIDE LEVEL 111 MEQ/L (98-107); CPK CREATINE PHOSPHOKINASE 340 U/L (26-192); CREATININE FOR GFR 1.29 MG/DL (0.55-1.30); GLOMERULAR FILTRATION RATE 44.7 (>45); GLUCOSE, FASTING 108 MG/DL (70-100); MB/CK RELATIVE INDEX 1.65 (< OR =4); NT-PRO BNP 1821 PG/ML (<125); POTASSIUM SERUM 7.4 MEQ/L (3.5-5.1); SODIUM LEVEL 142 MEQ/L (136-145); TROPONIN I < 0.02 NG/ML (< 0.10)
[2017-12-24 14:36] LABS: POTASSIUM SERUM 3.8 MEQ/L (3.5-5.1)
[2017-12-24 15:00] LABS: FREE T4 0.97 NG/DL (0.76-1.46)
[2017-12-24] MEDS: FUROSEMIDE 40 MG/4 ML VIAL (J1940) IV (15:13)
[2017-12-24] MEDS: POTASSIUM CHLORIDE 10 MEQ SR TABLET PO (16:26)
[2017-12-24] MEDS: SPIRONOLACTONE 12.5MG PER 1/2 TABLET PO (16:40)
== END 2017-12-24 16:59 | disposition home or self-care (01) ==
LOC: M ED 12:27
DX: I50.33 Acute on chronic diastolic (congestive) heart failure (principal); I11.0 Hypertensive heart disease with heart failure; R06.02 Shortness of breath; E78.5 Hyperlipidemia, unspecified; I73.9 Peripheral vascular disease, unspecified; R01.1 Cardiac murmur, unspecified; F17.200 Nicotine dependence, unspecified, uncomplicated; Z88.0 Allergy status to penicillin; Z79.899 Other long term (current) drug therapy; Z79.51 Long term (current) use of inhaled steroids; Z79.84 Long term (current) use of oral hypoglycemic drugs; Z95.0 Presence of cardiac pacemaker
CPT/HCPCS: J1940

== ENCOUNTER → 2018-10-16 | Outpatient (REF) | payer OTHER ==
[~2018-10-16] MED LIST changes: -ALDA25TA PO; +AMIO200T; +ANORO; -ASPI1TAB PO; +ASPI81CH36 GT; -ASPI81TA GT; +ASPI81TA26 PO; +DULO1CAP4; +EFFE75CA2 PO; -EFFE75CA75 PO; +FOLI1TAB11 PO; -FOLI1TAB4 PO; +FURO40TA2; +GABA-1171 PO; -GABA-279 PO; -GEMF600T PO; +GEMF600T5 PO; -GLIP1TAB49 PO; +GLIP5TAB20 PO; +IPRA0.00 INH; -IPRASOL4 INH; +LASI40TA9 PO; -LOSA50TA20 PO; +LOSA50TA88 PO; +MAG400TA; -NICO21DI5 TD; +NICO21DI6 TD; -PANT40TA2 PO; +PANT40TA3 PO; +POTA10808 PO; -POTA10TAB PO; +SERT-141 PO; -SERT50TA PO; +SPIR-10 PO; +SPIR1TAB34 PO; -SPIR50TA2 PO; +SPIR50TA4 PO; +TOPA50TA8 PO; +TRAZ-186; +VITA500T17 PO; -VITA500T53 PO
== END ==
LOC: M SFHCPLAZ 17:23
PROVIDERS: ATTEND Family Medicine
DX: R22.0 Localized swelling, mass and lump, head (principal)

== ENCOUNTER 2018-12-04 12:49 | Emergency (ER) | payer OTHER ==
[~2018-12-04] VITALS: Ht 162.6 cm; Wt 77.3 kg
[~2018-12-04 12:49] MED LIST changes: -BISO5TAB5 PO; +BISO5TAB9 PO; -MELA3TAB PO; +MELA3TAB63 PO
[2018-12-04 13:47] LABS: BASO # 0.1 10^3/uL (0.0-0.2); BASO % 0.7 % (0.0-1.0); EOS # 0.1 10^3/uL (0.0-0.5); EOS % 1.1 % (0.0-3.0); HEMATOCRIT 41.3 % (36.0-47.0); HEMOGLOBIN 13.3 g/dl (12.0-15.5); LYMPH # 1.5 10^3/uL (1.5-5.0); LYMPH % 15.2 % (24.0-44.0); MEAN CORPUSCULAR HEMOGLOBIN 28.7 pg (27.0-33.0); MEAN CORPUSCULAR HGB CONC 32.2 g/dl (32.0-36.5); MEAN CORPUSCULAR VOLUME 89.2 fl (80.0-96.0); MONO % 9.6 % (0.0-5.0); NEUTROPHILS # 7.4 10^3/uL (1.5-8.5); PLATELET COUNT, AUTOMATED 181 10^3/uL (150-450); RED BLOOD COUNT 4.63 10^6/uL (4.00-5.40); WHITE BLOOD COUNT 10.1 10^3/uL (4.0-10.0)
--- NOTE | 2018-12-04 13:58 | REP ---
CHEST, TWO VIEWS: COMPARISON: 09/26/2017. Two views of the chest demonstrate mild chronic prominence of interstitial markings in the lung bases, stable. Heart is not enlarged. There is calcification of the thoracic aorta. The mediastinal silhouette is unchanged. Left single lead pacemaker is again noted. There are degenerative changes of the spine. IMPRESSION: Stable appearance of the chest compared to 09/26/2017, with no evidence of acute infiltrate or pulmonary edema. Electronically Signed by Janak Franklin MD 12/05/2018 10:18 A
[2018-12-04 14:14] LABS: CREATININE FOR GFR 1.11 MG/DL (0.55-1.30); POTASSIUM SERUM 3.6 MEQ/L (3.5-5.1)
[2018-12-04 15:05] VITALS: BP 160/73
[2018-12-04] MEDS ORDERED: PRED10TA2 PO (15:08)
[2018-12-04] MEDS ORDERED: FLON1SPR NARES (15:08)
[2018-12-04] MEDS ORDERED: ZITH250T PO (15:08)
[2018-12-04] MEDS ORDERED: LEVA1TAB2 PO (15:44)
== END 2018-12-04 15:14 | disposition home or self-care (01) ==
LOC: M ED 12:49
DX: J40 Bronchitis, not specified as acute or chronic (principal); J32.9 Chronic sinusitis, unspecified; I51.9 Heart disease, unspecified; J44.9 Chronic obstructive pulmonary disease, unspecified; Z95.0 Presence of cardiac pacemaker; F17.210 Nicotine dependence, cigarettes, uncomplicated; Z88.0 Allergy status to penicillin; Z79.899 Other long term (current) drug therapy; Z79.51 Long term (current) use of inhaled steroids; Z79.4 Long term (current) use of insulin

== ENCOUNTER → 2019-02-21 | Outpatient (REF) | payer OTHER ==
[~2019-02-21] MED LIST changes: +FLON1SPR NARES; +LEVA1TAB2 PO; +PRED10TA2 PO; +ZITH250T PO
[2019-02-21 20:05] LABS: HEMOGLOBIN 13.1 g/dl (12.0-15.5)
[2019-02-21 20:19] LABS: CALCIUM LEVEL 8.7 MG/DL (8.8-10.2); CHOLESTEROL RISK RATIO 3.22 (<5); CREATININE FOR GFR 1.07 MG/DL (0.55-1.30); GLOMERULAR FILTRATION RATE 55.3 (>45); POTASSIUM SERUM 4.6 MEQ/L (3.5-5.1)
[2019-02-21 20:20] LABS: HEMOGLOBIN A1c 8.4 %
[2019-02-21 20:42] LABS: MALB URINE SIEMENS 8.4 MG/L; MAU/CREAT RATIO 3.6 MCG/MG (0.0-30.0)
== END ==
LOC: M SFHCLERA 14:28
PROVIDERS: ATTEND Family Medicine
DX: E11.9 Type 2 diabetes mellitus without complications (principal)

== ENCOUNTER → 2019-11-15 | Outpatient (CLI) | payer OTHER ==
[~2019-11-15] MED LIST changes: -AMIO200T; -AMIO200T PO; +AMIO200T3; +AMIO200T3 PO; +ANOR1AER PO; +ASPI81CH32 GT; -ASPI81CH36 GT; +BISO5TAB14 PO; -BISO5TAB9 PO; +DIGO0.123 PO; +FEXO60TA71 PO; +NESI25TA PO; +PANT40TA29 PO; -PANT40TA3 PO; +STEG5TAB PO; +TORS10TA3 PO; +VITA-243 PO; -VITA500T PO; +ZOFR4TAB16 PO
== END ==
LOC: M LABSMTC 12:33
PROVIDERS: ATTEND Family Medicine
DX: Z20.828 Contact with and (suspected) exposure to other viral communicable diseases (principal)
CPT/HCPCS: C9803; U0003

== ENCOUNTER 2019-12-04 14:40 | Emergency (ER) | payer OTHER ==
[~2019-12-04 14:40] MED LIST changes: -ANOR1AER PO; -FEXO60TA71 PO; -NESI25TA PO; -STEG5TAB PO; -TORS10TA3 PO; -ZOFR4TAB16 PO
[2019-12-04] MEDS ORDERED: ATOR40TA75 PO (15:26)
[2019-12-04] MEDS ORDERED: TORS10TA3 PO (15:26)
[2019-12-04] MEDS ORDERED: STEG5TAB PO (15:26)
[2019-12-04] MEDS ORDERED: NESI25TA PO (15:26)
[2019-12-04] MEDS ORDERED: ANOR1AER PO (15:26)
[2019-12-04] MEDS ORDERED: FEXO60TA71 PO (15:26)
[2019-12-04] MEDS ORDERED: NS 1,000 ML IV SCH (15:32)
[2019-12-04] MEDS ORDERED: KETOROLAC 30 MG/ML 1ML VIAL IV ONE (15:45)
[2019-12-04] MEDS ORDERED: ONDANSETRON 4MG/2ML VIAL IV ONE (15:45)
[2019-12-04] MEDS ORDERED: PANTOPRAZOLE 40MG VIAL (C9113 PER 1) IV ONE (15:45)
[2019-12-04 16:01] LABS: EOS % 0.3 % (0.0-3.0); HEMOGLOBIN 14.2 g/dl (12.0-15.5); LYMPH # 0.3 10^3/uL (1.5-5.0); LYMPH % 8.3 % (24.0-44.0); MEAN CORPUSCULAR HEMOGLOBIN 28.7 pg (27.0-33.0); MEAN CORPUSCULAR HGB CONC 32.3 g/dl (32.0-36.5); MEAN CORPUSCULAR VOLUME 88.9 fl (80.0-96.0); MONO # 0.3 10^3/uL (0.0-0.8); MONO % 6.3 % (0.0-5.0); NEUTROPHILS # 3.3 10^3/uL (1.5-8.5); NEUTROPHILS % 81.8 % (36.0-66.0); RED BLOOD COUNT 4.95 10^6/uL (4.00-5.40)
--- NOTE | 2019-12-04 16:11 | REPVR ---
PROCEDURE INFORMATION: Exam: XR Complete Acute Abdomen Series Exam date and time: 12/04/2019 3:59 PM Age: 64 years old Clinical indication: Abdominal pain TECHNIQUE: Imaging protocol: XR complete acute abdomen series, including 2 or more views of the abdomen and a single view chest. COMPARISON: CR Chest, 2 view PA, Lat 12/04/2018 1:33 PM FINDINGS: The abdomen is partially obscured by overlying leads. Tubes, catheters and devices: AICD. Lungs: Hyperinflation and mild interstitial prominence. Pleural space: No significant pleural effusion. Heart/Mediastinum: No cardiomegaly. Gastrointestinal tract: Prominent stool and scattered air-fluid levels, without significant bowel dilatation. Organs: Status post cholecystectomy. Vasculature: Subcentimeter pelvic calcifications, presumably vascular in etiology. If urolithiasis is of clinical concern, CT may be of benefit for further evaluation. Bones/joints: Osteopenia and mild degenerative change. IMPRESSION: 1. Prominent stool and scattered air-fluid levels, without significant bowel dilatation. 2. Hyperinflation and mild interstitial prominence. Electronically signed by: Gerardo Ventura On 12/04/2019 16:10:57 PM
[2019-12-04 16:34] LABS: ALBUMIN 3.7 GM/DL (3.2-5.2); BILIRUBIN,DIRECT 0.1 MG/DL (0.0-0.2); BILIRUBIN,TOTAL 0.3 MG/DL (0.2-1.0); CALCIUM LEVEL 8.4 MG/DL (8.8-10.2); CREATININE FOR GFR 1.35 MG/DL (0.55-1.30); GLOMERULAR FILTRATION RATE 42.2 (>45); POTASSIUM SERUM 3.5 MEQ/L (3.5-5.1)
[2019-12-04] MEDS ORDERED: ZOFR4TAB16 PO (18:03)
[2019-12-04 18:33] VITALS: BP 110/55
== END 2019-12-04 18:35 | disposition home or self-care (01) ==
LOC: EDBD 14:40 → M ED 14:40
DX: R11.2 Nausea with vomiting, unspecified (principal); R19.7 Diarrhea, unspecified; R91.8 Other nonspecific abnormal finding of lung field; E11.9 Type 2 diabetes mellitus without complications; I11.9 Hypertensive heart disease without heart failure; E78.5 Hyperlipidemia, unspecified; N28.9 Disorder of kidney and ureter, unspecified; Z88.0 Allergy status to penicillin; Z88.1 Allergy status to other antibiotic agents; Z79.899 Other long term (current) drug therapy; Z79.51 Long term (current) use of inhaled steroids; Z79.84 Long term (current) use of oral hypoglycemic drugs
CPT/HCPCS: 36415; 74021; 80048; 80076; 83519; 83690; 85025; 93041; 96361; 96374; 96375; 99285; C9113; J1885; J2405

== ENCOUNTER → 2020-04-09 | Outpatient (CLI) | payer OTHER ==
[~2020-04-09] MED LIST changes: +ANOR1AER PO; +FEXO60TA71 PO; +LISI10TA22 PO; -LISI10TA4 PO; -MAG400TA; +MAGN400T35; -MELA3TAB63 PO; +MELA3TAB70 PO; +NESI25TA PO; +STEG5TAB PO; +TORS10TA3 PO; +ZOFR4TAB16 PO
--- NOTE | 2020-04-10 06:04 | REP ---
INDICATION: LUNG SCREENING COMPARISON: 12/12/2017 TECHNIQUE: Axial noncontrast images from the thoracic inlet to the upper abdomen using low-dose lung screening technique (LDCT). FINDINGS: The bilateral lung almendarez are relatively well aerated and demonstrate mild age-related changes including small area of scarring along the medial right middle lobe. No consolidation, significant nodule or mass lesion appreciated. The miniscule 1-2 mm density along the periphery of the right lower lobe on 2018 remains stable and compatible with small scar. Tracheobronchial tree is patent. No effusion. No pneumothorax. IMPRESSION: Lung-RADS category 1. Management recommendations include annual low-dose CT surveillance. <Electronically signed by Devon Springer > 04/10/20 0601
== END ==
LOC: M RAD 12:56
PROVIDERS: ATTEND Internal Medicine Pulmonary Disease
DX: Z12.2 Encounter for screening for malignant neoplasm of respiratory organs (principal); F17.218 Nicotine dependence, cigarettes, with other nicotine-induced disorders

== ENCOUNTER → 2020-07-01 | Outpatient (CLI) | payer OTHER | LOC: M LABSMTC 11:42 | PROVIDERS: ATTEND Family Medicine | DX: Z11.52 Encounter for screening for COVID-19 (principal) ==

== ENCOUNTER → 2020-08-21 | Outpatient (CLI) | payer OTHER ==
[~2020-08-21] MED LIST changes: +VITA100T59 PO
== END ==
LOC: M LABSMTC 10:34
PROVIDERS: ATTEND Anesthesiology
DX: Z01.812 Encounter for preprocedural laboratory examination (principal); Z20.822 Contact with and (suspected) exposure to COVID-19

== ENCOUNTER 2020-08-26 05:59 | Day surgery (SDC) | payer OTHER ==
[~2020-08-26] VITALS: Ht 162.6 cm; Wt 72.6 kg
[2020-08-26] MEDS ORDERED: CLINDAMYCIN 600 MG in IV 1 EA IV ONE (06:00)
[2020-08-26] MEDS ORDERED: LIDOCAINE 1% MDV 20ML VIAL SQ PRN (06:00)
[2020-08-26] MEDS ORDERED: ACETAMINOPHEN 1000MG 100ML IV BTL (OFIRMEV) (J0131 PER 10MG) As Ordered ONE ×2 (06:43→06:44)
[2020-08-26] MEDS ORDERED: propofoL 200 MG/20 ML VIAL As Ordered ONE (06:44)
[2020-08-26] MEDS ORDERED: ONDANSETRON 4MG/2ML VIAL As Ordered ONE (06:44)
[2020-08-26] MEDS ORDERED: dexameTHASONE 4 MG/ML 1ML VIAL (J1100 PER 1MG) As Ordered ONE ×3 (06:45→06:56)
[2020-08-26] MEDS ORDERED: BUPIVACAINE HCL 0.5% 30 ML VIAL As Ordered ONE (06:47)
[2020-08-26] MEDS ORDERED: LIDOCAINE 1% SDV 30ML VIAL As Ordered ONE (06:47)
[2020-08-26] MEDS ORDERED: LIDOCAINE 2% 100MG/5ML SDV (FOR ANES.) As Ordered ONE (06:50)
[2020-08-26] MEDS ORDERED: MIDAZOLAM INJ 2MG/2ML VIAL (J2250 PER 1MG) As Ordered ONE (06:51)
[2020-08-26] MEDS ORDERED: fentaNYL 250 MCG/5 ML INJECTION (J3010) As Ordered ONE (06:52)
[2020-08-26] MEDS ORDERED: LR 1,000 ML IV ONE (07:10)
[2020-08-26] MEDS ORDERED: HYDR-3713 PO (08:50)
[2020-08-26 09:45] VITALS: BP 159/67
--- NOTE | 2020-08-26 12:32 | RO ---
OPERATIVE NOTE DATE OF OPERATION: 08/26/2020 SURGEON: David Aguilera DPM [employer]ER: None. PREOPERATIVE DIAGNOSES: 1. Left foot bunion, hallux valgus. 2. Fourth metatarsal deformity. POSTOPERATIVE DIAGNOSES: 1. Left foot bunion, hallux valgus. 2. Fourth metatarsal deformity. PROCEDURE: Left foot bunionectomy with first metatarsal osteotomy and Tan osteotomy, and fourth metatarsal osteotomy. ANESTHESIA: Monitored anesthesia care. PREOPERATIVE INJECTION: 20 cc of a one-to-one mixture of 1% lidocaine plain and 0.5% Marcaine plain. ESTIMATED BLOOD LOSS: Minimal. MATERIALS: Arthrex 3.5 headless screw, 2.5 headless screw, DynaNite staple, 3-0 Vicryl, 4-0 Vicryl, 4-0 nylon. INJECTABLES: 1 cc Decadron 4 mg/mL. COMPLICATIONS: None. CONDITION: Stable. INDICATIONS: Maria Antonia Aj is a 65-year-old female who presented to [facility] with painful bunion and fourth metatarsal bone deformity. She presented today for surgical correction. The patient's side and site were identified and marked in the preoperative area. Consent was reviewed and obtained. All risks, complications, and alternatives to the procedure were explained to the patient in detail and all questions were answered. PROCEDURE: The patient was brought to the operating room and placed on the operating room table in the supine position. Monitored anesthesia care was delivered by the anesthesia team. Preop injection of 20 mL of 1:1 mixture of 1% Lidocaine plain and 0.5% Marcaine plain were injected into the left foot. The left foot was prepped and draped in a normal sterile fashion. A tourniquet was applied to the left ankle and inflated to 250 mmHg. A dorsal incision was first drawn over the first metatarsophalangeal joint and carried through with a #15 blade. Dissection was carried until the joint capsule was identified. T-capsulotomy was performed exposing the metatarsal head. Following this, a lateral release was performed releasing the lateral capsule, adductor tendon, and sesamoidal ligaments. McGlamry elevator was used to release the plantar structures. The medial eminence was resected with a sagittal saw and an osteotomy was performed at the metatarsal head transposing it laterally. This was fixated with an Arthrex 3.5 headless compression screw. Remaining bone wedge was resected with a sagittal saw and smoothed with a rasp. The site was irrigated with normal saline. Attention was then paid to the proximal phalanx. A wedge of the medial cortex was removed using the sagittal saw and fixated with an Arthrex DynaNite staple, effectively placing the toe in a more medial position. The site was irrigated with normal saline. Capsular repair was performed with 3-0 Vicryl, subcutaneous closure with 4-0 Vicryl, and skin closure with 4-0 nylon. . Next, attention was paid to the fourth metatarsal. A dorsal incision was drawn and carried through with a #15 blade. Linear capsulotomy was performed of the fourth metatarsophalangeal joint and capsule exposing the fourth metatarsal head. McGlamry elevator was used to release the plantar structures. An osteotomy was performed in the metatarsal head, transposing it proximally. This was fixated with an Arthrex 2.5 headless compression screw. The remaining bone wedge was removed with a rongeur and smoothed with a rasp. The site was irrigated with normal saline. Capsular repair was performed with 3-0 Vicryl, subcutaneous tissue closure with 4-0 Vicryl, and skin closure with 4-0 nylon. Then, 1 cc of Decadron was injected. Sterile dressings were applied. The tourniquet was deflated. The patient was brought to the PACU with vital signs stable and neurovascular status intact. She will be partial weight bearing. She will follow up in the office in two days.
== END 2020-08-26 10:10 | disposition home or self-care (01) ==
LOC: M SDC 05:59
PROVIDERS: ATTEND Podiatrist Foot & Ankle Surgery
DX: M21.612 Bunion of left foot (principal); M20.12 Hallux valgus (acquired), left foot; J34.9 Unspecified disorder of nose and nasal sinuses; E11.51 Type 2 diabetes mellitus with diabetic peripheral angiopathy without gangrene; G47.00 Insomnia, unspecified; I42.0 Dilated cardiomyopathy; I50.41 Acute combined systolic (congestive) and diastolic (congestive) heart failure; I36.1 Nonrheumatic tricuspid (valve) insufficiency; I11.9 Hypertensive heart disease without heart failure; I20.9 Angina pectoris, unspecified; K21.9 Gastro-esophageal reflux disease without esophagitis; Z95.0 Presence of cardiac pacemaker; J45.909 Unspecified asthma, uncomplicated; J44.9 Chronic obstructive pulmonary disease, unspecified; G47.33 Obstructive sleep apnea (adult) (pediatric); Z79.899 Other long term (current) drug therapy; Z79.82 Long term (current) use of aspirin; Z79.84 Long term (current) use of oral hypoglycemic drugs; Z88.0 Allergy status to penicillin; Z88.1 Allergy status to other antibiotic agents; Z86.73 Personal history of transient ischemic attack (TIA), and cerebral infarction without residual deficits
CPT/HCPCS: 28299; 36415; 80162; 88300; C1713; J0131; J1100; J2250; J2405; J3010

== ENCOUNTER → 2021-05-21 | Outpatient (CLI) | payer MEDICARE, OTHER ==
[~2021-05-21] MED LIST changes: -AMIO200T3; -AMIO200T3 PO; +AMIO200T49; +AMIO200T49 PO; -FEXO60TA71 PO; +FEXO60TA98 PO; +HYDR-3713 PO; +LOSA50TA28 PO; -LOSA50TA88 PO
== END ==
LOC: M RAD 09:35
PROVIDERS: ATTEND Physician Assistant
DX: Z87.891 Personal history of nicotine dependence (principal)

== ENCOUNTER → 2021-07-19 | Outpatient (CLI) | payer MEDICARE ==
[~2021-07-19] MED LIST changes: +BUPR-71 PO; -BUPR150T5 PO
== END ==
LOC: M RAD 09:39
PROVIDERS: ATTEND Family Medicine
DX: I73.9 Peripheral vascular disease, unspecified (principal)

== ENCOUNTER → 2021-11-03 | Outpatient (CLI) | payer MEDICARE, OTHER | LOC: M WHC 09:47 | PROVIDERS: ATTEND Family Medicine | DX: Z12.31 Encounter for screening mammogram for malignant neoplasm of breast (principal) ==

== ENCOUNTER → 2021-12-15 | Outpatient (REF) | payer MEDICARE, OTHER ==
[~2021-12-15] MED LIST changes: -DULE200A INH; +MOME13HF7 INH
== END ==
LOC: M SFHCLERA 16:59
PROVIDERS: ATTEND Family Medicine
DX: R35.0 Frequency of micturition (principal)

== ENCOUNTER → 2022-05-13 | Outpatient (CLI) | payer MEDICARE, OTHER ==
[~2022-05-13] MED LIST changes: -CILO50TA PO; +CILO50TA2 PO
== END ==
LOC: M RAD 10:35
PROVIDERS: ATTEND Surgery Vascular Surgery
DX: I73.9 Peripheral vascular disease, unspecified (principal); I74.5 Embolism and thrombosis of iliac artery

== ENCOUNTER → 2022-06-01 | Outpatient (CLI) | payer MEDICARE, OTHER ==
[2022-06-01 17:10] LABS: CREATININE FOR GFR 1.24 MG/DL (0.55-1.30); GLOMERULAR FILTRATION RATE 46.1 (>45)
== END ==
LOC: M LAB 15:55
PROVIDERS: ATTEND Surgery Vascular Surgery
DX: Z01.818 Encounter for other preprocedural examination (principal)

== ENCOUNTER → 2022-06-03 | Outpatient (CLI) | payer MEDICARE, OTHER ==
[~2022-06-03] MED LIST changes: +ISOVUE-370 76% 100ML VIAL As Ordered ONE
== END ==
LOC: M RAD 14:18
PROVIDERS: ATTEND Surgery Vascular Surgery
DX: I70.213 Atherosclerosis of native arteries of extremities with intermittent claudication, bilateral legs (principal)
CPT/HCPCS: 75635; Q9967

== ENCOUNTER → 2022-07-18 | Outpatient (CLI) | payer MEDICARE, OTHER ==
[~2022-07-18] MED LIST changes: -ISOVUE-370 76% 100ML VIAL As Ordered ONE
== END ==
LOC: M RAD 15:07
PROVIDERS: ATTEND Physician Assistant
DX: Z87.891 Personal history of nicotine dependence (principal)

== ENCOUNTER → 2022-07-19 | Outpatient (CLI) | payer MEDICARE, OTHER ==
[~2022-07-19] MED LIST changes: +CLOPIDOGREL 300 MG TAB (PLAVIX) As Ordered ONE; +CLOPIDOGREL 300 MG TAB (PLAVIX) PO ONE; +HEPARIN 1,000UNITS/ML 10ML VIAL (FOR RADIOLOGY & DIALYSIS ONLY) As Ordered ONE; +ISOVUE-300 61% 100ML VIAL As Ordered ONE; +LIDOCAINE 1% MDV 20ML VIAL As Ordered ONE; +MIDAZOLAM INJ 2MG/2ML VIAL As Ordered ONE; +NS 1,000 ML IV SCH; +fentaNYL 100 MCG/2 ML INJECTION As Ordered ONE
[2022-07-19 10:51] LABS: HEMATOCRIT 44.7 % (36.0-47.0); HEMOGLOBIN 14.1 g/dl (12.0-15.5); MEAN CORPUSCULAR HEMOGLOBIN 27.9 pg (27.0-33.0); MEAN CORPUSCULAR HGB CONC 31.5 g/dl (32.0-36.5); MEAN CORPUSCULAR VOLUME 88.5 fl (80.0-96.0); PLATELET COUNT, AUTOMATED 320 10^3/uL (150-450); RED BLOOD COUNT 5.05 10^6/uL (4.00-5.40); WHITE BLOOD COUNT 9.1 10^3/uL (4.0-10.0)
[2022-07-19 11:06] LABS: INR 0.91; PROTHROMBIN TIME 12.5 SECONDS (12.5-14.5)
[2022-07-19 11:07] LABS: PARTIAL THROMBOPLASTIN TIME 26.8 SECONDS (24.8-34.2)
[2022-07-19 11:23] LABS: CALCIUM LEVEL 8.8 MG/DL (8.3-10.6); CREATININE FOR GFR 1.14 MG/DL (0.55-1.30); GLOMERULAR FILTRATION RATE 50.8 (>45); POTASSIUM SERUM 4.5 MMOL/L (3.5-5.1)
[2022-07-19 17:00] VITALS: BP 131/73
== END ==
LOC: M IRPRO 09:33
PROVIDERS: ATTEND Surgery Vascular Surgery
DX: I70.213 Atherosclerosis of native arteries of extremities with intermittent claudication, bilateral legs (principal)
CPT/HCPCS: 37220; 37224; 80048; 83735; 85027; 85610; 85730; 86850; 86900; 86901; 99152; 99153; C1729; C1760; C1761; C1769; C1887; C1894; J2250; J3010; Q9967

== ENCOUNTER 2022-12-22 15:26 | Emergency (ER) | payer MEDICARE, OTHER ==
[~2022-12-22] VITALS: Ht 160 cm; Wt 68.2 kg
[~2022-12-22 15:26] MED LIST changes: -CLOPIDOGREL 300 MG TAB (PLAVIX) As Ordered ONE; -CLOPIDOGREL 300 MG TAB (PLAVIX) PO ONE; -HEPARIN 1,000UNITS/ML 10ML VIAL (FOR RADIOLOGY & DIALYSIS ONLY) As Ordered ONE; -ISOVUE-300 61% 100ML VIAL As Ordered ONE; -LIDOCAINE 1% MDV 20ML VIAL As Ordered ONE; -MIDAZOLAM INJ 2MG/2ML VIAL As Ordered ONE; -NS 1,000 ML IV SCH; -fentaNYL 100 MCG/2 ML INJECTION As Ordered ONE
[2022-12-22 16:30] LABS: BASO # 0.1 10^3/uL (0.0-0.2); EOS # 0.4 10^3/uL (0.0-0.5); EOS % 4.2 % (0.0-3.0); HEMATOCRIT 43.3 % (36.0-47.0); LYMPH # 2.1 10^3/uL (1.5-5.0); LYMPH % 25.2 % (24.0-44.0); MEAN CORPUSCULAR HEMOGLOBIN 25.9 pg (27.0-33.0); MEAN CORPUSCULAR VOLUME 86.4 fl (80.0-96.0); MONO # 0.9 10^3/uL (0.0-0.8); MONO % 10.8 % (2.0-8.0); NEUTROPHILS # 4.9 10^3/uL (1.5-8.5); NEUTROPHILS % 58.2 % (36.0-66.0); PLATELET COUNT, AUTOMATED 262 10^3/uL (150-450); RED BLOOD COUNT 5.01 10^6/uL (4.00-5.40); WHITE BLOOD COUNT 8.4 10^3/uL (4.0-10.0)
[2022-12-22 16:53] LABS: CK-MB VALUE MASS 3.4 NG/ML (<3.6)
[2022-12-22 16:55] LABS: ALBUMIN 3.8 G/DL (3.2-5.2); BILIRUBIN,DIRECT 0.2 MG/DL (<0.4); BILIRUBIN,TOTAL 0.3 MG/DL (0.3-1.2); CALCIUM LEVEL 8.7 MG/DL (8.3-10.6); CREATININE FOR GFR 1.55 MG/DL (0.55-1.30); GLOMERULAR FILTRATION RATE 35.6 (>45); MB/CK RELATIVE INDEX 2.16 (< OR =4); TOTAL PROTEIN 6.9 G/DL (5.7-8.2)
[2022-12-22 16:57] LABS: THYROID STIMULATING HORMONE 9.105 uIU/ML (0.55-4.78)
[2022-12-22 18:36] VITALS: BP 120/75; TEMP 97.6; O2SAT 97
== END 2022-12-22 18:45 | disposition home or self-care (01) ==
LOC: M ED 15:26
DX: R07.89 Other chest pain (principal); I10 Essential (primary) hypertension; E78.5 Hyperlipidemia, unspecified; I73.9 Peripheral vascular disease, unspecified; K21.9 Gastro-esophageal reflux disease without esophagitis; Z95.0 Presence of cardiac pacemaker; F17.200 Nicotine dependence, unspecified, uncomplicated; Z88.0 Allergy status to penicillin; Z88.1 Allergy status to other antibiotic agents; Z79.899 Other long term (current) drug therapy; Z79.51 Long term (current) use of inhaled steroids; Z79.84 Long term (current) use of oral hypoglycemic drugs; Z79.82 Long term (current) use of aspirin

== ENCOUNTER → 2023-02-22 | Outpatient (CLI) | payer MEDICARE, MEDICAID | LOC: M RAD 08:45 | PROVIDERS: ATTEND Surgery Vascular Surgery | DX: I71.40 Abdominal aortic aneurysm, without rupture, unspecified (principal); I73.9 Peripheral vascular disease, unspecified ==

== ENCOUNTER → 2023-07-03 | Outpatient (CLI) | payer MEDICARE, MEDICAID | LOC: M WHC 08:43 | PROVIDERS: ATTEND Physician Assistant | DX: M81.0 Age-related osteoporosis without current pathological fracture (principal) ==

== ENCOUNTER 2023-08-07 19:28 | Observation (INO) | payer MEDICARE, MEDICAID ==
[~2023-08-07] VITALS: Ht 160 cm; Wt 60.2 kg
[~2023-08-07 19:28] MED LIST changes: -ACET-907 PO; -ALBU2.5V10 INH; -AMLO1TAB25 PO; -ANOR1AER INH; -ASPE4PAD2 TOP; -ASPI-615 PO; -C-501TAB3 PO; -CLOP75TA99 PO; -DULO20CA27 PO; -INSULANT SC; -MILKSUS3 PO; -NOVOINJ SC; -OMEP1CAP73 PO; -PATIENT COMMENT
[2023-08-07 20:38] LABS: BASO % 0.3 % (0.0-1.0); EOS # 0.1 10^3/uL (0.0-0.5); EOS % 1.6 % (0.0-3.0); HEMATOCRIT 29.4 % (36.0-47.0); HEMOGLOBIN 8.9 g/dl (12.0-15.5); LYMPH # 2.2 10^3/uL (1.5-5.0); LYMPH % 23.8 % (24.0-44.0); MEAN CORPUSCULAR HEMOGLOBIN 25.1 pg (27.0-33.0); MEAN CORPUSCULAR HGB CONC 30.3 g/dl (32.0-36.5); MEAN CORPUSCULAR VOLUME 83.1 fl (80.0-96.0); MONO # 1.2 10^3/uL (0.0-0.8); MONO % 13.7 % (2.0-8.0); NEUTROPHILS # 5.4 10^3/uL (1.5-8.5); NEUTROPHILS % 59.8 % (36.0-66.0); PLATELET COUNT, AUTOMATED 489 10^3/uL (150-450); RED BLOOD COUNT 3.54 10^6/uL (4.00-5.40)
[2023-08-07 20:54] LABS: PARTIAL THROMBOPLASTIN TIME 24.6 SECONDS (24.8-34.2); PROTHROMBIN TIME 12.9 SECONDS (12.5-14.5)
[2023-08-07 20:59] LABS: CK-MB VALUE MASS < 1.0 NG/ML (<3.6)
[2023-08-07 21:00] LABS: CPK CREATINE PHOSPHOKINASE 79 U/L (34-145); MB/CK RELATIVE INDEX 1.26 (< OR =4)
[2023-08-08 00:35] LABS: BLOOD UREA NITROGEN 17 MG/DL (9-23); CALCIUM LEVEL 8.7 MG/DL (8.3-10.6); CARBON DIOXIDE LEVEL 24 MMOL/L (20-31); CHLORIDE LEVEL 103 MMOL/L (98-107); CREATININE FOR GFR 1.25 MG/DL (0.55-1.30); GLOMERULAR FILTRATION RATE 45.5 (>45); GLUCOSE, FASTING 156 MG/DL (74-106); SODIUM LEVEL 136 MMOL/L (136-145)
[2023-08-08] MEDS: MORPHINE 2 MG/ML 1ML VIAL IV PRN (00:51)
[2023-08-08] MEDS ORDERED: ULTRACET TAB PO PRN (01:55)
[2023-08-08] MEDS ORDERED: ALBUTEROL SULFATE 2.5MG/0.5ML INH NEB SOLN NEB PRN (01:55)
[2023-08-08] MEDS ORDERED: ONDANSETRON 4MG ORAL DISINTEGRATING TAB PO PRN (01:55)
[2023-08-08] MEDS: IPRATROPIUM 0.5MG/ALBUTEROL 2.5MG INH SOL UD 3ML (DUONEB) NEB SCH (02:00)
[2023-08-08] MEDS ORDERED: GLUCOSE 4 GM CHEW PO PRN (02:25)
[2023-08-08] MEDS ORDERED: GLUCAGON INJ 1MG VIAL SC PRN (02:25)
[2023-08-08] MEDS ORDERED: INSULIN LISPRO (NovoLOG) PER UNIT SC SCH (02:25)
[2023-08-08] MEDS ORDERED: DEXTROSE 50% 50ML SYRINGE IV PRN (02:25)
[2023-08-08] MEDS ORDERED: MILKSUS3 PO (02:38)
[2023-08-08] MEDS ORDERED: ACET-907 PO (02:38)
[2023-08-08] MEDS ORDERED: ALBU2.5V10 INH (02:38)
[2023-08-08] MEDS ORDERED: FERR1TAB8 PO (02:38)
[2023-08-08] MEDS ORDERED: NOVOINJ SC (02:38)
[2023-08-08] MEDS ORDERED: ASPE4PAD2 TOP (02:38)
[2023-08-08] MEDS ORDERED: AMLO1TAB25 PO (02:38)
[2023-08-08] MEDS ORDERED: CLOP75TA99 PO (02:38)
[2023-08-08] MEDS ORDERED: OMEP1CAP73 PO (02:38)
[2023-08-08] MEDS ORDERED: INSULANT SC (02:38)
[2023-08-08] MEDS: LIDOCAINE 5% (LIDODERM) PATCH TOP SCH (03:00)
[2023-08-08 03:30] VITALS: BP 117/60; TEMP 97.7; O2SAT 93
[2023-08-08] MEDS ORDERED: ASPI-615 PO (05:01)
[2023-08-08] MEDS ORDERED: AMIO200T49 PO (05:01)
[2023-08-08] MEDS ORDERED: C-501TAB3 PO (05:01)
[2023-08-08] MEDS ORDERED: PATIENT COMMENT (05:01)
[2023-08-08] MEDS ORDERED: DULO20CA27 PO (05:01)
[2023-08-08] MEDS ORDERED: ANOR1AER INH (05:01)
[2023-08-08] MEDS ORDERED: HOME MED LIST COMPLETE! XX SCH (05:05)
[2023-08-08] MEDS: HEPARIN SOD (PORCINE) 5000UNITS/ML 1ML VIAL/SYRINGE SC SCH (06:33)
[2023-08-08] MEDS: INSULIN LISPRO (NovoLOG) PER UNIT SC SCH ×2 (07:30→20:44)
[2023-08-08] MEDS: TORSEMIDE 10 MG TABLET PO SCH (09:00)
[2023-08-08] MEDS: NORCO, ANEXSIA 5/325MG TABLET (HYDROcodone/ACETAMINOPHEN) PO PRN (09:43)
[2023-08-08 10:00] VITALS: BP 120/64; TEMP 97.9; O2SAT 93
[2023-08-08] MEDS: LIDOCAINE 5% (LIDODERM) PATCH TD ONE (10:21)
[2023-08-08 10:25] LABS: BASO # 0.1 10^3/uL (0.0-0.2); BASO % 0.7 % (0.0-1.0); EOS # 0.1 10^3/uL (0.0-0.5); EOS % 1.7 % (0.0-3.0); HEMATOCRIT 33.8 % (36.0-47.0); LYMPH # 1.5 10^3/uL (1.5-5.0); LYMPH % 20.8 % (24.0-44.0); MEAN CORPUSCULAR HEMOGLOBIN 24.9 pg (27.0-33.0); MEAN CORPUSCULAR HGB CONC 29.6 g/dl (32.0-36.5); MEAN CORPUSCULAR VOLUME 84.3 fl (80.0-96.0); MONO # 0.6 10^3/uL (0.0-0.8); MONO % 9.1 % (2.0-8.0); NEUTROPHILS # 4.7 10^3/uL (1.5-8.5); NEUTROPHILS % 66.9 % (36.0-66.0); PLATELET COUNT, AUTOMATED 508 10^3/uL (150-450); RED BLOOD COUNT 4.01 10^6/uL (4.00-5.40); WHITE BLOOD COUNT 7.1 10^3/uL (4.0-10.0)
[2023-08-08] MEDS: TIOTROPIUM INHALER/CAPSULE (SPIRIVA) INH SCH (13:22)
[2023-08-08 14:00] VITALS: BP 120/60; TEMP 97.7; O2SAT 94
[2023-08-08] MEDS: ASPIRIN 81MG ENTERIC TABLET PO SCH (14:17)
[2023-08-08] MEDS: CLOPIDOGREL 75 MG TAB PO SCH (14:17)
[2023-08-08] MEDS: OMEPRAZOLE 20MG CAP PO SCH (14:18)
[2023-08-08] MEDS: GABAPENTIN 100 MG CAP PO SCH (14:18)
[2023-08-08] MEDS: ATORVASTATIN 20 MG TAB PO SCH (14:18)
[2023-08-08] MEDS: FOLIC ACID 1MG TAB PO SCH (14:18)
[2023-08-08] MEDS: FERROUS SULFATE 325MG TAB PO SCH (14:18)
[2023-08-08] MEDS: bisoproloL fumarate 5 MG TAB PO SCH (14:21)
[2023-08-08] MEDS: AMIODARONE 200 MG TAB (PACERONE) PO SCH (14:21)
[2023-08-08 18:00] VITALS: BP 128/68; TEMP 97.1; O2SAT 97
[2023-08-08] MEDS: FORMOTEROL FUMARATE 20 MCG/2 ML INHALATION SOLUTION (PERFOROMIST) INH SCH (19:28)
[2023-08-08] MEDS ORDERED: SYMBICORT 80/4.5MCG INHALER 6GM INH SCH (20:00)
[2023-08-08] MEDS: LEVEMIR (INSULIN DETEMIR) 1 UNITS/0.01ML SC SCH (20:51)
[2023-08-08 20:55] VITALS: BP 121/58; TEMP 97.9; O2SAT 99
[2023-08-08] MEDS ORDERED: buPROPion **SR TABLET** (ZYBAN) 150MG PO SCH (21:00)
[2023-08-08] MEDS ORDERED: DULoxetine 20MG CAP (CYMBALTA) PO SCH (21:00)
[2023-08-08] MEDS ORDERED: traZODone 50 MG TAB PO SCH (21:00)
[2023-08-09 01:50] VITALS: BP 121/55; TEMP 97.7; O2SAT 97
[2023-08-09 05:21] VITALS: BP 110/41; TEMP 97.9; O2SAT 94
[2023-08-09 09:32] VITALS: BP 136/62
[2023-08-09 09:39] VITALS: BP 136/62
[2023-08-09 10:06] VITALS: BP 137/62; TEMP 98.2; O2SAT 98
[2023-08-09] MEDS ORDERED: HYDR-4571 PO (10:47)
[2023-08-09] MEDS ORDERED: ATOR1TAB21 PO (10:47)
[2023-08-09] MEDS ORDERED: MAGN400T2 PO (10:48)
== END 2023-08-09 13:45 ==
LOC: M ED 19:28 → EEVIPCON 19:29 → M ED INP 19:29 → M MSPAV 08-08 03:12
PROVIDERS: ADMIT Internal Medicine; ATTEND Internal Medicine
DX: S32.501A Unspecified fracture of right pubis, initial encounter for closed fracture (principal); J44.9 Chronic obstructive pulmonary disease, unspecified; Z87.891 Personal history of nicotine dependence; E11.42 Type 2 diabetes mellitus with diabetic polyneuropathy; I11.0 Hypertensive heart disease with heart failure; I48.91 Unspecified atrial fibrillation; I25.10 Atherosclerotic heart disease of native coronary artery without angina pectoris; D50.9 Iron deficiency anemia, unspecified; K21.9 Gastro-esophageal reflux disease without esophagitis; I50.22 Chronic systolic (congestive) heart failure; G89.29 Other chronic pain; Z95.810 Presence of automatic (implantable) cardiac defibrillator; Z90.49 Acquired absence of other specified parts of digestive tract; W19.XXXA Unspecified fall, initial encounter; Y92.129 Unspecified place in nursing home as the place of occurrence of the external cause; Y93.9 Activity, unspecified; Z79.82 Long term (current) use of aspirin; Z79.4 Long term (current) use of insulin; Z79.899 Other long term (current) drug therapy; Z88.0 Allergy status to penicillin; Z88.1 Allergy status to other antibiotic agents
CPT/HCPCS: 36415; 72170; 73700; 80048; 82550; 82553; 83735; 84484; 85025; 85610; 85730; 86850; 86900; 86901; 92526; 92610; 93005; 93041; 94640; 94760; 96372; 96374; 97116; 97161; 97165; 99285; G0378; J1815; J7606

== ENCOUNTER → 2023-08-07 | Outpatient (REF) | payer MEDICARE, MEDICAID ==
[~2023-08-07] MED LIST changes: +ACET-907 PO; +ALBU2.5V10 INH; +AMLO1TAB25 PO; +ANOR1AER INH; +ASPE4PAD2 TOP; +ASPI-615 PO; +ATOR1TAB21 PO; +C-501TAB3 PO; +CLOP75TA99 PO; +DULO20CA27 PO; +HYDR-4571 PO; +INSULANT SC; +MAGN400T2 PO; +MILKSUS3 PO; +NOVOINJ SC; +OMEP1CAP73 PO; +PATIENT COMMENT; -TRAZ-186; +TRAZ-186 PO
== END ==
LOC: SKLAB2 12:08
PROVIDERS: ATTEND Internal Medicine
DX: M25.551 Pain in right hip (principal); M85.851 Other specified disorders of bone density and structure, right thigh; I87.8 Other specified disorders of veins; W19.XXXA Unspecified fall, initial encounter; Y92.129 Unspecified place in nursing home as the place of occurrence of the external cause; Y93.9 Activity, unspecified

== ENCOUNTER → 2023-08-07 | Outpatient (CLI) | payer MEDICARE, MEDICAID ==
[~2023-08-07] MED LIST changes: -ATOR1TAB21 PO; -HYDR-4571 PO; -MAGN400T2 PO
== END ==
LOC: M RAD 13:47
PROVIDERS: ATTEND Internal Medicine
DX: M25.551 Pain in right hip (principal)

== ENCOUNTER → 2023-08-08 | Outpatient (REF) | payer MEDICARE, MEDICAID ==
[~2023-08-08] MED LIST changes: +ACET-907 PO; +ALBU2.5V10 INH; +AMLO1TAB25 PO; +ANOR1AER INH; +ASPE4PAD2 TOP; +ASPI-615 PO; +ATOR1TAB21 PO; +C-501TAB3 PO; +CLOP75TA99 PO; +DULO20CA27 PO; +HYDR-4571 PO; +INSULANT SC; +MAGN400T2 PO; +MILKSUS3 PO; +NOVOINJ SC; +OMEP1CAP73 PO; +PATIENT COMMENT
== END ==
LOC: SKLAB2 08:52
PROVIDERS: ATTEND Internal Medicine
DX: Z53.8 Procedure and treatment not carried out for other reasons (principal)

== ENCOUNTER → 2023-08-10 | Outpatient (REF) | payer MEDICARE, MEDICAID ==
[2023-08-10 10:16] LABS: HEMATOCRIT 35.9 % (36.0-47.0); HEMOGLOBIN 10.4 g/dl (12.0-15.5); MEAN CORPUSCULAR HEMOGLOBIN 24.8 pg (27.0-33.0); MEAN CORPUSCULAR VOLUME 85.5 fl (80.0-96.0); PLATELET COUNT, AUTOMATED 619 10^3/uL (150-450); WHITE BLOOD COUNT 6.3 10^3/uL (4.0-10.0)
[2023-08-10 10:36] LABS: ALBUMIN 3.3 G/DL (3.2-5.2); BILIRUBIN,TOTAL 0.4 MG/DL (0.3-1.2); CALCIUM LEVEL 9.3 MG/DL (8.3-10.6); CREATININE FOR GFR 1.14 MG/DL (0.55-1.30); GLOMERULAR FILTRATION RATE 50.6 (>45); POTASSIUM SERUM 3.9 MMOL/L (3.5-5.1); TOTAL PROTEIN 6.8 G/DL (5.7-8.2)
== END ==
LOC: SKLAB2 08:53
PROVIDERS: ATTEND Internal Medicine
DX: I50.9 Heart failure, unspecified (principal)

== ENCOUNTER → 2023-08-17 | Outpatient (REF) | payer MEDICARE, MEDICAID ==
[2023-08-17 08:14] LABS: HEMATOCRIT 36.1 % (36.0-47.0); HEMOGLOBIN 10.9 g/dl (12.0-15.5); MEAN CORPUSCULAR HEMOGLOBIN 25.2 pg (27.0-33.0); MEAN CORPUSCULAR HGB CONC 30.2 g/dl (32.0-36.5); MEAN CORPUSCULAR VOLUME 83.4 fl (80.0-96.0); PLATELET COUNT, AUTOMATED 355 10^3/uL (150-450); RED BLOOD COUNT 4.33 10^6/uL (4.00-5.40); WHITE BLOOD COUNT 6.9 10^3/uL (4.0-10.0)
[2023-08-17 08:49] LABS: ALBUMIN 2.9 G/DL (3.2-5.2); BILIRUBIN,TOTAL 0.3 MG/DL (0.3-1.2); CALCIUM LEVEL 9.1 MG/DL (8.3-10.6); CREATININE FOR GFR 0.99 MG/DL (0.55-1.30); GLOMERULAR FILTRATION RATE 59.6 (>45); POTASSIUM SERUM 3.5 MMOL/L (3.5-5.1); TOTAL PROTEIN 6.2 G/DL (5.7-8.2)
== END ==
LOC: SKLAB2 08:32
PROVIDERS: ATTEND Internal Medicine
DX: I50.9 Heart failure, unspecified (principal)

== ENCOUNTER → 2023-08-23 | Outpatient (CLI) | payer MEDICARE, MEDICAID | LOC: M SOG 08:02 | PROVIDERS: ATTEND Physician Assistant | DX: R10.2 Pelvic and perineal pain (principal) ==

== ENCOUNTER → 2023-09-04 | Outpatient (REF) | payer MEDICARE ==
[2023-09-04 18:09] LABS: BASO # 0.1 10^3/uL (0.0-0.2); EOS # 0.3 10^3/uL (0.0-0.5); EOS % 3.9 % (0.0-3.0); HEMATOCRIT 40.5 % (36.0-47.0); LYMPH # 1.7 10^3/uL (1.5-5.0); LYMPH % 19.3 % (24.0-44.0); MEAN CORPUSCULAR HEMOGLOBIN 26.3 pg (27.0-33.0); MEAN CORPUSCULAR HGB CONC 29.6 g/dl (32.0-36.5); MEAN CORPUSCULAR VOLUME 88.6 fl (80.0-96.0); MONO # 0.8 10^3/uL (0.0-0.8); MONO % 8.8 % (2.0-8.0); NEUTROPHILS # 5.8 10^3/uL (1.5-8.5); NEUTROPHILS % 66.1 % (36.0-66.0); PLATELET COUNT, AUTOMATED 214 10^3/uL (150-450); RED BLOOD COUNT 4.57 10^6/uL (4.00-5.40); WHITE BLOOD COUNT 8.8 10^3/uL (4.0-10.0)
[2023-09-04 18:32] LABS: ALBUMIN 3.4 G/DL (3.2-5.2); BILIRUBIN,TOTAL 0.2 MG/DL (0.3-1.2); CALCIUM LEVEL 8.8 MG/DL (8.3-10.6); CREATININE FOR GFR 1.42 MG/DL (0.55-1.30); GLOMERULAR FILTRATION RATE 39.3 (>45); POTASSIUM SERUM 4.3 MMOL/L (3.5-5.1); TOTAL PROTEIN 6.8 G/DL (5.7-8.2)
== END ==
LOC: M SFHCLERA 11:32
PROVIDERS: ATTEND Family Medicine
DX: R05.9 Cough, unspecified (principal); J43.9 Emphysema, unspecified; I50.9 Heart failure, unspecified

== ENCOUNTER → 2023-09-20 | Outpatient (CLI) | payer MEDICARE | LOC: M SOG 10:35 | PROVIDERS: ATTEND Physician Assistant | DX: S32.591D Other specified fracture of right pubis, subsequent encounter for fracture with routine healing (principal); M13.88 Other specified arthritis, other site; Y93.9 Activity, unspecified; Y92.9 Unspecified place or not applicable ==

== ENCOUNTER → 2023-10-23 | Outpatient (CLI) | payer MEDICARE | LOC: M PLAIMG 11:07 | PROVIDERS: ATTEND Physician Assistant | DX: S32.591D Other specified fracture of right pubis, subsequent encounter for fracture with routine healing (principal) ==

== ENCOUNTER 2024-03-26 14:24 | Emergency (ER) | payer MEDICARE, MEDICAID ==
[~2024-03-26] VITALS: Ht 160 cm; Wt 64.5 kg
[~2024-03-26 14:24] MED LIST changes: -ADV250INH INH; -ADV500INH INH; +ADVA1AER10 INH; +ADVA1AER9 INH; +POTA10807 PO; -POTA10808 PO
[2024-03-26 16:07] LABS: BASO % 0.2 % (0.0-1.0); EOS % 0.1 % (0.0-3.0); HEMATOCRIT 33.7 % (36.0-47.0); HEMOGLOBIN 9.5 g/dl (12.0-15.5); LYMPH # 0.6 10^3/uL (1.5-5.0); LYMPH % 4.6 % (24.0-44.0); MEAN CORPUSCULAR HEMOGLOBIN 21.2 pg (27.0-33.0); MEAN CORPUSCULAR HGB CONC 28.2 g/dl (32.0-36.5); MEAN CORPUSCULAR VOLUME 75.1 fl (80.0-96.0); MONO # 0.2 10^3/uL (0.0-0.8); MONO % 1.2 % (2.0-8.0); NEUTROPHILS # 11.8 10^3/uL (1.5-8.5); NEUTROPHILS % 92.8 % (36.0-66.0); PLATELET COUNT, AUTOMATED 346 10^3/uL (150-450); RED BLOOD COUNT 4.49 10^6/uL (4.00-5.40); WHITE BLOOD COUNT 12.7 10^3/uL (4.0-10.0)
[2024-03-26 16:36] LABS: CK-MB VALUE MASS 3.2 NG/ML (<3.6)
[2024-03-26 16:38] LABS: ALBUMIN 4.2 G/DL (3.2-5.2); ALKALINE PHOSPHATASE 85 U/L (35-104); ALT/SGPT 23 U/L (7.0-40); AST/SGOT 23 U/L (<34); BILIRUBIN,DIRECT < 0.1 MG/DL (<0.4); BILIRUBIN,TOTAL 0.3 MG/DL (0.3-1.2); BLOOD UREA NITROGEN 32 MG/DL (9-23); CALCIUM LEVEL 9.6 MG/DL (8.3-10.6); CARBON DIOXIDE LEVEL 26 MMOL/L (20-31); CHLORIDE LEVEL 103 MMOL/L (98-107); CREATININE FOR GFR 1.83 MG/DL (0.55-1.30); GLOMERULAR FILTRATION RATE 29.3 (>45); GLUCOSE, FASTING 220 MG/DL (74-106); MAGNESIUM LEVEL 2.4 MG/DL (1.8-2.4); POTASSIUM SERUM 5.2 MMOL/L (3.5-5.1); SODIUM LEVEL 137 MMOL/L (136-145); TOTAL PROTEIN 7.6 G/DL (5.7-8.2)
[2024-03-26 16:40] LABS: THYROID STIMULATING HORMONE 2.401 uIU/ML (0.55-4.78)
[2024-03-26 16:41] LABS: CPK CREATINE PHOSPHOKINASE 146 U/L (34-145); MB/CK RELATIVE INDEX 2.19 (< OR =4)
[2024-03-26] MEDS: MECLIZINE 25 MG TABLET PO ONE (17:58)
[2024-03-26 18:23] LABS: KETONE, URINE AUTO RFX NEGATIVE (NEGATIVE); LEUKOCYTE ESTERASE UR AUTO RFX NEGATIVE (NEGATIVE); MUCUS, URINE RFX SMALL (NEGATIVE); NITRITE, URINE AUTO RFX NEGATIVE (NEGATIVE); RBC, URINE AUTO RFX 1 /HPF (0-3); SQUAM EPITHELIAL CELL UR AURFX 0 /HPF (0-6); WBC, URINE AUTO RFX 1 /HPF (0-3)
[2024-03-26 18:43] LABS: C REACTIVE PROTEIN QUANTITATIV < 0.50 MG/DL (<1.0)
[2024-03-26] MEDS: NS (Normal Saline) 0.9% 1,000 ML IV ONE (19:36)
[2024-03-26 21:04] LABS: TOTAL IRON BINDING CAPACITY 495 UG/DL (250-425)
[2024-03-26 21:07] LABS: FERRITIN 3.8 NG/ML (7.3-270.7); VITAMIN B12 LEVEL 321 PG/ML (211-911)
[2024-03-26 21:26] VITALS: BP 129/58; TEMP 96.9; O2SAT 96
[2024-03-26 21:28] LABS: FOLATE > 24.00 NG/ML (>5.4); IRON (FE) < 5 UG/DL (50-170)
== END 2024-03-26 21:35 | disposition home or self-care (01) ==
LOC: M ED 14:24
DX: R42 Dizziness and giddiness (principal); E86.0 Dehydration; J44.9 Chronic obstructive pulmonary disease, unspecified; I48.91 Unspecified atrial fibrillation; E11.9 Type 2 diabetes mellitus without complications; I10 Essential (primary) hypertension; E78.5 Hyperlipidemia, unspecified; I25.2 Old myocardial infarction; G47.33 Obstructive sleep apnea (adult) (pediatric); Z87.891 Personal history of nicotine dependence; Z88.0 Allergy status to penicillin; Z88.1 Allergy status to other antibiotic agents; Z79.1 Long term (current) use of non-steroidal anti-inflammatories (NSAID); Z79.51 Long term (current) use of inhaled steroids; Z79.4 Long term (current) use of insulin; Z79.899 Other long term (current) drug therapy
CPT/HCPCS: 70450; 71045; 80048; 80076; 81001; 82550; 82553; 82607; 82728; 82746; 83550; 83605; 83735; 84443; 84484; 85025; 85652; 86140; 87486; 87581; 87633; 87798; 93005; 96360; 96361; 99284; G0463

== ENCOUNTER → 2024-05-07 | Outpatient (REF) | payer MEDICARE, MEDICAID ==
[2024-05-07 18:59] LABS: PERCENT SATURATION 9.1 % (13.2-45.0)
== END ==
LOC: M LAB REF 17:20
PROVIDERS: ATTEND Internal Medicine Nephrology
DX: D50.9 Iron deficiency anemia, unspecified (principal)

== ENCOUNTER → 2024-05-27 | Outpatient (CLI) | payer MEDICARE, MEDICAID | LOC: M RAD 13:29 | PROVIDERS: ATTEND Internal Medicine Nephrology | DX: N18.32 Chronic kidney disease, stage 3b (principal) ==

== ENCOUNTER → 2024-07-06 | Outpatient (CLI) | payer MEDICARE, MEDICAID ==
[~2024-07-06] MED LIST changes: +GLIP-318 PO; +GLIP2.5T46 PO; -GLIP2.5T6 PO; -GLIP5TAB20 PO
== END ==
LOC: M RAD 11:19 → M PLALAB 11:19
PROVIDERS: ATTEND Student in an Organized Health Care Education/Training Program
DX: J06.9 Acute upper respiratory infection, unspecified (principal); R05.9 Cough, unspecified

== ENCOUNTER → 2024-10-11 | Outpatient (REF) | payer MEDICARE, MEDICAID ==
[~2024-10-11] MED LIST changes: -AMIO200T49; -AMIO200T49 PO; +AMIO200T54; +AMIO200T54 PO; +ASPI-731 GT; -ASPI81CH32 GT
[2024-10-11 18:13] LABS: ESTIMATED AVERAGE GLUCOSE 131.0 MG/DL (60-110)
== END ==
LOC: M LAB REF 16:57
PROVIDERS: ATTEND Internal Medicine Nephrology
DX: E11.22 Type 2 diabetes mellitus with diabetic chronic kidney disease (principal)

== ENCOUNTER → 2024-11-04 | Outpatient (REF) | payer MEDICARE, MEDICAID ==
[2024-11-04 18:48] LABS: CREATININE, URINE 32.2 MG/DL; MALB URINE SIEMENS < 3.0 MG/L
[2024-11-04 18:56] LABS: BASO # 0.1 10^3/uL (0.0-0.2); BASO % 1.1 % (0.0-1.0); EOS # 0.3 10^3/uL (0.0-0.5); EOS % 3.7 % (0.0-3.0); LYMPH # 1.6 10^3/uL (1.5-5.0); LYMPH % 19.7 % (24.0-44.0); MONO # 0.8 10^3/uL (0.0-0.8); MONO % 9.7 % (2.0-8.0); NEUTROPHILS # 5.1 10^3/uL (1.5-8.5); NEUTROPHILS % 65.3 % (36.0-66.0); PLATELET COUNT, AUTOMATED 269 10^3/uL (150-450)
[2024-11-04 19:00] LABS: ALT/SGPT 17.0 U/L (7.0-40); AST/SGOT 20.0 U/L (<34); CALCIUM LEVEL 9.6 MG/DL (8.3-10.6); CARBON DIOXIDE LEVEL 31.0 MMOL/L (20-31); CHLORIDE LEVEL 102.0 MMOL/L (98-107); CHOLESTEROL LEVEL 145.0 MG/DL (<200); CHOLESTEROL RISK RATIO 2.98 (<5); CREATININE FOR GFR 1.77 MG/DL (0.55-1.30); GLOMERULAR FILTRATION RATE 30.9 (>45); LDL CHOLESTEROL 75.8 MG/DL (<100); NON-HDL-C 96.4 MG/DL; POTASSIUM SERUM 4.5 MMOL/L (3.5-5.1); SODIUM LEVEL 142.0 MMOL/L (136-145); TRIGLYCERIDES LEVEL 103.0 MG/DL (<150)
[2024-11-04 19:12] LABS: ESTIMATED AVERAGE GLUCOSE 103.0 MG/DL (60-110)
== END ==
LOC: M SFHCLERA 10:50
PROVIDERS: ATTEND Family Medicine
DX: Z00.00 Encounter for general adult medical examination without abnormal findings (principal); E11.65 Type 2 diabetes mellitus with hyperglycemia; E78.5 Hyperlipidemia, unspecified

== ENCOUNTER 2024-11-14 17:07 | Inpatient (IN) | payer MEDICARE, MEDICAID ==
[2024-11-14] VITALS (10 sets, daily range): BP systolic 100–110; BP diastolic 51–61; TEMP 98.5–98.9; O2SAT 97–99
[~2024-11-14] VITALS: Ht 165.1 cm; Wt 65.7 kg
[~2024-11-14 17:07] MED LIST changes: -VITA500T17 PO; +VITA500T8 PO
[2024-11-14 17:54] LABS: BASO # 0.1 10^3/uL (0.0-0.2); BASO % 0.6 % (0.0-1.0); EOS # 0.3 10^3/uL (0.0-0.5); EOS % 2.4 % (0.0-3.0); LYMPH # 2.5 10^3/uL (1.5-5.0); LYMPH % 19.5 % (24.0-44.0); MONO # 0.9 10^3/uL (0.0-0.8); MONO % 6.6 % (2.0-8.0); NEUTROPHILS # 8.9 10^3/uL (1.5-8.5); NEUTROPHILS % 68.7 % (36.0-66.0); PLATELET COUNT, AUTOMATED 273 10^3/uL (150-450)
[2024-11-14 18:26] LABS: ALT/SGPT 18 U/L (7.0-40); AST/SGOT 20 U/L (<34); CALCIUM LEVEL 8.9 MG/DL (8.3-10.6); CARBON DIOXIDE LEVEL 29 MMOL/L (20-31); CHLORIDE LEVEL 107 MMOL/L (98-107); CREATININE FOR GFR 2.30 MG/DL (0.55-1.30); GLOMERULAR FILTRATION RATE 22.6 (>45); POTASSIUM SERUM 4.7 MMOL/L (3.5-5.1); SODIUM LEVEL 142 MMOL/L (136-145)
[2024-11-14] MEDS ORDERED: TRAZ-252 PO (18:49)
[2024-11-14] MEDS ORDERED: AMLO2.5T3 PO (18:49)
[2024-11-14] MEDS ORDERED: TORS10TA3 PO (18:49)
[2024-11-14] MEDS ORDERED: MAGN400T35 PO (18:49)
[2024-11-14] MEDS ORDERED: GLIP5TAB17 PO ×2 (18:49)
[2024-11-14] MEDS ORDERED: SPIR-10 PO (18:49)
[2024-11-14] MEDS ORDERED: SEMA1PEN2 INJ (18:49)
[2024-11-14] MEDS ORDERED: HOME MED LIST COMPLETE! XX SCH (18:50)
[2024-11-14] MEDS ORDERED: MED REC COMMENT (18:50)
[2024-11-14] MEDS ORDERED: ALBUTEROL SULFATE 2.5 MG/0.5 ML INH CONCENTRATE NEB SOLN INH PRN (21:45)
[2024-11-14] MEDS ORDERED: GLUCAGON INJ 1 MG VIAL SC PRN (21:45)
[2024-11-14] MEDS ORDERED: MAALOX 30 ML SUSP *UDC PO PRN (21:45)
[2024-11-14] MEDS ORDERED: GLUCOSE 4 GM CHEW PO PRN (21:45)
[2024-11-14] MEDS ORDERED: traZODone 50 MG TAB PO PRN (21:45)
[2024-11-14] MEDS ORDERED: DEXTROSE 50% 50 ML SYRINGE IV PRN (21:45)
[2024-11-14] MEDS ORDERED: ALBUTEROL 90 MCG/ACT 8 GM HFA INHALER INH PRN (21:45)
[2024-11-14] MEDS ORDERED: MOM 30 ML SUSPENSION UDC PO PRN (21:45)
[2024-11-14] MEDS ORDERED: NICOTINE 14 MG/24 HR TRANSDERMAL TD PRN (21:45)
[2024-11-14] MEDS ORDERED: ACETAMINOPHEN 325 MG TAB PO PRN (21:45)
[2024-11-15] VITALS (38 sets, daily range): BP systolic 84–138; BP diastolic 48–63; PULSE 73; TEMP 97–98; O2SAT 82–99
[2024-11-15] MEDS: MAGNESIUM OXIDE 400 MG TAB PO SCH (00:01)
[2024-11-15] MEDS: GABAPENTIN 100 MG CAP PO SCH (00:01)
[2024-11-15] MEDS: NS (Normal Saline) 0.9% 1,000 ML IV SCH (00:02)
[2024-11-15] MEDS: OCTREOTIDE ACETATE 1,200 MCG in NS 238.8 ML IV SCH (00:03)
[2024-11-15] MEDS: OCTREOTIDE ACETATE 100 MCG/ML VIAL **IV ADMINISTRATION ONLY IV ONE (00:03)
[2024-11-15] MEDS: NITROGLYCERIN 0.4 MG SUBL TABLET SL PRN (02:20)
[2024-11-15] MEDS: FUROSEMIDE 20 MG/2 ML VIAL IV ONE (02:39)
[2024-11-15 03:15] LABS: CALCIUM LEVEL 8.1 MG/DL (8.3-10.6); CARBON DIOXIDE LEVEL 26.0 MMOL/L (20-31); CHLORIDE LEVEL 108.0 MMOL/L (98-107); CK-MB VALUE MASS 1.9 NG/ML (<3.6); CPK CREATINE PHOSPHOKINASE 96.0 U/L (34-145); CREATININE FOR GFR 2.06 MG/DL (0.55-1.30); GLOMERULAR FILTRATION RATE 25.8 (>45); MB/CK RELATIVE INDEX 1.97 (< OR =4); POTASSIUM SERUM 4.7 MMOL/L (3.5-5.1); SODIUM LEVEL 143.0 MMOL/L (136-145)
[2024-11-15 04:45] LABS: PLATELET COUNT, AUTOMATED 227 10^3/uL (150-450)
[2024-11-15 05:05] LABS: CK-MB VALUE MASS 2.5 NG/ML (<3.6)
[2024-11-15 05:07] LABS: CPK CREATINE PHOSPHOKINASE 100.0 U/L (34-145); MB/CK RELATIVE INDEX 2.5 (< OR =4)
[2024-11-15 05:21] LABS: ALT/SGPT 69.0 U/L (7.0-40); AST/SGOT 136.0 U/L (<34); CALCIUM LEVEL 8.5 MG/DL (8.3-10.6); CARBON DIOXIDE LEVEL 28.0 MMOL/L (20-31); CHLORIDE LEVEL 110.0 MMOL/L (98-107); CREATININE FOR GFR 2.07 MG/DL (0.55-1.30); GLOMERULAR FILTRATION RATE 25.6 (>45); MAGNESIUM LEVEL 2.4 MG/DL (1.8-2.4); POTASSIUM SERUM 4.8 MMOL/L (3.5-5.1); SODIUM LEVEL 145.0 MMOL/L (136-145)
[2024-11-15] MEDS: INSULIN LISPRO (NovoLOG) PER UNIT SC SCH ×2 (07:30→21:00)
[2024-11-15] MEDS: PANTOPRAZOLE 40MG TAB PO SCH (08:19)
[2024-11-15] MEDS: DOCUSATE SODIUM 100 MG CAPSULE PO SCH (08:19)
[2024-11-15] MEDS: ASCORBIC ACID 500 MG TAB PO SCH (08:20)
[2024-11-15] MEDS: AMIODARONE 200 MG TAB PO SCH (08:20)
[2024-11-15] MEDS ORDERED: ALBUTEROL SULFATE 2.5 MG/0.5 ML INH CONCENTRATE NEB SOLN INH PRN (09:20)
[2024-11-15] MEDS: IPRATROPIUM 0.5 MG/ALBUTEROL 2.5 MG INH SOL UD 3 ML NEB ONE (12:21)
[2024-11-15] MEDS: ADVAIR HFA 230/21 MCG INHALER INH SCH (19:23)
[2024-11-15] MEDS: PANTOPRAZOLE 40MG VIAL IV SCH (21:12)
[2024-11-16] VITALS (9 sets, daily range): BP systolic 102–119; BP diastolic 50–58; TEMP 96.9–97.4; O2SAT 89–100
[2024-11-16 06:33] LABS: BASO # 0.1 10^3/uL (0.0-0.2); BASO % 0.6 % (0.0-1.0); EOS # 0.3 10^3/uL (0.0-0.5); EOS % 2.2 % (0.0-3.0); LYMPH # 1.5 10^3/uL (1.5-5.0); LYMPH % 12.0 % (24.0-44.0); MONO # 0.9 10^3/uL (0.0-0.8); MONO % 7.8 % (2.0-8.0); NEUTROPHILS # 9.2 10^3/uL (1.5-8.5); NEUTROPHILS % 76.3 % (36.0-66.0); PLATELET COUNT, AUTOMATED 303 10^3/uL (150-450)
[2024-11-16 07:04] LABS: CALCIUM LEVEL 8.7 MG/DL (8.3-10.6); CARBON DIOXIDE LEVEL 31.0 MMOL/L (20-31); CHLORIDE LEVEL 108.0 MMOL/L (98-107); CREATININE FOR GFR 1.89 MG/DL (0.55-1.30); GLOMERULAR FILTRATION RATE 28.6 (>45); POTASSIUM SERUM 4.5 MMOL/L (3.5-5.1); SODIUM LEVEL 146.0 MMOL/L (136-145)
== END 2024-11-16 11:05 | disposition home or self-care (01) | DRG 378 ==
LOC: M ED 17:07 → EDBD 17:07 → M ED INP 21:45 → M PCU 11-15 00:27
PROVIDERS: ADMIT Student in an Organized Health Care Education/Training Program; ATTEND Internal Medicine Nephrology
PROC: 30233N1 Transfusion of Nonautologous Red Blood Cells into Peripheral Vein, Percutaneous Approach (ICD-10-PCS; principal; 2024-11-14)
DX: K57.91 Diverticulosis of intestine, part unspecified, without perforation or abscess with bleeding (principal); I50.42 Chronic combined systolic (congestive) and diastolic (congestive) heart failure; I13.0 Hypertensive heart and chronic kidney disease with heart failure and stage 1 through stage 4 chronic kidney disease, or unspecified chronic kidney disease; I42.0 Dilated cardiomyopathy; N17.9 Acute kidney failure, unspecified; J96.11 Chronic respiratory failure with hypoxia; D50.0 Iron deficiency anemia secondary to blood loss (chronic); R53.1 Weakness; R42 Dizziness and giddiness; I48.91 Unspecified atrial fibrillation; I25.119 Atherosclerotic heart disease of native coronary artery with unspecified angina pectoris; E11.51 Type 2 diabetes mellitus with diabetic peripheral angiopathy without gangrene; E78.5 Hyperlipidemia, unspecified; N18.30 Chronic kidney disease, stage 3 unspecified; J44.9 Chronic obstructive pulmonary disease, unspecified; E11.22 Type 2 diabetes mellitus with diabetic chronic kidney disease; G47.00 Insomnia, unspecified; K21.9 Gastro-esophageal reflux disease without esophagitis; F17.200 Nicotine dependence, unspecified, uncomplicated; G47.33 Obstructive sleep apnea (adult) (pediatric); I25.2 Old myocardial infarction; I36.0 Nonrheumatic tricuspid (valve) stenosis; Z86.73 Personal history of transient ischemic attack (TIA), and cerebral infarction without residual deficits; Z79.02 Long term (current) use of antithrombotics/antiplatelets; Z79.82 Long term (current) use of aspirin; Z79.899 Other long term (current) drug therapy; Z88.0 Allergy status to penicillin; Z95.810 Presence of automatic (implantable) cardiac defibrillator; Z88.1 Allergy status to other antibiotic agents; Z95.820 Peripheral vascular angioplasty status with implants and grafts; Z99.81 Dependence on supplemental oxygen

== ENCOUNTER → 2024-11-25 | Outpatient (REF) | payer MEDICARE, MEDICAID ==
[~2024-11-25] MED LIST changes: +AMLO2.5T3 PO; +GLIP5TAB17 PO; +MAGN400T35 PO; +MED REC COMMENT; +SEMA1PEN2 INJ; +TRAZ-252 PO
[2024-11-25 17:48] LABS: BASO # 0.1 10^3/uL (0.0-0.2); BASO % 1.4 % (0.0-1.0); EOS # 0.4 10^3/uL (0.0-0.5); EOS % 5.9 % (0.0-3.0); LYMPH # 1.5 10^3/uL (1.5-5.0); LYMPH % 23.8 % (24.0-44.0); MONO # 0.8 10^3/uL (0.0-0.8); MONO % 12.7 % (2.0-8.0); NEUTROPHILS # 3.6 10^3/uL (1.5-8.5); NEUTROPHILS % 55.3 % (36.0-66.0); PLATELET COUNT, AUTOMATED 252 10^3/uL (150-450)
[2024-11-25 17:50] LABS: ALT/SGPT 19.0 U/L (7.0-40); AST/SGOT 20.0 U/L (<34); CALCIUM LEVEL 8.9 MG/DL (8.3-10.6); CARBON DIOXIDE LEVEL 29.0 MMOL/L (20-31); CHLORIDE LEVEL 106.0 MMOL/L (98-107); CREATININE FOR GFR 1.65 MG/DL (0.55-1.30); GLOMERULAR FILTRATION RATE 33.7 (>45); POTASSIUM SERUM 4.9 MMOL/L (3.5-5.1); SODIUM LEVEL 142.0 MMOL/L (136-145)
== END ==
LOC: M SFHCLERA 09:06
PROVIDERS: ATTEND Family Medicine
DX: D50.9 Iron deficiency anemia, unspecified (principal); N18.30 Chronic kidney disease, stage 3 unspecified

== ENCOUNTER → 2024-11-26 | Outpatient (CLI) | payer MEDICARE, MEDICAID | LOC: M PLAIMG 06:58 | PROVIDERS: ATTEND Internal Medicine Pulmonary Disease | DX: R91.8 Other nonspecific abnormal finding of lung field (principal) ==

== ENCOUNTER → 2025-01-15 | Outpatient (CLI) | payer MEDICARE, MEDICAID | LOC: M CARPUL 13:34 | PROVIDERS: ATTEND Physician Assistant | DX: I50.42 Chronic combined systolic (congestive) and diastolic (congestive) heart failure (principal); R06.02 Shortness of breath; I08.0 Rheumatic disorders of both mitral and aortic valves; I51.89 Other ill-defined heart diseases; Z95.0 Presence of cardiac pacemaker ==

== ENCOUNTER → 2025-03-18 | Outpatient (REF) | payer MEDICARE, MEDICAID ==
[2025-03-18 18:06] LABS: PLATELET COUNT, AUTOMATED 580 10^3/uL (150-450)
[2025-03-18 18:31] LABS: ALT/SGPT 26.0 U/L (7.0-40); AST/SGOT 15.0 U/L (<34); CALCIUM LEVEL 9.0 MG/DL (8.3-10.6); CARBON DIOXIDE LEVEL 27.0 MMOL/L (20-31); CHLORIDE LEVEL 103.0 MMOL/L (98-107); CREATININE FOR GFR 1.79 MG/DL (0.55-1.30); GLOMERULAR FILTRATION RATE 30.5 (>45); MAGNESIUM LEVEL 2.0 MG/DL (1.8-2.4); POTASSIUM SERUM 4.8 MMOL/L (3.5-5.1); SODIUM LEVEL 138.0 MMOL/L (136-145)
[2025-03-18 19:18] LABS: ATYPICAL LYMPH 1 % (0-5); LYMPHOCYTES 16 % (16-44); MONOCYTES 5 % (0-5); MYELOCYTES 1 % (0-0); NEUTROPHILS 76 % (28-66)
[2025-03-18 19:19] LABS: PLATELET ESTIMATE INCREASED (NORMAL)
== END ==
LOC: M SFHCLERA 15:19
PROVIDERS: ATTEND Family Medicine
DX: D50.0 Iron deficiency anemia secondary to blood loss (chronic) (principal); N18.30 Chronic kidney disease, stage 3 unspecified; E83.42 Hypomagnesemia